=== PATIENT | male | born 1965 | race Caucasian/White ===

== ENCOUNTER → 2020-06-28 09:43 | Outpatient (BNVA) | payer MEDICAID, SELFPAY | PROVIDERS: PCP Internal Medicine; Referring Provider Internal Medicine; Visit Provider Surgery | DX: L02.212 Cutaneous abscess of back [any part, except buttock and flank] (principal) | CPT/HCPCS: 10060; 99213 ==

== ENCOUNTER → 2020-07-04 13:02 | Outpatient (BNVA) | payer MEDICAID, SELFPAY | PROVIDERS: PCP Internal Medicine; Referring Provider Internal Medicine; Visit Provider Surgery | DX: Z48.817 Encounter for surgical aftercare following surgery on the skin and subcutaneous tissue (principal); Z48.01 Encounter for change or removal of surgical wound dressing | CPT/HCPCS: 99212 ==

== ENCOUNTER → 2020-07-11 10:54 | Outpatient (BNVA) | payer MEDICAID, SELFPAY | PROVIDERS: PCP Internal Medicine; Referring Provider Internal Medicine; Visit Provider Internal Medicine Endocrinology, Diabetes & Metabolism | DX: Z13.89 Encounter for screening for other disorder (principal) | CPT/HCPCS: 99214 ==

== ENCOUNTER → 2020-07-12 12:20 | Outpatient (BNVA) | payer MEDICAID, SELFPAY | PROVIDERS: PCP Internal Medicine; Visit Provider Surgery | DX: L72.0 Epidermal cyst (principal); Z98.890 Other specified postprocedural states | CPT/HCPCS: 99213 ==

== ENCOUNTER 2020-07-26 08:34 | Outpatient (REF) | payer MEDICAID, SELFPAY ==
[2020-07-26 09:18] VITALS: BP 134/98; PULSE 105; RESP 16; TEMP 37; O2SAT 98
[2020-07-26 09:19] VITALS: BMI 28.0
[2020-07-26 09:35] VITALS: BP 146/85; PULSE 96; RESP 16; O2SAT 98
--- NOTE | 2020-08-01 17:58 | P.OP_ITS ---
Operative Note Operative Note Narrative: Date of procedure: 07/26/2020 Preoperative diagnosis: Epidermal cyst of back with recurrent infection Postoperative diagnosis: Same Procedure: Excision of epidermal cyst of back Anesthesia: Local 1% lidocaine with epinephrine Specimen: Epidermal cyst of back and surrounding soft tissue Estimated blood loss: 3 cc Immediate complications: none Indications: This is a 54-year-old gentleman who has a prior history of an infected epidermal cyst of the back and has required incision and drainage on multiple occasions. He has continued symptoms of swelling and itching. Excision is planned. He is familiar with the technique and risks of infection, bleeding and scarring. Procedure in detail: With the patient in the prone position, after performing time-out procedure and identifying the site, the area of the cyst and surrounding skin was prepped with Betadine solution and was draped sterilely. Skin and subcutaneous tissues were infiltrated with local anesthetic and an elliptical incision was made surrounding the old scar overlying the cyst. Inc ision was carried into the subcutaneous tissues and the area was widely excised at the level of the deep subcutaneous tissue. There was no significant bleeding from the wound. The wound was closed with interrupted subcutaneous sutures of 4-0 Polysorb and skin was closed with interrupted sutures of 4-0 nylon. A dry sterile dressing was applied. He tolerated the procedure well. He will keep the area dry and covered for 24 hours. He will use acetaminophen as needed for pain and will be seen in the office for wound check and suture removal in about 1 week.
== END 2020-07-26 08:35 | disposition home or self-care (01) ==
LOC: HO.MS 08:34
PROVIDERS: PCP Internal Medicine; Visit Provider Surgery
DX: L72.0 Epidermal cyst (principal); J45.909 Unspecified asthma, uncomplicated; E11.9 Type 2 diabetes mellitus without complications; I10 Essential (primary) hypertension; Z79.4 Long term (current) use of insulin; Z79.899 Other long term (current) drug therapy
CPT/HCPCS: 11403; 12031; 88304

== ENCOUNTER → 2020-08-02 10:01 | Outpatient (BNVA) | payer MEDICAID, SELFPAY | PROVIDERS: PCP Internal Medicine; Referring Provider Internal Medicine; Visit Provider Surgery | DX: Z48.817 Encounter for surgical aftercare following surgery on the skin and subcutaneous tissue (principal) | CPT/HCPCS: 99212 ==

== ENCOUNTER → 2020-08-14 10:39 | Outpatient (BNVA) | payer MEDICAID, SELFPAY | PROVIDERS: PCP Internal Medicine; Visit Provider Surgery | DX: Z09 Encounter for follow-up examination after completed treatment for conditions other than malignant neoplasm (principal); Z87.2 Personal history of diseases of the skin and subcutaneous tissue | CPT/HCPCS: 99212 ==

== ENCOUNTER 2020-08-28 10:33 | Day surgery (SDC) | payer MEDICAID, SELFPAY ==
[2020-08-27 10:55] VITALS: BMI 27.4
[2020-08-28 11:22] VITALS: BP 156/88; PULSE 98; RESP 18; TEMP 36.6; O2SAT 98
--- NOTE | 2020-08-28 11:43 | HO.ANESPROP2 ---
[facility] Past Medical History Medical History (Updated 08/28/20 @ 11:14 by Argenis Portillo RN) Arthritis Asthma Bipolar 1 disorder Diabetes mellitus Diabetes type 2, uncontrolled Diabetic retinopathy associated with type 2 diabetes mellitus GERD (gastroesophageal reflux disease) Hypercholesterolemia 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 Lipoma longterm (current) use of insulin Vitamin D deficiency Family History Family History Father Diabetes mellitus Complete amputation of bilateral legs Mother Diabetes mellitus Surgical History Surgical History (Updated 08/28/20 @ 11:14 by Argenis Portillo RN) Hx of colonoscopy No pertinent past surgical history Social History Social History Smoking Status: Never smoker Second Hand Smoke Exposure: No Use of substances other than those prescribed or required for medical reasons: No Advance Directives: No Advance Directives Information Provided: No Advance Directives on File: No Meds Allergies Allergy/AdvReac Type Severity Reaction Status Date / Time No Known Allergies Allergy Verified 08/28/20 11:15 Home Medications Medication Instructions Recorded Confirmed Type amlodipine 5 mg tablet 5 mg PO DAILY 06/28/20 08/28/20 History aripiprazole 10 mg tablet 10 mg PO DAILY 06/28/20 08/28/20 History aspirin 81 mg tablet,delayed 81 mg PO DAILY 06/28/20 08/28/20 History release atorvastatin 20 mg tablet 20 mg PO DAILY 06/28/20 08/28/20 History bisacodyl 5 mg tablet,delayed 5 mg PO BEDTIME 06/28/20 08/28/20 History release bupropion HCl 300 mg 24 hr tablet, 300 mg PO QAM 06/28/20 08/28/20 History extended release cholecalciferol (vitamin D3) 50 50 mcg PO DAILY 06/28/20 08/28/20 History mcg (2,000 unit) capsule fenofibrate 160 mg tablet 160 mg PO DAILY 06/28/20 08/28/20 History folic acid 1 mg tablet 1 mg PO DAILY 06/28/20 08/28/20 History gabapentin 100 mg capsule 100 mg PO DAILY 06/28/20 08/28/20 History loratadine 10 mg tablet 10 mg PO DAILY 06/28/20 08/28/20 History omega-3 fatty acids 1,000 mg 1,000 mg PO DAILY 06/28/20 08/28/20 History capsule omeprazole 20 mg capsule,delayed 20 mg PO DAILY 06/28/20 08/28/20 History release prazosin 5 mg capsule 5 mg PO BEDTIME 06/28/20 08/28/20 History sertraline 100 mg tablet 100 mg PO DAILY 06/28/20 08/28/20 History Exam Exam Date and Time: August 28, 2020 1143 Height,Weight and Vital Signs: Height 5 ft 6 in Weight 77.111 kg Last Vital Signs Temp 97.8 F 08/28/20 11:22 Pulse 98 08/28/20 11:22 Resp 18 08/28/20 11:22 BP 156/88 H 08/28/20 11:22 Pulse Ox 98 08/28/20 11:22 Airway Mallampati Class: III (POC 170) TM Dist: >3cm Partial: Upper (Partial/ edentulous on bottom) Heart: RRR Lungs: CTA BL Assessment and Plan Assessment Anesthesia Assessment: Anesthesia Plan Discussed and Chart Reviewed Final Anesthetic Review NPO: Yes ASA Class: III Final Preanesthetic Review: Meds/Allgs Chart Reviewed and Consent Obtained/Reviewed Patient Risk: Intermediate Procedure Risk: Intermediate Anesthetic Plan Anesthetic Plan: MAC: Disposition: Standard PACU
[2020-08-28] MEDS: Lactated Ringers 1,000 ML 50 ML IVCONT (11:49)
--- NOTE | 2020-08-28 11:52 | MHC.SHP ---
Pre-Procedural Eval Section B Chief Complaint: SCREENING Details of Present Illness: Colon cancer screening #1 Diabetes, Asthma,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--no new changes. Relevant Family History (Specify if Yes): No Relevant Social History: None Present Medications: see Short Stay Collaborative assessment Medical History: Significant History (see above) History of Previous Operations: No relevant previous surgery Allergies: Allergies Allergy/AdvReac Type Severity Reaction Status Date / Time No Known Allergies Allergy Verified 08/28/20 11:15 Review of Systems Sugical H&P ROS: Negative: Constitution, Hem-Onc and Gastrointestinal and Yes, Specify: Cardiovascular (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), Respiratory (Asthma), Psychiatric (Hx Bipolar) and Endocrine (Diabetes) Exam Surgical H&P Exam: Normal: Heart, Normal: Lungs, Normal: Extremities and Normal: Abdomen and Not Evaluated: HEENT Plan Diagnosis/Plan: Unchanged Patient has been examined and remains a candidate for the planned procedure--YES
[2020-08-28 12:00] LABS: Glucose, Whole Blood 170 mg/dL (60-115)
[2020-08-28 12:30] VITALS: BP 106/65; PULSE 93; RESP 12; TEMP 36.8; O2SAT 97
--- NOTE | 2020-08-28 12:38 | PM.OP ---
Brief Operative Note Date of Service: 08/28/20 Pre-op diagnosis: Colon cancer screening # 1 Post-op diagnosis: other (colon polyps) Procedure: Colonoscopy with excisional polypectomy x2 Implants: N/A Surgeon: Sydney Bonilla MD Anesthesia: MAC (MD Kenn) Estimated blood loss (mL): 5 Pathology: other (Hepatic flexure, fold @ ilececal junction opposing valve.) Condition: stable Disposition: PACU
[2020-08-28 12:39] LABS: Glucose, Whole Blood 194 mg/dL (60-115)
[2020-08-28 12:45] VITALS: BP 138/90; PULSE 90; RESP 16; O2SAT 98
--- NOTE | 2020-08-28 13:13 | HO.POSTANES ---
Post Anesthesia Evaluation Post Anesthesia Evaluation Vital Signs: Vital Signs Temp Pulse Resp BP Pulse Ox 08/28/20 12:45 98.3 F 90 16 138/90 H 98 08/28/20 12:30 98.3 F 93 12 106/65 97 08/28/20 11:22 97.8 F 98 18 156/88 H 98 Anesthesia: Monitored Mental Status: Awake Pain Control: Satisfactory Nausea/Vomiting: None Hydration: Adequate Anesthesia-Related Issues: No Anes. Related Issues
--- NOTE | 2020-08-29 00:51 | OP_ITS ---
SURGEON: Sydney Bonilla MD PREOPERATIVE DIAGNOSIS: The patient is a 54-year-old male, who was referred for colon cancer screening, Dr. Floyd, primary care provider. Note, patient has been diabetic since the year 2000. He has had observed retinopathy under hr representative's care. There was a question on his intake of TBI as far as I could tell reviewing PCI and our [employer] record, he had 2 questionable neuro events, 1 in 2007, the other in 2017. No documented CVA, AVM, or TBI in 2008. EEG was negative. He had been seen by Dr. Bell in 2006. He was seen by Dr. Marmolejo. Most recent CT of the head was in 2019, it was unremarkable. MRI done in 2007 did not show any specific lesion either. (I did not find any documentation of TBI) POSTOPERATIVE DIAGNOSIS: Colonic polyps. PROCEDURE PERFORMED: Colonoscopy with excisional polypectomy x2 (use of cold biopsy forceps) ESTIMATED BLOOD LOSS: For this procedure, less than 5 cc. COMPLICATIONS: No complications. ANESTHESIA: Monitored. ANESTHESIOLOGIST: Dr. Hawk ASSISTANTS: No assistant broker. SPECIMENS: Specimens removed; sessile polyp, hepatic flexure. Second area of polyp, more diminutive between valley of 2 folds and the ileocecal region, removed excisionally. SEED CORE OPERATOR: Dr. Bonilla. CONDITION: Postprocedure, stable. FINDINGS: Digital rectal exam revealed prostate to be unremarkable. Digital rectal exam did reveal slightly decreased sphincter tone. Video colonoscope was introduced without difficulty. It was navigated into mildly prolapsed rectosigmoid area slowly on up through sigmoid, descending, transverse colon to the region of the hepatic flexure where a polyp was visualized. This was removed excisionally with the cold biopsy forceps. Review this area under narrow band imaging did not show any obvious residual tissue. The scope was navigated through the ascending colon into the cecum. Appendiceal orifice was seen. Ileocecal valve was seen. Prep was good. Overall, there was a moderate amount of flushing approximately 400 to 500 mL to facilitate removal of areas of thick retained fluids that were adherent to the mucosa. On withdrawal of the scope, no additional lesions were seen. Anorectal verge was clear. PLAN: Current recommendations for repeat asymptomatic screening in this patient would be 5 years. GRAFT OR IMPLANTS: No grafts or implants. Sydney Bonilla MD MEN/MODL / [id number] TIERRA
== END 2020-08-28 13:20 | disposition home or self-care (01) ==
PROVIDERS: PCP Internal Medicine; Visit Provider Internal Medicine Gastroenterology
PROC: 0DJD8ZZ Inspection of Lower Intestinal Tract, Via Natural or Artificial Opening Endoscopic (ICD-10-PCS; CPT 45378; principal; 2020-08-28 12:30)
DX: Z12.11 Encounter for screening for malignant neoplasm of colon (principal); D12.3 Benign neoplasm of transverse colon; K52.9 Noninfective gastroenteritis and colitis, unspecified; E11.319 Type 2 diabetes mellitus with unspecified diabetic retinopathy without macular edema; Z79.4 Long term (current) use of insulin
CPT/HCPCS: 45380; 82947; 88305

== ENCOUNTER → 2020-09-11 10:22 | Outpatient (BNVA) | payer MEDICAID, SELFPAY | PROVIDERS: PCP Internal Medicine; Visit Provider Physician Assistant | DX: D12.6 Benign neoplasm of colon, unspecified (principal); Z98.890 Other specified postprocedural states | CPT/HCPCS: 99212 ==

== ENCOUNTER → 2020-10-16 10:42 | Outpatient (BNVA) | payer MEDICAID, SELFPAY | PROVIDERS: PCP Internal Medicine; Visit Provider Internal Medicine Endocrinology, Diabetes & Metabolism | DX: E11.65 Type 2 diabetes mellitus with hyperglycemia (principal); E55.9 Vitamin D deficiency, unspecified; Z79.4 Long term (current) use of insulin; E11.3313 Type 2 diabetes mellitus with moderate nonproliferative diabetic retinopathy with macular edema, bilateral; I10 Essential (primary) hypertension; E78.00 Pure hypercholesterolemia, unspecified | CPT/HCPCS: 82947; 99212 ==

== ENCOUNTER 2020-11-05 14:35 | Emergency (ER) | payer MEDICAID, SELFPAY ==
--- NOTE | 2020-11-05 | ECG_ITS ---
Test Reason : CHEST BACK ARM NUMB Blood Pressure : / mmHG Vent. Rate : 099 BPM Atrial Rate : 099 BPM P-R Int : 160 ms QRS Dur : 082 ms QT Int : 348 ms P-R-T Axes : 037 -22 047 degrees QTc Int : 446 ms Normal sinus rhythm Minimal voltage criteria for LVH, may be normal variant Borderline ECG When compared with ECG of 11-NOV-2019 12:42, Criteria for Inferior infarct are no longer Present Referred By: Generic ED Physician Electronically Signed By:Zeyad Garcia
--- NOTE | ~2020-11-05 | XR_ITS ---
EXAMINATION: CHEST 2 VIEWS CLINICAL INFORMATION: CP . COMPARISON: 11/11/2019. TECHNIQUE: PA and lateral views of the chest obtained. FINDINGS: The lungs are well expanded. No focal infiltrate, effusion, edema, or pneumothorax. Cardiac and mediastinal silhouettes are within normal limits for technique. No acute bony abnormality seen XR/XR chest 2V IMPRESSION: No evidence of acute disease
[2020-11-05 16:38] VITALS: BP 174/100; PULSE 103; RESP 18; TEMP 36.7; O2SAT 99; BMI 28.0
[2020-11-05 16:51] LABS: MANUAL DIFF FLAG NO
[2020-11-05 16:53] LABS: Basophils Percent Auto 0.9 % (0-2); Eosinophils Absolute Auto 0.1 X10*3/uL (0.0-0.4); Eosinophils Percent Auto 2.5 % (0-4); Hematocrit 40.5 % (42-52); Hemoglobin 14.1 g/dl (14.0-18.0); Imm Gran Abs Auto 0.01 X10*3/uL (0.00-0.03); Imm Gran Pct Auto 0.3 % (0.0-0.4); Lymphocytes Absolute Auto 1.3 X10*3/uL (1.2-4.9); Lymphocytes Percent Auto 41.9 % (20-40); Mean Corpuscular HGB Conc 34.8 g/dl (31.0-36.0); Mean Corpuscular Hemoglobin 34.3 pg (27.0-33.0); Mean Corpuscular Volume 98.5 fL (80-98); Mean Platelet Volume 9.7 fL (9.4-12.4); Monocytes Absolute Auto 0.5 X10*3/uL (0.1-1.2); Monocytes Percent Auto 15.3 % (2-11); Neutrophils Absolute Auto 1.3 X10*3/uL (2.0-8.3); Neutrophils Percent Auto 39.1 % (45-73); Platelet Count 231 X10*3/uL (160-400); Red Blood Count 4.11 X10*6/uL (4.60-5.80); Red Cell Distribution Width 11.2 % (11.0-16.0); White Blood Count 3.2 X10*3/uL (4.8-10.8)
[2020-11-05 17:15] LABS: Anion Gap 12 (12-20); Blood Urea Nitrogen 10 mg/dL (9-16); Calcium 9.6 mg/dL (8.4-10.2); Carbon Dioxide 27 mmol/L (22-29); Chloride 101 mmol/L (96-108); Creatinine Clr Calc Pharmacy 105.8; Estimated Glomerular Filt Rate > 60; Glucose Random 99 mg/dL (60-115); Potassium 3.9 mmol/L (3.3-5.1); Sodium 136 mmol/L (135-145)
[2020-11-05 17:23] LABS: Troponin-I High Sensitivity 4.5 ng/L (<3.5-35.0)
--- NOTE | 2020-11-05 21:37 | ED.CHESTPAIN ---
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 He states the pain is burning and tingling in character and states he also noticed a rash to part of his shoulder. He denies any fevers or chills but states that he has had headache, dizziness, sweating. He otherwise denies any GI or symptoms. Related Data Home Medications Medication Instructions Recorded Confirmed amlodipine 5 mg tablet 5 mg PO DAILY 06/28/20 10/16/20 aripiprazole 10 mg tablet 10 mg PO DAILY 06/28/20 10/16/20 aspirin 81 mg tablet,delayed 81 mg PO DAILY 06/28/20 10/16/20 release atorvastatin 20 mg tablet 20 mg PO DAILY 06/28/20 10/16/20 bisacodyl 5 mg tablet,delayed 5 mg PO BEDTIME 06/28/20 10/16/20 release bupropion HCl 300 mg 24 hr tablet, 300 mg PO QAM 06/28/20 10/16/20 extended release cholecalciferol (vitamin D3) 50 50 mcg PO DAILY 06/28/20 10/16/20 mcg (2,000 unit) capsule folic acid 1 mg tablet 1 mg PO DAILY 06/28/20 10/16/20 gabapentin 100 mg capsule 100 mg PO DAILY 06/28/20 10/16/20 loratadine 10 mg tablet 10 mg PO DAILY 06/28/20 10/16/20 omega-3 fatty acids 1,000 mg 1,000 mg PO DAILY 06/28/20 10/16/20 capsule omeprazole 20 mg capsule,delayed 20 mg PO DAILY 06/28/20 10/16/20 release prazosin 5 mg capsule 5 mg PO BEDTIME 06/28/20 10/16/20 sertraline 100 mg tablet 100 mg PO DAILY 06/28/20 10/16/20 Previous Rx's Medication Instructions Recorded pen needle, diabetic 32 gauge x #150 ea 06/28/20 dulaglutide 1.5 mg/0.5 mL 1.5 mg SUBCUT QWEEK 30 Days #2.5 ml 07/11/20 subcutaneous pen injector metformin 1,000 mg tablet 1,000 mg PO BID 30 Days #60 tab 07/11/20 lisinopril 20 mg tablet 20 mg PO DAILY 90 Days #90 tab 07/13/20 fenofibrate 160 mg tablet 160 mg PO DAILY 30 Days #30 tab 09/04/20 insulin regular hum U-500 conc 125 unit SUBCUT . Twice a day 30 10/17/20 Days #18 ml valacyclovir 1,000 mg PO Q8H 7 Days #21 tab 11/05/20 Allergies Allergy/AdvReac Type Severity Reaction Status Date / Time No Known Allergies Allergy Verified 08/28/20 11:15 Review of Systems Review of Systems: Pertinent positives and negatives as stated in HPI 10 point review of systems is otherwise negative. 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 Vitamin D deficiency Surgical History Hx of colonoscopy No pertinent past surgical history Family History Family History Father Diabetes mellitus Complete amputation of bilateral legs Mother Diabetes mellitus Social History Social History Household Members: Spouse Smoking Status: Never smoker Second Hand Smoke Exposure: No Advance Directives: No Advance Directives Information Provided: Yes Physical Exam Vital Signs: Vital Signs: Last Vital Signs Temp 98.1 F 11/05/20 16:38 Pulse 101 H 11/05/20 22:06 Resp 16 11/05/20 22:06 BP 151/88 H 11/05/20 22:06 Pulse Ox 97 11/05/20 22:06 Body Mass Index 28.0 VITAL SIGNS: Reviewed. GENERAL: Well developed, well nourished, in no acute distress. HEAD: Normocephalic/atraumatic, EYES: PERRLA, EOMI NOSE: Nares patent bilateral OROPHARYNX: no oral lesions noted, posterior pharynx clear NECK: Supple, no adenopathy LUNGS: Normal breath sounds. SpO2<99> CARDIOVASCULAR: Regular rate and rhythm without noted murmurs, no JVD or lower extremity edema. ABDOMEN: Soft, non-tender, non-distended with bowel sounds. SKIN: Inspection of the skin reveals cluster of vesicular rash to posterior left shoulder which extends along the posterior aspect of the left triceps and noted scabbed over area to anterior aspect of chest. NEUROLOGIC: Alert and oriented x 4. Strength and sensation to light touch were grossly intact x 4. Course Course Course Narrative: This is a 55-year-old male with history and clinical presentation most consistent with herpes zoster, but will rule out cardiopulmonary etiologies. Review of all investigations is negative for any acute findings to suggest cardiopulmonary etiologies for patient's presenting symptoms. Serial high sensitivity troponin is flat at 4.5. All results and findings as well as the plan was discussed with patient at bedside via engineering mathematician. He was discharged to home in stable condition after receiving combination analgesics. MDM - Chest Pain Lab Data Result diagrams: 11/05/20 16:46 11/05/20 16:46 Labs: Lab Results 11/05/20 11/05/20 11/05/20 Range/Units 16:46 16:46 16:46 WBC 3.2 L (4.8-10.8) X10*3/uL RBC 4.11 L (4.60-5.80) X10*6/uL Hgb 14.1 (14.0-18.0) g/dl Hct 40.5 L (42-52) % MCV 98.5 H (80-98) fL MCH 34.3 H (27.0-33.0) pg MCHC 34.8 (31.0-36.0) g/dl RDW 11.2 (11.0-16.0) % Plt Count 231 (160-400) X10*3/uL MPV 9.7 (9.4-12.4) fL Immature Gran % (Auto) 0.3 (0.0-0.4) % Neut % (Auto) 39.1 L (45-73) % Lymph % (Auto) 41.9 H (20-40) % [place] % (Auto) 15.3 H (2-11) % Eos % (Auto) 2.5 (0-4) % Baso % (Auto) 0.9 (0-2) % Lymph # (Auto) 1.3 (1.2-4.9) X10*3/uL [place] # (Auto) 0.5 (0.1-1.2) X10*3/uL Eos # (Auto) 0.1 (0.0-0.4) X10*3/uL Baso # (Auto) 0.0 (0.0-0.2) X10*3/uL Abs Immat Gran (auto) 0.01 (0.00-0.03) X10*3/uL Absolute Neuts (auto) 1.3 L (2.0-8.3) X10*3/uL Absolute Nucleated RBC 0.000 (0.0-0.012) X10*3/uL Nucleated RBC % (auto) 0.0 (0.0-0.2) /100WBC Hold Blue Top SEE NOTE Sodium 136 (135-145) mmol/L Potassium 3.9 (3.3-5.1) mmol/L Chloride 101 (96-108) mmol/L Carbon Dioxide 27 (22-29) mmol/L Anion Gap 12 (12-20) BUN 10 (9-16) mg/dL Creatinine 0.77 (0.5-1.4) mg/dL Estim Creat Clear Calc 105.8 Estimated GFR > 60 Random Glucose 99 (60-115) mg/dL Calcium 9.6 (8.4-10.2) mg/dL Troponin I High Sens (<3.5-35.0) ng/L 11/05/20 11/05/20 Range/Units 16:46 21:31 WBC (4.8-10.8) X10*3/uL RBC (4.60-5.80) X10*6/uL Hgb (14.0-18.0) g/dl Hct (42-52) % MCV (80-98) fL MCH (27.0-33.0) pg MCHC (31.0-36.0) g/dl RDW (11.0-16.0) % Plt Count (160-400) X10*3/uL MPV (9.4-12.4) fL Immature Gran % (Auto) (0.0-0.4) % Neut % (Auto) (45-73) % Lymph % (Auto) (20-40) % [place] % (Auto) (2-11) % Eos % (Auto) (0-4) % Baso % (Auto) (0-2) % Lymph # (Auto) (1.2-4.9) X10*3/uL [place] # (Auto) (0.1-1.2) X10*3/uL Eos # (Auto) (0.0-0.4) X10*3/uL Baso # (Auto) (0.0-0.2) X10*3/uL Abs Immat Gran (auto) (0.00-0.03) X10*3/uL Absolute Neuts (auto) (2.0-8.3) X10*3/uL Absolute Nucleated RBC (0.0-0.012) X10*3/uL Nucleated RBC % (auto) (0.0-0.2) /100WBC Hold Blue Top Sodium (135-145) mmol/L Potassium (3.3-5.1) mmol/L Chloride (96-108) mmol/L Carbon Dioxide (22-29) mmol/L Anion Gap (12-20) BUN (9-16) mg/dL Creatinine (0.5-1.4) mg/dL Estim Creat Clear Calc Estimated GFR Random Glucose (60-115) mg/dL Calcium (8.4-10.2) mg/dL Troponin I High Sens 4.5 4.5 (<3.5-35.0) ng/L ECG Data ECG #1: Attestation: I personally reviewed and interpreted this ECG as follows: Prior ECG tracings: available for review (11/11/2019 no acute changes on comparison.) Interpretation: Normal sinus rhythm, HR-99, no evidence of acute ischemia, [place]/QRS/QTC are within normal limits. Discharge Plan Discharge Clinical Impression: Herpes zoster Qualifiers: Herpes zoster complications: without complications Qualified Code(s): B02.9 - Zoster without complications Patient Disposition: Home, Self-Care Instructions: Shingles (ED) Additional Instructions: 1. Debe continuar tomando vani medicamentos caseros seg?n lo prescrito por vani s?ntomas. 2. Tylenol 1000 mg, por v?a oral, cada 6 horas seg?n sea necesario para controlar el dolor. No exceda los 4000 mg en 24 horas. 3. Ibuprofeno 400 mg, por v?a oral con leche o alimentos, cada 6 horas seg?n sea necesario para un alivio adicional del dolor. Tierra medicamento solo debe usarse si el Tylenol no cubre vani s?ntomas de dolor. 4. Llame a la oficina del [facility] por la ma?hadley para programar latonya tahmina para la reevaluaci?n de esta erupci?n. No dude en volver al servicio de urgencias si desarrolla un empeoramiento megha de vani s?ntomas. Prescriptions: New valacyclovir 1 gram tablet 1,000 mg PO Q8H 7 Days Qty: 21 RF: 0 No Action (DME) pen needle, diabetic [BD Bela 2nd Gen Pen Needle] 32 gauge x 5/32 needle See Rx Instructions .MEDSUPPLY Qty: 150 RF: 4 lisinopril 20 mg tablet 20 mg PO DAILY 90 Days Qty: 90 RF: 1 fenofibrate 160 mg tablet 160 mg PO DAILY 30 Days Qty: 30 RF: 6 Humulin R U-500 (Conc) Kwikpen 500 unit/mL (3 mL) insulin pen 125 unit subcut . Twice a day 30 Days Qty: 18 RF: 6 Trulicity 1.5 mg/0.5 mL pen injector 1.5 mg subcut QWEEK 30 Days Qty: 2.5 RF: 6 metformin 1,000 mg tablet 1,000 mg PO BID 30 Days Qty: 60 RF: 6 omeprazole 20 mg capsule,delayed release(DR/EC) 20 mg PO DAILY RF: 0 aspirin [Adult Low Dose Aspirin] 81 mg tablet,delayed release (DR/EC) 81 mg PO DAILY RF: 0 Hold Instructions: Resume on 09/03/20. no ASA or Nsaids, for a week. cholecalciferol (vitamin D3) 50 mcg (2,000 unit) capsule 50 mcg PO DAILY RF: 0 prazosin 5 mg capsule 5 mg PO BEDTIME RF: 0 omega-3 fatty acids [Fish Oil Concentrate] 1,000 mg capsule 1,000 mg PO DAILY RF: 0 Hold Instructions: Resume on 09/03/20. NO asa, Nsaids or omega 3 supplements for 1 week sertraline 100 mg tablet 100 mg PO DAILY RF: 0 aripiprazole 10 mg tablet 10 mg PO DAILY RF: 0 bupropion HCl [Wellbutrin XL] 300 mg tablet extended release 24 hr 300 mg PO QAM RF: 0 loratadine [Claritin] 10 mg tablet 10 mg PO DAILY RF: 0 amlodipine 5 mg tablet 5 mg PO DAILY RF: 0 gabapentin 100 mg capsule 100 mg PO DAILY RF: 0 atorvastatin [Lipitor] 20 mg tablet 20 mg PO DAILY RF: 0 folic acid 1 mg tablet 1 mg PO DAILY RF: 0 bisacodyl [Dulcolax (bisacodyl)] 5 mg tablet,delayed release (DR/EC) 5 mg PO BEDTIME RF: 0 Referrals: [facility] [Outside] - 2 days (Please re-evaluate this patient who is discharged with treatment for herpes zoster (shingles) and is diabetic and is seen in your clinic.) Print Language: [place]
[2020-11-05 22:04] LABS: Troponin-I High Sensitivity 4.5 ng/L (<3.5-35.0)
[2020-11-05 22:06] VITALS: BP 151/88; PULSE 101; RESP 16; O2SAT 97
[2020-11-05] MEDS: Acetaminophen 325 MG TABLET 975 MG PO (22:28)
[2020-11-05] MEDS: Ketorolac Tromethamine 15 MG/ML VIAL IM (22:28)
== END 2020-11-05 22:38 | disposition home or self-care (01) ==
PROVIDERS: Emergency Provider Student in an Organized Health Care Education/Training Program
DX: B02.9 Zoster without complications (principal); E11.9 Type 2 diabetes mellitus without complications; I10 Essential (primary) hypertension; Z79.4 Long term (current) use of insulin
CPT/HCPCS: 36415; 71046; 80048; 84484; 85025; 93005; 96372; 99284; J1885

== ENCOUNTER → 2021-01-15 10:47 | Outpatient (BNVA) | payer MEDICAID, SELFPAY | PROVIDERS: PCP Internal Medicine; Visit Provider Internal Medicine Endocrinology, Diabetes & Metabolism | DX: E11.65 Type 2 diabetes mellitus with hyperglycemia (principal); E11.3313 Type 2 diabetes mellitus with moderate nonproliferative diabetic retinopathy with macular edema, bilateral; E11.42 Type 2 diabetes mellitus with diabetic polyneuropathy; Z79.4 Long term (current) use of insulin; E55.9 Vitamin D deficiency, unspecified; I10 Essential (primary) hypertension; E78.00 Pure hypercholesterolemia, unspecified | CPT/HCPCS: 82947; 99212 ==

== ENCOUNTER 2021-05-03 17:46 | Emergency (ER) | payer MEDICAID, SELFPAY ==
--- NOTE | ~2021-05-03 | XR_ITS ---
EXAMINATION: XR CHEST CLINICAL INFORMATION: Weakness and fever COMPARISON: None TECHNIQUE: Frontal view of the chest was obtained. FINDINGS: The lungs are well-expanded with patchy linear density in the right middle lobe suspicious for atelectasis/ infiltrate. Rest of lungs are clear. The heart size and pulmonary vascularity is normal. There is moderate dextroscoliosis dorsal spine. No lytic process. XR/XR chest 1V IMPRESSION: Patchy linear density right middle lobe likely atelectasis and/or small infiltrate.
--- NOTE | ~2021-05-03 | CT_ITS ---
EXAMINATION: CT ABDOMEN AND PELVIS WITH CONTRAST CLINICAL INFORMATION: Right lower quadrant pain COMPARISON: CT scan abdomen pelvis November 11, 2019 TECHNIQUE: Multidetector volumetric images were obtained from the superior aspect of the liver through the pubic symphysis following administration 85 mL of Omnipaque 350 intravenous contrast. Sagittal and coronal reformatted images were obtained on the technologist's workstation. Oral contrast: No This CT examination was performed using dose optimization techniques as appropriate, variously including the following: *Automated exposure control *Adjustment of mA and/or kV according to patient size (this includes techniques or standardized protocols for targeted exams where dose is matched to indication/reason for exam; i.e. extremities or head) *Use of iterative reconstruction technique DLP: 620 mGy-cm FINDINGS: LUNG BASES: The visualized lung bases are unremarkable. LIVER, GALLBLADDER, AND BILIARY TREE: Stable low attenuating lesion segment 4 left lobe of liver measuring 1 cm unchanged since CAT scan December 01, 2007. No suspicious liver lesions. No intrahepatic bile duct dilatation. The gallbladder is unremarkable with no evidence of radiopaque gallstones, gallbladder wall thickening, or obvious pericholecystic inflammatory changes. PANCREAS: Unremarkable. SPLEEN: Unremarkable. ADRENAL GLANDS: Unremarkable. KIDNEYS AND URETERS: The kidneys are normal in size, shape, and attenuation. No hydronephrosis, hydroureter, or calculi seen. No perinephric stranding. BLADDER: Unremarkable. GASTROINTESTINAL TRACT: There are scattered diverticula of the colon. There is no diverticulitis. There is no bowel wall thickening /edema. There is no bowel obstruction. There is a moderate volume of stool in the colon. The appendix is normal . The small bowel loops are unremarkable. The stomach is normal. There is no hiatal hernia. ABDOMINAL WALL: Small fat-containing umbilical hernia. LYMPH NODES: Normal. VASCULAR: Unremarkable. PELVIC VISCERA: Unremarkable. OSSEOUS STRUCTURES: Unremarkable. CT/CT abdomen pelvis w con IMPRESSION: No acute abnormality CT scan abdomen pelvis.
[2021-05-03 17:55] VITALS: BP 139/82; PULSE 112; RESP 18; TEMP 37.2; O2SAT 95; BMI 28.4
[2021-05-03 17:59] VITALS: O2SAT 95
--- NOTE | 2021-05-03 18:03 | PC.NURSE ---
PT TO ROOM, C/O SUGAR IN URINE FROM MD'S OFFICE. PT CHG INTO GOWN. PT ARRIVES ALERT, RESPIRATIONS EASY, N/L. SKIN W/D. PT C/O NAUSEA/VOMITING AND BODYACHES AT THIS TIME. PT ON MONITOR WITH HR 112, PA AT BEDSIDE WITH PT.
--- NOTE | 2021-05-03 18:04 | PC.NURSE ---
iv inserted, labs drawn and pt medicated as per emar.
--- NOTE | 2021-05-03 18:04 | ECG_ITS ---
Test Reason : TACHYCARDIA Blood Pressure : / mmHG Vent. Rate : 105 BPM Atrial Rate : 105 BPM P-R Int : 170 ms QRS Dur : 086 ms QT Int : 340 ms P-R-T Axes : 041 -16 041 degrees QTc Int : 449 ms Sinus tachycardia Minimal voltage criteria for LVH, may be normal variant Borderline ECG When compared with ECG of 05-NOV-2020 16:40, No significant change was found Referred By: Krissy Woodall Electronically Signed By:GISELA JOLLEY
--- NOTE | 2021-05-03 18:27 | ED_ITS ---
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 No fevers, urinary symptoms, chest pain or shortness of breath. <Krissy Woodall NP - Last Filed: 05/03/21 21:27> Related Data Home medications: Home Medications Medication Instructions Recorded Confirmed amlodipine 5 mg tablet 5 mg PO DAILY 06/28/20 01/15/21 aripiprazole 10 mg tablet 10 mg PO DAILY 06/28/20 01/15/21 aspirin 81 mg tablet,delayed 81 mg PO DAILY 06/28/20 01/15/21 release (Adult Low Dose Aspirin) bisacodyl 5 mg tablet,delayed 5 mg PO BEDTIME 06/28/20 01/15/21 release (Dulcolax (bisacodyl)) bupropion HCl 300 mg 24 hr tablet, 300 mg PO QAM 06/28/20 01/15/21 extended release (Wellbutrin XL) folic acid 1 mg tablet 1 mg PO DAILY 06/28/20 01/15/21 gabapentin 100 mg capsule 100 mg PO DAILY 06/28/20 01/15/21 loratadine 10 mg tablet (Claritin) 10 mg PO DAILY 06/28/20 01/15/21 omega-3 fatty acids 1,000 mg 1,000 mg PO DAILY 06/28/20 01/15/21 capsule (Fish Oil Concentrate) omeprazole 20 mg capsule,delayed 20 mg PO DAILY 06/28/20 01/15/21 release prazosin 5 mg capsule 5 mg PO BEDTIME 06/28/20 01/15/21 sertraline 100 mg tablet 100 mg PO DAILY 06/28/20 01/15/21 Previous Rx's Medication Instructions Recorded valacyclovir 1 gram tablet 1,000 mg PO Q8H 7 Days #21 tab 11/05/20 lisinopril 20 mg tablet 20 mg PO DAILY 90 Days #90 tab 12/26/20 atorvastatin 20 mg tablet (Lipitor) 20 mg PO DAILY 30 Days #30 tab 01/15/21 cholecalciferol (vitamin D3) 50 50 mcg PO DAILY 30 Days #30 cap 01/15/21 mcg (2,000 unit) capsule dulaglutide 3 mg/0.5 mL 3 mg SUBCUT QWEEK 30 Days #2.5 ml 01/15/21 subcutaneous pen injector (Trulicity) insulin regular hum U-500 conc See Rx Instructions SUBCUT . 01/15/21 (Humulin R U-500 (Conc) Insulin Twice a day 30 Days #18 ml Kwikpen) metformin 1,000 mg tablet 1,000 mg PO BID 30 Days #60 tab 01/15/21 pen needle, diabetic 32 gauge x #100 ea 01/15/21/32 (BD Bela 2nd Gen Pen Needle) fenofibrate 160 mg tablet 160 mg PO DAILY 30 Days #30 tab 03/28/21 azithromycin 250 mg tablet See Rx Instructions .ROUTE 05/03/21 .COMPLEX #6 tab cefpodoxime 200 mg tablet 200 mg PO BID 7 Days #14 tab 05/03/21 <Krissy Woodall NP - Last Filed: 05/03/21 21:27> Allergies/adverse reactions: Allergies Allergy/AdvReac Type Severity Reaction Status Date / Time No Known Allergies Allergy Verified 08/28/20 11:15 <Krissy Woodall NP - Last Filed: 05/03/21 21:27> Review of Systems Review of Systems: Yes all other systems are reviewed and are negative <Krissy Woodall NP - Last Filed: 05/03/21 21:27> Constitutional: Constitutional: Reports no additional constitutional complaints, Reports body ache(s), Reports chills, Denies fever(s), Denies headache(s) and Denies weakness <Krissy Woodall NP - Last Filed: 05/03/21 21:27> Eyes: Eyes: Reports no additional eye complaints and Denies change in vision <Krissy Woodall NP - Last Filed: 05/03/21:27> ENT: Reports system reviewed and no additional complaints, except as documented, Denies dizziness, Denies headache(s), Denies nasal congestion, Denies nasal discharge and Denies neck pain <Krissy Woodall [employer]YEGL[employer] FRAME [employer]UER - Last Filed: 05/03/21 21:27> Cardiovascular: Cardiovascular: Reports no additional cardiovascular complaints, Denies chest pain, Denies leg edema and Denies dyspnea <Krissy Woodall NP - Last Filed: 05/03/21:27> Respiratory: Respiratory: Reports no additional respiratory complaints, Denies cough and Denies dyspnea <Krissy Woodall EYE[employer] FRAME [employer]ER - Last Filed: 05/03/21:27> Gastrointestinal: Gastrointestinal: Reports no additional gastrointestinal complaints, Reports abdominal pain, Denies diarrhea, Reports nausea and Reports vomiting <Krissy Woodall NP - Last Filed: 05/03/21:27> Genitourinary: Genitourinary: Denies urinary incontinence <Krissy Woodall NP - Last Filed: 05/03/21 21:27> Musculoskeletal: Musculoskeletal: Reports no additional musculoskeletal complaints, Denies back pain, Denies arthralgias, Denies joint swelling, Denies neck pain, Denies numbness and Denies tingling <Krissy Woodall NP - Last Filed: 05/03/21:27> Integumentary/Breasts: Skin/Breast: Reports system reviewed and no additional complaints, except as docu and Denies rash <Krissy Woodall EYE[employer] FRAME TRUER - Last Filed: 05/03/21 21:27> Neurologic: Reports system reviewed and no additional complaints, except as documented, Denies Abnormal speech present, Denies dizziness, Denies headache(s), Denies numbness, Denies tingling and Denies weakness <Krissy Woodall NP - Last Filed: 05/03/21 21:27> [facility] Past Medical History Attestation statement: The following information was validated with the patient. <Krissy Woodall NP - Last Filed: 05/03/21 21:27> Source: old records reviewed and nursing notes reviewed <Krissy Woodall NP - Last Filed: 05/03/21 21:27> Medical History: Medical History Arthritis Asthma Bipolar 1 disorder Diabetes mellitus Diabetes type 2, uncontrolled Diabetic polyneuropathy associated with type 2 diabetes mellitus Diabetic retinopathy associated with type 2 diabetes mellitus GERD (gastroesophageal reflux disease) Hypercholesterolemia 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 Lipoma FDC (current) use of insulin Vitamin D deficiency <Krissy Woodall NP - Last Filed: 05/03/21 21:27> Surgical History: Surgical History Hx of colonoscopy No pertinent past surgical history <Krissy Woodall NP - Last Filed: 05/03/21 21:27> Family History Family History: Family History Father Diabetes mellitus Complete amputation of bilateral legs Mother Diabetes mellitus <Krissy Woodall NP - Last Filed: 05/03/21 21:27> Social History Social History: Social History Household Members: Spouse Alcohol intake: never Second Hand Smoke Exposure: No Advance Directives: No Advance Directives Information Provided: Yes <Krissy Woodall NP - Last Filed: 05/03/21 21:27> Physical Exam Vital Signs: Vital Signs: Last Vital Signs Temp 98.9 F 05/03/21 17:55 Pulse 112 H 05/03/21 17:55 Resp 18 05/03/21 17:55 BP 139/82 05/03/21 17:55 Pulse Ox 95 05/03/21 17:55 Body Mass Index 28.4 <Krissy Woodall NP - Last Filed: 05/03/21 21:27> Vital Signs: Last Vital Signs Temp 98.9 F 05/03/21 17:55 Pulse 112 H 05/03/21 17:55 Resp 18 05/03/21 17:55 BP 139/82 05/03/21 17:55 Pulse Ox 95 05/03/21 17:55 Body Mass Index 28.4 <Lala Morgan PA - Last Filed: 05/03/21 23:26> Const: General: cooperative, healthy appearing, comfortable and no acute distress <Krissy Woodall NP - Last Filed: 05/03/21 21:27> Orientation/consciousness: patient oriented x3 <Krissy Woodall NP - Last Filed: 05/03/21 21:27> Limitations: no limitations <Krissy Woodall NP - Last Filed: 05/03/21 21:27> HENMT: Head: Yes normal to inspection <Krissy Woodall NP - Last Filed: 05/03/21 21:27> Ears: hearing grossly normal bilaterally <Krissy Woodall NP - Last Filed: 05/03/21 21:27> General nose exam: Normal external nose present <Krissy Woodall NP - Last Filed: 05/03/21 21:27> Face and sinus: Yes normal facial exam <Krissy Woodall NP - Last Filed: 05/03/21 21:27> Mouth: Normal oral and palatal mucosa present <Krissy Woodall NP - Last Filed: 05/03/21 21:27> Throat: Yes posterior oropharynx normal <Krissy Woodall NP - Last Filed: 05/03/21 21:27> Eyes: General: appearance normal, both eyes and all related structures <Krissy Woodall NP - Last Filed: 05/03/21 21:27> Pupils: Equal, round and reactive pupils present <Krissy Woodall NP - Last Filed: 05/03/21 21:27> Neck: Neck: Yes normal visual inspection <Krissy Woodall NP - Last Filed: 05/03/21 21:27> Chest: Chest palpation & inspection: normal inspection of the chest <AFTAB Smith Last Filed: 05/03/21 21:27> Resp: Effort & Inspection: normal respiratory effort <Krissy Woodall NP - Last Filed: 05/03/21 21:27> Auscultation: clear to auscultation bilaterally <Krissy Woodall NP - Last Filed: 05/03/21 21:27> Cardio: Rate: tachycardic <Krissy Woodall NP - Last Filed: 05/03/21 21:27> Rhythm: regular rhythm <Krissy Woodall NP - Last Filed: 05/03/21 21:27> Peripheral pulses: Peripheral pulses 2+ throughout <AFTAB Joe st Filed: 05/03/21 21:27> GI: Inspection: Yes normal to inspection <AFTAB Joe Last Filed: 05/03/21 21:27> Palpation (GI): Soft to palpation and Tenderness to palpation present (GI) (Right abdomen, no rebound or guarding ) <Krissy Woodall NP - Last Filed: 05/03/21 21:27> Auscultation: normal bowel sounds <Krissy Woodall NP - Last Filed: 05/03/21 21:27> Back/Spine/Pelvis: Thoracic/Lumbar Spine: thoracic and lumbar spine normal to inspection <Krissy Woodall NP - Last Filed: 05/03/21 21:27> Skin: General skin exam: no rashes or lesions noted <Krissy Woodall NP - Last Filed: 05/03/21 21:27> Neuro: General: patient oriented x3, no focal motor deficits and normal se nsation to monofilament <Krissy Woodall NP - Last Filed: 05/03/21 21:27> Cranial nerves: Yes Equal, round and reactive pupils present <Krissy Woodall NP - Last Filed: 05/03/21 21:27> Cognition (Neuro): normal cognition <AFTAB Joe Last Filed: 05/03/21 21:27> Speech: No Abnormal speech present <Krissy Woodall NP - Last Filed: 05/03/21 21:27> Gait exam (Neuro): Normal gait present <Krissy Woodall NP - Last Filed: 05/03/21 21:27> Motor exam (neuro): 5/5 motor strength present throughout <Krissy Woodall NP - Last Filed: 05/03/21 21:27> Extrem: General: Yes normal to inspection, Yes no pedal edema and Yes no calf tenderness <Krissy Woodall NP - Last Filed: 05/03/21 21:27> Course Course Course Narrative: 55-year-old male here with complaints of nausea, vomiting, body aches, chills and right-sided abdominal pain for 2-3 days. Patient was seen at the doctor's office today and was noted to have some glucose in his urine and he was sent in for further evaluation. Per EMS his POC was 256. He tells me he is an insulin-dependent diabetic and has been compliant. On exam he overall is well appearing. He does have some mild tachycardia but is afebrile. He has some tenderness on the right side of the abdomen but no rebound or guarding. Will need labs including acetone in VBG, UA, COVID screen, chest x-ray, EKG and CT. 1837-CXR c/w with PNA. At this time infections is suspected. antibiotics ordered. 2124-Sign out to Lala Freitas pending above. <Krissy Woodall NP - Last Filed: 05/03/21 21:27> Reevaluation(s) Reevaluation #1: CT abdomen pelvis w con IMPRESSION: No acute abnormality CT scan abdomen pelvis.? >> results discussed with patient and family at bedside. Will treat for pneumonia. Worrisome signs and symptoms and strict return precautions discussed <LYN Nobles - Last Filed: 05/03/21 23:26> Time: 23:18 <LYN Nobles - Last Filed: 05/03/21 23:26> Medical Decision Making MDM Narrative Medical decision making narrative: Viral syndrome COVID-19 UTI Appendicitis Gastroenteritis <Krissy Woodall NP - Last Filed: 05/03/21 21:27> Medical Records Medical records reviewed: Yes I reviewed the patient's medical records. <Krissy Woodall NP - Last Filed: 05/03/21 21:27> Lab Data Lab results reviewed: Yes I reviewed the patient's lab results. <Krissy Woodall NP - Last Filed: 05/03/21 21:27> Result diagrams: : 05/03/21 19:03 05/03/21 20:32 <Krissy Woodall NP - Last Filed: 05/03/21 21:27> Labs: Lab Results 05/03/21 05/03/21 05/03/21 Range/Units 18:29 19:02 19:03 WBC 5.8 (4.8-10.8) X10*3/uL RBC 4.33 L (4.60-5.80) X10*6/uL Hgb 13.9 L (14.0-18.0) g/dl Hct 41.5 L (42-52) % MCV 95.8 (80-98) fL MCH 32.1 (27.0-33.0) pg MCHC 33.5 (31.0-36.0) g/dl RDW 12.4 (11.0-16.0) % Plt Count 274 (160-400) X10*3/uL MPV 10.0 (9.4-12.4) fL Immature Gran % (Auto) 0.3 (0.0-0.4) % Neut % (Auto) 41.7 L (45-73) % Lymph % (Auto) 46.7 H (20-40) % [place] % (Auto) 8.6 (2-11) % Eos % (Auto) 2.2 (0-4) % Baso % (Auto) 0.5 (0-2) % Lymph # (Auto) 2.7 (1.2-4.9) X10*3/uL [place] # (Auto) 0.5 (0.1-1.2) X10*3/uL Eos # (Auto) 0.1 (0.0-0.4) X10*3/uL Baso # (Auto) 0.0 (0.0-0.2) X10*3/uL Abs Immat Gran (auto) 0.02 (0.00-0.03) X10*3/uL Absolute Neuts (auto) 2.4 (2.0-8.3) X10*3/uL Absolute Nucleated RBC 0.000 (0.0-0.012) X10*3/uL Nucleated RBC % (auto) 0.0 (0.0-0.2) /100WBC VBG pH (7.32-7.43) VBG pCO2 mmHg VBG pO2 mmHg VBG HCO3 (22-26) mmol/L VBG O2 Saturation % VBG Base Excess mmol/L Sodium (135-145) mmol/L Potassium (3.3-5.1) mmol/L Chloride (96-108) mmol/L Carbon Dioxide (22-29) mmol/L Anion Gap (12-20) BUN (9-16) mg/dL Creatinine (0.5-1.4) mg/dL Estim Creat Clear Calc Estimated GFR Random Glucose (60-115) mg/dL Lactic Acid (0.5-2.0) mmol/L Calcium (8.4-10.2) mg/dL Magnesium (1.6-2.6) mg/dL Total Bilirubin (0.0-1.0) mg/dL Direct Bilirubin (0.0-0.5) mg/dL AST (5-37) U/L ALT (0-40) U/L Alkaline Phosphatase (39-117) U/L Troponin I High Sens (<3.5-35.0) ng/L Total Protein (6.5-8.0) g/dL Albumin (3.5-5.0) g/dL Lipase (8-78) U/L Urine Color Urine Appearance Urine pH (5.0-8.0) Ur Specific [place] (1.005-1.025) Urine Protein (NEG-TRACE) MG/DL Urine Glucose (UA) (NEG) MG/DL Urine Ketones (NEG) MG/DL Urine Blood (NEG) Urine Nitrite (NEG) Ur Leukocyte Esterase (NEG) Urine RBC (0) /HPF Urine WBC (0-4) /HPF Ur Squamous Epith Cells /LPF Amorphous Sediment /LPF Urine Bacteria /LPF Hyaline Casts /LPF Urine Mucus /LPF Acetone, Qual Cancelled COVID-19 (NAEL) Negative (Negative) COVID-19 Clin Com See Note 0805/03/21 05/03/21 Range/Units 19:03 19:04 19:06 WBC (4.8-10.8) X10*3/uL RBC (4.60-5.80) X10*6/uL Hgb (14.0-18.0) g/dl Hct (42-52) % MCV (80-98) fL MCH (27.0-33.0) pg MCHC (31.0-36.0) g/dl RDW (11.0-16.0) % Plt Count (160-400) X10*3/uL MPV (9.4-12.4) fL Immature Gran % (Auto) (0.0-0.4) % Neut % (Auto) (45-73) % Lymph % (Auto) (20-40) % [place] % (Auto) (2-11) % Eos % (Auto) (0-4) % Baso % (Auto) (0-2) % Lymph # (Auto) (1.2-4.9) X10*3/uL [place] # (Auto) (0.1-1.2) X10*3/uL Eos # (Auto) (0.0-0.4) X10*3/uL Baso # (Auto) (0.0-0.2) X10*3/uL Abs Immat Gran (auto) (0.00-0.03) X10*3/uL Absolute Neuts (auto) (2.0-8.3) X10*3/uL Absolute Nucleated RBC (0.0-0.012) X10*3/uL Nucleated RBC % (auto) (0.0-0.2) /100WBC VBG pH 7.44 H (7.32-7.43) VBG pCO2 35 mmHg VBG pO2 96 mmHg VBG HCO3 24 (22-26) mmol/L VBG O2 Saturation 97.0 % VBG Base Excess 1.0 mmol/L Sodium (135-145) mmol/L Potassium (3.3-5.1) mmol/L Chloride (96-108) mmol/L Carbon Dioxide (22-29) mmol/L Anion Gap (12-20) BUN (9-16) mg/dL Creatinine (0.5-1.4) mg/dL Estim Creat Clear Calc Estimated GFR Random Glucose (60-115) mg/dL Lactic Acid 1.1 (0.5-2.0) mmol/L Calcium (8.4-10.2) mg/dL Magnesium (1.6-2.6) mg/dL Total Bilirubin (0.0-1.0) mg/dL Direct Bilirubin (0.0-0.5) mg/dL AST (5-37) U/L ALT (0-40) U/L Alkaline Phosphatase (39-117) U/L Troponin I High Sens < 3.5 (<3.5-35.0) ng/L Total Protein (6.5-8.0) g/dL Albumin (3.5-5.0) g/dL Lipase (8-78) U/L Urine Color Urine Appearance Urine pH (5.0-8.0) Ur Specific [place] (1.005-1.025) Urine Protein (NEG-TRACE) MG/DL Urine Glucose (UA) (NEG) MG/DL Urine Ketones (NEG) MG/DL Urine Blood (NEG) Urine Nitrite (NEG) Ur Leukocyte Esterase (NEG) Urine RBC (0) /HPF Urine WBC (0-4) /HPF Ur Squamous Epith Cells /LPF Amorphous Sediment /LPF Urine Bacteria /LPF Hyaline Casts /LPF Urine Mucus /LPF Acetone, Qual COVID-19 (NAEL) (Negative) COVID-19 Clin Com 05/03/21 05/03/21 Range/Units 20:32 21:25 WBC (4.8-10.8) X10*3/uL RBC (4.60-5.80) X10*6/uL Hgb (14.0-18.0) g/dl Hct (42-52) % MCV (80-98) fL MCH (27.0-33.0) pg MCHC (31.0-36.0) g/dl RDW (11.0-16.0) % Plt Count (160-400) X10*3/uL MPV (9.4-12.4) fL Immature Gran % (Auto) (0.0-0.4) % Neut % (Auto) (45-73) % Lymph % (Auto) (20-40) % [place] % (Auto) (2-11) % Eos % (Auto) (0-4) % Baso % (Auto) (0-2) % Lymph # (Auto) (1.2-4.9) X10*3/uL [place] # (Auto) (0.1-1.2) X10*3/uL Eos # (Auto) (0.0-0.4) X10*3/uL Baso # (Auto) (0.0-0.2) X10*3/uL Abs Immat Gran (auto) (0.00-0.03) X10*3/uL Absolute Neuts (auto) (2.0-8.3) X10*3/uL Absolute Nucleated RBC (0.0-0.012) X10*3/uL Nucleated RBC % (auto) (0.0-0.2) /100WBC VBG pH (7.32-7.43) VBG pCO2 mmHg VBG pO2 mmHg VBG HCO3 (22-26) mmol/L VBG O2 Saturation % VBG Base Excess mmol/L Sodium 137 (135-145) mmol/L Potassium 4.7 D (3.3-5.1) mmol/L Chloride 104 (96-108) mmol/L Carbon Dioxide 23 (22-29) mmol/L Anion Gap 15 (12-20) BUN 20 H D (9-16) mg/dL Creatinine 1.14 (0.5-1.4) mg/dL Estim Creat Clear Calc 71.9 Estimated GFR > 60 Random Glucose 224 H D (60-115) mg/dL Lactic Acid (0.5-2.0) mmol/L Calcium 9.1 (8.4-10.2) mg/dL Magnesium 1.7 (1.6-2.6) mg/dL Total Bilirubin 0.7 (0.0-1.0) mg/dL Direct Bilirubin 0.2 (0.0-0.5) mg/dL AST 23 (5-37) U/L ALT 36 (0-40) U/L Alkaline Phosphatase 68 (39-117) U/L Troponin I High Sens (<3.5-35.0) ng/L Total Protein 6.5 (6.5-8.0) g/dL Albumin 3.9 (3.5-5.0) g/dL Lipase 21 (8-78) U/L Urine Color DARK YELLOW Urine Appearance CLEAR Urine pH 5.5 (5.0-8.0) Ur Specific [place] >= 1.030 H (1.005-1.025) Urine Protein TRACE (NEG-TRACE) MG/DL Urine Glucose (UA) >=1000 H (NEG) MG/DL Urine Ketones 40 (NEG) MG/DL Urine Blood NEG (NEG) Urine Nitrite NEG (NEG) Ur Leukocyte Esterase NEG (NEG) Urine RBC 0-2 (0) /HPF Urine WBC 0-2 (0-4) /HPF Ur Squamous Epith Cells TRACE /LPF Amorphous Sediment TRACE /LPF Urine Bacteria NONE /LPF Hyaline Casts 0-2 /LPF Urine Mucus 2+ /LPF Acetone, Qual Negative COVID-19 (NAEL) (Negative) COVID-19 Clin Com <Krissy Woodall NP - Last Filed: 05/03/21 21:27> Lab Results 05/03/21 05/03/21 05/03/21 Range/Units 18:29 19:02 19:03 WBC 5.8 (4.8-10.8) X10*3/uL RBC 4.33 L (4.60-5.80) X10*6/uL Hgb 13.9 L (14.0-18.0) g/dl Hct 41.5 L (42-52) % MCV 95.8 (80-98) fL MCH 32.1 (27.0-33.0) pg MCHC 33.5 (31.0-36.0) g/dl RDW 12.4 (11.0-16.0) % Plt Count 274 (160-400) X10*3/uL MPV 10.0 (9.4-12.4) fL Immature Gran % (Auto) 0.3 (0.0-0.4) % Neut % (Auto) 41.7 L (45-73) % Lymph % (Auto) 46.7 H (20-40) % [place] % (Auto) 8.6 (2-11) % Eos % (Auto) 2.2 (0-4) % Baso % (Auto) 0.5 (0-2) % Lymph # (Auto) 2.7 (1.2-4.9) X10*3/uL [place] # (Auto) 0.5 (0.1-1.2) X10*3/uL Eos # (Auto) 0.1 (0.0-0.4) X10*3/uL Baso # (Auto) 0.0 (0.0-0.2) X10*3/uL Abs Immat Gran (auto) 0.02 (0.00-0.03) X10*3/uL Absolute Neuts (auto) 2.4 (2.0-8.3) X10*3/uL Absolute Nucleated RBC 0.000 (0.0-0.012) X10*3/uL Nucleated RBC % (auto) 0.0 (0.0-0.2) /100WBC VBG pH (7.32-7.43) VBG pCO2 mmHg VBG pO2 mmHg VBG HCO3 (22-26) mmol/L VBG O2 Saturation % VBG Base Excess mmol/L Sodium (135-145) mmol/L Potassium (3.3-5.1) mmol/L Chloride (96-108) mmol/L Carbon Dioxide (22-29) mmol/L Anion Gap (12-20) BUN (9-16) mg/dL Creatinine (0.5-1.4) mg/dL Estim Creat Clear Calc Estimated GFR Random Glucose (60-115) mg/dL Lactic Acid (0.5-2.0) mmol/L Calcium (8.4-10.2) mg/dL Magnesium (1.6-2.6) mg/dL Total Bilirubin (0.0-1.0) mg/dL Direct Bilirubin (0.0-0.5) mg/dL AST (5-37) U/L ALT (0-40) U/L Alkaline Phosphatase (39-117) U/L Troponin I High Sens (<3.5-35.0) ng/L Total Protein (6.5-8.0) g/dL Albumin (3.5-5.0) g/dL Lipase (8-78) U/L Urine Color Urine Appearance Urine pH (5.0-8.0) Ur Specific [place] (1.005-1.025) Urine Protein (NEG-TRACE) MG/DL Urine Glucose (UA) (NEG) MG/DL Urine Ketones (NEG) MG/DL Urine Blood (NEG) Urine Nitrite (NEG) Ur Leukocyte Esterase (NEG) Urine RBC (0) /HPF Urine WBC (0-4) /HPF Ur Squamous Epith Cells /LPF Amorphous Sediment /LPF Urine Bacteria /LPF Hyaline Casts /LPF Urine Mucus /LPF Acetone, Qual Cancelled COVID-19 (NAEL) Negative (Negative) COVID-19 Clin Com See Note 05/03/21 05/03/21 05/03/21 Range/Units 19:03 19:04 19:06 WBC (4.8-10.8) X10*3/uL RBC (4.60-5.80) X10*6/uL Hgb (14.0-18.0) g/dl Hct (42-52) % MCV (80-98) fL MCH (27.0-33.0) pg MCHC (31.0-36.0) g/dl RDW (11.0-16.0) % Plt Count (160-400) X10*3/uL MPV (9.4-12.4) fL Immature Gran % (Auto) (0.0-0.4) % Neut % (Auto) (45-73) % Lymph % (Auto) (20-40) % [place] % (Auto) (2-11) % Eos % (Auto) (0-4) % Baso % (Auto) (0-2) % Lymph # (Auto) (1.2-4.9) X10*3/uL [place] # (Auto) (0.1-1.2) X10*3/uL Eos # (Auto) (0.0-0.4) X10*3/uL Baso # (Auto) (0.0-0.2) X10*3/uL Abs Immat Gran (auto) (0.00-0.03) X10*3/uL Absolute Neuts (auto) (2.0-8.3) X10*3/uL Absolute Nucleated RBC (0.0-0.012) X10*3/uL Nucleated RBC % (auto) (0.0-0.2) /100WBC VBG pH 7.44 H (7.32-7.43) VBG pCO2 35 mmHg VBG pO2 96 mmHg VBG HCO3 24 (22-26) mmol/L VBG O2 Saturation 97.0 % VBG Base Excess 1.0 mmol/L Sodium (135-145) mmol/L Potassium (3.3-5.1) mmol/L Chloride (96-108) mmol/L Carbon Dioxide (22-29) mmol/L Anion Gap (12-20) BUN (9-16) mg/dL Creatinine (0.5-1.4) mg/dL Estim Creat Clear Calc Estimated GFR Random Glucose (60-115) mg/dL Lactic Acid 1.1 (0.5-2.0) mmol/L Calcium (8.4-10.2) mg/dL Magnesium (1.6-2.6) mg/dL Total Bilirubin (0.0-1.0) mg/dL Direct Bilirubin (0.0-0.5) mg/dL AST (5-37) U/L ALT (0-40) U/L Alkaline Phosphatase (39-117) U/L Troponin I High Sens < 3.5 (<3.5-35.0) ng/L Total Protein (6.5-8.0) g/dL Albumin (3.5-5.0) g/dL Lipase (8-78) U/L Urine Color Urine Appearance Urine pH (5.0-8.0) Ur Specific [place] (1.005-1.025) Urine Protein (NEG-TRACE) MG/DL Urine Glucose (UA) (NEG) MG/DL Urine Ketones (NEG) MG/DL Urine Blood (NEG) Urine Nitrite (NEG) Ur Leukocyte Esterase (NEG) Urine RBC (0) /HPF Urine WBC (0-4) /HPF Ur Squamous Epith Cells /LPF Amorphous Sediment /LPF Urine Bacteria /LPF Hyaline Casts /LPF Urine Mucus /LPF Acetone, Qual COVID-19 (NAEL) (Negative) COVID-19 Clin Com 05/03/21 05/03/21 Range/Units 20:32 21:25 WBC (4.8-10.8) X10*3/uL RBC (4.60-5.80) X10*6/uL Hgb (14.0-18.0) g/dl Hct (42-52) % MCV (80-98) fL MCH (27.0-33.0) pg MCHC (31.0-36.0) g/dl RDW (11.0-16.0) % Plt Count (160-400) X10*3/uL MPV (9.4-12.4) fL Immature Gran % (Auto) (0.0-0.4) % Neut % (Auto) (45-73) % Lymph % (Auto) (20-40) % [place] % (Auto) (2-11) % Eos % (Auto) (0-4) % Baso % (Auto) (0-2) % Lymph # (Auto) (1.2-4.9) X10*3/uL [place] # (Auto) (0.1-1.2) X10*3/uL Eos # (Auto) (0.0-0.4) X10*3/uL Baso # (Auto) (0.0-0.2) X10*3/uL Abs Immat Gran (auto) (0.00-0.03) X10*3/uL Absolute Neuts (auto) (2.0-8.3) X10*3/uL Absolute Nucleated RBC (0.0-0.012) X10*3/uL Nucleated RBC % (auto) (0.0-0.2) /100WBC VBG pH (7.32-7.43) VBG pCO2 mmHg VBG pO2 mmHg VBG HCO3 (22-26) mmol/L VBG O2 Saturation % VBG Base Excess mmol/L Sodium 137 (135-145) mmol/L Potassium 4.7 D (3.3-5.1) mmol/L Chloride 104 (96-108) mmol/L Carbon Dioxide 23 (22-29) mmol/L Anion Gap 15 (12-20) BUN 20 H D (9-16) mg/dL Creatinine 1.14 (0.5-1.4) mg/dL Estim Creat Clear Calc 71.9 Estimated GFR > 60 Random Glucose 224 H D (60-115) mg/dL Lactic Acid (0.5-2.0) mmol/L Calcium 9.1 (8.4-10.2) mg/dL Magnesium 1.7 (1.6-2.6) mg/dL Total Bilirubin 0.7 (0.0-1.0) mg/dL Direct Bilirubin 0.2 (0.0-0.5) mg/dL AST 23 (5-37) U/L ALT 36 (0-40) U/L Alkaline Phosphatase 68 (39-117) U/L Troponin I High Sens (<3.5-35.0) ng/L Total Protein 6.5 (6.5-8.0) g/dL Albumin 3.9 (3.5-5.0) g/dL Lipase 21 (8-78) U/L Urine Color DARK YELLOW Urine Appearance CLEAR Urine pH 5.5 (5.0-8.0) Ur Specific [place] >= 1.030 H (1.005-1.025) Urine Protein TRACE (NEG-TRACE) MG/DL Urine Glucose (UA) >=1000 H (NEG) MG/DL Urine Ketones 40 (NEG) MG/DL Urine Blood NEG (NEG) Urine Nitrite NEG (NEG) Ur Leukocyte Esterase NEG (NEG) Urine RBC 0-2 (0) /HPF Urine WBC 0-2 (0-4) /HPF Ur Squamous Epith Cells TRACE /LPF Amorphous Sediment TRACE /LPF Urine Bacteria NONE /LPF Hyaline Casts 0-2 /LPF Urine Mucus 2+ /LPF Acetone, Qual Negative COVID-19 (NAEL) (Negative) COVID-19 Clin Com <LYN Nobles - Last Filed: 05/03/21 23:26> Imaging Data Chest x-ray: Attestation: I personally reviewed and interpreted this imaging study as follows: <Krissy Woodall NP - Last Filed: 05/03/21 21:27> Radiologist's impression: [place] [id number] XRay Report Signed Patient: Daniel Angulo MR#: [id number] : 1965 Acct:[id number] Age/Sex: 55 / M ADM Date: 05/03/21 Loc: HO.ED Attending Dr: Ordering Physician: Krissy Woodall NP Date of Service: 05/03/21 Procedure(s): XR chest 1V Accession Number(s): [id number] cc: Krissy Woodall NP~ EXAMINATION: XR CHEST CLINICAL INFORMATION: Weakness and fever COMPARISON: None TECHNIQUE: Frontal view of the chest was obtained. FINDINGS: The lungs are well-expanded with patchy linear density in the right middle lobe suspicious for atelectasis/ infiltrate. Rest of lungs are clear. The heart size and pulmonary vascularity is normal. There is moderate dextroscoliosis dorsal spine. No lytic process. XR/XR chest 1V IMPRESSION: Patchy linear density right middle lobe likely atelectasis and/or small infiltrate. <Krissy Woodall NP - Last Filed: 05/03/21 21:27> ECG Data Attestation: I personally reviewed and interpreted this ECG as follows: <Krissy Woodall NP - Last Filed: 05/03/21 21:27> Interpretation: ST with rate 105, normal pr, normal qrs, normal qt <Krissy Woodall NP - Last Filed: 05/03/21 21:27> Discharge Plan Discharge Clinical Impression: Pneumonia <Krissy Woodall NP - Last Filed: 05/03/21 21:27> Patient Disposition: Home, Self-Care <Krissy Woodall NP - Last Filed: 05/03/21 21:27> Instructions: Pneumonia (ED) <Krissy Woodall NP - Last Filed: 05/03/21 21:27> Additional Instructions: You have pneumonia Cefpodoxime and azithromycin for antibiotics, please take as prescribed Please follow-up with her primary care doctor Your other blood work and CT scan were reassuring If her symptoms persist or worsen, your unable to eat or drink, you have fever, chest pain, or shortness of breath please return to the ED Tienes neumon?a Cefpodoxima y azitromicina para antibi?ticos, por favor t?melos seg?n lo prescrito. Oriana un seguimiento con lovell m?dico de atenci?n primaria. Bernie otros an?lisis de lucille y tomograf?a computarizada fueron tranquilizadores Si bernie s?ntomas persisten o empeoran, no puede comer ni beber, tiene fiebre, dolor en el pecho o dificultad para respirar, vuelva al servicio de urgencias. <Krissy Woodall, [employer] - Last Filed: 05/03/21 21:27> Prescriptions: New cefpodoxime 200 mg tablet 200 mg PO BID 7 Days Qty: 14 RF: 0 azithromycin 250 mg tablet See Rx Instructions .ROUTE .COMPLEX Qty: 6 RF: 0 No Action lisinopril 20 mg tablet 20 mg PO DAILY 90 Days Qty: 90 RF: 1 fenofibrate 160 mg tablet 160 mg PO DAILY 30 Days Qty: 30 RF: 6 valacyclovir 1 gram tablet 1,000 mg PO Q8H 7 Days Qty: 21 RF: 0 cholecalciferol (vitamin D3) 50 mcg (2,000 unit) capsule 50 mcg PO DAILY 30 Days Qty: 30 RF: 6 atorvastatin [Lipitor] 20 mg tablet 20 mg PO DAILY 30 Days Qty: 30 RF: 6 Humulin R U-500 (Conc) Kwikpen 500 unit/mL (3 mL) insulin pen See Rx Instructions subcut . Twice a day 30 Days Qty: 18 RF: 6 metformin 1,000 mg tablet 1,000 mg PO BID 30 Days Qty: 60 RF: 6 (DME) pen needle, diabetic [BD Bela 2nd Gen Pen Needle] 32 gauge x 5/32 needle See Rx Instructions .MEDSUPPLY Qty: 100 RF: 4 Trulicity 3 mg/0.5 mL pen injector 3 mg subcut QWEEK 30 Days Qty: 2.5 RF: 6 omeprazole 20 mg capsule,delayed release(DR/EC) 20 mg PO DAILY RF: 0 aspirin [Adult Low Dose Aspirin] 81 mg tablet,delayed release (DR/EC) 81 mg PO DAILY RF: 0 Hold Instructions: Resume on 09/03/20. no ASA or Nsaids, for a week. prazosin 5 mg capsule 5 mg PO BEDTIME RF: 0 omega-3 fatty acids [Fish Oil Concentrate] 1,000 mg capsule 1,000 mg PO DAILY RF: 0 Hold Instructions: Resume on 09/03/20. NO asa, Nsaids or omega 3 supplements for 1 week sertraline 100 mg tablet 100 mg PO DAILY RF: 0 aripiprazole 10 mg tablet 10 mg PO DAILY RF: 0 bupropion HCl [Wellbutrin XL] 300 mg tablet extended release 24 hr 300 mg PO QAM RF: 0 loratadine [Claritin] 10 mg tablet 10 mg PO DAILY RF: 0 amlodipine 5 mg tablet 5 mg PO DAILY RF: 0 gabapentin 100 mg capsule 100 mg PO DAILY RF: 0 folic acid 1 mg tablet 1 mg PO DAILY RF: 0 bisacodyl [Dulcolax (bisacodyl)] 5 mg tablet,delayed release (DR/EC) 5 mg PO BEDTIME RF: 0 <Krissy Woodall NP - Last Filed: 05/03/21 21:27> Referrals: Logan Kelly RN [Emergency Nurse] - 3 days <Krissy Woodall NP - Last Filed: 05/03/21 21:27> Print Language: Uzbek <Krissy Woodall NP - Last Filed: 05/03/21 21:27>
[2021-05-03 18:53] LABS: COVID-19 Test Negative (Negative)
[2021-05-03 19:11] LABS: MANUAL DIFF FLAG NO
[2021-05-03] MEDS: ondansetron HCL 4 MG/2 ML VIAL IVPUSH (19:12)
[2021-05-03] MEDS: Ketorolac Tromethamine 15 MG/ML VIAL 30 MG IVPUSH (19:12)
[2021-05-03] MEDS: 0.9 % Sodium Chloride 1,000 ML 999 ML IV (19:13)
[2021-05-03] MEDS: cefTRIAXone sodium 1 GM in 0.9 % Sodium Chloride 50 ML IV (19:13)
[2021-05-03 19:14] LABS: Venous Blood Gas Refer to POC result
[2021-05-03 19:14] LABS: Basophils Percent Auto 0.5 % (0-2); Eosinophils Absolute Auto 0.1 X10*3/uL (0.0-0.4); Eosinophils Percent Auto 2.2 % (0-4); Hematocrit 41.5 % (42-52); Hemoglobin 13.9 g/dl (14.0-18.0); Imm Gran Abs Auto 0.02 X10*3/uL (0.00-0.03); Imm Gran Pct Auto 0.3 % (0.0-0.4); Lymphocytes Absolute Auto 2.7 X10*3/uL (1.2-4.9); Lymphocytes Percent Auto 46.7 % (20-40); Mean Corpuscular HGB Conc 33.5 g/dl (31.0-36.0); Mean Corpuscular Hemoglobin 32.1 pg (27.0-33.0); Mean Corpuscular Volume 95.8 fL (80-98); Monocytes Absolute Auto 0.5 X10*3/uL (0.1-1.2); Monocytes Percent Auto 8.6 % (2-11); Neutrophils Absolute Auto 2.4 X10*3/uL (2.0-8.3); Neutrophils Percent Auto 41.7 % (45-73); Platelet Count 274 X10*3/uL (160-400); Red Blood Count 4.33 X10*6/uL (4.60-5.80); Red Cell Distribution Width 12.4 % (11.0-16.0); White Blood Count 5.8 X10*3/uL (4.8-10.8)
[2021-05-03 19:15] LABS: VBG HCO3 24 mmol/L (22-26); VBG pCO2 35 mmHg; VBG pH 7.44 (7.32-7.43); VBG pO2 96 mmHg
[2021-05-03 19:32] LABS: Lactic Acid 1.1 mmol/L (0.5-2.0)
[2021-05-03 19:42] LABS: Troponin-I High Sensitivity < 3.5 ng/L (<3.5-35.0)
--- NOTE | 2021-05-03 20:15 | PC.NURSE ---
labs redrawn to lab. in room with pt eating pizza. Pt remains alert, respirations easy, n/l. skin w/d. pt denies any complaints at this time. awaiting for further orders.
[2021-05-03 21:01] LABS: Acetone, serum QL Negative (Negative)
[2021-05-03 21:10] LABS: Alanine Aminotransferase 36 U/L (0-40); Albumin Level 3.9 g/dL (3.5-5.0); Alkaline Phosphatase 68 U/L (39-117); Anion Gap 15 (12-20); Aspartate Amino Transferase 23 U/L (5-37); Bilirubin Direct 0.2 mg/dL (0.0-0.5); Bilirubin Total 0.7 mg/dL (0.0-1.0); Blood Urea Nitrogen 20 mg/dL (9-16); Calcium 9.1 mg/dL (8.4-10.2); Carbon Dioxide 23 mmol/L (22-29); Chloride 104 mmol/L (96-108); Creatinine Clr Calc Pharmacy 71.9; Estimated Glomerular Filt Rate > 60; Glucose Random 224 mg/dL (60-115); Lipase 21 U/L (8-78); Magnesium 1.7 mg/dL (1.6-2.6); Potassium 4.7 mmol/L (3.3-5.1); Sodium 137 mmol/L (135-145); Total Protein 6.5 g/dL (6.5-8.0)
[2021-05-03 21:41] LABS: Glucose Urine UA >=1000 MG/DL (NEG); Leukocyte Esterase Urine NEG (NEG); Nitrite Urine NEG (NEG); PH 5.5 (5.0-8.0); Specific Gravity - Urine >= 1.030 (1.005-1.025); Urine Blood NEG (NEG); Urine Ketones 40 MG/DL (NEG); Urine Protein TRACE MG/DL (NEG-TRACE)
[2021-05-03 21:43] LABS: Appearance Urine CLEAR; Color Urine DARK YELLOW
[2021-05-03 21:53] LABS: Amorphous Sediment Urine TRACE /LPF; Hyaline Casts Urine 0-2 /LPF; Mucus Urine 2+ /LPF; RBC Urine 0-2 /HPF (0); Squamous Epithelial Cell Urine TRACE /LPF; WBC Urine 0-2 /HPF (0-4)
[2021-05-03] MEDS: iohexoL 350 MG/ML 100 ML INFUS..BTL 85 ML IV (22:03)
== END 2021-05-03 23:46 | disposition home or self-care (01) ==
PROVIDERS: Nurse Practitioner Family; Emergency Provider Emergency Medicine
DX: J18.9 Pneumonia, unspecified organism (principal); R30.0 Dysuria; R50.9 Fever, unspecified; M79.10 Myalgia, unspecified site; E11.9 Type 2 diabetes mellitus without complications; Z20.822 Contact with and (suspected) exposure to COVID-19; Z79.4 Long term (current) use of insulin; Z79.899 Other long term (current) drug therapy
CPT/HCPCS: 36415; 71045; 74177; 80048; 80076; 81001; 82009; 82803; 83605; 83690; 83735; 84484; 85025; 87040; 87635; 93005; 96361; 96374; 96375; 99284; J0696; J1885; J2405; Q9967

== ENCOUNTER 2022-10-22 12:18 | Emergency (ER) | payer MEDICAID, SELFPAY ==
--- NOTE | ~2022-10-22 | CT_ITS ---
EXAMINATION: CT HEAD WITHOUT CONTRAST CLINICAL INFORMATION: Blurry vision. COMPARISON: None TECHNIQUE: Contiguous axial imaging was performed from the skull base to vertex without intravenous administration of contrast. This CT examination was performed using dose optimization techniques as appropriate, variously including the following: *Automated exposure control *Adjustment of mA and/or kV according to patient size (this includes techniques or standardized protocols for targeted exams where dose is matched to indication/reason for exam; i.e. extremities or head) *Use of iterative reconstruction technique DLP: 7:15. mGy-cm FINDINGS: There is no acute intra-axial, extra-axial bleed, masses or midline shift. There is no acute infarction evolution. The lateral ventricles are symmetrical in size and configuration without enlargement. Bone windows reveal no calvarial abnormality. No scalp soft tissue abnormality. Minimal mucoperiosteal thickening seen involving bilateral maxillary sinuses. Rest of the paranasal sinuses are clear. CT/CT head/brain wo IV con IMPRESSION: 1. No acute intracranial process seen. .
[2022-10-22 12:28] VITALS: BP 90/68; PULSE 80; O2SAT 98
[2022-10-22 12:39] VITALS: BP 83/62; PULSE 86; RESP 16; TEMP 36.6; O2SAT 98; BMI 27.6
--- NOTE | 2022-10-22 12:53 | PC.NURSE ---
57 y/o M pw hypoglycemia and hypotension from adult day program. pt is aox3 on arrival, POC on arrival 110. VSS at this time, awaiting MD.
[2022-10-22 12:58] LABS: Glucose, Whole Blood 110 mg/dL (60-115)
[2022-10-22 13:23] LABS: Basophils Absolute Auto 0.1 X10*3/uL (0.0-0.2); Basophils Percent Auto 0.8 % (0-2); Eosinophils Absolute Auto 0.1 X10*3/uL (0.0-0.4); Eosinophils Percent Auto 1.6 % (0-4); Hematocrit 38.2 % (42.0-52.0); Hemoglobin 13.1 g/dl (14.0-18.0); Imm Gran Abs Auto 0.02 X10*3/uL (0.00-0.03); Imm Gran Pct Auto 0.3 % (0.0-0.4); Lymphocytes Absolute Auto 1.8 X10*3/uL (1.2-4.9); MANUAL DIFF FLAG SCAN; Mean Corpuscular HGB Conc 34.3 g/dl (31.0-36.0); Mean Corpuscular Hemoglobin 34.7 pg (27.0-33.0); Mean Corpuscular Volume 101.3 fL (80.0-98.0); Monocytes Absolute Auto 0.6 X10*3/uL (0.1-1.2); Monocytes Percent Auto 9.5 % (2-11); Neutrophils Absolute Auto 3.7 x10*3/uL (2.0-8.3); Neutrophils Percent Auto 58.8 % (45-73); PLT CLUMP 1; Red Blood Count 3.77 X10*6/uL (4.60-5.80); Red Cell Distribution Width 11.8 % (11.0-16.0); SCAN SMEAR FLAG 1
[2022-10-22 13:36] VITALS: BP 109/54; PULSE 96; RESP 20; TEMP 36.3; O2SAT 99
[2022-10-22 13:45] LABS: Lactic Acid 6.3 mmol/L (0.5-2.0); Platelet Count 231 X10*3/uL (160-400); White Blood Count 6.3 X10*3/uL (4.8-10.8)
[2022-10-22 13:46] LABS: SLIDE REVIEW VERIFIED
[2022-10-22] MEDS: 0.9 % Sodium Chloride 1,000 ML 999 ML IV ×2 (13:56→14:40)
[2022-10-22 13:59] LABS: Glucose, Whole Blood 121 mg/dL (60-115)
--- NOTE | 2022-10-22 14:18 | ED.GENADULT ---
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 and was evaluated and found to have a blood sugar that was down to 59 with a low blood pressure. Patient himself states that he took his metformin and insulin this morning and that he did eat breakfast. Patient denies any shortness of breath but states he has some chronic chest pain and otherwise denies any nausea, vomiting, abdominal pain, urinary symptoms. Patient with complaint of blurry vision as well. Related Data Home Medications Medication Instructions Recorded Confirmed amlodipine 5 mg tablet 5 mg PO DAILY 06/28/20 01/15/21 aripiprazole 10 mg tablet 10 mg PO DAILY 06/28/20 01/15/21 aspirin 81 mg tablet,delayed 81 mg PO DAILY 06/28/20 01/15/21 release (Adult Low Dose Aspirin) bisacodyl 5 mg tablet,delayed 5 mg PO BEDTIME 06/28/20 01/15/21 release (Dulcolax (bisacodyl)) bupropion HCl 300 mg 24 hr tablet, 300 mg PO QAM 06/28/20 01/15/21 extended release (Wellbutrin XL) folic acid 1 mg tablet 1 mg PO DAILY 06/28/20 01/15/21 gabapentin 100 mg capsule 100 mg PO DAILY 06/28/20 01/15/21 loratadine 10 mg tablet (Claritin) 10 mg PO DAILY 06/28/20 01/15/21 omega-3 fatty acids 1,000 mg 1,000 mg PO DAILY 06/28/20 01/15/21 capsule (Fish Oil Concentrate) omeprazole 20 mg capsule,delayed 20 mg PO DAILY 06/28/20 01/15/21 release prazosin 5 mg capsule 5 mg PO BEDTIME 06/28/20 01/15/21 sertraline 100 mg tablet 100 mg PO DAILY 06/28/20 01/15/21 Previous Rx's Medication Instructions Recorded valacyclovir 1 gram tablet 1,000 mg PO Q8H 7 days #21 tabs 11/05/20 cholecalciferol (vitamin D3) 50 50 mcg PO DAILY 30 days #30 caps 01/15/21 mcg (2,000 unit) capsule dulaglutide 3 mg/0.5 mL 3 mg (0.5 mL) subcut QWEEK 30 days 01/15/21 subcutaneous pen injector #2.5 mL (Trulicity) metformin 1,000 mg tablet 1,000 mg PO BID 30 days #60 tabs 01/15/21 fenofibrate 160 mg tablet 160 mg PO DAILY 30 days #30 tabs 03/28/21 azithromycin 250 mg tablet See Rx Instructions PO .COMPLEX #6 05/03/21 tabs cefpodoxime 200 mg tablet 200 mg PO BID 7 days #14 tabs 05/03/21 atorvastatin 20 mg tablet (Lipitor) 20 mg PO DAILY 30 days #30 tabs 06/17/21 lisinopril 20 mg tablet 20 mg PO DAILY 90 days #90 tabs 06/25/21 pen needle, diabetic 32 gauge x #150 ea 08/29/21 (BD Bela 2nd Gen Pen Needle) insulin regular hum U-500 conc 500 See Rx Instructions subcut . 09/19/21 unit/mL(3 mL) subcut pen (Humulin Twice a day 30 days #18 mL R U-500 (Conc) Insulin Kwikpen) Allergies Allergy/AdvReac Type Severity Reaction Status Date / Time No Known Allergies Allergy Verified 08/28/20 11:15 Review of Systems Review of Systems: Pertinent positives and negatives as stated in HPI [facility] Past Medical History Source: nursing notes reviewed Medical History Arthritis Asthma Bipolar 1 disorder Diabetes mellitus Diabetes type 2, uncontrolled Diabetic polyneuropathy associated with type 2 diabetes mellitus Diabetic retinopathy associated with type 2 diabetes mellitus GERD (gastroesophageal reflux disease) Hypercholesterolemia 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 [employer]oma [employer] (current) use of insulin Vitamin D deficiency Surgical History Hx of colonoscopy No pertinent past surgical history Family History Family History Father Diabetes mellitus Complete amputation of bilateral legs Mother Diabetes mellitus Social History Social History Household Members: Spouse Alcohol intake: never Second Hand Smoke Exposure: No Advance Directives: No Advance Directives Information Provided: Yes Physical Exam ED Vital Signs: Vital Signs - 24 hr 10/22/22 12:39 10/22/22 13:36 10/22/22 15:07 Temperature 97.9 F 97.4 F Pulse Rate 86 96 Respiratory Rate 16 20 Blood Pressure 83/62 L 109/54 L 110/86 Pulse Oximetry 98 99 Oxygen Delivery Method Room Air Room Air BMI result Body Mass Index 27.6 VITAL SIGNS: Reviewed. GENERAL: Well developed, well nourished, in no acute distress. HEAD: Normocephalic/atraumatic EYES: PERRLA, EOMI, there is a pterygium to the medial aspect of left eye EARS: Ext canals without abnormality, TMs non-bulging and non-erythematous NOSE: Nares patent bilateral OROPHARYNX: no oral lesions noted, posterior pharynx clear NECK: Supple, no adenopathy LUNGS: Normal breath sounds. No adventitious sounds or accessory muscle use. SpO2<99> CARDIOVASCULAR: Regular rate and rhythm without noted murmurs, no JVD or lower extremity edema. ABDOMEN: Soft, non-tender, non-distended with bowel sounds. MUSCULOSKELETAL: No tenderness, deformities, or effusions noted on gross inspection. EXTREMITIES: No cyanosis, clubbing or edema. SKIN: Inspection of the skin reveals no rashes NEUROLOGIC: Alert and oriented x 3. Strength and sensation to light touch were grossly intact x 4, there is noted facial asymmetry at the left lid drooping and questionable left corner of the mouth drooping but otherwise no facial asymmetry, no pronator drift, cranial nerves 2-12 are grossly intact. Medications Administered Discontinued Medications Generic Name Dose Route Start Last Admin Trade Name Freq PRN Reason Stop Dose Admin Sodium Chloride 1,000 mls @ 999 mls/hr 10/22/22 14:00 10/22/22 14:50 Ns IV 10/22/22 15:00 Infused .Q1H1M ANTHONY Infusion Sodium Chloride 1,000 mls @ 999 mls/hr 10/22/22 14:45 10/22/22 15:35 Ns IV 10/22/22 15:45 Infused .Q1H1M ANTHONY Infusion Medical Decision Making Medical Decision Making MDM Narrative: 57-year-old male with unclear presentation regarding being altered with hypotension and low glucose. The hypoglycemia may have contributed to patient's initial altered mental status as well as a vasovagal responds contributing to hypotension. Patient did receive IV fluid bolus here in the emergency room. but he also has underlying TBI for which she attends the adult day program for. Between the patient and the family member at bedside is unclear whether not the facial asymmetry is chronic at baseline or was immediately present, however I will pursue CT of the head given risk factors of diabetes and high blood pressure. Patient is otherwise nonfocal. When I review all investigations the lab work appears to be chronically stable, head CT official read is pending as well as urine toxicology. The lab reports a lactic acid of 6.3 which makes no sense as there is no evidence of infection, abdomen is benign, patient does use metformin which is potentially a source of lactic acidosis, but there is no significant metabolic acidosis associated with this finding. 1705: Suspect that patient had of vasovagal response today in conjunction with a hypoglycemic episode but his sugar has remained within normal limits, CT of the head is negative for any acute findings and the lactic acid is trending downward and patient continues to eat and drink without difficulty. Patient states his vision has completely resolved and is easily noted to be using his cellphone without difficulty. Differential Diagnosis Differential Diagnoses: The differential diagnosis associated with the presentation includes Please see the discussion above Lab Data MDM Lab Attestation statement: I reviewed the patient's lab results. Please see the discussion above 10/22/22 13:06 10/22/22 13:06 Labs: Lab Results 10/22/22 10/22/22 10/22/22 Range/Units 12:54 13:06 13:06 WBC 6.3 (4.8-10.8) X10*3/uL RBC 3.77 L (4.60-5.80) X10*6/uL Hgb 13.1 L (14.0-18.0) g/dl Hct 38.2 L (42.0-52.0) % MCV 101.3 H (80.0-98.0) fL MCH 34.7 H (27.0-33.0) pg MCHC 34.3 (31.0-36.0) g/dl RDW 11.8 (11.0-16.0) % Plt Count 231 (160-400) X10*3/uL MPV Not Reportable Immature Gran % (Auto) 0.3 (0.0-0.4) % Neut % (Auto) 58.8 (45-73) % Lymph % (Auto) 29.0 (20-40) % Rusk % (Auto) 9.5 (2-11) % Eos % (Auto) 1.6 (0-4) % Baso % (Auto) 0.8 (0-2) % Lymph # (Auto) 1.8 (1.2-4.9) X10*3/uL Rusk # (Auto) 0.6 (0.1-1.2) X10*3/uL Eos # (Auto) 0.1 (0.0-0.4) X10*3/uL Baso # (Auto) 0.1 (0.0-0.2) X10*3/uL Abs Immat Gran (auto) 0.02 (0.00-0.03) X10*3/uL Absolute Neuts (auto) 3.7 (2.0-8.3) x10*3/uL Absolute Nucleated RBC 0.000 (0.0-0.012) X10*3/uL Nucleated RBC % (auto) 0.0 (0.0-0.2) /100WBC Smear Tech's Comments VERIFIED Sodium (135-145) mmol/L Potassium (3.3-5.1) mmol/L Chloride (96-108) mmol/L Carbon Dioxide (22-29) mmol/L Anion Gap (12-20) BUN (9-16) mg/dL Creatinine (0.5-1.4) mg/dL Estim Creat Clear Calc Estimated GFR POC Glucose 110 (60-115) mg/dL Fasting Glucose (60-99) mg/dL Lactic Acid 6.3 H* (0.5-2.0) mmol/L Lactic Acid F/U @ 2Hr (0.5-2.0) mmol/L Calcium (8.4-10.2) mg/dL Total Bilirubin (0.0-1.0) mg/dL Direct Bilirubin (0.0-0.5) mg/dL AST (5-37) U/L ALT (0-40) U/L Alkaline Phosphatase (39-117) U/L Troponin I High Sens (<3.5-35.0) ng/L Total Protein (6.5-8.0) g/dL Albumin (3.5-5.0) g/dL Urine Opiates Screen (Not Detect) Urine Fentanyl Screen (Not Detect) Ur Barbiturates Screen (Not Detect) Ur Phencyclidine Scrn (Not Detect) Ur Amphetamines Screen (Not Detect) U Benzodiazepines Scrn (Not Detect) Urine Cocaine Screen (Not Detect) U Marijuana (THC) Screen (Not Detect) Ethyl Alcohol mg/dL 10/22/22 10/22/22 10/22/22 Range/Units 13:55 14:03 14:20 WBC (4.8-10.8) X10*3/uL RBC (4.60-5.80) X10*6/uL Hgb (14.0-18.0) g/dl Hct (42.0-52.0) % MCV (80.0-98.0) fL MCH (27.0-33.0) pg MCHC (31.0-36.0) g/dl RDW (11.0-16.0) % Plt Count (160-400) X10*3/uL MPV Immature Gran % (Auto) (0.0-0.4) % Neut % (Auto) (45-73) % Lymph % (Auto) (20-40) % Rusk % (Auto) (2-11) % Eos % (Auto) (0-4) % Baso % (Auto) (0-2) % Lymph # (Auto) (1.2-4.9) X10*3/uL Rusk # (Auto) (0.1-1.2) X10*3/uL Eos # (Auto) (0.0-0.4) X10*3/uL Baso # (Auto) (0.0-0.2) X10*3/uL Abs Immat Gran (auto) (0.00-0.03) X10*3/uL Absolute Neuts (auto) (2.0-8.3) x10*3/uL Absolute Nucleated RBC (0.0-0.012) X10*3/uL Nucleated RBC % (auto) (0.0-0.2) /100WBC Smear Tech's Comments Sodium 138 (135-145) mmol/L Potassium 4.7 (3.3-5.1) mmol/L Chloride 107 (96-108) mmol/L Carbon Dioxide 20 L (22-29) mmol/L Anion Gap 16 (12-20) BUN 14 (9-16) mg/dL Creatinine 1.34 (0.5-1.4) mg/dL Estim Creat Clear Calc 58.9 Estimated GFR 55 POC Glucose 121 H (60-115) mg/dL Fasting Glucose 107 H (60-99) mg/dL Lactic Acid (0.5-2.0) mmol/L Lactic Acid F/U @ 2Hr (0.5-2.0) mmol/L Calcium 9.5 (8.4-10.2) mg/dL Total Bilirubin 0.4 (0.0-1.0) mg/dL Direct Bilirubin < 0.2 (0.0-0.5) mg/dL AST 29 (5-37) U/L ALT 37 (0-40) U/L Alkaline Phosphatase 54 (39-117) U/L Troponin I High Sens (<3.5-35.0) ng/L Total Protein 6.4 L (6.5-8.0) g/dL Albumin 3.9 (3.5-5.0) g/dL Urine Opiates Screen (Not Detect) Urine Fentanyl Screen (Not Detect) Ur Barbiturates Screen (Not Detect) Ur Phencyclidine Scrn (Not Detect) Ur Amphetamines Screen (Not Detect) U Benzodiazepines Scrn (Not Detect) Urine Cocaine Screen (Not Detect) U Marijuana (THC) Screen (Not Detect) Ethyl Alcohol < 10 mg/dL 10/22/22 10/22/22 10/22/22 Range/Units 15:39 15:39 15:39 WBC (4.8-10.8) X10*3/uL RBC (4.60-5.80) X10*6/uL Hgb (14.0-18.0) g/dl Hct (42.0-52.0) % MCV (80.0-98.0) fL MCH (27.0-33.0) pg MCHC (31.0-36.0) g/dl RDW (11.0-16.0) % Plt Count (160-400) X10*3/uL MPV Immature Gran % (Auto) (0.0-0.4) % Neut % (Auto) (45-73) % Lymph % (Auto) (20-40) % Rusk % (Auto) (2-11) % Eos % (Auto) (0-4) % Baso % (Auto) (0-2) % Lymph # (Auto) (1.2-4.9) X10*3/uL Rusk # (Auto) (0.1-1.2) X10*3/uL Eos # (Auto) (0.0-0.4) X10*3/uL Baso # (Auto) (0.0-0.2) X10*3/uL Abs Immat Gran (auto) (0.00-0.03) X10*3/uL Absolute Neuts (auto) (2.0-8.3) x10*3/uL Absolute Nucleated RBC (0.0-0.012) X10*3/uL Nucleated RBC % (auto) (0.0-0.2) /100WBC Smear Tech's Comments Sodium (135-145) mmol/L Potassium (3.3-5.1) mmol/L Chloride (96-108) mmol/L Carbon Dioxide (22-29) mmol/L Anion Gap (12-20) BUN (9-16) mg/dL Creatinine (0.5-1.4) mg/dL Estim Creat Clear Calc Estimated GFR POC Glucose (60-115) mg/dL Fasting Glucose (60-99) mg/dL Lactic Acid (0.5-2.0) mmol/L Lactic Acid F/U @ 2Hr 2.1 H* (0.5-2.0) mmol/L Calcium (8.4-10.2) mg/dL Total Bilirubin (0.0-1.0) mg/dL Direct Bilirubin (0.0-0.5) mg/dL AST (5-37) U/L ALT (0-40) U/L Alkaline Phosphatase (39-117) U/L Troponin I High Sens < 3.5 (<3.5-35.0) ng/L Total Protein (6.5-8.0) g/dL Albumin (3.5-5.0) g/dL Urine Opiates Screen Not Detected (Not Detect) Urine Fentanyl Screen Not Detected (Not Detect) Ur Barbiturates Screen Not Detected (Not Detect) Ur Phencyclidine Scrn Not Detected (Not Detect) Ur Amphetamines Screen Not Detected (Not Detect) U Benzodiazepines Scrn Not Detected (Not Detect) Urine Cocaine Screen Not Detected (Not Detect) U Marijuana (THC) Screen Not Detected (Not Detect) Ethyl Alcohol mg/dL Independent Interpretation I performed an independent interpretation of an: EKG Interpretation: Normal sinus rhythm, HR-88, no STEMI, PA/QRS/QTC are within normal limits. Chronic Conditions Patient?s care impacted by: Diabetes, 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 and Other TBI Critical Care Time Critical Care Time Critical Care Time: Yes Total Critical Care Time: 45 Attestation: I personally attest to this time spent taking care of the patient. Discharge Plan Discharge Clinical Impression: Hypoglycemia, Vasovagal episode Patient Disposition: Home, Self-Care Additional Instructions: 1. Reanudar todos los medicamentos caseros seg?n lo prescrito. 2. Debe continuar bebiendo fabián agua y hacer un seguimiento con lovell proveedor de atenci?n primaria en los pr?ximos 1 o 2 d?as. Regrese a la thompson de emergencias si los s?ntomas empeoran. 1. Resume all home medications as prescribed. 2. You need to continue to drink plenty of water and follow-up with your primary care provider in the next 1-2 days. Return to the ER for any worsening symptoms. Prescriptions: No Action fenofibrate 160 mg tablet 160 mg PO DAILY 30 Days Qty: 30 6RF atorvastatin [Lipitor] 20 mg tablet 20 mg PO DAILY 30 Days Qty: 30 6RF lisinopril 20 mg tablet 20 mg PO DAILY 90 Days Qty: 90 1RF (DME) pen needle, diabetic [BD Bela 2nd Gen Pen Needle] 32 gauge x 5/32 needle See Rx Instructions .MEDSUPPLY Qty: 150 0RF Rx Instructions: 5 times daily NO FURTHER REFILLS WITHOUT APPOINTMENT! Humulin R U-500 (Conc) Kwikpen 500 unit/mL (3 mL) insulin pen See Rx Instructions subcut . Twice a day 30 Days Qty: 18 0RF Rx Instructions: 80 units before breakfast and 85 units before dinner subcut . Twice a day; NO MORE REFILLS UNTIL APPOINTMENT IS SCHEDULED. valacyclovir 1 gram tablet 1,000 mg PO Q8H 7 Days Qty: 21 0RF cefpodoxime 200 mg tablet 200 mg PO BID 7 Days Qty: 14 0RF Rx Instructions: must administer with a meal/food azithromycin 250 mg tablet See Rx Instructions .ROUTE .COMPLEX Qty: 6 0RF Rx Instructions: take 500 mg today (day 1), then 250 mg for 4 days (days 2-5) cholecalciferol (vitamin D3) 50 mcg (2,000 unit) capsule 50 mcg PO DAILY 30 Days Qty: 30 6RF metformin 1,000 mg tablet 1,000 mg PO BID 30 Days Qty: 60 6RF Trulicity 3 mg/0.5 mL pen injector 3 mg subcut QWEEK 30 Days Qty: 2.5 6RF omeprazole 20 mg capsule,delayed release(DR/EC) 20 mg PO DAILY aspirin [Adult Low Dose Aspirin] 81 mg tablet,delayed release (DR/EC) 81 mg PO DAILY Hold Instructions: Resume on 09/03/20. no ASA or Nsaids, for a week. prazosin 5 mg capsule 5 mg PO BEDTIME omega-3 fatty acids [Fish Oil Concentrate] 1,000 mg capsule 1,000 mg PO DAILY Hold Instructions: Resume on 09/03/20. NO asa, Nsaids or omega 3 supplements for 1 week sertraline 100 mg tablet 100 mg PO DAILY aripiprazole 10 mg tablet 10 mg PO DAILY bupropion HCl [Wellbutrin XL] 300 mg tablet extended release 24 hr 300 mg PO QAM loratadine [Claritin] 10 mg tablet 10 mg PO DAILY amlodipine 5 mg tablet 5 mg PO DAILY gabapentin 100 mg capsule 100 mg PO DAILY folic acid 1 mg tablet 1 mg PO DAILY bisacodyl [Dulcolax (bisacodyl)] 5 mg tablet,delayed release (DR/EC) 5 mg PO BEDTIME Referrals: [facility] [Primary Care Provider] - Print Language: Guatemalan
--- NOTE | 2022-10-22 14:22 | ECG_ITS ---
Test Reason : CHEST PAIN Blood Pressure : / mmHG Vent. Rate : 088 BPM Atrial Rate : 088 BPM P-R Int : 164 ms QRS Dur : 084 ms QT Int : 358 ms P-R-T Axes : 054 -05 046 degrees QTc Int : 433 ms Normal sinus rhythm Normal ECG When compared with ECG of 03-MAY-2021 18:20, No significant change was found Referred By: Whit Casper Electronically Signed By:Zeyad Garcia
[2022-10-22 14:28] LABS: Alanine Aminotransferase 37 U/L (0-40); Albumin Level 3.9 g/dL (3.5-5.0); Alkaline Phosphatase 54 U/L (39-117); Anion Gap 16 (12-20); Aspartate Amino Transferase 29 U/L (5-37); Bilirubin Direct < 0.2 mg/dL (0.0-0.5); Bilirubin Total 0.4 mg/dL (0.0-1.0); Blood Urea Nitrogen 14 mg/dL (9-16); Calcium 9.5 mg/dL (8.4-10.2); Carbon Dioxide 20 mmol/L (22-29); Chloride 107 mmol/L (96-108); Creatinine Clr Calc Pharmacy 58.9; Estimated Glomerular Filt Rate 55; Glucose Fasting 107 mg/dL (60-99); Potassium 4.7 mmol/L (3.3-5.1); Sodium 138 mmol/L (135-145); Total Protein 6.4 g/dL (6.5-8.0)
[2022-10-22 14:47] LABS: Ethanol < 10 mg/dL
[2022-10-22 15:07] VITALS: BP 110/86
[2022-10-22 15:17] LABS: Reflex Lactate? Lactic Acid Added
[2022-10-22 16:22] LABS: Troponin-I High Sensitivity < 3.5 ng/L (<3.5-35.0)
[2022-10-22 16:35] LABS: ~Lactic Acid-LAB USE ONLY 2.1 mmol/L (0.5-2.0)
[2022-10-22 16:49] LABS: Amphetamine Screen Urine Not Detected (Not Detect); Barbiturates, Urine Not Detected (Not Detect); Benzodiazepines Screen Urine Not Detected (Not Detect); Cannabinoid Screen Urine Not Detected (Not Detect); Cocaine Screen Urine Not Detected (Not Detect); Fentanyl, urine Not Detected (Not Detect); Opiate Screen Urine Not Detected (Not Detect); Phencyclidine Screen Urine Not Detected (Not Detect)
[2022-10-22 17:47] LABS: Reflex Lactate? 2 Y
== END 2022-10-22 17:21 | disposition home or self-care (01) ==
PROVIDERS: Emergency Provider Student in an Organized Health Care Education/Training Program
DX: R55 Syncope and collapse (principal); R07.89 Other chest pain; Z20.828 Contact with and (suspected) exposure to other viral communicable diseases; Z20.822 Contact with and (suspected) exposure to COVID-19; Z79.82 Long term (current) use of aspirin; Z79.899 Other long term (current) drug therapy; Z79.4 Long term (current) use of insulin
CPT/HCPCS: 36415; 70450; 80053; 80076; 80307; 82077; 82248; 82947; 83605; 84484; 85025; 87040; 93005; 96360; 96361; 99284

== ENCOUNTER 2022-11-05 12:33 | Observation (INO) | payer MEDICAID, SELFPAY ==
--- NOTE | ~2022-11-05 | XR_ITS ---
EXAMINATION: XR CHEST CLINICAL INFORMATION: Stroke with neck pain, headache and left-sided weakness COMPARISON: 05/03/2021 TECHNIQUE: Frontal view of the chest was obtained. FINDINGS: No significant abnormality is noted involving the heart, lungs, mediastinum, bony thorax or soft tissues. XR/XR chest 1V IMPRESSION: Unremarkable examination.
--- NOTE | ~2022-11-05 | CT_ITS ---
CT ANGIOGRAM NECK WITH CONTRAST CT ANGIOGRAM BRAIN WITH CONTRAST CLINICAL INFORMATION: Neck pain and left-sided weakness. COMPARISON: Head CT performed earlier the same day. TECHNIQUE: Test bolus sequences followed by intravenous administration 70 mL of Omnipaque 350. Helical imaging was performed in the axial plane from the thoracic inlet to the skull vertex. Delayed postcontrast imaging of the head was also performed. The data was processed at the radiologic technologist mammogram workstation for generation of MIP sequences. Angled MIPs and volume rendered reformatted images were also generated at an offline 3D workstation under concurrent supervision. Stenoses are assessed in accordance with NASCET criteria unless otherwise indicated. This CT examination was performed using dose optimization techniques as appropriate, variously including the following: *Automated exposure control *Adjustment of mA and/or kV according to patient size (this includes techniques or standardized protocols for targeted exams where dose is matched to indication/reason for exam; i.e. extremities or head) *Use of iterative reconstruction technique FINDINGS: BRAIN: [There is no intracranial hemorrhage, hydrocephalus, extra-axial surface collection, midline shift, or other herniation pattern. Bailey to white matter differentiation is diffusely maintained without evidence of an evolved acute territorial infarct. The basilar cisterns are preserved. No significant soft tissue abnormality. No acute osseous abnormality. The paranasal sinuses and the mastoid air cells are well aerated.] CERVICAL SOFT TISSUES AND LUNG APICES: Multilevel cervical spondylosis. No significant soft tissue findings within the neck. The imaged upper lungs are clear. NECK CTA: Proximal cervical arterial vasculature is not diagnostically assessed due to significant motion artifact. The vertebral arteries are codominant. Vertebral artery origins are obscured by artifact. Both vertebral arteries are otherwise widely patent throughout their extracranial cervical course. The imaged common and internal carotid arteries are normal in course and caliber.] BRAIN CTA: [There is normal opacification of major intracranial arteries. No focal flow-limiting stenosis nor discrete proximal large artery occlusion. No aneurysm. Timing of the contrast bolus allows assessment of the major dural venous sinuses, which all opacify normally] CT/CT angio head neck stroke IMPRESSION: - No acute intracranial findings. - No significant arterial stenoses and no acute arterial occlusions within the head or neck. Proximal cervical arterial vasculature is not diagnostically assessed due to significant motion artifact. - Multilevel cervical spondylosis. Covering provider paged with these findings at 1:45 PM on 11/05/2022.
--- NOTE | ~2022-11-05 | MR_ITS ---
EXAMINATION: MR BRAIN WITHOUT CONTRAST CLINICAL INFORMATION: Transient ischemic attack. COMPARISON: CT angiogram of the head and neck 11/05/2022. TECHNIQUE: Multiplanar MR imaging of the brain was performed without contrast. FINDINGS: There are a few scattered nonspecific foci of T2 FLAIR signal hyperintensity within the periventricular white matter. No acute territorial infarct. No pathological magnetic susceptibility artifact. Intracranial vascular flow voids are grossly maintained. There is no intracranial mass effect or midline shift. No abnormal extra-axial collection. Lateral and third ventricles are normal. No hydrocephalus. Midline structures including the cervicomedullary junction are normal. No acute bone marrow some changes. There is no mastoid middle ear effusion. Mild paranasal sinus disease primarily affecting the ethmoid air cells and maxillary sinuses. Globes and orbits are symmetric. MR/MR head/brain wo con IMPRESSION: Unremarkable examination. No evidence of acute territorial infarct or hemorrhage.
--- NOTE | ~2022-11-05 | CT_ITS ---
EXAMINATION: CT HEAD WITHOUT CONTRAST (STROKE PROTOCOL) CLINICAL INFORMATION: Stroke protocol. Headache and neck pain. Left-sided weakness. COMPARISON: Previous head CT scans most recent 10/22/2022 TECHNIQUE: Contiguous axial imaging was performed from the skull base to vertex without intravenous administration of contrast. This CT examination was performed using dose optimization techniques as appropriate, variously including the following: *Automated exposure control *Adjustment of mA and/or kV according to patient size (this includes techniques or standardized protocols for targeted exams where dose is matched to indication/reason for exam; i.e. extremities or head) *Use of iterative reconstruction technique DLP: 801 mGy-cm FINDINGS: There is no evidence of an extra-axial collection. There is no evidence of intra-axial or extra-axial hemorrhage. The ventricles and extra-axial CSF spaces are prominent suggestive of mild generalized atrophy. There is nonspecific periventricular white matter disease. No mass, mass effect or infarct is seen. Review of bone windows is normal. No skull fracture. Visualized paranasal sinuses, mastoid air cells and middle ears are clear. CT/CT head for stroke IMPRESSION: No acute intracranial pathology. This critical result was discussed with Dr. Fuentes at 1300 hours on 11/05/2022. It was ascertained that the content and urgency of the report was understood at the time of direct communication.
[2022-11-05 12:37] VITALS: BP 112/48; BP 90/60; PULSE 80; PULSE 83; RESP 18; TEMP 37.2; O2SAT 97; BMI 23.6
--- NOTE | 2022-11-05 12:37 | ECG_ITS ---
Test Reason : ?STROKE Blood Pressure : / mmHG Vent. Rate : 087 BPM Atrial Rate : 087 BPM P-R Int : 168 ms QRS Dur : 084 ms QT Int : 368 ms P-R-T Axes : 048 -16 027 degrees QTc Int : 442 ms Normal sinus rhythm Minimal voltage criteria for LVH, may be normal variant ( R in aVL ) Borderline ECG When compared with ECG of 22-OCT-2022 14:28, No significant change was found Referred By: Darin Fuentes Electronically Signed By:Zeyad Garcia
[2022-11-05 12:42] LABS: Glucose, Whole Blood 98 mg/dL (60-115)
[2022-11-05 12:44] LABS: Prothrombin Time Whole Bld POC 11.1 sec (11.1-13.5); ~PT, ~INR - Anti Coag Clinic 0.9 (0.9-1.1)
--- NOTE | 2022-11-05 13:02 | ED_ITS ---
HPI - Neuro Symptoms/Deficit General Chief Complaint: Altered Mental Status Stated Complaint: STROKE ALERT,LKWT 20MIN,L DROOP/WEAK,TUTTLE,THINN UNK Time Seen by Provider: 11/05/22 12:37 Source: patient and EMS Mode of arrival: EMS Limitations: no limitations History of Present Illness HPI Narrative: 49-year-old male with history of diabetes and dementia bipolar disorder at adult daycare presents emergency room after complaining of sudden onset neck pain mild headache as well as left-sided weakness. The weakness was described as an opening his left eye pre EMS he was initially weak on the left side patient denies any falls or injuries he denies any history of strokes denies any history of migraines patient states the symptoms are improving patient has both eyes open at this time neuro exam on arrival is normal. Onset (ago): minute(s) Related Data Home Medications Medication Instructions Recorded Confirmed amlodipine 5 mg tablet 5 mg PO DAILY 06/28/20 01/15/21 aripiprazole 10 mg tablet 10 mg PO DAILY 06/28/20 01/15/21 aspirin 81 mg tablet,delayed 81 mg PO DAILY 06/28/20 01/15/21 release (Adult Low Dose Aspirin) bisacodyl 5 mg tablet,delayed 5 mg PO BEDTIME 06/28/20 01/15/21 release (Dulcolax (bisacodyl)) bupropion HCl 300 mg 24 hr tablet, 300 mg PO QAM 06/28/20 01/15/21 extended release (Wellbutrin XL) folic acid 1 mg tablet 1 mg PO DAILY 06/28/20 01/15/21 gabapentin 100 mg capsule 100 mg PO DAILY 06/28/20 01/15/21 loratadine 10 mg tablet (Claritin) 10 mg PO DAILY 06/28/20 01/15/21 omega-3 fatty acids 1,000 mg 1,000 mg PO DAILY 06/28/20 01/15/21 capsule (Fish Oil Concentrate) omeprazole 20 mg capsule,delayed 20 mg PO DAILY 06/28/20 01/15/21 release prazosin 5 mg capsule 5 mg PO BEDTIME 06/28/20 01/15/21 sertraline 100 mg tablet 100 mg PO DAILY 06/28/20 01/15/21 Previous Rx's Medication Instructions Recorded valacyclovir 1 gram tablet 1,000 mg PO Q8H 7 days #21 tabs 11/05/20 cholecalciferol (vitamin D3) 50 50 mcg PO DAILY 30 days #30 caps 01/15/21 mcg (2,000 unit) capsule dulaglutide 3 mg/0.5 mL 3 mg (0.5 mL) subcut QWEEK 30 days 01/15/21 subcutaneous pen injector #2.5 mL (Trulicity) metformin 1,000 mg tablet 1,000 mg PO BID 30 days #60 tabs 01/15/21 fenofibrate 160 mg tablet 160 mg PO DAILY 30 days #30 tabs 03/28/21 azithromycin 250 mg tablet See Rx Instructions PO .COMPLEX #6 05/03/21 tabs cefpodoxime 200 mg tablet 200 mg PO BID 7 days #14 tabs 05/03/21 atorvastatin 20 mg tablet (Lipitor) 20 mg PO DAILY 30 days #30 tabs 06/17/21 lisinopril 20 mg tablet 20 mg PO DAILY 90 days #90 tabs 06/25/21 pen needle, diabetic 32 gauge x #150 ea 08/29/21 (BD Bela 2nd Gen Pen Needle) insulin regular hum U-500 conc 500 See Rx Instructions subcut . 09/19/21 unit/mL(3 mL) subcut pen (Humulin Twice a day 30 days #18 mL R U-500 (Conc) Insulin Kwikpen) Allergies Allergy/AdvReac Type Severity Reaction Status Date / Time No Known Allergies Allergy Verified 08/28/20 11:15 Review of Systems Review of Systems: Review of systems: General: Left sided weakness Patient denies any fever chills recent illness or falls Musculoskeletal: Denies back pain or body aches or other injuries HEENT: headache , runny nose, ear pain Respiratory: denies shortness of breath, cough Cardiovascular: no chest pain or palpitations : denies dysuria, frequency Abdomen: no nausea vomiting denies abdominal pain Extremities: no swelling, no pain Skin: no diaphoresis Yes all other systems are reviewed and are negative [facility] Past Medical History Medical History Arthritis Asthma Bipolar 1 disorder Diabetes mellitus Diabetes type 2, uncontrolled Diabetic polyneuropathy associated with type 2 diabetes mellitus Diabetic retinopathy associated with type 2 diabetes mellitus GERD (gastroesophageal reflux disease) Hypercholesterolemia 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 [place]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 Vitamin D deficiency Surgical History Hx of colonoscopy No pertinent past surgical history Family History Family History Father Diabetes mellitus Complete amputation of bilateral legs Mother Diabetes mellitus Social History Social History Household Members: Spouse Alcohol intake: never Second Hand Smoke Exposure: No Advance Directives: No Advance Directives Information Provided: No Physical Exam Vital Signs: Vital Signs: Last Vital Signs Temp 98.9 F 11/05/22 12:37 Pulse 83 11/05/22 12:37 Resp 18 11/05/22 12:37 BP 112/48 L 11/05/22 12:37 Pulse Ox 97 11/05/22 12:37 O2 Del Method 11/05/22 12:37 BMI result Body Mass Index 23.6 Neurological exam: CN II- XII tested. Patient is alert and oriented to person place and time. Patient has no dysphagia or dysarthia, denies good vision in all four vision [place] no nystagmus on exam, good strength to upper and lower extremities with normal reflexes to brachioradialis, wrist, patella and achilles. Negative romberg, good finger to nose and heel to cotter. General: Well-appearing well-nourished in no signs of distress HEENT: Normocephalic atraumatic Neck: No signs of JVD, no masses no tenderness or lymphadenopathy Cardiovascular: Regular rate and rhythm Respiratory: Clear to auscultation bilaterally Abdomen: Soft nontender no masses Extremities: Normal pedal pulses no signs of edema Skin: Dry warm no rashes Back: No tenderness full ROM Medications Administered Discontinued Medications Generic Name Dose Route Start Last Admin Trade Name Freq PRN Reason Stop Dose Admin Acetaminophen 650 mg 11/05/22 13:55 11/05/22 14:03 Acetaminophen 325 Mg Tablet PO 11/05/22 13:56 650 mg ONCE ONE Administration Aspirin 324 mg 11/05/22 14:01 11/05/22 14:06 Aspirin 81 Mg Tab.Chew PO 11/05/22 14:02 324 mg ONCE ONE Administration Cyclobenzaprine HCl 10 mg 11/05/22 13:55 11/05/22 14:03 Cyclobenzaprine Hcl 10 Mg Tablet PO 11/05/22 13:56 10 mg ONCE ONE Administration Diphenhydramine HCl 25 mg 11/05/22 12:46 11/05/22 13:44 Diphenhydramine Hcl 50 Mg/Ml Vial IVPUSH 11/05/22 12:47 25 mg ONCE ONE Administration Sodium Chloride 1,000 mls @ 999 mls/hr 11/05/22 12:45 11/05/22 13:45 Ns IV 11/05/22 13:45 999 mls/hr .Q1H1M ANTHONY Administration Iohexol 100 ml 11/05/22 13:17 11/05/22 13:18 Iohexol 350 Mg/Ml 100 Ml Infus..Btl IV 11/05/22 13:18 70 ml ONCE ONE Administration Ketorolac Tromethamine 15 mg 11/05/22 12:46 11/05/22 13:44 Ketorolac Tromethamine 15 Mg/Ml Vial IVPUSH 11/05/22 12:47 15 mg ONCE ONE Administration Metoclopramide HCl 10 mg 11/05/22 12:46 11/05/22 13:44 Metoclopramide Hcl 10 Mg/2 Ml Vial IVPUSH 11/05/22 12:47 10 mg ONCE ONE Administration Medical Decision Making Medical Decision Making MDM Narrative: Concern for headache syndrome versus stroke patient is mainly complaining of neck pain at this time CT was negative labs are unremarkable I did speak with Neurology as well as hospitalist about admission. I also spoke with Radiology for known colon as well as the CT of the head both were negative. Differential Diagnosis Differential Diagnoses: The differential diagnosis associated with the presentation includes Stroke versus TIA headache versus meningitis or infection. 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 Bell from Neurology who agreed with no TPA and admission Lab Data MDM Lab Attestation statement: I reviewed the patient's lab results. 11/05/22 13:40 11/05/22 13:40 Labs: Lab Results 11/05/22 11/05/22 11/05/22 Range/Units 12:37 12:38 13:40 WBC 5.3 (4.8-10.8) X10*3/uL RBC 3.77 L (4.60-5.80) X10*6/uL Hgb 12.8 L (14.0-18.0) g/dl Hct 37.1 L (42.0-52.0) % MCV 98.4 H (80.0-98.0) fL MCH 34.0 H (27.0-33.0) pg MCHC 34.5 (31.0-36.0) g/dl RDW 11.9 (11.0-16.0) % Plt Count 260 (160-400) X10*3/uL MPV 9.9 (9.4-12.4) fL Immature Gran % (Auto) 0.2 (0.0-0.4) % Neut % (Auto) 51.6 (45-73) % Lymph % (Auto) 36.4 (20-40) % [place] % (Auto) 9.0 (2-11) % Eos % (Auto) 1.9 (0-4) % Baso % (Auto) 0.9 (0-2) % Lymph # (Auto) 1.9 (1.2-4.9) X10*3/uL [place] # (Auto) 0.5 (0.1-1.2) X10*3/uL Eos # (Auto) 0.1 (0.0-0.4) X10*3/uL Baso # (Auto) 0.1 (0.0-0.2) X10*3/uL Abs Immat Gran (auto) 0.01 (0.00-0.03) X10*3/uL Absolute Neuts (auto) 2.8 (2.0-8.3) x10*3/uL Absolute Nucleated RBC 0.000 (0.0-0.012) X10*3/uL Nucleated RBC % (auto) 0.0 (0.0-0.2) /100WBC PT (10.0-13.1) SEC Whole Blood PT 11.1 (11.1-13.5) sec INR (0.9-1.1) Whole Blood INR 0.9 (0.9-1.1) APTT (26.0-36.4) SEC Sodium (135-145) mmol/L Potassium (3.3-5.1) mmol/L Chloride (96-108) mmol/L Carbon Dioxide (22-29) mmol/L Anion Gap (12-20) BUN (9-16) mg/dL Creatinine (0.5-1.4) mg/dL Estim Creat Clear Calc Estimated GFR POC Glucose 98 (60-115) mg/dL Random Glucose (60-115) mg/dL Calcium (8.4-10.2) mg/dL Total Creatine Kinase (38-174) U/L Troponin I High Sens (<3.5-35.0) ng/L 11/05/22 11/05/22 11/05/22 Range/Units 13:40 13:40 13:40 WBC (4.8-10.8) X10*3/uL RBC (4.60-5.80) X10*6/uL Hgb (14.0-18.0) g/dl Hct (42.0-52.0) % MCV (80.0-98.0) fL MCH (27.0-33.0) pg MCHC (31.0-36.0) g/dl RDW (11.0-16.0) % Plt Count (160-400) X10*3/uL MPV (9.4-12.4) fL Immature Gran % (Auto) (0.0-0.4) % Neut % (Auto) (45-73) % Lymph % (Auto) (20-40) % [place] % (Auto) (2-11) % Eos % (Auto) (0-4) % Baso % (Auto) (0-2) % Lymph # (Auto) (1.2-4.9) X10*3/uL [place] # (Auto) (0.1-1.2) X10*3/uL Eos # (Auto) (0.0-0.4) X10*3/uL Baso # (Auto) (0.0-0.2) X10*3/uL Abs Immat Gran (auto) (0.00-0.03) X10*3/uL Absolute Neuts (auto) (2.0-8.3) x10*3/uL Absolute Nucleated RBC (0.0-0.012) X10*3/uL Nucleated RBC % (auto) (0.0-0.2) /100WBC PT 10.4 (10.0-13.1) SEC Whole Blood PT (11.1-13.5) sec INR 0.9 (0.9-1.1) Whole Blood INR (0.9-1.1) APTT 26.0 (26.0-36.4) SEC Sodium 142 (135-145) mmol/L Potassium 3.8 (3.3-5.1) mmol/L Chloride 108 (96-108) mmol/L Carbon Dioxide 25 (22-29) mmol/L Anion Gap 13 (12-20) BUN 11 (9-16) mg/dL Creatinine 1.20 (0.5-1.4) mg/dL Estim Creat Clear Calc 67.0 Estimated GFR > 60 POC Glucose (60-115) mg/dL Random Glucose 62 (60-115) mg/dL Calcium 9.3 (8.4-10.2) mg/dL Total Creatine Kinase 199 H (38-174) U/L Troponin I High Sens 4.3 (<3.5-35.0) ng/L Independent Interpretation I performed an independent interpretation of an: EKG, Plain X-Ray and CT Scan Radiology Impression Discussion of test interpretation with radiology: I have reviewed the radiologist's reading. NIH Stroke Scale Internal: Initial- Upon Arrival Level of Consciousness: Alert Level of Consciousness Questions: Answers both questions correctly Level of Consciousness Commands: Performs both tasks correctly Best Gaze: Normal Visual: No visual loss Facial Palsy: Normal Motor Arm (Right): No drift Motor Arm (Left): No drift Motor Leg (Right): No drift Motor Leg (Left): No drift Limb Ataxia: Absent Sensory: Normal Best Language: No aphasia Dysarthia: Normal Extinction and Inattention: No abnormality Score: 0 Critical Care Time Critical Care Time Critical Care Time: Yes Total Critical Care Time: 35 Attestation: Acute stroke workup patient appeared to have resolved symptoms on arrival to I did speak Neurology Radiology and the hospitalist for admission. Discharge Plan Discharge Clinical Impression: Brain TIA, Acute left-sided muscle weakness Patient Disposition: Admitted As Inpatient Prescriptions: No Action fenofibrate 160 mg tablet 160 mg PO DAILY 30 Days Qty: 30 6RF atorvastatin [Lipitor] 20 mg tablet 20 mg PO DAILY 30 Days Qty: 30 6RF lisinopril 20 mg tablet 20 mg PO DAILY 90 Days Qty: 90 1RF (DME) pen needle, diabetic [BD Bela 2nd Gen Pen Needle] 32 gauge x 5/32 needle See Rx Instructions .MEDSUPPLY Qty: 150 0RF Rx Instructions: 5 times daily NO FURTHER REFILLS WITHOUT APPOINTMENT! Humulin R U-500 (Conc) Kwikpen 500 unit/mL (3 mL) insulin pen See Rx Instructions subcut . Twice a day 30 Days Qty: 18 0RF Rx Instructions: 80 units before breakfast and 85 units before dinner subcut . Twice a day; NO MORE REFILLS UNTIL APPOINTMENT IS SCHEDULED. valacyclovir 1 gram tablet 1,000 mg PO Q8H 7 Days Qty: 21 0RF cefpodoxime 200 mg tablet 200 mg PO BID 7 Days Qty: 14 0RF Rx Instructions: must administer with a meal/food azithromycin 250 mg tablet See Rx Instructions .ROUTE .COMPLEX Qty: 6 0RF Rx Instructions: take 500 mg today (day 1), then 250 mg for 4 days (days 2-5) cholecalciferol (vitamin D3) 50 mcg (2,000 unit) capsule 50 mcg PO DAILY 30 Days Qty: 30 6RF metformin 1,000 mg tablet 1,000 mg PO BID 30 Days Qty: 60 6RF Trulicity 3 mg/0.5 mL pen injector 3 mg subcut QWEEK 30 Days Qty: 2.5 6RF omeprazole 20 mg capsule,delayed release(DR/EC) 20 mg PO DAILY aspirin [Adult Low Dose Aspirin] 81 mg tablet,delayed release (DR/EC) 81 mg PO DAILY Hold Instructions: Resume on 09/03/20. no ASA or Nsaids, for a week. prazosin 5 mg capsule 5 mg PO BEDTIME omega-3 fatty acids [Fish Oil Concentrate] 1,000 mg capsule 1,000 mg PO DAILY Hold Instructions: Resume on 09/03/20. NO asa, Nsaids or omega 3 supplements for 1 week sertraline 100 mg tablet 100 mg PO DAILY aripiprazole 10 mg tablet 10 mg PO DAILY bupropion HCl [Wellbutrin XL] 300 mg tablet extended release 24 hr 300 mg PO QAM loratadine [Claritin] 10 mg tablet 10 mg PO DAILY amlodipine 5 mg tablet 5 mg PO DAILY gabapentin 100 mg capsule 100 mg PO DAILY folic acid 1 mg tablet 1 mg PO DAILY bisacodyl [Dulcolax (bisacodyl)] 5 mg tablet,delayed release (DR/EC) 5 mg PO BEDTIME
[2022-11-05] MEDS: iohexoL 350 MG/ML 100 ML INFUS..BTL IV (13:18)
[2022-11-05 13:43] LABS: MANUAL DIFF FLAG NO
[2022-11-05] MEDS: Ketorolac Tromethamine 15 MG/ML VIAL IVPUSH (13:44)
[2022-11-05] MEDS: Metoclopramide HCl 10 MG/2 ML VIAL IVPUSH (13:44)
[2022-11-05] MEDS: diphenhydrAMINE HCL 50 MG/ML VIAL 25 MG IVPUSH (13:44)
[2022-11-05] MEDS: 0.9 % Sodium Chloride 1,000 ML 999 ML IV (13:45)
[2022-11-05 13:46] LABS: Basophils Absolute Auto 0.1 X10*3/uL (0.0-0.2); Basophils Percent Auto 0.9 % (0-2); Eosinophils Absolute Auto 0.1 X10*3/uL (0.0-0.4); Eosinophils Percent Auto 1.9 % (0-4); Hematocrit 37.1 % (42.0-52.0); Hemoglobin 12.8 g/dl (14.0-18.0); Imm Gran Abs Auto 0.01 X10*3/uL (0.00-0.03); Imm Gran Pct Auto 0.2 % (0.0-0.4); Lymphocytes Absolute Auto 1.9 X10*3/uL (1.2-4.9); Lymphocytes Percent Auto 36.4 % (20-40); Mean Corpuscular HGB Conc 34.5 g/dl (31.0-36.0); Mean Corpuscular Volume 98.4 fL (80.0-98.0); Mean Platelet Volume 9.9 fL (9.4-12.4); Monocytes Absolute Auto 0.5 X10*3/uL (0.1-1.2); Neutrophils Absolute Auto 2.8 x10*3/uL (2.0-8.3); Neutrophils Percent Auto 51.6 % (45-73); Platelet Count 260 X10*3/uL (160-400); Red Blood Count 3.77 X10*6/uL (4.60-5.80); Red Cell Distribution Width 11.9 % (11.0-16.0); White Blood Count 5.3 X10*3/uL (4.8-10.8)
[2022-11-05 13:50] LABS: INTERNATIONAL NORM RATIO 0.9 (0.9-1.1); Prothrombin Time 10.4 SEC (10.0-13.1)
[2022-11-05 13:54] LABS: Stroke Lab Use COMPLETE
[2022-11-05 13:59] LABS: Anion Gap 13 (12-20); Blood Urea Nitrogen 11 mg/dL (9-16); Calcium 9.3 mg/dL (8.4-10.2); Carbon Dioxide 25 mmol/L (22-29); Chloride 108 mmol/L (96-108); Estimated Glomerular Filt Rate > 60; Glucose Random 62 mg/dL (60-115); Potassium 3.8 mmol/L (3.3-5.1); Sodium 142 mmol/L (135-145)
[2022-11-05] MEDS: Acetaminophen 325 MG TABLET 650 MG PO (14:03)
[2022-11-05] MEDS: Cyclobenzaprine HCl 10 MG TABLET PO (14:03)
[2022-11-05] MEDS: Aspirin 81 MG TAB.CHEW 324 MG PO (14:06)
[2022-11-05 14:07] LABS: Troponin-I High Sensitivity 4.3 ng/L (<3.5-35.0)
[2022-11-05 14:55] VITALS: BP 102/55; PULSE 83; RESP 16; TEMP 36.6; O2SAT 97
--- NOTE | 2022-11-05 15:03 | PM.IMHP ---
History of Present Illness Date of Service: 11/05/22 Attending physician on admission: Lj Velasquez Chief Complaint: left sided weakness, neck pain, lightheadedness 57 year old male with history of uncontrolled tryp2 diabetes with hyperglycemia, htn, hld, diabetic retinopathy, diabetic polyneuropathy, bipolar 1 disorder, history alcohol abuse on naltrexone presented to the ED via EMS from his day program for evaluation of sudden onset neck pain, lightheadedness, and EMS reported left-sided weakenss. The patient reports a general weakness in the ble worse on right side. Pt called in as stroke alert and pt noted to have weakness closing left eye. Also states he has blurred vision. Glucose on arrival 68. Does have history poor compliance with diabetes medications. VSS. Macrocytic anemia with h/h 12.8/37.1%, MCV 98.4%. Renal function and electrolytes normal. Trop negative. UA and utox pending. CXR negative for any acute abnormality. Head CT negative for any acute intracranial pathology. Head/neck CTA showing multilevel cervical spondylosis but no significant arterial stenosis or acute arterial occlusions but without visualization of proximal cervical arterial vasculature due to motion artifact. Case discussed by ED with neuro. Given 324 mg aspirin in the ED. Pt to be observed for possible TIA. Review of Systems Review of Systems: General: No fevers, malaise, unintentional weight loss HEENT: +blurred vision Cardiovascular: No chest pain, palpitations, or leg edema Respiratory: No shortness of breath, wheezing, cough GI: No abdominal pain, nausea, vomiting, diarrhea, constipation, melena, hematochezia : No dysuria, hematuria, increased urinary frequency, decreased urinary output MSK: No myalgia, back pain Neuro: No headaches, paresthesias, weakness BLE Skin: No rashes or lesions [facility] Medical History Arthritis Asthma Bipolar 1 disorder Diabetes mellitus Diabetes type 2, uncontrolled Diabetic polyneuropathy associated with type 2 diabetes mellitus Diabetic retinopathy associated with type 2 diabetes mellitus GERD (gastroesophageal reflux disease) Hypercholesterolemia 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 Vitamin D deficiency Family History Father Diabetes mellitus Complete amputation of bilateral legs Mother Diabetes mellitus Surgical History Hx of colonoscopy No pertinent past surgical history Social History (Updated 11/05/22 @ 15:18 by LYN Beckett) Household Members: Spouse Alcohol intake: former Second Hand Smoke Exposure: No Use of substances other than those prescribed or required for medical reasons: No Advance Directives: No Advance Directives Information Provided: No Meds Allergies Allergy/AdvReac Type Severity Reaction Status Date / Time No Known Allergies Allergy Verified 08/28/20 11:15 Active Medications: Current Medications Acetaminophen (Acetaminophen 325 Mg Tablet) 650 mg PO Q6H PRN PRN Reason: Pain, Mild (Pain Scale 1-3) Docusate Sodium (Docusate Sodium 100 Mg Capsule) 100 mg PO DAILY PRN PRN Reason: Constipation Enoxaparin Sodium (Enoxaparin Sodium 40 Mg/0.4 Ml Syringe) 40 mg SUBCUT Q24H ANTHONY Ondansetron HCl (Ondansetron Hcl 4 Mg/2 Ml Vial) 4 mg IVPUSH Q8H PRN PRN Reason: Nausea and Vomiting Pharmacy Consult (Consult Rx Perform Med Rec) 1 each MISCELLANE ONCE PRN PRN Reason: Consult order Sodium Chloride (0.9 % Sodium Chloride Flush 3 Ml Syringe) 3 ml IVFLUSH QSHIFT [facility] Home Medications Medication Instructions Recorded Confirmed Last Taken Type aspirin 81 mg tablet,delayed 81 mg PO DAILY 06/28/20 01/15/21 Unknown History release (Adult Low Dose Aspirin) folic acid 1 mg tablet 1 mg PO DAILY 06/28/20 01/15/21 Unknown History gabapentin 100 mg capsule 100 mg PO DAILY 06/28/20 01/15/21 Unknown History omeprazole 20 mg capsule,delayed 20 mg PO DAILY@0630 06/28/20 01/15/21 Unknown History release amlodipine 10 mg tablet 10 mg PO DAILY@1800 11/05/22 11/05/22 Unknown History atorvastatin 80 mg tablet 80 mg PO BEDTIME 11/05/22 Unknown History dulaglutide 1.5 mg/0.5 mL 1.5 mg subcut QWEEK 11/05/22 Unknown History [facility] fenofibrate 160 mg tablet 160 mg PO BEDTIME 11/05/22 Unknown History hydralazine 50 mg tablet 50 mg PO BID 11/05/22 Unknown History icosapent ethyl 1 gram capsule 2 g PO BID 11/05/22 Unknown History (Vascepa) lisinopril 30 mg tablet 30 mg PO DAILY 11/05/22 Unknown History metformin 1,000 mg tablet 1,000 mg PO BIDWM 11/05/22 11/05/22 Unknown History metoprolol tartrate 100 mg tablet 100 mg PO BID 11/05/22 Unknown History multivitamin-ferrous 1 tab PO DAILY 11/05/22 Unknown History fumarate-folic acid 18 mg-400 mcg tablet (Certavite-Antioxidant) naltrexone 50 mg tablet 50 mg PO DAILY 11/05/22 Unknown History prazosin 1 mg capsule 1 mg PO DAILY PRN ADMINISTRATIVE MANAGER 11/05/22 11/05/22 Unknown History AWAKENINGS prazosin 1 mg capsule 3 mg PO BEDTIME 11/05/22 Unknown History sertraline 50 mg tablet 50 mg PO DAILY 11/05/22 Unknown History thiamine HCl (vitamin B1) 100 mg 100 mg PO DAILY 11/05/22 Unknown History tablet Physical Exam Vital Signs and Narrative: Vital Signs: Last Vital Signs Temp 98.9 F 11/05/22 12:37 Pulse 83 11/05/22 12:37 Resp 18 11/05/22 12:37 BP 112/48 L 11/05/22 12:37 Pulse Ox 97 11/05/22 12:37 O2 Del Method 11/05/22 12:37 BMI result Body Mass Index 23.6 Constitutional - Awake and Alert, No apparent distress Eyes - PERRLA, EOMI Cardiovascular - S1S2, RRR, No edema Respiratory - Normal lung expansion, Normal respiratory effort, No respiratory distress, CTA bilaterally Gastrointestinal - NT / ND; +BS; No rebound or guarding Extremities - no calf tenderness bilaterally, no swelling Skin - Warm/Dry Neurological - Alert & oriented x3, CN II-XII in tact, 5/5 strength BUE and BLE Psychological - Appropriate affect Results Labs 11/05/22 13:40 11/05/22 13:40 Labs: Laboratory Results - last 24 hr 11/05/22 11/05/22 11/05/22 12:37 12:38 13:40 MCV 98.4 H MCH 34.0 H MCHC 34.5 RDW 11.9 Plt Count 260 MPV 9.9 Immature Gran % (Auto) 0.2 Neut % (Auto) 51.6 Lymph % (Auto) 36.4 [place] % (Auto) 9.0 Eos % (Auto) 1.9 Baso % (Auto) 0.9 Lymph # (Auto) 1.9 [place] # (Auto) 0.5 Eos # (Auto) 0.1 Baso # (Auto) 0.1 Abs Immat Gran (auto) 0.01 Absolute Neuts (auto) 2.8 Absolute Nucleated RBC 0.000 Nucleated RBC % (auto) 0.0 PT Whole Blood PT 11.1 INR Whole Blood INR 0.9 APTT Anion Gap Estim Creat Clear Calc Estimated GFR POC Glucose 98 Random Glucose Calcium Total Creatine Kinase Troponin I High Sens 11/05/22 11/05/22 11/05/22 13:40 13:40 13:40 MCV MCH MCHC RDW Plt Count MPV Immature Gran % (Auto) Neut % (Auto) Lymph % (Auto) [place] % (Auto) Eos % (Auto) Baso % (Auto) Lymph # (Auto) [place] # (Auto) Eos # (Auto) Baso # (Auto) Abs Immat Gran (auto) Absolute Neuts (auto) Absolute Nucleated RBC Nucleated RBC % (auto) PT 10.4 Whole Blood PT INR 0.9 Whole Blood INR APTT 26.0 Anion Gap 13 Estim Creat Clear Calc 67.0 Estimated GFR > 60 POC Glucose Random Glucose 62 Calcium 9.3 Total Creatine Kinase 199 H Troponin I High Sens 4.3 Imaging Radiologist's Impressions: Impressions Head CT 11/05/22 12:53 IMPRESSION: No acute intracranial pathology. This critical result was discussed with Dr. Fuentes at 1300 hours on 11/05/2022. It was ascertained that the content and urgency of the report was understood at the time of direct communication. Head/Neck CTA 11/05/22 13:11 IMPRESSION: - No acute intracranial findings. - No significant arterial stenoses and no acute arterial occlusions within the head or neck. Proximal cervical arterial vasculature is not diagnostically assessed due to significant motion artifact. - Multilevel cervical spondylosis. Covering provider paged with these findings at 1:45 PM on 11/05/2022. Chest X-Ray 11/05/22 13:15 IMPRESSION: Unremarkable examination. Assessment and Plan (1) Brain TIA: Status: Acute Plan 57 year old male with history of uncontrolled tryp2 diabetes with hyperglycemia, htn, hld, diabetic retinopathy, diabetic polyneuropathy, bipolar 1 disorder, history alcohol abuse on naltrexone to be observed for possible TIA #Possible TIA -Patient with nonspecifical deficits, low suspcision for TIA, but does have risk factors including uncontrolled type 2 diabetes -Observe on telemetry -MR brain ordered -Echo ordered -Continue statin, baby asa daily -Lipid panel pending -Nursing bedside swallow eval -Appreciate neuro input #Uncontrolled insulin dependent type 2 diabetes with hyperglycemia and hypoglycemia due to noncompliance with insulin regimen -POC glucose -diabetic diet once swallow eval passed -Humalog on sliding scale -Hold po antihyperglycemics -dextrose prn hypoglycemia #HTN- bp soft -Hold bp meds for now #HLD/hypertriglyceridemia -continue statin, fenofibrate, vascepa #history etoh abuse -continue naltrexone, folic acid, thiamine #Chronic normocytic anemia -h/h baseline, above transfusion threshold DVt prophylaxis- lovenox full code Time Spent With Patient Time: Total time managing care of this patient today ____ minutes. Quality Stroke Does the patient have a stroke diagnosis?: No VTE Prior VTE?: No VTE Risk Level:: Medical - moderate - high VTE Device Contraindication: Treatment Not Indicated VTE Drug Contraindication: N/A - Med Ordered
[2022-11-05 15:25] LABS: COVID-19 Test Negative (Negative); IDNOW Serial# 55D5AD1C
[2022-11-05 15:28] LABS: Cholesterol 159 mg/dL; HDL Cholesterol 48 mg/dL; LDL Cholesterol Calculated 69 mg/dl; Triglycerides 211 mg/dL
[2022-11-05] MEDS: Enoxaparin Sodium 40 MG/0.4 ML SYRINGE SUBCUT (15:49)
[2022-11-05] MEDS: 0.9 % Sodium Chloride Flush 3 ML SYRINGE IVFLUSH ×2 (15:50→23:40)
[2022-11-05 17:07] LABS: Glucose, Whole Blood 38 mg/dL (60-115)
[2022-11-05 17:08] LABS: Glucose, Whole Blood 58 mg/dL (60-115)
--- NOTE | 2022-11-05 17:23 | PC.NURSE ---
POC 57 inpatient provider made aware. Patient asymptomatic eating dinner. Alert and oriented x3, speech clear. Re-check POC 105.
[2022-11-05 17:25] LABS: Glucose, Whole Blood 105 mg/dL (60-115)
[2022-11-05 19:17] VITALS: BP 179/68; PULSE 84; RESP 18; O2SAT 97
[2022-11-05 21:09] LABS: Glucose, Whole Blood 119 mg/dL (60-115)
[2022-11-05] MEDS: Gabapentin 100 MG CAPSULE PO (21:28)
[2022-11-05] MEDS: Atorvastatin Calcium 80 MG TABLET PO (21:28)
[2022-11-05] MEDS: Prazosin HCL 1 MG CAPSULE 3 MG PO (21:28)
[2022-11-05] MEDS: Fenofibrate 160 MG TABLET PO (21:30)
--- NOTE | 2022-11-05 22:58 | PC.NURSE ---
Patient is alert and orientedx3. VSS. Patient denies any pain. Patient is able to take medications with water, no trouble swallowing noted. Patient urinated in urinal with assistance of RN. Patient medicated per NOV. Call rao within patient's jayda.
[2022-11-05 23:37] VITALS: BP 143/83; PULSE 80; RESP 14; O2SAT 96
[2022-11-06 03:28] VITALS: BP 125/79; PULSE 79; RESP 15; O2SAT 97
[2022-11-06 06:10] VITALS: BP 140/76; PULSE 80; RESP 18; O2SAT 97
[2022-11-06 06:16] LABS: Glucose, Whole Blood 175 mg/dL (60-115)
[2022-11-06] MEDS: Omeprazole 20 MG CAPSULE.DR PO (06:23)
--- NOTE | 2022-11-06 06:35 | ECG_ITS ---
Test Reason : chest pain Blood Pressure : / mmHG Vent. Rate : 087 BPM Atrial Rate : 087 BPM P-R Int : 158 ms QRS Dur : 082 ms QT Int : 362 ms P-R-T Axes : 053 -19 032 degrees QTc Int : 435 ms Normal sinus rhythm Normal ECG When compared with ECG of 05-NOV-2022 13:27, No significant change was found Referred By: Jet Londono Electronically Signed By:Zeyad Garcia
--- NOTE | 2022-11-06 06:36 | PC.NURSE ---
Patient complains of left sided pressure like chest pain, no dyspnea, no nausea noted/reported by pt. VSS. Dr. Londono notified, EKG obtained, normal EKG, NSR. Image of EKG sent to Dr. Londono via [employer] message.
[2022-11-06 06:54] VITALS: BP 162/94; PULSE 87; RESP 15; O2SAT 98
--- NOTE | 2022-11-06 07:00 | CA_ITS ---
Transthoracic Echocardiogram w bubble Patient (Last, First, Middle): Daniel Angulo, Gender: Male Date of : 1965 Age: 57 Procedure Date: 11/06/2022 Procedure Type: Transthoracic Echocardiogram w bubble Location: ER Height: 175.26 cm Weight: 72.58 kg BSA: 1.88 m2 Heart Rate: 93 bpm BP: 162 / 94 mmHg Squaring Shear Operator: SB Referring MD: Hannah NICHOLSON Symptoms: tia Study Quality: Adequate w contrast ECG Rhythm: Sinus Conclusions: - Normal left ventricular size and systolic function. The visually estimated ejection fraction is between 55-60%. - Elevated filling pressures. - Normal right ventricular cavity size and systolic function. Findings Procedure Information Contrast agent, definity, is being given per protocol without apparent complications. Left Ventricle Normal left ventricular size and systolic function. The visually estimated ejection fraction is between 55-60%. There is no evidence of regional wall motion abnormalities. Abnormal diastolic function is noted. Spectral Doppler is indicative of an impaired relaxation filling pattern. Elevated filling pressures. There is mild septal asymmetric hypertrophy. Right Ventricle Normal right ventricular cavity size and systolic function. Atria The left atrium is normal in size. There is no evidence of interatrial shunt by agitated saline. The right atrium is normal in size. Aortic Valve There is a normal trileaflet aortic valve. There is mild calcification of the aortic valve. There is no aortic valve stenosis. There is no aortic valve regurgitation. Mitral Valve Normal mitral valve structure and function. There is trace mitral valve regurgitation. There is no mitral valve stenosis. Pulmonic Valve Normal pulmonic valve structure and function. There is trace pulmonic valve regurgitation. Tricuspid Valve Normal tricuspid valve structure. There is trace tricuspid valve regurgitation. Normal right atrial pressure. There is no evidence of pulmonary hypertension. Great Vessels All visible segments of the aorta are normal in size. The visualized portions of the pulmonary artery and branches are normal. Venous The inferior vena cava is normal in size and collapses greater than 50% with inspiration. Pericardium/Pleural There is no evidence of pericardial effusion. Measurements 2D Linear Measurements IVSd: 1.23 0.6-0.9/0.6-1.0 cm LVIDd: 4.41 3.9-5.3/4.2-5.9 cm LVIDd Index: 2.35 2.4-3.2/2.2-3.1 cm/m2 LVIDs: 3.31 2.0-3.6 cm LVPWd: 0.81 0.7-1.1 cm LA Diam: 3.90 2.7-3.8/3.0-4.0 cm LAIDs Index: 2.07 1.5-2.3 cm/m2 LV Mass: 190.13 67-162/88-224 g LV Mass Index: 101.13 43-95/49-115 g/m2 LVOT Diam: 2.00 3.0+(-)1.3 cm 2D Systolic Function EF 4C: 48.60 >55% EF 2C: 53.60 >55% EF BiP: 51.20 >55% Mitral Valve MV Pk E: 0.98 MV PK A: 1.05 MV Decel Time: 209.00 E/A: 0.90 E'Lateral: 7.72 E'Medial: 5.98 E/E' Med: 16.40 E/E' Lat: 12.70 PHT: 61.00 MVA PHT: 3.61 Decel Desha: 4.70 Aortic Valve AoV Pk Irineo: 1.47 AoV Pk Grad: 9.00 DESI: 2.06 LVOT LVOT Pk Irineo: 0.94 LVOT Mn Irineo: 0.68 LVOT VTI: 0.18 LVOT Pk Grad: 4.00 LVOT Mn Grad: 2.00 LVOT Diam: 2.00 LVOT Area: 3.14 Diastolic Function MV Pk E: 0.98 MV Pk A: 1.05 E/A: 0.90 E'Medial: 5.98 E/E' Med: 16.40 E' Laterial: 7.72 E/E' Lat: 12.70 Right Ventricle TAPSE (mm): 19.30 TVS' Irineo: 14.30 Tricuspid Valve TR Pk Irineo: 2.58 TR Pk Grad: 27.00 RA Press: 3.00 RVSP: 30.00 Great Vessels Aorta Sinus of Valsalva: 2.80 2.0-3.5 cm Ao Asc: 3.10 2.1-3.4 cm Pulmonary Veins Pulm Vein S/D 1.50 Pulmonary Valve PV Pk Irineo: 0.84 Peak PV Grad: 3.00 Updated in Other Vendor System with Status of Final Zeyad Garcia MD electronically signed on 11/06/2022 3:21:04 PM with status of Final
--- NOTE | 2022-11-06 07:37 | PM.DS ---
DS: Providers Provider Date of Service: 11/06/22 Date of admission: 11/05/22 14:55 Primary care physician: [facility] Consults: 11/05/22 14:58 Consult to Neurology Routine Consulting Provider: [facility] Reason for consultation: tia DS: Diagnosis Discharge Diagnosis (1) Brain TIA: Status: Acute DS: Summary Hospital Course Hospital Course: Chief Complaint: left sided weakness, neck pain, lightheadedness 57 year old male with history of uncontrolled tryp2 diabetes with hyperglycemia, htn, hld, diabetic retinopathy, diabetic polyneuropathy, bipolar 1 disorder, history alcohol abuse on naltrexone presented to the ED via EMS from his day program for evaluation of sudden onset neck pain, lightheadedness, and EMS reported left-sided weakenss. The patient reports a general weakness in the ble worse on right side. Pt called in as stroke alert and pt noted to have weakness closing left eye. Also states he has blurred vision. Glucose on arrival 68. Does have history poor compliance with diabetes medications. VSS. Macrocytic anemia with h/h 12.8/37.1%, MCV 98.4%. Renal function and electrolytes normal. Trop negative. UA and utox pending.? CXR negative for any acute abnormality.? Head CT negative for any acute intracranial pathology.? Head/neck CTA showing multilevel cervical spondylosis but no significant arterial stenosis or acute arterial occlusions but without visualization of proximal cervical arterial vasculature due to motion artifact. Case discussed by ED with neuro.? Given 324 mg aspirin in the ED. Pt to be observed for possible TIA. Hospital course: He presented with non specific symptoms of left sided weakness, neck pain, lightheadness that have all resolved. Stroke work up is negative including CT head, CT of head and neck and MRI of brain. Advise to continue stroke riks reduction with blood pressure diabetes and Lipid control and compliance with meds; continue baby aspirin Time Spent with Patient Time attestation: Total time managing care of this patient today ____ minutes. Discharge coordination time: Greater than 30 minutes Quality: Safe Use of Opioids Does Pt have an Active Cancer Diagnosis on the Problem List?: No Quality: Stroke Does the patient have a stroke diagnosis?: No Physical Exam Vital Signs: Vital Signs: Last Vital Signs Temp 97.8 F 11/05/22 14:55 Pulse 87 11/06/22 06:54 Resp 15 11/06/22 06:54 BP 162/94 H 11/06/22 06:54 Pulse Ox 98 11/06/22 06:54 O2 Del Method 11/06/22 06:54 BMI result Body Mass Index 23.6 DS: Data Data Completed and Pending Labs on day of discharge: Laboratory Results - last 24 hr 11/05/22 11/05/22 11/05/22 12:37 12:38 13:40 WBC 5.3 RBC 3.77 L Hgb 12.8 L Hct 37.1 L MCV 98.4 H MCH 34.0 H MCHC 34.5 RDW 11.9 Plt Count 260 MPV 9.9 Immature Gran % (Auto) 0.2 Neut % (Auto) 51.6 Lymph % (Auto) 36.4 [place] % (Auto) 9.0 Eos % (Auto) 1.9 Baso % (Auto) 0.9 Lymph # (Auto) 1.9 [place] # (Auto) 0.5 Eos # (Auto) 0.1 Baso # (Auto) 0.1 Abs Immat Gran (auto) 0.01 Absolute Neuts (auto) 2.8 Absolute Nucleated RBC 0.000 Nucleated RBC % (auto) 0.0 PT Whole Blood PT 11.1 INR Whole Blood INR 0.9 APTT Sodium Potassium Chloride Carbon Dioxide Anion Gap BUN Creatinine Estim Creat Clear Calc Estimated GFR POC Glucose 98 Random Glucose Calcium Total Creatine Kinase Troponin I High Sens Triglycerides Cholesterol LDL Cholesterol, Calc HDL Cholesterol COVID-19 (NAEL) COVID-19 Clin Com 11/05/22 11/05/22 11/05/22 13:40 13:40 13:40 WBC RBC Hgb Hct MCV MCH MCHC RDW Plt Count MPV Immature Gran % (Auto) Neut % (Auto) Lymph % (Auto) [place] % (Auto) Eos % (Auto) Baso % (Auto) Lymph # (Auto) [place] # (Auto) Eos # (Auto) Baso # (Auto) Abs Immat Gran (auto) Absolute Neuts (auto) Absolute Nucleated RBC Nucleated RBC % (auto) PT 10.4 Whole Blood PT INR 0.9 Whole Blood INR APTT 26.0 Sodium 142 Potassium 3.8 Chloride 108 Carbon Dioxide 25 Anion Gap 13 BUN 11 Creatinine 1.20 Estim Creat Clear Calc 67.0 Estimated GFR > 60 POC Glucose Random Glucose 62 Calcium 9.3 Total Creatine Kinase 199 H Troponin I High Sens 4.3 Triglycerides 211 Cholesterol 159 LDL Cholesterol, Calc 69 HDL Cholesterol 48 COVID-19 (NAEL) COVID-19 [employer] 11/05/22 11/05/22 11/05/22 14:37 16:55 17:04 WBC RBC Hgb Hct MCV MCH MCHC RDW Plt Count MPV Immature Gran % (Auto) Neut % (Auto) Lymph % (Auto) [place] % (Auto) Eos % (Auto) Baso % (Auto) Lymph # (Auto) [place] # (Auto) Eos # (Auto) Baso # (Auto) Abs Immat Gran (auto) Absolute Neuts (auto) Absolute Nucleated RBC Nucleated RBC % (auto) PT Whole Blood PT INR Whole Blood INR APTT Sodium Potassium Chloride Carbon Dioxide Anion Gap BUN Creatinine Estim Creat Clear Calc Estimated GFR POC Glucose 38 L* 58 L* Random Glucose Calcium Total Creatine Kinase Troponin I High Sens Triglycerides Cholesterol LDL Cholesterol, Calc HDL Cholesterol COVID-19 (NAEL) Negative COVID-19 [employer] See Note 11/05/22 11/05/22 11/06/22 17:20 21:05 06:12 WBC RBC Hgb Hct MCV MCH MCHC RDW Plt Count MPV Immature Gran % (Auto) Neut % (Auto) Lymph % (Auto) [place] % (Auto) Eos % (Auto) Baso % (Auto) Lymph # (Auto) [place] # (Auto) Eos # (Auto) Baso # (Auto) Abs Immat Gran (auto) Absolute Neuts (auto) Absolute Nucleated RBC Nucleated RBC % (auto) PT Whole Blood PT INR Whole Blood INR APTT Sodium Potassium Chloride Carbon Dioxide Anion Gap BUN Creatinine Estim Creat Clear Calc Estimated GFR POC Glucose 105 119 H 175 H Random Glucose Calcium Total Creatine Kinase Troponin I High Sens Triglycerides Cholesterol LDL Cholesterol, Calc HDL Cholesterol COVID-19 (NAEL) COVID-19 [employer] Discharge Plan Discharge Anticipated Discharge Date/Time: 11/06/22 10:13 Patient Disposition: Home, Self-Care Referrals: [facility] [Primary Care Provider] - 1 Week Discharge Medications: Continued (DME) pen needle, diabetic [BD Bela 2nd Gen Pen Needle] 32 gauge x 5/32 needle See Rx Instructions .MEDSUPPLY Qty: 150 0RF Rx Instructions: 5 times daily NO FURTHER REFILLS WITHOUT APPOINTMENT! prazosin 1 mg capsule 3 mg PO BEDTIME sertraline 50 mg tablet 50 mg PO DAILY atorvastatin 80 mg tablet 80 mg PO BEDTIME metoprolol tartrate 100 mg tablet 100 mg PO BID fenofibrate 160 mg tablet 160 mg PO BEDTIME naltrexone 50 mg tablet 50 mg PO DAILY lisinopril 30 mg tablet 30 mg PO DAILY thiamine HCl (vitamin B1) 100 mg tablet 100 mg PO DAILY hydralazine 50 mg tablet 50 mg PO BID Certavite-Antioxidant 18-400 mg-mcg tablet 1 tab PO DAILY icosapent ethyl [Vascepa] 1 gram capsule 2 g PO BID Trulicity 1.5 mg/0.5 mL pen injector 1.5 mg SUBCUT WE prazosin 1 mg capsule 1 mg PO DAILY PRN (Reason: BARREL RIFLER BUTTON AWAKENINGS) amlodipine 10 mg tablet 10 mg PO DAILY@1800 metformin 1,000 mg tablet 1,000 mg PO BIDWM cholecalciferol (vitamin D3) 50 mcg (2,000 unit) capsule 50 mcg PO DAILY 30 Days Qty: 30 6RF omeprazole 20 mg capsule,delayed release(DR/EC) 20 mg PO DAILY@0630 aspirin [Adult Low Dose Aspirin] 81 mg tablet,delayed release (DR/EC) 81 mg PO DAILY Hold Instructions: Resume on 09/03/20. no ASA or Nsaids, for a week. gabapentin 100 mg capsule 100 mg PO BEDTIME folic acid 1 mg tablet 1 mg PO DAILY Diet: Advance to usual diet Activity on Discharge: As tolerated Stand Alone Forms: Patient Portal Discharge page Care Plan Goals: stroke prevention Health Concerns: concern of TIA HTN Plan of Treatment: continue taking your medication as before and follow up with your Doctor in a week Assessment: as above
[2022-11-06 07:41] LABS: MANUAL DIFF FLAG NO
[2022-11-06 07:44] LABS: Glucose, Whole Blood 196 mg/dL (60-115)
[2022-11-06 07:44] LABS: Basophils Percent Auto 0.9 % (0-2); Eosinophils Absolute Auto 0.1 X10*3/uL (0.0-0.4); Eosinophils Percent Auto 3.4 % (0-4); Hematocrit 37.9 % (42.0-52.0); Imm Gran Abs Auto 0.01 X10*3/uL (0.00-0.03); Imm Gran Pct Auto 0.3 % (0.0-0.4); Lymphocytes Absolute Auto 1.5 X10*3/uL (1.2-4.9); Lymphocytes Percent Auto 46.6 % (20-40); Mean Corpuscular HGB Conc 34.3 g/dl (31.0-36.0); Mean Corpuscular Hemoglobin 34.3 pg (27.0-33.0); Mean Platelet Volume 10.2 fL (9.4-12.4); Monocytes Absolute Auto 0.3 X10*3/uL (0.1-1.2); Monocytes Percent Auto 8.4 % (2-11); Neutrophils Absolute Auto 1.3 x10*3/uL (2.0-8.3); Neutrophils Percent Auto 40.4 % (45-73); Platelet Count 246 X10*3/uL (160-400); Red Blood Count 3.79 X10*6/uL (4.60-5.80); Red Cell Distribution Width 11.9 % (11.0-16.0); White Blood Count 3.2 X10*3/uL (4.8-10.8)
[2022-11-06] MEDS: 0.9 % Sodium Chloride Flush 3 ML SYRINGE IVFLUSH (07:45)
[2022-11-06] MEDS: Insulin Lispro 100 UNIT/ML 3 ML VIAL SUBCUT ×2 (07:45→12:20)
[2022-11-06 07:57] LABS: Anion Gap 13 (12-20); Blood Urea Nitrogen 11 mg/dL (9-16); Calcium 8.9 mg/dL (8.4-10.2); Carbon Dioxide 23 mmol/L (22-29); Chloride 110 mmol/L (96-108); Creatinine Clr Calc Pharmacy 99.4; Estimated Glomerular Filt Rate > 60; Glucose Random 189 mg/dL (60-115); Potassium 4.4 mmol/L (3.3-5.1); Sodium 142 mmol/L (135-145)
[2022-11-06 08:04] LABS: Troponin-I High Sensitivity < 3.5 ng/L (<3.5-35.0)
--- NOTE | 2022-11-06 08:25 | PC.NURSE ---
Multiple calls and tiger connect to inpatient RN over the last 90 minutes. Report not given. Patient transported to Echo, will be transported to inpatient room after procedure.
--- NOTE | 2022-11-06 09:07 | MHC.CM.PN ---
Patient is unavailable in room 470; CM spoke with Girlfriend/Idania @ [phone] and addressed DUVALL with her (Original DUVALL in [place] Islander left at bedside in room 470 for Patient and in [place] for Idania who intends to visit soon, and a copy has been placed on the chart). Patient lives alone in an apartment but Idania often stays with him. 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 Patient has received covid vax x5 and his PCP is from [facility].
[2022-11-06 09:15] VITALS: PULSE 118; O2SAT 98
[2022-11-06 09:42] VITALS: BP 165/75; PULSE 88; RESP 20; TEMP 36.5; O2SAT 97
[2022-11-06] MEDS: Naltrexone HCl 50 MG TABLET PO (09:57)
[2022-11-06] MEDS: Thiamine HCL 100 MG TABLET PO (09:57)
[2022-11-06] MEDS: Cholecalciferol (Vitamin D3) 25 MCG TABLET 50 MCG PO (09:57)
[2022-11-06] MEDS: Multivitamin TABLET 1 TAB PO (09:57)
[2022-11-06] MEDS: Folic Acid 1 MG TABLET PO (09:57)
[2022-11-06] MEDS: Aspirin Enteric Coated 81 MG TABLET.DR PO (09:57)
[2022-11-06] MEDS: Sertraline HCL 50 MG TABLET PO (09:57)
[2022-11-06 11:06] LABS: Glucose, Whole Blood 231 mg/dL (60-115)
[2022-11-06 11:24] VITALS: BP 136/94; PULSE 91; RESP 20; TEMP 36.4; O2SAT 97
--- NOTE | 2022-11-06 11:25 | P.CNNE_ITS ---
History of Present Illness Data of Consult Service Date: 11/06/22 Primary Care Provider: [facility] Reason for consult: Brain TIA 57 years old man with underlying history of alcohol abuse and uncontrolled diabetes who came to hospital with complain of neck pain and was noted to have some left-sided facial weakness and stroke alert was triggered and multiple investigations were done. Now he was admitted with no sign of distress or no obvious new symptom. There was no dizziness or chest pain or palpitation. Review of Systems Review of Systems: No recent cold or flu-like illness PMFSH Past Medical History Medical History Arthritis Asthma Bipolar 1 disorder Diabetes mellitus Diabetes type 2, uncontrolled Diabetic polyneuropathy associated with type 2 diabetes mellitus Diabetic retinopathy associated with type 2 diabetes mellitus GERD (gastroesophageal reflux disease) Hypercholesterolemia 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 Lipoma intermediate (current) use of insulin Vitamin D deficiency Family History Family History Father Diabetes mellitus Complete amputation of bilateral legs Mother Diabetes mellitus Surgical History Surgical History Hx of colonoscopy No pertinent past surgical history Social History Social History (Updated 11/05/22 @ 15:18 by LYN Beckett) Household Members: None Housing: Apartment Alcohol intake: former Patient Tobacco Use Status: Tobacco use Unknown Smoked in Last 30 Days: No e-Cigarette/Vaping Use: Never Used Patient Interested in Nicotine Replacement: No Patient Given Instructions on How to Stop Smoking: No Second Hand Smoke Exposure: No Use of substances other than those prescribed or required for medical reasons: No Currently Displaying Signs/Symptoms of Drug Intoxication Withdrawal: No Any prior treatment program specific to substance use: No Have you been hit, kicked, punched, or otherwise hurt by someone within the past year? If so, by whom?: No Do you feel safe in your current relationship?: Yes Is there a partner from a previous relationship who is making you feel unsafe now?: No Are you made to feel afraid or neglected: No [facility] Practices: [facility] Advance Directives: No Advance Directives Information Provided: No Do you have thoughts of harming others: None Do you have a plan to hurt others: No Plan Recently lost weight without trying: Yes How much weight loss: Unsure Eating poorly because of decreased appetite: No Nutrition screen score: 4 Nutrition Risks: No Nutritional Risk Poor oral hygiene: No service: No Current occupational status: disabled Meds Allergies Allergy/AdvReac Type Severity Reaction Status Date / Time No Known Allergies Allergy Verified 08/28/20 11:15 Active Medications: Current Medications Acetaminophen (Acetaminophen 325 Mg Tablet) 650 mg PO Q6H PRN PRN Reason: Pain, Mild (Pain Scale 1-3) Aspirin (Aspirin Enteric Coated 81 Mg Tablet.Dr) 81 mg PO DAILY [facility] Last Admin: 11/06/22 09:57 Dose: 81 mg Atorvastatin Calcium (Atorvastatin Calcium 80 Mg Tablet) 80 mg PO BEDTIME [facility] Last Admin: 11/05/22 21:28 Dose: 80 mg Dextrose (Dextrose 50 % 25 Gm/50 Ml Syringe) 25 gm IVPUSH Q15M PRN; Protocol PRN Reason: per Hypoglycemia Standing Ord. Docusate Sodium (Docusate Sodium 100 Mg Capsule) 100 mg PO DAILY PRN PRN Reason: Constipation Enoxaparin Sodium (Enoxaparin Sodium 40 Mg/0.4 Ml Syringe) 40 mg SUBCUT Q24H [facility] Last Admin: 11/05/22 15:49 Dose: 40 mg Fenofibrate (Fenofibrate 160 Mg Tablet) 160 mg PO BEDTIME [facility] Last Admin: 11/05/22 21:30 Dose: 160 mg Folic Acid (Folic Acid 1 Mg Tablet) 1 mg PO DAILY [facility] Last Admin: 11/06/22 09:57 Dose: 1 mg Gabapentin (Gabapentin 100 Mg Capsule) 100 mg PO BEDTIME [facility] Last Admin: 11/05/22 21:28 Dose: 100 mg Glucose (Glucose Gel 15 Gm Gel..Gram.) 15 gm PO Q15M PRN; Protocol PRN Reason: per Hypoglycemia Standing Ord. Insulin Human Lispro (Insulin Lispro 100 Unit/Ml 3 Ml Vial) 0 unit SUBCUT QIDACHS [facility]; Protocol Last Admin: 11/06/22 07:45 Dose: 2 unit Multivitamins/Vitamin C (Multivitamin Tablet) 1 tab PO DAILY [facility] Last Admin: 11/06/22 09:57 Dose: 1 tab Naltrexone HCl (Naltrexone Hcl 50 Mg Tablet) 50 mg PO DAILY [facility] Last Admin: 11/06/22 09:57 Dose: 50 mg Non-Formulary Medication (Icosapent Ethyl [Vascepa]) 2 gm PO BID [facility] Omeprazole (Omeprazole 20 Mg Capsule.) 20 mg PO DAILY@0630 [facility] Last Admin: 11/06/22 06:23 Dose: 20 mg Ondansetron HCl (Ondansetron Hcl 4 Mg/2 Ml Vial) 4 mg IVPUSH Q8H PRN PRN Reason: Nausea and Vomiting Pharmacy Consult (Consult Rx Perform Med Rec) 1 each MISCELLANE ONCE PRN PRN Reason: Consult order Prazosin HCl (Prazosin Hcl 1 Mg Capsule) 1 mg PO DAILY PRN; Protocol PRN Reason: BIOLOGICAL AIDE AWAKENINGS Prazosin HCl (Prazosin Hcl 1 Mg Capsule) 3 mg PO BEDTIME [facility]; Protocol Last Admin: 11/05/22 21:28 Dose: 3 mg Sertraline HCl (Sertraline Hcl 50 Mg Tablet) 50 mg PO DAILY [facility] Last Admin: 11/06/22 09:57 Dose: 50 mg Sodium Chloride (0.9 % Sodium Chloride Flush 3 Ml Syringe) 3 ml IVFLUSH QSHIFT [facility] Last Admin: 11/06/22 07:45 Dose: 3 ml Thiamine HCl (Thiamine Hcl 100 Mg Tablet) 100 mg PO DAILY [facility] Last Admin: 11/06/22 09:57 Dose: 100 mg Vitamin D (Cholecalciferol (Vitamin D3) 25 Mcg Tablet) 50 mcg PO DAILY [facility] Last Admin: 11/06/22 09:57 Dose: 50 mcg Home Medications Medication Instructions Recorded Confirmed Last Taken Type aspirin 81 mg tablet,delayed 81 mg PO DAILY 06/28/20 11/05/22 Unknown History release (Adult Low Dose Aspirin) folic acid 1 mg tablet 1 mg PO DAILY 06/28/20 11/05/22 Unknown History gabapentin 100 mg capsule 100 mg PO BEDTIME 06/28/20 11/05/22 Unknown History omeprazole 20 mg capsule,delayed 20 mg PO DAILY@0630 06/28/20 11/05/22 Unknown History release amlodipine 10 mg tablet 10 mg PO DAILY@1800 11/05/22 11/05/22 Unknown History atorvastatin 80 mg tablet 80 mg PO BEDTIME 11/05/22 11/05/22 Unknown History dulaglutide 1.5 mg/0.5 mL 1.5 mg subcut WE 11/05/22 11/05/22 Unknown History subcutaneous pen injector (Trulicity) fenofibrate 160 mg tablet 160 mg PO BEDTIME 11/05/22 11/05/22 Unknown History hydralazine 50 mg tablet 50 mg PO BID 11/05/22 11/05/22 Unknown History icosapent ethyl 1 gram capsule 2 g PO BID 11/05/22 11/05/22 Unknown History (Vascepa) lisinopril 30 mg tablet 30 mg PO DAILY 11/05/22 11/05/22 Unknown History metformin 1,000 mg tablet 1,000 mg PO BIDWM 11/05/22 11/05/22 Unknown History metoprolol tartrate 100 mg tablet 100 mg PO BID 11/05/22 11/05/22 Unknown History multivitamin-ferrous 1 tab PO DAILY 11/05/22 11/05/22 Unknown History fumarate-folic acid 18 mg-400 mcg tablet (Certavite-Antioxidant) naltrexone 50 mg tablet 50 mg PO DAILY 11/05/22 11/05/22 Unknown History prazosin 1 mg capsule 1 mg PO DAILY PRN BIOLOGICAL AIDE 11/05/22 11/05/22 Unknown History AWAKENINGS prazosin 1 mg capsule 3 mg PO BEDTIME 11/05/22 11/05/22 Unknown History sertraline 50 mg tablet 50 mg PO DAILY 11/05/22 11/05/22 Unknown History thiamine HCl (vitamin B1) 100 mg 100 mg PO DAILY 11/05/22 11/05/22 Unknown History tablet Physical Exam Vital Signs: Vital Signs: Last Vital Signs Temp 97.7 F 11/06/22 09:42 Pulse 88 11/06/22 09:42 Resp 20 11/06/22 09:42 BP 165/75 H 11/06/22 09:42 Pulse Ox 97 11/06/22 09:42 O2 Del Method 11/06/22 09:42 BMI result Body Mass Index 23.6 Neuro: Other: Alert and awake with normal spontaneity of speech fluency comprehension and somewhat flat affect. Pupils are round reactive to light. There is mild right- sided facial flatness. Tongue is midline. There is no pronator drift. Deep tendon reflexes are absent with flexor plantars. Speech is normal. Results Labs 11/06/22 07:25 11/06/22 07:25 Labs: Short CBC 11/05/22 11/06/22 Range/Units 13:40 07:25 WBC 5.3 3.2 L (4.8-10.8) X10*3/uL Hgb 12.8 L 13.0 L (14.0-18.0) g/dl Hct 37.1 L 37.9 L (42.0-52.0) % Plt Count 260 246 (160-400) X10*3/uL BMP 11/05/22 11/06/22 13:40 07:25 Sodium 142 142 Potassium 3.8 4.4 Chloride 108 110 H Carbon Dioxide 25 23 BUN 11 11 Creatinine 1.20 0.81 Calcium 9.3 8.9 Cardiac Enzymes 11/05/22 Range/Units 13:40 Total Creatine Kinase 199 H (38-174) U/L CT of brain CTA of brain and neck and MRI of brain were reviewed. Minimal chronic microvascular ischemic changes were noted but otherwise no significant abnormality was noted. Assessment and Plan (1) Brain TIA: Status: Acute 57 years old man with underlying psychiatric disorder uncontrolled diabetes, hypertension and alcohol abuse came to hospital with neck pain and left-sided facial weakness was noted. At this time his examination did not reveal any significant finding. Imaging did not reveal any acute lesion. Chronic mild mi crovascular ischemic changes were noted. Mainstay of management is baby aspirin daily sugar and blood pressure control and statins. He might have microvascular transient ischemic attack. Time Spent With Patient Time: Total time managing care of this patient today ____ minutes. Procedures Date of Service Date of Service: 11/06/22
--- NOTE | 2022-11-06 12:28 | MHC.CM.PN ---
Patient has been medically cleared for dc to home today, self care.
== END 2022-11-06 13:54 | disposition home or self-care (01) ==
LOC: HO.ED 14:10 → HO.EDOVER 15:13 → HO.IMC 11-06 06:44
PROVIDERS: Student in an Organized Health Care Education/Training Program; Admitting Provider Physician Assistant; Emergency Provider Student in an Organized Health Care Education/Training Program; Visit Provider Internal Medicine
DX: G45.9 Transient cerebral ischemic attack, unspecified (principal); R41.82 Altered mental status, unspecified; R53.1 Weakness; E11.65 Type 2 diabetes mellitus with hyperglycemia; E11.319 Type 2 diabetes mellitus with unspecified diabetic retinopathy without macular edema; E11.42 Type 2 diabetes mellitus with diabetic polyneuropathy; F31.9 Bipolar disorder, unspecified; M54.2 Cervicalgia; R42 Dizziness and giddiness; Z91.14 Patient's other noncompliance with medication regimen; Z79.4 Long term (current) use of insulin
CPT/HCPCS: 36415; 70450; 70496; 70498; 70551; 71045; 80048; 80061; 82550; 82947; 84484; 85025; 85610; 85730; 87635; 93005; 93306; 96361; 96372; 96374; 96375; 97162; 97166; 99222; 99285; J1200; J1650; J1885; J2765; Q9957; Q9967

== ENCOUNTER 2022-11-24 11:12 | Inpatient (IN) | payer MEDICAID, SELFPAY ==
[2022-11-24] VITALS (9 sets, daily range): BP systolic 66–136; BP diastolic 36–81; PULSE 80–94; RESP 16–20; TEMP 36.4–36.9; O2SAT 94–100; BMI 26.9
--- NOTE | 2022-11-24 | ECG_ITS ---
Test Reason : cp Blood Pressure : / mmHG Vent. Rate : 082 BPM Atrial Rate : 082 BPM P-R Int : 166 ms QRS Dur : 088 ms QT Int : 374 ms P-R-T Axes : 054 -21 011 degrees QTc Int : 436 ms Sinus rhythm with occasional Premature ventricular complexes Minimal voltage criteria for LVH, may be normal variant ( R in aVL ) Borderline ECG When compared with ECG of 24-NOV-2022 12:32, Premature ventricular complexes are now Present Referred By: Jerad Moreno Electronically Signed By:GISELA JOLLEY
--- NOTE | ~2022-11-24 | XR_ITS ---
EXAMINATION: XR CHEST CLINICAL INFORMATION: Epigastric pain COMPARISON: 11/05/2022. TECHNIQUE: AP upright portable view of the chest was obtained. 4:09 PM FINDINGS: No significant abnormality is noted involving the heart, lungs, mediastinum, bony thorax or soft tissues. Multilevel thoracic spondylitic changes noted. XR/XR chest 1V IMPRESSION: No evidence for acute process.
--- NOTE | ~2022-11-24 | CT_ITS ---
EXAMINATION: CT HEAD WITHOUT CONTRAST CLINICAL INFORMATION: Dizziness. COMPARISON: 11/05/2022 head CTA. TECHNIQUE: Contiguous axial imaging was performed from the skull base to vertex without intravenous administration of contrast. Coronal and sagittal reformatted images were obtained. This CT examination was performed using dose optimization techniques as appropriate, variously including the following: *Automated exposure control *Adjustment of mA and/or kV according to patient size (this includes techniques or standardized protocols for targeted exams where dose is matched to indication/reason for exam; i.e. extremities or head) *Use of iterative reconstruction technique DLP: 728 mGy-cm FINDINGS: The cortical sulci are normal. The lateral ventricles are symmetrical. The third and fourth ventricles are in their normal midline position. The basilar and prepontine cisterns are unremarkable. There is no acute intra or extracerebral abnormality. There is no mass effect or midline shift. Sections through the bony calvarium are unremarkable. The paranasal sinuses are clear. Bilateral maxillary sinus antrostomies are patent. The bony orbits and orbital contents are unremarkable. Mild mid nasal septal deviation, apex of the right. Small left leonel bullosa. The visualized mastoid air cells are clear. CT/CT head/brain wo IV con IMPRESSION: No acute intracranial pathology.
--- NOTE | 2022-11-24 11:46 | PC.NURSE ---
pt alert and oriented, skin appropriate for ethnicity but slightly pale, sclera also appears slightly light pale, pt keeps sating that he feels very dizzy, and having abd pain/burning in his esophagus area , vomiting and having diarrhea, pt reports drinking daily about 10nips of fireball, reports last drink was on thursday, ns on the monitor
[2022-11-24 11:53] LABS: MANUAL DIFF FLAG NO
--- NOTE | 2022-11-24 11:54 | ECG_ITS ---
Test Reason : DIZZINESS Blood Pressure : / mmHG Vent. Rate : 082 BPM Atrial Rate : 082 BPM P-R Int : 160 ms QRS Dur : 082 ms QT Int : 386 ms P-R-T Axes : 044 -16 006 degrees QTc Int : 450 ms Normal sinus rhythm Minimal voltage criteria for LVH, may be normal variant ( R in aVL ) Nonspecific T wave abnormality Abnormal ECG When compared with ECG of 06-NOV-2022 06:43, No significant change was found Referred By: Generic ED Physician Electronically Signed By:GISELA JOLLEY
[2022-11-24 12:13] LABS: Basophils Percent Auto 0.4 % (0-2); Eosinophils Percent Auto 0.6 % (0-4); Hematocrit 33.9 % (42.0-52.0); Imm Gran Abs Auto 0.01 X10*3/uL (0.00-0.03); Imm Gran Pct Auto 0.2 % (0.0-0.4); Lymphocytes Absolute Auto 1.5 X10*3/uL (1.2-4.9); Lymphocytes Percent Auto 31.4 % (20-40); Mean Corpuscular HGB Conc 35.4 g/dl (31.0-36.0); Mean Corpuscular Hemoglobin 33.9 pg (27.0-33.0); Mean Corpuscular Volume 95.8 fL (80.0-98.0); Mean Platelet Volume 10.1 fL (9.4-12.4); Monocytes Absolute Auto 0.3 X10*3/uL (0.1-1.2); Monocytes Percent Auto 6.1 % (2-11); Neutrophils Absolute Auto 2.9 x10*3/uL (2.0-8.3); Neutrophils Percent Auto 61.3 % (45-73); Platelet Count 238 X10*3/uL (160-400); Red Blood Count 3.54 X10*6/uL (4.60-5.80); Red Cell Distribution Width 11.8 % (11.0-16.0); White Blood Count 4.8 X10*3/uL (4.8-10.8)
--- NOTE | 2022-11-24 12:30 | ED_ITS ---
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 Patient brought in from home, drinks alcohol on a daily basis, been having upper epigastric abdominal pain and multiple vomiting with brown stool diarrhea, patient found to be hypotensive and the lightheadedness. No CP, no headache, no blurry vision. Related Data Home Medications Medication Instructions Recorded Confirmed aspirin 81 mg tablet,delayed 81 mg PO DAILY 06/28/20 11/05/22 release (Adult Low Dose Aspirin) folic acid 1 mg tablet 1 mg PO DAILY 06/28/20 11/05/22 gabapentin 100 mg capsule 100 mg PO BEDTIME 06/28/20 11/05/22 omeprazole 20 mg capsule,delayed 20 mg PO DAILY@0630 06/28/20 11/05/22 release amlodipine 10 mg tablet 10 mg PO DAILY@1800 11/05/22 11/05/22 atorvastatin 80 mg tablet 80 mg PO BEDTIME 11/05/22 11/05/22 dulaglutide 1.5 mg/0.5 mL 1.5 mg subcut WE 11/05/22 11/05/22 subcutaneous pen injector (Trulicity) fenofibrate 160 mg tablet 160 mg PO BEDTIME 11/05/22 11/05/22 hydralazine 50 mg tablet 50 mg PO BID 11/05/22 11/05/22 icosapent ethyl 1 gram capsule 2 g PO BID 11/05/22 11/05/22 (Vascepa) lisinopril 30 mg tablet 30 mg PO DAILY 11/05/22 11/05/22 metformin 1,000 mg tablet 1,000 mg PO BIDWM 11/05/22 11/05/22 metoprolol tartrate 100 mg tablet 100 mg PO BID 11/05/22 11/05/22 multivitamin-ferrous 1 tab PO DAILY 11/05/22 11/05/22 fumarate-folic acid 18 mg-400 mcg tablet (Certavite-Antioxidant) naltrexone 50 mg tablet 50 mg PO DAILY 11/05/22 11/05/22 prazosin 1 mg capsule 1 mg PO DAILY PRN 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 11/05/22 11/05/22 AWAKENINGS prazosin 1 mg capsule 3 mg PO BEDTIME 11/05/22 11/05/22 sertraline 50 mg tablet 50 mg PO DAILY 11/05/22 11/05/22 thiamine HCl (vitamin B1) 100 mg 100 mg PO DAILY 11/05/22 11/05/22 tablet Previous Rx's Medication Instructions Recorded cholecalciferol (vitamin D3) 50 50 mcg PO DAILY 30 days #30 caps 01/15/21 mcg (2,000 unit) capsule pen needle, diabetic 32 gauge x #150 ea 08/29/21 (BD Bela 2nd Gen Pen Needle) Allergies Allergy/AdvReac Type Severity Reaction Status Date / Time No Known Allergies Allergy Verified 08/28/20 11:15 Review of Systems Review of Systems: All other systems are reviewed and are negative Constitutional: Reports as per HPI and Reports no additional constitutional co mplaints Eyes: Reports as per HPI and Reports no additional eye complaints Reports system reviewed and no additional complaints, except as documented Cardiovascular: Reports as per HPI and Reports no additional cardiovascular complaints Respiratory: Reports as per HPI and Reports no additional respiratory complaints Gastrointestinal: Reports as per HPI and Reports no additional gastrointestinal complaints Genitourinary: Reports no additional female genitourinary complaints Musculoskeletal: Reports no additional musculoskeletal complaints Skin/Breast: Reports system reviewed and no additional complaints, except as docu Psychiatric: Reports no additional psychiatric complaints Endocrine: Reports no additional endocrine complaints Hematologic/Lymphatic: Reports no additional hematologic/lymphatic complaints Allergic/Immunologic: Reports no additional allergic/immunologic complaints Reports system reviewed and no additional complaints, except as documented and Reports Abnormal speech present [facility] Past Medical History Medical History Arthritis Asthma Bipolar 1 disorder Diabetes mellitus Diabetes type 2, uncontrolled Diabetic polyneuropathy associated with type 2 diabetes mellitus Diabetic retinopathy associated with type 2 diabetes mellitus GERD (gastroesophageal reflux disease) Hypercholesterolemia 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 Vitamin D deficiency Surgical History Hx of colonoscopy No pertinent past surgical history Family History Family History Father Diabetes mellitus Complete amputation of bilateral legs Mother Diabetes mellitus Social History Social History Household Members: None Housing: Apartment Alcohol intake: current Alcohol intake frequency: 3 or more drinks per day Alcohol type: hard liquor Patient Tobacco Use Status: Tobacco use Unknown Smoked in Last 30 Days: No e-Cigarette/Vaping Use: Never Used Second Hand Smoke Exposure: No Use of substances other than those prescribed or required for medical reasons: No Advance Directives: No Advance Directives Information Provided: Yes service: No Current occupational status: disabled Physical Exam Vital Signs: Vital Signs: Last Vital Signs Temp 98.4 F 11/24/22 14:59 Pulse 81 11/24/22 14:59 Resp 16 11/24/22 14:59 BP 99/60 11/24/22 14:59 Pulse Ox 96 11/24/22 14:59 O2 Del Method 11/24/22 14:59 BMI result Body Mass Index 26.9 Vital signs have been reviewed as appeared to be correct. Blood pressure low. Heart rate normal. Respiration rate normal. Temperature normal. Oxygen saturation normal. Appearance: Alert. Oriented X3. No acute distress. Head: Normal external exam. Normocephalic. Atraumatic. No Poon signs noted. No raccoon eyes noted Eyes: PERRLA. EOMI. Conjunctiva and sclera normal. Eyelids normal. ENT: TM's Normal. Pharynx normal. Uvula midline. Moist mucous membranes. No trismus noted. No drooling noted. No muffled voice noted. Neck: Normal inspection. Neck supple. FROM. No adenopathy. Thyroid Normal. No meningeal signs. No neck mass noted. CVS: Normal heart rate and rhythm. Heart sound normal. No murmurs noted. Pulses normal throughout. Respiratory: No respiratory distress. Painless inspiration. Breath sounds normal. No wheezes/rales/rhonchi noted. Chest nontender. No accessory muscle usage noted or decreased air movement noted. Abdomen: Soft, epigastric tenderness, no guarding, no rebound tenderness, Bowel sounds normal in all 4 quadrants. No distention noted. No organomegaly noted. No visible injury noted. Rectal exam: No external or internal hemorrhoid, a brown stool in the vault. Back: No CVA tenderness. Full range of motion noted. Skin: Skin warm and dry. Normal skin color. Normal skin turgor. No rashes/lesions/lacerations noted. Extremities: No lower extremity edema. Extremities exhibit normal range of motion. Extremities nontender. Neuro: Oriented X 3. Cranial nerve exam: II-XII are grossly intact No motor deficit. No sensory deficit. Reflexes normal. Course Course Course Narrative: 57-year-old male with alcohol dependence has not been drinking for the past 4 days due to nausea and vomiting with diarrhea, patient was initially dehydrated and hypotensive that was corrected by a L of normal saline patient now is normotensive able to tolerate p.o. intake, unremarkable labs, no active GI bleeding at the moment. Will start the patient on phenobarb for and admit for further BP monitoring. Medications Administered Discontinued Medications Generic Name Dose Route Start Last Admin Trade Name Freq PRN Reason Stop Dose Admin Al Hydroxide/Mg Hydroxide 30 ml 11/24/22 12:36 11/24/22 13:06 Magnesium Hydrox/Alum Hydrox 30 Ml Oral.Susp PO 11/24/22 12:37 30 ml ONCE ONE Administration Sodium Chloride 1,000 mls @ 999 mls/hr 11/24/22 12:28 11/24/22 14:24 Ns IV 11/24/22 13:28 Infused .Q1H1M ONE Infusion Sodium Chloride 1,000 mls @ 999 mls/hr 11/24/22 12:36 11/24/22 14:23 Ns IV 11/24/22 13:36 999 mls/hr .Q1H1M ONE Administration Pantoprazole Sodium 40 mg 11/24/22 12:36 11/24/22 13:06 Pantoprazole Sodium 40 Mg/10 Ml Vial IVPUSH 11/24/22 12:37 40 mg ONCE ONE Administration Medical Decision Making Differential Diagnosis Differential Diagnoses: The differential diagnosis associated with the presentation includes (Dehydration, acute renal failure, electrolyte disturbance, severe anemia, GI bleeding, alcohol withdrawal) Admission/Observation Consideration of admission/observation: Escalation of care including admission/observation considered Consult Healthcare Provider Management of the patient was discussed with: Hospitalist Lab Data MDM Lab Attestation statement: I reviewed the patient's lab results. 11/24/22 11:49 11/24/22 11:49 Labs: Lab Results 11/24/22 11/24/22 11/24/22 Range/Units 11:49 13:16 13:16 WBC 4.8 (4.8-10.8) X10*3/uL RBC 3.54 L (4.60-5.80) X10*6/uL Hgb 12.0 L (14.0-18.0) g/dl Hct 33.9 L (42.0-52.0) % MCV 95.8 (80.0-98.0) fL MCH 33.9 H (27.0-33.0) pg MCHC 35.4 (31.0-36.0) g/dl RDW 11.8 (11.0-16.0) % Plt Count 238 (160-400) X10*3/uL MPV 10.1 (9.4-12.4) fL Immature Gran % (Auto) 0.2 (0.0-0.4) % Neut % (Auto) 61.3 (45-73) % Lymph % (Auto) 31.4 (20-40) % [place] % (Auto) 6.1 (2-11) % Eos % (Auto) 0.6 (0-4) % Baso % (Auto) 0.4 (0-2) % Lymph # (Auto) 1.5 (1.2-4.9) X10*3/uL [place] # (Auto) 0.3 (0.1-1.2) X10*3/uL Eos # (Auto) 0.0 (0.0-0.4) X10*3/uL Baso # (Auto) 0.0 (0.0-0.2) X10*3/uL Abs Immat Gran (auto) 0.01 (0.00-0.03) X10*3/uL Absolute Neuts (auto) 2.9 (2.0-8.3) x10*3/uL Absolute Nucleated RBC 0.000 (0.0-0.012) X10*3/uL Nucleated RBC % (auto) 0.0 (0.0-0.2) /100WBC Sodium 138 (135-145) mmol/L Potassium 3.3 D (3.3-5.1) mmol/L Chloride 104 (96-108) mmol/L Carbon Dioxide 25 (22-29) mmol/L Anion Gap 12 (12-20) BUN 11 (9-16) mg/dL Creatinine 0.89 (0.5-1.4) mg/dL Estim Creat Clear Calc 81.6 Estimated GFR > 60 Random Glucose 140 H (60-115) mg/dL Calcium 8.2 L D (8.4-10.2) mg/dL Total Bilirubin 0.5 (0.0-1.0) mg/dL Direct Bilirubin 0.2 (0.0-0.5) mg/dL AST 20 (5-37) U/L ALT 21 (0-40) U/L Alkaline Phosphatase 69 (39-117) U/L Troponin I High Sens 4.3 (<3.5-35.0) ng/L Total Protein 5.4 L (6.5-8.0) g/dL Albumin 3.2 L (3.5-5.0) g/dL Lipase 39 (8-78) U/L Stool Occult Blood (NEGATIVE) Ethyl Alcohol < 10 mg/dL 11/24/22 Range/Units 13:16 WBC (4.8-10.8) X10*3/uL RBC (4.60-5.80) X10*6/uL Hgb (14.0-18.0) g/dl Hct (42.0-52.0) % MCV (80.0-98.0) fL MCH (27.0-33.0) pg MCHC (31.0-36.0) g/dl RDW (11.0-16.0) % Plt Count (160-400) X10*3/uL MPV (9.4-12.4) fL Immature Gran % (Auto) (0.0-0.4) % Neut % (Auto) (45-73) % Lymph % (Auto) (20-40) % [place] % (Auto) (2-11) % Eos % (Auto) (0-4) % Baso % (Auto) (0-2) % Lymph # (Auto) (1.2-4.9) X10*3/uL [place] # (Auto) (0.1-1.2) X10*3/uL Eos # (Auto) (0.0-0.4) X10*3/uL Baso # (Auto) (0.0-0.2) X10*3/uL Abs Immat Gran (auto) (0.00-0.03) X10*3/uL Absolute Neuts (auto) (2.0-8.3) x10*3/uL Absolute Nucleated RBC (0.0-0.012) X10*3/uL Nucleated RBC % (auto) (0.0-0.2) /100WBC Sodium (135-145) mmol/L Potassium (3.3-5.1) mmol/L Chloride (96-108) mmol/L Carbon Dioxide (22-29) mmol/L Anion Gap (12-20) BUN (9-16) mg/dL Creatinine (0.5-1.4) mg/dL Estim Creat Clear Calc Estimated GFR Random Glucose (60-115) mg/dL Calcium (8.4-10.2) mg/dL Total Bilirubin (0.0-1.0) mg/dL Direct Bilirubin (0.0-0.5) mg/dL AST (5-37) U/L ALT (0-40) U/L Alkaline Phosphatase (39-117) U/L Troponin I High Sens (<3.5-35.0) ng/L Total Protein (6.5-8.0) g/dL Albumin (3.5-5.0) g/dL Lipase (8-78) U/L Stool Occult Blood NEGATIVE (NEGATIVE) Ethyl Alcohol mg/dL Independent Interpretation I performed an independent interpretation of an: EKG (Normal sinus rhythm at 82 beats per minutes, LVH, left axis deviation, unremarkable intervals, no change from previous EKG.) and Plain X-Ray (Chest no acute pathology.) Radiology Impression Discussion of test interpretation with radiology: I have reviewed the radiologist's reading. Critical Care Time Critical Care Time Critical Care Time: Yes Total Critical Care Time: 60 Attestation: I spent 60 minutes providing critical care service to the patient, this including time spent at the bedside to evaluate the patient, reassess the patient, monitoring vital signs, review labs, and radiographic studies, counseling the patient/family, discussing the case with consultants, disposition the patient. Discharge Plan Discharge Clinical Impression: Acute dehydration, Acute hypotension, Alcohol withdrawal, Alcoholic gastritis, Vomiting Patient Disposition: Admitted As Inpatient Prescriptions: No Action (DME) pen needle, diabetic [BD Bela 2nd Gen Pen Needle] 32 gauge x 5/32 needle See Rx Instructions .[email or web address] Qty: 150 0RF Rx Instructions: 5 times daily NO FURTHER REFILLS WITHOUT APPOINTMENT! prazosin 1 mg capsule 3 mg PO BEDTIME sertraline 50 mg tablet 50 mg PO DAILY atorvastatin 80 mg tablet 80 mg PO BEDTIME metoprolol tartrate 100 mg tablet 100 mg PO BID fenofibrate 160 mg tablet 160 mg PO BEDTIME naltrexone 50 mg tablet 50 mg PO DAILY lisinopril 30 mg tablet 30 mg PO DAILY thiamine HCl (vitamin B1) 100 mg tablet 100 mg PO DAILY hydralazine 50 mg tablet 50 mg PO BID Certavite-Antioxidant 18-400 mg-mcg tablet 1 tab PO DAILY icosapent ethyl [Vascepa] 1 gram capsule 2 g PO BID Trulicity 1.5 mg/0.5 mL pen injector 1.5 mg SUBCUT WE prazosin 1 mg capsule 1 mg PO DAILY PRN (Reason: HAZARDOUS MATERIALS DRIVER AWAKENINGS) amlodipine 10 mg tablet 10 mg PO DAILY@1800 metformin 1,000 mg tablet 1,000 mg PO BIDWM cholecalciferol (vitamin D3) 50 mcg (2,000 unit) capsule 50 mcg PO DAILY 30 Days Qty: 30 6RF omeprazole 20 mg capsule,delayed release(DR/EC) 20 mg PO DAILY@0630 aspirin [Adult Low Dose Aspirin] 81 mg tablet,delayed release (DR/EC) 81 mg PO DAILY Hold Instructions: Resume on 09/03/20. no ASA or Nsaids, for a week. gabapentin 100 mg capsule 100 mg PO BEDTIME folic acid 1 mg tablet 1 mg PO DAILY
[2022-11-24] MEDS: Magnesium Hydrox/Alum Hydrox 30 ML ORAL.SUSP PO (13:06)
[2022-11-24] MEDS: Pantoprazole Sodium 40 MG/10 ML VIAL IVPUSH (13:06)
[2022-11-24] MEDS: 0.9 % Sodium Chloride 1,000 ML 999 ML IV ×3 (13:10→15:51)
[2022-11-24 13:24] LABS: OBS Int Ctl Valid YES; OBS1 NEGATIVE (NEGATIVE)
[2022-11-24 13:44] LABS: Alanine Aminotransferase 21 U/L (0-40); Albumin Level 3.2 g/dL (3.5-5.0); Alkaline Phosphatase 69 U/L (39-117); Anion Gap 12 (12-20); Aspartate Amino Transferase 20 U/L (5-37); Bilirubin Direct 0.2 mg/dL (0.0-0.5); Bilirubin Total 0.5 mg/dL (0.0-1.0); Blood Urea Nitrogen 11 mg/dL (9-16); Calcium 8.2 mg/dL (8.4-10.2); Carbon Dioxide 25 mmol/L (22-29); Chloride 104 mmol/L (96-108); Creatinine Clr Calc Pharmacy 81.6; Estimated Glomerular Filt Rate > 60; Ethanol < 10 mg/dL; Glucose Random 140 mg/dL (60-115); Lipase 39 U/L (8-78); Potassium 3.3 mmol/L (3.3-5.1); Sodium 138 mmol/L (135-145); Total Protein 5.4 g/dL (6.5-8.0)
[2022-11-24 13:46] LABS: Troponin-I High Sensitivity 4.3 ng/L (<3.5-35.0)
--- NOTE | 2022-11-24 15:56 | PM.IMHP ---
History of Present Illness Date of Service: 11/24/22 Chief Complaint: dizzy, diarrhea 57M PMH DM, htn, hld, diabetic retinopathy, diabetic polyneuropathy, bipolar 1 disorder, alcohol dependence (10 nips/day), presented with dizziness. Patient states that he has had about 3 days of watery diarrhea, reports going small amounts every 30 minutes. Also with nausea vomiting of white fluid multiple times per day. Inability to tolerate p.o.. Has not had alcohol for 4 days. Started to feel shaky and withdrawal. At day program started to feel very dizzy so he is brought to the ED. in ED found to be severely orthostatic with systolic blood pressure in the 60s on standing. 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 Vitamin D deficiency Family History Father Diabetes mellitus Complete amputation of bilateral legs Mother Diabetes mellitus Surgical History Hx of colonoscopy No pertinent past surgical history Social History Household Members: None Housing: Apartment Alcohol intake: current Alcohol intake frequency: 3 or more drinks per day Alcohol type: hard liquor Patient Tobacco Use Status: Tobacco use Unknown Smoked in Last 30 Days: No e-Cigarette/Vaping Use: Never Used Second Hand Smoke Exposure: No Use of substances other than those prescribed or required for medical reasons: No Advance Directives: No Advance Directives Information Provided: Yes service: No Current occupational status: disabled Meds Allergies Allergy/AdvReac Type Severity Reaction Status Date / Time No Known Allergies Allergy Verified 08/28/20 11:15 Active Medications: Current Medications Enoxaparin Sodium (Enoxaparin Sodium 40 Mg/0.4 Ml Syringe) 40 mg SUBCUT Q24H ANTHONY Glucose (Glucose Gel 15 Gm Gel..Gram.) 15 gm PO Q15M PRN; Protocol PRN Reason: per Hypoglycemia Standing Ord. Dextrose (D10) 250 mls @ 750 mls/hr IV Q15M PRN; Protocol PRN Reason: per Hypoglycemia Standing Ord. Lactated Ringer's (Lr) 1,000 mls @ 100 mls/hr IVCONT .Q10H [facility] Insulin Human Lispro (Insulin Lispro 100 Unit/Ml 3 Ml Vial) 0 unit SUBCUT QIDACHS ANTHONY; Protocol Pharmacy Consult (Consult Rx Perform Med Rec) 1 each MISCELLANE ONCE PRN PRN Reason: Consult order Pharmacy Consult (Consult Rx Etoh Phenob Im/Po) 1 each MISCELLANE ONCE PRN; Protocol PRN Reason: Consult order Phenobarbital (Phenobarbital 15 Mg Tablet) 45 mg PO BID [facility]; Protocol Stop: 11/26/22 21:01 Phenobarbital (Phenobarbital 15 Mg Tablet) 15 mg PO BID [facility]; Protocol Stop: 11/28/22 21:01 Phenobarbital (Phenobarbital 15 Mg Tablet) 15 mg PO DAILY [facility]; Protocol Stop: 11/30/22 09:01 Phenobarbital Sodium (Phenobarbital Sodium 130 Mg/Ml Im Once) 256.1 mg IM ONCE ONE Stop: 11/24/22 16:01 Phenobarbital Sodium (Phenobarbital Sodium 130 Mg/Ml Vial Im Q3hx2) 191.1 mg IM Q3H ANTHONY; Protocol Stop: 11/24/22 22:01 Sodium Chloride (0.9 % Sodium Chloride Flush 3 Ml Syringe) 3 ml IVFLUSH QSHIFT [facility] Home Medications Medication Instructions Recorded Confirmed Last Taken Type aspirin 81 mg tablet,delayed 81 mg PO DAILY 06/28/20 11/05/22 Unknown History release (Adult Low Dose Aspirin) folic acid 1 mg tablet 1 mg PO DAILY 06/28/20 11/05/22 Unknown History gabapentin 100 mg capsule 100 mg PO BEDTIME 06/28/20 11/05/22 Unknown History omeprazole 20 mg capsule,delayed 20 mg PO DAILY@0630 06/28/20 11/05/22 Unknown History release amlodipine 10 mg tablet 10 mg PO DAILY@1800 11/05/22 11/05/22 Unknown History atorvastatin 80 mg tablet 80 mg PO BEDTIME 11/05/22 11/05/22 Unknown History dulaglutide 1.5 mg/0.5 mL 1.5 mg subcut WE 11/05/22 11/05/22 Unknown History subcutaneous pen injector (Trulicity) fenofibrate 160 mg tablet 160 mg PO BEDTIME 11/05/22 11/05/22 Unknown History hydralazine 50 mg tablet 50 mg PO BID 11/05/22 11/05/22 Unknown History icosapent ethyl 1 gram capsule 2 g PO BID 11/05/22 11/05/22 Unknown History (Vascepa) lisinopril 30 mg tablet 30 mg PO DAILY 11/05/22 11/05/22 Unknown History metformin 1,000 mg tablet 1,000 mg PO BIDWM 11/05/22 11/05/22 Unknown History metoprolol tartrate 100 mg tablet 100 mg PO BID 11/05/22 11/05/22 Unknown History multivitamin-ferrous 1 tab PO DAILY 11/05/22 11/05/22 Unknown History fumarate-folic acid 18 mg-400 mcg tablet (Certavite-Antioxidant) naltrexone 50 mg tablet 50 mg PO DAILY 11/05/22 11/05/22 Unknown History prazosin 1 mg capsule 1 mg PO DAILY PRN M48/M60 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 11/05/22 11/05/22 Unknown History AWAKENINGS prazosin 1 mg capsule 3 mg PO BEDTIME 11/05/22 11/05/22 Unknown History sertraline 50 mg tablet 50 mg PO DAILY 11/05/22 11/05/22 Unknown History thiamine HCl (vitamin B1) 100 mg 100 mg PO DAILY 11/05/22 11/05/22 Unknown History tablet Physical Exam Vital Signs and Narrative: Vital Signs: Last Vital Signs Temp 98.4 F 11/24/22 14:59 Pulse 81 11/24/22 14:59 Resp 16 11/24/22 14:59 BP 99/60 11/24/22 14:59 Pulse Ox 96 11/24/22 14:59 O2 Del Method 11/24/22 14:59 BMI result Body Mass Index 26.9 General: AO X 3, no acute distress Resp: CTA bilateral, no accessory muscles used CVS: S1,S2,RRR GI: soft, non tender, non distended Neuro: motor grossly intact, alert Psych: appropriate affect, appropriate insight Results Labs 11/24/22 11:49 11/24/22 13:16 Labs: Laboratory Results - last 24 hr 11/24/22 11/24/22 11/24/22 11:49 13:16 13:16 MCV 95.8 MCH 33.9 H MCHC 35.4 RDW 11.8 Plt Count 238 MPV 10.1 Immature Gran % (Auto) 0.2 Neut % (Auto) 61.3 Lymph % (Auto) 31.4 [place] % (Auto) 6.1 Eos % (Auto) 0.6 Baso % (Auto) 0.4 Lymph # (Auto) 1.5 [place] # (Auto) 0.3 Eos # (Auto) 0.0 Baso # (Auto) 0.0 Abs Immat Gran (auto) 0.01 Absolute Neuts (auto) 2.9 Absolute Nucleated RBC 0.000 Nucleated RBC % (auto) 0.0 Anion Gap 12 Estim Creat Clear Calc 81.6 Estimated GFR > 60 Random Glucose 140 H Calcium 8.2 L D Total Bilirubin 0.5 Direct Bilirubin 0.2 AST 20 ALT 21 Alkaline Phosphatase 69 Troponin I High Sens 4.3 Total Protein 5.4 L Albumin 3.2 L Lipase 39 Stool Occult Blood Ethyl Alcohol < 10 11/24/22 13:16 MCV MCH MCHC RDW Plt Count MPV Immature Gran % (Auto) Neut % (Auto) Lymph % (Auto) [place] % (Auto) Eos % (Auto) Baso % (Auto) Lymph # (Auto) [place] # (Auto) Eos # (Auto) Baso # (Auto) Abs Immat Gran (auto) Absolute Neuts (auto) Absolute Nucleated RBC Nucleated RBC % (auto) Anion Gap Estim Creat Clear Calc Estimated GFR Random Glucose Calcium Total Bilirubin Direct Bilirubin AST ALT Alkaline Phosphatase Troponin I High Sens Total Protein Albumin Lipase Stool Occult Blood NEGATIVE Ethyl Alcohol Assessment and Plan (1) Acute dehydration: Status: Acute Plan 57 year old male with history of uncontrolled tryp2 diabetes with hyperglycemia, htn, hld, diabetic retinopathy, diabetic polyneuropathy, bipolar 1 disorder, history alcohol abuse Orthostatic hypotension Due to dehydration from vomiting and diarrhea IV fluids, monitor orthostatics, hold antihypertensives Check stool C diff and stool PCR Alcohol dependence with withdrawal Phenobarbital and CIWA Diabetes Hold orals Cover with insulin sliding scale Hyperlipidemia Continue statin Bipolar disorder Stable DVT prophylaxis with Lovenox Full code Patient with severe orthostatic hypotension with systolic blood pressures in the 60s significant fluid deficit ongoing due to ongoing diarrhea and inability to tolerate oral intake, also concern for alcohol dependence with withdrawal, therefore, expected to require at least 2 midnights inpatient Time Spent With Patient Time: Total time managing care of this patient today ____ minutes. Quality Stroke Does the patient have a stroke diagnosis?: No VTE Prior VTE?: No VTE Risk Level:: Medical - moderate - high VTE Device Contraindication: Treatment Not Indicated VTE Drug Contraindication: N/A - Med Ordered
[2022-11-24] MEDS: PHENobarbitaL sodium 130 MG/ML IM ONCE 256.1 MG IM (16:23)
[2022-11-24] MEDS: Lactated Ringers 1,000 ML 100 ML IVCONT ×2 (17:13→23:52)
[2022-11-24 17:38] LABS: COVID-19 Test Negative (Negative); IDNOW Serial# 16C4AD1C
[2022-11-24 18:28] LABS: Glucose, Whole Blood 131 mg/dL (60-115)
[2022-11-24] MEDS: Gabapentin 100 MG CAPSULE PO (19:48)
[2022-11-24] MEDS: 0.9 % Sodium Chloride Flush 3 ML SYRINGE IVFLUSH (19:48)
[2022-11-24 19:50] LABS: Glucose, Whole Blood 105 mg/dL (60-115)
[2022-11-25] VITALS (10 sets, daily range): BP systolic 128–168; BP diastolic 62–87; PULSE 64–107; RESP 16–18; TEMP 36.8–37.4; O2SAT 94–99
[2022-11-25] MEDS: PHENobarbitaL sodium 130 MG/ML VIAL IM Q3Hx2 191.1 MG IM
[2022-11-25] MEDS: Famotidine/PF 20 MG/2 ML VIAL IVPUSH (00:01)
[2022-11-25 00:22] LABS: Troponin-I High Sensitivity 4.6 ng/L (<3.5-35.0)
[2022-11-25] MEDS: Omeprazole 20 MG CAPSULE.DR PO (05:53)
--- NOTE | 2022-11-25 05:55 | PC.NURSE ---
CARE ASSUMED 23:15..AWAKE..ALERT..ORIENTED X3...VSS...LR 100 CC/HR...2ND DOSE IM PHENOBARBITOL GIVEN AT HS..REFUSED 3RD IM DOSE..CALM/COOPERATIVE..NO TREMORS.....RESTFUL OVERNIGHT
[2022-11-25 07:27] LABS: Anion Gap 11 (12-20); Blood Urea Nitrogen 7 mg/dL (9-16); Calcium 7.8 mg/dL (8.4-10.2); Carbon Dioxide 24 mmol/L (22-29); Chloride 105 mmol/L (96-108); Creatinine Clr Calc Pharmacy 111.7; Estimated Glomerular Filt Rate > 60; Glucose Fasting 113 mg/dL (60-99); Magnesium 1.5 mg/dL (1.6-2.6); Potassium 3.3 mmol/L (3.3-5.1); Sodium 137 mmol/L (135-145)
[2022-11-25 07:27] LABS: Glucose, Whole Blood 127 mg/dL (60-115)
[2022-11-25 07:38] LABS: Hemoglobin 11.3 g/dl (14.0-18.0); Mean Corpuscular HGB Conc 35.3 g/dl (31.0-36.0); Mean Corpuscular Hemoglobin 33.9 pg (27.0-33.0); Mean Corpuscular Volume 96.1 fL (80.0-98.0); Mean Platelet Volume 9.5 fL (9.4-12.4); Platelet Count 218 X10*3/uL (160-400); Red Blood Count 3.33 X10*6/uL (4.60-5.80); White Blood Count 4.8 X10*3/uL (4.8-10.8)
[2022-11-25] MEDS: Lactated Ringers 1,000 ML 100 ML IVCONT ×2 (08:40→17:53)
[2022-11-25] MEDS: Aspirin Enteric Coated 81 MG TABLET.DR PO (08:43)
[2022-11-25] MEDS: Sertraline HCL 50 MG TABLET PO (08:43)
[2022-11-25] MEDS: Enoxaparin Sodium 40 MG/0.4 ML SYRINGE SUBCUT (08:43)
[2022-11-25] MEDS: PHENobarbitaL 15 MG TABLET 45 MG PO ×2 (08:43→20:57)
[2022-11-25] MEDS: Folic Acid 1 MG TABLET PO (08:43)
--- NOTE | 2022-11-25 10:26 | MHC.CM.PN ---
Patient lives alone in an apartment and required no DME HEEL SHAVER. At time of dc, Patient will dc to his 's apartment at [address] [place] [address] in [place]. 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 Home/resume said services is the goal and CM has initiated and will follow for dc planning. Patient's PCP is from [facility] and he has received Moderna/Covid vax x5. Patient may benefit from a Recovery Team Consult r/t ETOH.
--- NOTE | 2022-11-25 10:32 | MHC.CM.PN ---
ADDENDUM: Patient's Sister/Dimple @ [phone] will provide transportation to home at time of dc.
[2022-11-25] MEDS: Magnesium Oxide 400 MG TABLET 800 MG PO (10:38)
[2022-11-25] MEDS: Potassium Chloride Packet 20 MEQ PACKET PO (10:38)
[2022-11-25 11:42] LABS: Glucose, Whole Blood 158 mg/dL (60-115)
[2022-11-25] MEDS: Insulin Lispro 100 UNIT/ML 3 ML VIAL SUBCUT ×2 (12:01→17:53)
--- NOTE | 2022-11-25 16:20 | P.PNIM_ITS ---
Subjective Subjective Date of Service: 11/25/22 Interval History: Orthostatic hypotension Review of Systems still orthostatic and has tremers Physical Exam Vital Signs: Vital Signs: Last Vital Signs Temp 99.2 F 11/25/22 15:18 Pulse 64 11/25/22 15:18 Resp 17 11/25/22 15:18 BP 147/70 H 11/25/22 15:18 Pulse Ox 97 11/25/22 15:18 O2 Del Method 11/25/22 15:18 BMI result Body Mass Index 26.9 ?General: AO X 3, no acute distress Resp:? CTA bilateral, no accessory muscles used CVS: S1,S2,RRR GI: soft, non tender, non distended Neuro:? motor grossly intact, alert Psych: appropriate affect, appropriate insight? Objective Data Active Medications Aspirin (Aspirin Enteric Coated 81 Mg Tablet.) 81 mg PO DAILY [facility] Last Admin: 11/25/22 08:43 Dose: 81 mg Documented By: ELICEO Enoxaparin Sodium (Enoxaparin Sodium 40 Mg/0.4 Ml Syringe) 40 mg SUBCUT Q24H [facility] Last Admin: 11/25/22 08:43 Dose: 40 mg Documented By: ELICEO Folic Acid (Folic Acid 1 Mg Tablet) 1 mg PO DAILY [facility] Last Admin: 11/25/22 08:43 Dose: 1 mg Documented By: ELICEO Gabapentin (Gabapentin 100 Mg Capsule) 100 mg PO BEDTIME [facility] Last Admin: 11/24/22 19:48 Dose: 100 mg Documented By: JIMMY Glucose (Glucose Gel 15 Gm Gel..Gram.) 15 gm PO Q15M PRN; Protocol PRN Reason: per Hypoglycemia Standing Ord. Dextrose (D10) 250 mls @ 750 mls/hr IV Q15M PRN; Protocol PRN Reason: per Hypoglycemia Standing Ord. Lactated Ringer's (Lr) 1,000 mls @ 100 mls/hr IVCONT .Q10H [facility] Last Admin: 11/25/22 08:40 Dose: 100 mls/hr Documented By: ELICEO Insulin Human Lispro (Insulin Lispro 100 Unit/Ml 3 Ml Vial) 0 unit SUBCUT QIDACHS [facility]; Protocol Last Admin: 11/25/22 12:01 Dose: 2 unit Documented By: ERIS Magnesium Oxide (Magnesium Oxide 400 Mg Tablet) 800 mg PO DAILY [facility] Last Admin: 11/25/22 10:38 Dose: 800 mg Documented By: ERIS Omeprazole (Omeprazole 20 Mg Capsule.) 20 mg PO DAILY@0630 [facility] Last Admin: 11/25/22 05:53 Dose: 20 mg Documented By: MARILIN Pharmacy Consult (Consult Rx Perform Med Rec) 1 each MISCELLANE ONCE PRN PRN Reason: Consult order Pharmacy Consult (Consult Rx Etoh Phenob Im/Po) 1 each MISCELLANE ONCE PRN; Protocol PRN Reason: Consult order Phenobarbital (Phenobarbital 15 Mg Tablet) 45 mg PO BID [facility]; Protocol Stop: 11/26/22 21:01 Last Admin: 11/25/22 08:43 Dose: 45 mg Documented By: ELICEO Phenobarbital (Phenobarbital 15 Mg Tablet) 15 mg PO BID [facility]; Protocol Stop: 11/28/22 21:01 Phenobarbital (Phenobarbital 15 Mg Tablet) 15 mg PO DAILY [facility]; Protocol Stop: 11/30/22 09:01 Sertraline HCl (Sertraline Hcl 50 Mg Tablet) 50 mg PO DAILY [facility] Last Admin: 11/25/22 08:43 Dose: 50 mg Documented By: ELICEO Sodium Chloride (0.9 % Sodium Chloride Flush 3 Ml Syringe) 3 ml IVFLUSH QSHIFT [facility] Last Admin: 11/25/22 08:44 Dose: Not Given Documented By: ELICEO Non-Admin Reason: IV Running Thiamine HCl (Thiamine Hcl 100 Mg Tablet) 100 mg PO DAILY [facility] Labs 11/25/22 07:30 11/25/22 06:20 Labs: Laboratory Results - last 24 hr 11/24/22 11/24/22 11/24/22 17:11 18:21 19:44 MCV MCH MCHC RDW Plt Count MPV Absolute Nucleated RBC Nucleated RBC % (auto) Anion Gap Estim Creat Clear Calc Estimated GFR POC Glucose 131 H 105 Fasting Glucose Calcium Magnesium Troponin I High Sens COVID-19 (NAEL) Negative COVID-19 Clin Com See Note 11/24/22 11/24/22 11/25/22 21:04 23:42 06:20 MCV MCH MCHC RDW Plt Count MPV Absolute Nucleated RBC Nucleated RBC % (auto) Anion Gap 11 L Estim Creat Clear Calc 111.7 Estimated GFR > 60 POC Glucose Fasting Glucose 113 H Calcium 7.8 L Magnesium 1.5 L Troponin I High Sens 4.0 4.6 COVID-19 (NAEL) COVID-19 Clin Com 11/25/22 11/25/22 11/25/22 07:11 07:30 11:34 MCV 96.1 MCH 33.9 H MCHC 35.3 RDW 12.0 Plt Count 218 MPV 9.5 Absolute Nucleated RBC 0.000 Nucleated RBC % (auto) 0.0 Anion Gap Estim Creat Clear Calc Estimated GFR POC Glucose 127 H 158 H Fasting Glucose Calcium Magnesium Troponin I High Sens COVID-19 (NAEL) COVID-19 Clin Com Assessment and Plan (1) Acute hypotension: Status: Acute (2) Acute dehydration: Status: Acute (3) Alcohol withdrawal: Status: Acute Plan 57 year old male with history of uncontrolled tryp2 diabetes with hyperglycemia, htn, hld, diabetic retinopathy, diabetic polyneuropathy, bipolar 1 disorder, history alcohol abuse Orthostatic hypotension Due to dehydration from vomiting and diarrhea IV fluids, monitor orthostatics, hold antihypertensives Check stool C diff and stool PCR Alcohol dependence with withdrawal Phenobarbital and CIWA Diabetes Hold orals Cover with insulin sliding scale Hyperlipidemia Continue statin Bipolar disorder Stable DVT prophylaxis with Lovenox Full code impatient need: severe orthostatic hypotension?need iv hydration and monitereing , also need phenobarbital and CIWA monitoring for alcohol withdrawal. Time Spent With Patient Time: Total time managing care of this patient today ____ minutes. Quality Stroke Does the patient have a stroke diagnosis?: No VTE Prior VTE?: No VTE Risk Level:: Medical - moderate - high VTE Device Contraindication: Treatment Not Indicated VTE Drug Contraindication: N/A - Med Ordered
[2022-11-25 16:39] LABS: Glucose, Whole Blood 279 mg/dL (60-115)
[2022-11-25 20:23] LABS: Glucose, Whole Blood 148 mg/dL (60-115)
[2022-11-25] MEDS: 0.9 % Sodium Chloride Flush 3 ML SYRINGE IVFLUSH (20:57)
[2022-11-25] MEDS: Gabapentin 100 MG CAPSULE PO (20:57)
[2022-11-26] VITALS (10 sets, daily range): BP systolic 116–183; BP diastolic 59–88; PULSE 73–89; RESP 17–18; TEMP 36.6–37.1; O2SAT 94–97
[2022-11-26] MEDS: Omeprazole 20 MG CAPSULE.DR PO (04:55)
[2022-11-26 07:46] LABS: Glucose, Whole Blood 301 mg/dL (60-115)
[2022-11-26] MEDS: PHENobarbitaL 15 MG TABLET 45 MG PO ×2 (08:19→21:37)
[2022-11-26] MEDS: Magnesium Oxide 400 MG TABLET 800 MG PO (08:19)
[2022-11-26] MEDS: Sertraline HCL 50 MG TABLET PO (08:19)
[2022-11-26] MEDS: Enoxaparin Sodium 40 MG/0.4 ML SYRINGE SUBCUT (08:20)
[2022-11-26] MEDS: Thiamine HCL 100 MG TABLET PO (08:20)
[2022-11-26] MEDS: Insulin Lispro 100 UNIT/ML 3 ML VIAL SUBCUT ×3 (08:20→21:38)
[2022-11-26] MEDS: Folic Acid 1 MG TABLET PO (08:20)
[2022-11-26] MEDS: Aspirin Enteric Coated 81 MG TABLET.DR PO (08:20)
[2022-11-26] MEDS: 0.9 % Sodium Chloride Flush 3 ML SYRINGE IVFLUSH ×3 (08:21→21:42)
[2022-11-26 11:44] LABS: Glucose, Whole Blood 194 mg/dL (60-115)
[2022-11-26] MEDS: amLODIPine Besylate 2.5 MG TABLET PO (12:17)
[2022-11-26] MEDS: ondansetron HCL 4 MG/2 ML VIAL IVPUSH (12:18)
[2022-11-26] MEDS: Lactated Ringers 1,000 ML 100 ML IVCONT (12:21)
--- NOTE | 2022-11-26 15:54 | P.PNIM_ITS ---
Subjective Subjective Date of Service: 11/26/22 Interval History: Dyspepsia also question of apin with swallowing Review of Systems Denies any fever or chills or cough or phlegm Denies any chest pain or sob. Physical Exam Vital Signs: Vital Signs: Last Vital Signs Temp 97.8 F 11/26/22 15:11 Pulse 76 11/26/22 15:11 Resp 18 11/26/22 15:11 BP 175/81 H 11/26/22 15:45 Pulse Ox 97 11/26/22 15:11 O2 Del Method 11/26/22 15:11 BMI result Body Mass Index 26.9 General: AO X 3, no acute distress Resp:? CTA bilateral, no accessory muscles used CVS: S1,S2,RRR GI: soft, non tender, non distended Neuro:? motor grossly intact, alert Psych: appropriate affect, appropriate insight? Objective Data Active Medications Aspirin (Aspirin Enteric Coated 81 Mg Tablet.) 81 mg PO DAILY [facility] Last Admin: 11/26/22 08:20 Dose: 81 mg Documented By: ERIS Enoxaparin Sodium (Enoxaparin Sodium 40 Mg/0.4 Ml Syringe) 40 mg SUBCUT Q24H [facility] Last Admin: 11/26/22 08:20 Dose: 40 mg Documented By: ERIS Folic Acid (Folic Acid 1 Mg Tablet) 1 mg PO DAILY [facility] Last Admin: 11/26/22 08:20 Dose: 1 mg Documented By: ERIS Gabapentin (Gabapentin 100 Mg Capsule) 100 mg PO BEDTIME [facility] Last Admin: 11/25/22 20:57 Dose: 100 mg Documented By: MAGALYS Glucose (Glucose Gel 15 Gm Gel..Gram.) 15 gm PO Q15M PRN; Protocol PRN Reason: per Hypoglycemia Standing Ord. Dextrose (D10) 250 mls @ 750 mls/hr IV Q15M PRN; Protocol PRN Reason: per Hypoglycemia Standing Ord. Lactated Ringer's (Lr) 1,000 mls @ 100 mls/hr IVCONT .Q10H [facility] Last Admin: 11/26/22 12:21 Dose: 100 mls/hr Documented By: ERIS Insulin Human Lispro (Insulin Lispro 100 Unit/Ml 3 Ml Vial) 0 unit SUBCUT QIDACHS [facility]; Protocol Last Admin: 11/26/22 12:20 Dose: 2 unit Documented By: ERIS Magnesium Oxide (Magnesium Oxide 400 Mg Tablet) 800 mg PO DAILY [facility] Last Admin: 11/26/22 08:19 Dose: 800 mg Documented By: ERIS Ondansetron HCl (Ondansetron Hcl 4 Mg/2 Ml Vial) 4 mg IVPUSH Q4H PRN PRN Reason: nausea Last Admin: 11/26/22 12:18 Dose: 4 mg Documented By: ERIS Pantoprazole Sodium (Pantoprazole Sodium 40 Mg/10 Ml Vial) 40 mg IVPUSH BI D@[id number],1188 [facility] Pharmacy Consult (Consult Rx Perform Med Rec) 1 each MISCELLANE ONCE PRN PRN Reason: Consult order Pharmacy Consult (Consult Rx Etoh Phenob Im/Po) 1 each MISCELLANE ONCE PRN; Protocol PRN Reason: Consult order Phenobarbital (Phenobarbital 15 Mg Tablet) 45 mg PO BID [facility]; Protocol Stop: 11/26/22 21:01 Last Admin: 11/26/22 08:19 Dose: 45 mg Documented By: ERIS Phenobarbital (Phenobarbital 15 Mg Tablet) 15 mg PO BID [facility]; Protocol Stop: 11/28/22 21:01 Phenobarbital (Phenobarbital 15 Mg Tablet) 15 mg PO DAILY [facility]; Protocol Stop: 11/30/22 09:01 Sertraline HCl (Sertraline Hcl 50 Mg Tablet) 50 mg PO DAILY [facility] Last Admin: 11/26/22 08:19 Dose: 50 mg Documented By: ERIS Sodium Chloride (0.9 % Sodium Chloride Flush 3 Ml Syringe) [facility] Last Admin: 11/26/22 08:21 Dose: 3 ml Documented By: ERIS Thiamine HCl (Thiamine Hcl 100 Mg Tablet) 100 mg PO DAILY [facility] Last Admin: 11/26/22 08:20 Dose: 100 mg Documented By: ERIS Labs 11/25/22 07:30 11/25/22 06:20 Labs: Laboratory Results - last 24 hr 11/25/22 11/25/22 11/26/22 16:28 20:16 07:17 POC Glucose 279 H 148 H 301 H 11/26/22 11:33 POC Glucose 194 H Assessment and Plan (1) Acute hypotension: Status: Acute (2) Acute dehydration: Status: Acute (3) Alcohol withdrawal: Status: Acute Plan 57 year old male with history of uncontrolled tryp2 diabetes with hyperglycemia, htn, hld, diabetic retinopathy, diabetic polyneuropathy, bipolar 1 disorder, history alcohol abuse Orthostatic hypotension seems to be imrpoved with hydration and claire stocking Due to dehydration from vomiting and diarrhea hold antihypertensives. Alcohol dependence with withdrawal Phenobarbital and CIWA Diabetes Hold orals Cover with insulin sliding scale Hyperlipidemia Continue statin Bipolar disorder Stable htn: bp uncontrolled added home lisinopril and hydralazine, in addition adjusted amlodipine since adding home medications. Odynophagia?/epigastric disconfort ( alcoholic gastritis): npo iv zofran and ppi GI eval DVT prophylaxis with Lovenox Full code impatient need: severe orthostatic hypotension?need iv hydration and monitereing , also need phenobarbital and CIWA monitoring for alcohol withdrawal. Time Spent With Patient Time: Total time managing care of this patient today ____ minutes. Quality Stroke Does the patient have a stroke diagnosis?: No VTE Prior VTE?: No VTE Risk Level:: Medical - moderate - high VTE Device Contraindication: Treatment Not Indicated VTE Drug Contraindication: N/A - Med Ordered
[2022-11-26 15:58] LABS: Glucose, Whole Blood 143 mg/dL (60-115)
[2022-11-26] MEDS: Pantoprazole Sodium 40 MG/10 ML VIAL IVPUSH (17:16)
--- NOTE | 2022-11-26 17:17 | MHC.SHP ---
Pre-Procedural Eval Section A Date of Service: 11/26/22 The patient is an INPATIENT: Yes Changes since office visit: No Cold of Flu in the past 2 weeks, No New Medical Problems, No Changes in Medication and No Patient answered all questions The History & Physical has been completed within 30 days and I have reviewed it.: Yes Section B Chief Complaint: Hypotension, ETOH Allergies: Allergies Allergy/AdvReac Type Severity Reaction Status Date / Time No Known Allergies Allergy Verified 08/28/20 11:15 Plan I have reviewed the history and physical and performed a pertinent physical examination on my patient. No changes have occurred unless specified. Time Spent With Patient Time: Total time managing care of this patient today ____ minutes.
--- NOTE | 2022-11-26 17:18 | PM.EVENT ---
Event Note Date of Service: 11/26/22 Event Note: GI consult dictated EGD planned for tomorrow for further evaluation of upper gi symptoms. Pr aware of risks and benefits and agrees to proceed. Continue ppi Time Spent With Patient Time: Total time managing care of this patient today ____ minutes.
[2022-11-26 19:13] LABS: Glucose, Whole Blood 314 mg/dL (60-115)
[2022-11-26 21:35] LABS: Glucose, Whole Blood 259 mg/dL (60-115)
[2022-11-26] MEDS: Gabapentin 100 MG CAPSULE PO (21:38)
[2022-11-26] MEDS: hydrALAZINE HCl 50 MG TABLET PO (21:38)
[2022-11-27] VITALS (14 sets, daily range): BP systolic 76–152; BP diastolic 32–83; PULSE 65–93; RESP 16–18; TEMP 36.3–37.2; O2SAT 94–99
--- NOTE | 2022-11-27 03:15 | CONS_ITS ---
DATE OF SERVICE: 11/26/2022 REFERRING PHYSICIAN: Sarah Noriega MD REASON FOR CONSULTATION: Nausea, vomiting, and epigastric pain. HISTORY OF PRESENT ILLNESS: The patient is a pleasant 57-year-old man who was admitted to the hospital on November 24 after presenting to the emergency room with complaints of dizziness. He was found to be orthostatic and admitted to the hospital. Consultation is requested because the patient has been complaining of nausea, vomiting, dysphagia, and epigastric pain since admission. He reports that he drinks approximately 10 alcoholic drinks per day until stopping about a week ago. He had been treated for withdrawal since admission. He has had nausea and nonbloody emesis most recently earlier today. He reports pain with swallowing and epigastric pain after eating. He denies any prior history of ulcer disease. He has been started on pantoprazole and lab work obtained on admission showed no evidence of GI bleeding. Hematocrit was 33.9 and yesterday morning was 32.0. There has been no reported hematemesis, melena, or hematochezia. The patient denies any prior history of ulcer disease. He does drink alcohol as above. He does not smoke and denies other drug use. Previous evaluation has included colonoscopy in August 2020, which was remarkable for a tubular adenoma and some nonspecific focal active colitis. PAST MEDICAL HISTORY: 1. High blood pressure. 2. Diabetes. 3. Bipolar disorder. 4. Elevated cholesterol. 5. Hyperlipidemia. 6. Diabetic retinopathy. 7. Alcohol abuse. 8. Gastroesophageal reflux disease. 9. Vitamin D deficiency. CURRENT MEDICATIONS: Current medication list is reviewed in the chart. ALLERGIES: THERE ARE NONE REPORTED. FAMILY HISTORY: This is reviewed with the patient and is negative for GI malignancy. SOCIAL HISTORY: Alcohol use as above. REVIEW OF SYSTEMS: SKIN: No pruritus. HEENT: Negative. CARDIOPULMONARY: No shortness of breath or chest pain. GASTROINTESTINAL: As above. GENITOURINARY: Negative. NEUROPSYCHIATRIC: Negative. PHYSICAL EXAMINATION: GENERAL: Shows a pleasant male lying in bed. VITAL SIGNS: Reviewed in the electronic medical record. These are stable. SKIN: Anicteric. HEENT: Shows no scleral icterus. NECK: Without lymphadenopathy or thyromegaly. LUNGS: Clear. HEART: Shows a regular rate and rhythm. S1, S2. No murmur. ABDOMEN: Soft without focal masses or tenderness. Bowel sounds are present. No organomegaly is noted. EXTREMITIES: Without edema. LABORATORY DATA: Reviewed. IMPRESSION: Epigastric pain with dysphagia, nausea, and vomiting. I discussed the differential diagnosis for his symptoms including alcoholic gastritis, erosive esophagitis, and peptic ulcer disease. I agree with treating him with a proton pump inhibitor as you are doing. I would recommend further evaluation of his symptoms with upper endoscopy. This will be arranged for tomorrow. I have discussed risks and benefits of the procedure. He understands and agrees to proceed. Thanks for asking me to see him. I will follow him in the hospital with you. MD EWA Blanco/JAYCE / [id number]
[2022-11-27] MEDS: Pantoprazole Sodium 40 MG/10 ML VIAL IVPUSH (06:18)
[2022-11-27 07:23] LABS: Glucose, Whole Blood 200 mg/dL (60-115)
[2022-11-27] MEDS: hydrALAZINE HCl 50 MG TABLET PO ×2 (08:03→20:57)
[2022-11-27] MEDS: Magnesium Oxide 400 MG TABLET 800 MG PO (08:03)
[2022-11-27] MEDS: Sertraline HCL 50 MG TABLET PO (08:03)
[2022-11-27] MEDS: Aspirin Enteric Coated 81 MG TABLET.DR PO (08:04)
[2022-11-27] MEDS: PHENobarbitaL 15 MG TABLET PO ×2 (08:04→20:57)
[2022-11-27] MEDS: Insulin Lispro 100 UNIT/ML 3 ML VIAL SUBCUT ×3 (08:04→20:58)
[2022-11-27] MEDS: lisinopriL 10 MG TABLET 30 MG PO (08:04)
[2022-11-27] MEDS: Enoxaparin Sodium 40 MG/0.4 ML SYRINGE SUBCUT (08:04)
[2022-11-27] MEDS: Thiamine HCL 100 MG TABLET PO (08:04)
[2022-11-27] MEDS: Folic Acid 1 MG TABLET PO (08:04)
--- NOTE | 2022-11-27 11:15 | PM.OP ---
Brief Operative Note Date of Service: 11/27/22 Pre-op diagnosis: epigastric pain dysphagia Post-op diagnosis: same Procedure: egd Surgeon: Arsenio García Anesthesia: MAC Was an Manufacture Specialist used for this Procedure?: No Estimated blood loss (mL): 2 Pathology: other Condition: stable Disposition: PACU
--- NOTE | 2022-11-27 11:16 | PM.EVENT ---
Event Note Date of Service: 11/27/22 Event Note: EGD note dictated endoscopy shows erosive esophagitis no active bleeding antral biopsies obtained rec advance diet oral ppi avoid alcohol f/u bx results Time Spent With Patient Time: Total time managing care of this patient today ____ minutes.
[2022-11-27 12:04] LABS: Glucose, Whole Blood 127 mg/dL (60-115)
--- NOTE | 2022-11-27 14:03 | PC.NURSE ---
per Md - no longer a need for [facility]
[2022-11-27 15:38] LABS: Glucose, Whole Blood 237 mg/dL (60-115)
--- NOTE | 2022-11-27 16:04 | P.PNIM_ITS ---
Subjective Subjective Date of Service: 11/27/22 Interval History: Dyspepsia also question of pain with? swallowing Review of Systems Denies any chest pain shortness of breath or or cough or phlegm or fever. Still has pain with swallowing Physical Exam Vital Signs: Vital Signs: Last Vital Signs Temp 98.1 F 11/27/22 15:03 Pulse 79 11/27/22 15:03 Resp 17 11/27/22 15:03 BP 152/76 H 11/27/22 15:03 Pulse Ox 94 11/27/22 15:03 O2 Del Method 11/27/22 15:03 BMI result Body Mass Index 26.9 General: AO X 3, no acute distress Resp:? CTA bilateral, no accessory muscles used CVS: S1,S2,RRR GI: soft, non tender, non distended Neuro:? motor grossly intact, alert Psych: appropriate affect, appropriate insight? Objective Data Active Medications Acetaminophen (Acetaminophen 325 Mg Tablet) 650 mg PO Q6H PRN PRN Reason: Headache Aspirin (Aspirin Enteric Coated 81 Mg Tablet.) 81 mg PO DAILY [facility] Last Admin: 11/27/22 08:04 Dose: 81 mg Documented By: JOCELYNN-KO Enoxaparin Sodium (Enoxaparin Sodium 40 Mg/0.4 Ml Syringe) 40 mg SUBCUT Q24H [facility] Last Admin: 11/27/22 08:04 Dose: 40 mg Documented By: JOCELYNN-KO Folic Acid (Folic Acid 1 Mg Tablet) 1 mg PO DAILY [facility] Last Admin: 11/27/22 08:04 Dose: 1 mg Documented By: JOCELYNN-KO Gabapentin (Gabapentin 100 Mg Capsule) 100 mg PO BEDTIME [facility] Last Admin: 11/26/22 21:38 Dose: 100 mg Documented By: DESROA Glucose (Glucose Gel 15 Gm Gel..Gram.) 15 gm PO Q15M PRN; Protocol PRN Reason: per Hypoglycemia Standing Ord. Hydralazine HCl (Hydralazine Hcl 50 Mg Tablet) 50 mg PO BID [facility]; Protocol Last Admin: 11/27/22 08:03 Dose: 50 mg Documented By: JOCELYNN-KO Dextrose (D10) 250 mls @ 750 mls/hr IV Q15M PRN; Protocol PRN Reason: per Hypoglycemia Standing Ord. Insulin Human Lispro (Insulin Lispro 100 Unit/Ml 3 Ml Vial) 0 unit SUBCUT QIDACHS [facility]; Protocol Last Admin: 11/27/22 12:06 Dose: Not Given Documented By: AVINASH Non-Admin Reason: poc oor Lisinopril (Lisinopril 10 Mg Tablet) 30 mg PO DAILY [facility]; Protocol Last Admin: 11/27/22 08:04 Dose: 30 mg Documented By: AVINASH Magnesium Oxide (Magnesium Oxide 400 Mg Tablet) 800 mg PO DAILY [facility] Last Admin: 11/27/22 08:03 Dose: 800 mg Documented By: AVINASH Omeprazole (Omeprazole 40 Mg Capsule.Dr) 40 mg PO DAILY@0630 [facility] Ondansetron HCl (Ondansetron Hcl 4 Mg/2 Ml Vial) 4 mg IVPUSH Q4H PRN PRN Reason: nausea Last Admin: 11/26/22 12:18 Dose: 4 mg Documented By: ERIS Pharmacy Consult (Consult Rx Perform Med Rec) 1 each MISCELLANE ONCE PRN PRN Reason: Consult order Pharmacy Consult (Consult Rx Etoh Phenob Im/Po) 1 each MISCELLANE ONCE PRN; Pr otocol PRN Reason: Consult order Phenobarbital (Phenobarbital 15 Mg Tablet) 15 mg PO BID [facility]; Protocol Stop: 11/28/22 21:01 Last Admin: 11/27/22 08:04 Dose: 15 mg Documented By: AVINASH Phenobarbital (Phenobarbital 15 Mg Tablet) 15 mg PO DAILY [facility]; Protocol Stop: 11/30/22 09:01 Sertraline HCl (Sertraline Hcl 50 Mg Tablet) 50 mg PO DAILY [facility] Last Admin: 11/27/22 08:03 Dose: 50 mg Documented By: AVINASH Sodium Chloride (0.9 % Sodium Chloride Flush 3 Ml Syringe) 3 ml IVFLUSH QSHIFT [facility] Last Admin: 11/27/22 14:21 Dose: Not Given Documented By: AVINASH Non-Admin Reason: See Note Thiamine HCl (Thiamine Hcl 100 Mg Tablet) 100 mg PO DAILY [facility] Last Admin: 11/27/22 08:04 Dose: 100 mg Documented By: AVINASH Labs 11/25/22 07:30 11/25/22 06:20 Labs: Laboratory Results - last 24 hr 11/26/22 11/26/22 11/27/22 18:57 21:31 07:11 POC Glucose 314 H 259 H 200 H 11/27/22 11/27/22 11:57 15:04 POC Glucose 127 H 237 H Assessment and Plan (1) Acute hypotension: Status: Acute (2) Acute dehydration: Status: Acute (3) Alcohol withdrawal: Status: Acute Plan 57 year old male with history of uncontrolled tryp2 diabetes with hyperglycemia, htn, hld, diabetic retinopathy, diabetic polyneuropathy, bipolar 1 disorder, history alcohol abuse Orthostatic hypotension seems to be imrpoved with hydration and claire stocking Due to dehydration from vomiting and diarrhea Alcohol dependence with withdrawal imrpoving Phenobarbital and CIWA Diabetes Hold orals Cover with insulin sliding scale Hyperlipidemia Continue statin Bipolar disorder Stable htn: bp uncontrolled: lisinopril and hydralazine, in addition adjusted amlodipine since adding home medications. Odynophagia?/epigastric disconfort ( alcoholic gastritis): s/p egd-has urology gastritis iv zofran and switched to p.o. ppi Will try clear liquid diet GI eval DVT prophylaxis with Lovenox Full code impatient need: severe orthostatic hypotension?need iv hydration and monitereing , also need phenobarbital and CIWA monitoring for alcohol withdrawal. Time Spent With Patient Time: Total time managing care of this patient today ____ minutes. Quality Stroke Does the patient have a stroke diagnosis?: No VTE Prior VTE?: No VTE Risk Level:: Medical - moderate - high VTE Device Contraindication: Treatment Not Indicated VTE Drug Contraindication: N/A - Med Ordered
[2022-11-27 19:50] LABS: Glucose, Whole Blood 276 mg/dL (60-115)
[2022-11-27] MEDS: Gabapentin 100 MG CAPSULE PO (20:57)
[2022-11-27] MEDS: 0.9 % Sodium Chloride Flush 3 ML SYRINGE IVFLUSH (20:58)
--- NOTE | 2022-11-27 22:36 | OP_ITS ---
SURGEON: Arsenio García MD INDICATIONS: Dysphagia and epigastric pain. PREOPERATIVE DIAGNOSIS: POSTOPERATIVE DIAGNOSIS: PROCEDURE PERFORMED: Upper endoscopy with biopsy. ESTIMATED BLOOD LOSS: COMPLICATIONS: ANESTHESIA: Medications, monitored anesthesia care. ASSISTANTS: SPECIMENS: PROCEDURE DESCRIPTION: The procedure was performed on 11/27/2022. A history and physical were performed. The risks and benefits of the procedure were explained to the patient. Informed consent was obtained. The patient was placed in a left lateral decubitus position. An Olympus video gastroscope was introduced into the esophagus, stomach, and duodenum. Examination was performed. The scope was removed. He tolerated the procedure well and was taken to recovery unit in stable condition. FINDINGS: Esophagus: There was erosive esophagitis with no active bleeding involving the distal 4 cm of the esophagus. Ulceration was present. No definite Damon esophagus was identified. Stomach: Stomach showed no evidence of masses, ulcers, or polyps. Antral biopsies were obtained. Duodenum: The bulb and second portion were normal. IMPRESSION: Erosive esophagitis. RECOMMENDATION: 1. Follow up the biopsy results. 2. Repeat upper endoscopy after healing in 8 to 12 weeks to assess for evidence of underlying Damon esophagus. MD EWA Blanco/JAYCE / [id number]
--- NOTE | 2022-11-28 | ECG_ITS ---
Test Reason : cp Blood Pressure : / mmHG Vent. Rate : 081 BPM Atrial Rate : 081 BPM P-R Int : 154 ms QRS Dur : 086 ms QT Int : 368 ms P-R-T Axes : 053 -18 022 degrees QTc Int : 427 ms Normal sinus rhythm Minimal voltage criteria for LVH, may be normal variant ( R in aVL ) Nonspecific T wave abnormality Abnormal ECG When compared with ECG of 24-NOV-2022 21:12, Premature ventricular complexes are no longer Present Referred By: Zander Abebe Electronically Signed By:Zeyad Garcia
[2022-11-28 04:00] VITALS: BP 134/58; PULSE 91; RESP 18; TEMP 36.8; O2SAT 91
[2022-11-28] MEDS: Omeprazole 40 MG CAPSULE.DR PO (05:29)
[2022-11-28 07:30] VITALS: BP 137/74; PULSE 72; RESP 18; TEMP 36.9; O2SAT 95
[2022-11-28 07:50] LABS: Glucose, Whole Blood 288 mg/dL (60-115)
[2022-11-28] MEDS: lisinopriL 10 MG TABLET 30 MG PO (08:51)
[2022-11-28] MEDS: Magnesium Oxide 400 MG TABLET 800 MG PO (08:52)
[2022-11-28] MEDS: Thiamine HCL 100 MG TABLET PO (08:52)
[2022-11-28] MEDS: Folic Acid 1 MG TABLET PO (08:53)
[2022-11-28] MEDS: Aspirin Enteric Coated 81 MG TABLET.DR PO (08:53)
[2022-11-28] MEDS: Sertraline HCL 50 MG TABLET PO (08:53)
[2022-11-28] MEDS: hydrALAZINE HCl 50 MG TABLET PO ×2 (08:53→20:47)
[2022-11-28] MEDS: PHENobarbitaL 15 MG TABLET PO ×2 (08:53→20:47)
[2022-11-28] MEDS: amLODIPine Besylate 2.5 MG TABLET PO (08:53)
[2022-11-28] MEDS: Enoxaparin Sodium 40 MG/0.4 ML SYRINGE SUBCUT (08:54)
[2022-11-28] MEDS: 0.9 % Sodium Chloride Flush 3 ML SYRINGE IVFLUSH ×3 (08:54→20:48)
[2022-11-28] MEDS: Insulin Lispro 100 UNIT/ML 3 ML VIAL SUBCUT ×4 (08:54→20:47)
--- NOTE | 2022-11-28 09:53 | HO.POSTANES ---
Post Anesthesia Evaluation Post Anesthesia Evaluation Vital Signs: Vital Signs Temp Pulse Resp BP Pulse Ox O2 Del Method 11/28/22 07:30 98.5 F 72 18 137/74 95 Room Air 11/28/22 04:00 98.2 F 91 18 134/58 L 91 L Room Air 11/27/22 23:30 98.1 F 65 18 127/65 95 Room Air Anesthesia: Monitored Mental Status: Awake Pain Control: Satisfactory Nausea/Vomiting: None Hydration: Adequate Anesthesia-Related Issues: No Anes. Related Issues
--- NOTE | 2022-11-28 10:13 | MHC.CM.PN ---
Per ROUNDS discussion, Patient is not yet medically cleared for dc (pain with swallowing, CIWA R/T ETOH Withdrawal); home is the goal and CM will continue to follow.
[2022-11-28] MEDS: Lidocaine 4 % Patch ADH..PATCH 1 PATCH TRANSDERMA (11:08)
[2022-11-28 11:09] VITALS: BP 125/64; PULSE 82; RESP 18; TEMP 36.7; O2SAT 97
[2022-11-28 11:17] LABS: Anion Gap 14 (12-20); Blood Urea Nitrogen 9 mg/dL (9-16); Calcium 9.1 mg/dL (8.4-10.2); Carbon Dioxide 26 mmol/L (22-29); Chloride 101 mmol/L (96-108); Creatinine Clr Calc Pharmacy 87.5; Estimated Glomerular Filt Rate > 60; Glucose Random 271 mg/dL (60-115); Potassium 4.2 mmol/L (3.3-5.1); Sodium 137 mmol/L (135-145)
[2022-11-28 11:27] LABS: Glucose, Whole Blood 227 mg/dL (60-115)
[2022-11-28 11:46] LABS: Folate 16.5 ng/mL (> or = 4.0); Thyroid Stimulating Hormone 2.54 uIU/mL (0.32-4.0); Vitamin B12 581 pg/mL (200-900)
--- NOTE | 2022-11-28 14:37 | P.PNIM_ITS ---
Subjective Subjective Date of Service: 11/28/22 Interval History: Dyspepsia also question of pain with? swallowing Review of Systems Had 1 episode of vomiting this morning, still has pain when swallowing, Denies any chest pain shortness of breath or fever chills Physical Exam Vital Signs: Vital Signs: Last Vital Signs Temp 98.1 F 11/28/22 11:09 Pulse 82 11/28/22 11:09 Resp 18 11/28/22 11:09 BP 125/64 11/28/22 11:09 Pulse Ox 97 11/28/22 11:09 O2 Del Method 11/28/22 11:09 BMI result Body Mass Index 26.9 General: AO X 3, no acute distress Resp:? CTA bilateral, no accessory muscles used CVS: S1,S2,RRR GI: soft, non tender, non distended Neuro:? motor grossly intact, alert Psych: appropriate affect, appropriate insight Objective Data Active Medications Acetaminophen (Acetaminophen 325 Mg Tablet) 650 mg PO Q6H PRN PRN Reason: Headache Amlodipine Besylate (Amlodipine Besylate 2.5 Mg Tablet) 2.5 mg PO DAILY [facility]; Protocol Last Admin: 11/28/22 08:53 Dose: 2.5 mg Documented By: TREVON Aspirin (Aspirin Enteric Coated 81 Mg Tablet.Dr) 81 mg PO DAILY [facility] Last Admin: 11/28/22 08:53 Dose: 81 mg Documented By: TREVON Capsaicin (Capsaicin 0.025% Cream 60 Gm Tube) 1 appl TOPICAL TID [facility]; Protocol Enoxaparin Sodium (Enoxaparin Sodium 40 Mg/0.4 Ml Syringe) 40 mg SUBCUT Q24H [facility] Last Admin: 11/28/22 08:54 Dose: 40 mg Documented By: TREVON Folic Acid (Folic Acid 1 Mg Tablet) 1 mg PO DAILY [facility] Last Admin: 11/28/22 08:53 Dose: 1 mg Documented By: TREVON Gabapentin (Gabapentin 100 Mg Capsule) 100 mg PO BEDTIME [facility] Last Admin: 11/27/22 20:57 Dose: 100 mg Documented By: BJ Glucose (Glucose Gel 15 Gm Gel..Gram.) 15 gm PO Q15M PRN; Protocol PRN Reason: per Hypoglycemia Standing Ord. Hydralazine HCl (Hydralazine Hcl 50 Mg Tablet) 50 mg PO BID [facility]; Protocol Last Admin: 11/28/22 08:53 Dose: 50 mg Documented By: TREVON Dextrose (D10) 250 mls @ 750 mls/hr IV Q15M PRN; Protocol PRN Reason: per Hypoglycemia Standing Ord. Insulin Human Lispro (Insulin Lispro 100 Unit/Ml 3 Ml Vial) 0 unit SUBCUT QIDACHS [facility]; Protocol Last Admin: 11/28/22 13:32 Dose: 4 unit Documented By: TREVON Lidocaine (Lidocaine 4 % Patch Adh..Patch) 1 patch TRANSDERMA DAILY [facility]; Prot ocol Last Admin: 11/28/22 11:08 Dose: 1 patch Documented By: TREVON Lisinopril (Lisinopril 10 Mg Tablet) 30 mg PO DAILY [facility]; Protocol Last Admin: 11/28/22 08:51 Dose: 30 mg Documented By: TREVON Magnesium Oxide (Magnesium Oxide 400 Mg Tablet) 800 mg PO DAILY [facility] Last Admin: 11/28/22 08:52 Dose: 800 mg Documented By: TREVON Omeprazole (Omeprazole 40 Mg Capsule.Dr) 40 mg PO DAILY@0630 [facility] Last Admin: 11/28/22 05:29 Dose: 40 mg Documented By: BJ Ondansetron HCl (Ondansetron Hcl 4 Mg/2 Ml Vial) 4 mg IVPUSH Q4H PRN PRN Reason: nausea Last Admin: 11/26/22 12:18 Dose: 4 mg Documented By: ERIS Pharmacy Consult (Consult Rx Perform Med Rec) 1 each MISCELLANE ONCE PRN PRN Reason: Consult order Pharmacy Consult (Consult Rx Etoh Phenob Im/Po) 1 each MISCELLANE ONCE PRN; Protocol PRN Reason: Consult order Phenobarbital (Phenobarbital 15 Mg Tablet) 15 mg PO BID [facility]; Protocol Stop: 11/28/22 21:01 Last Admin: 11/28/22 08:53 Dose: 15 mg Documented By: TREVON Phenobarbital (Phenobarbital 15 Mg Tablet) 15 mg PO DAILY [facility]; Protocol Stop: 11/30/22 09:01 Sertraline HCl (Sertraline Hcl 50 Mg Tablet) 50 mg PO DAILY [facility] Last Admin: 11/28/22 08:53 Dose: 50 mg Documented By: TREVON Sodium Chloride (0.9 % Sodium Chloride Flush 3 Ml Syringe) 3 ml IVFLUSH QSHIFT [facility] Last Admin: 11/28/22 08:54 Dose: 3 ml Documented By: TREVON Thiamine HCl (Thiamine Hcl 100 Mg Tablet) 100 mg PO DAILY [facility] Last Admin: 11/28/22 08:52 Dose: 100 mg Documented By: TREVON Labs 11/25/22 07:30 11/28/22 10:13 Labs: Laboratory Results - last 24 hr 11/27/22 11/27/22 11/28/22 15:04 19:29 07:32 Anion Gap Estim Creat Clear Calc Estimated GFR POC Glucose 237 H 276 H 288 H Random Glucose Calcium Vitamin B12 Folate TSH 11/28/22 11/28/22 10:13 11:07 Anion Gap 14 Estim Creat Clear Calc 87.5 Estimated GFR > 60 POC Glucose 227 H Random Glucose 271 H Calcium 9.1 D Vitamin B12 581 Folate 16.5 TSH 2.54 Assessment and Plan (1) Acute hypotension: Status: Acute (2) Acute dehydration: Status: Acute (3) Alcohol withdrawal: Status: Acute Plan 57 year old male with history of uncontrolled tryp2 diabetes with hyperglycemia, htn, hld, diabetic retinopathy, diabetic polyneuropathy, bipolar 1 disorder, history alcohol abuse 1.Orthostatic hypotension seems to be imrpoved with hydration and claire stocking Due to dehydration from vomiting and diarrhea 2.Alcohol dependence with withdrawal imrpoving Phenobarbital and CIWA 3.Diabetes: fs 120-200 Hold orals Cover with insulin sliding scale 4.Hyperlipidemia Continue statin 5.Bipolar disorder Stable 6.htn: bp uncontrolled: lisinopril and hydralazine, in addition adjusted amlodipine since adding home medications. 7.Odynophagia?/epigastric disconfort ( alcoholic gastritis): s/p egd-has erosive esophagitis still has nausea vomitin iv zofran and switched to p.o. ppi,switch to fullliquid. DVT prophylaxis with Lovenox Full code impatient need: severe orthostatic hypotension?need iv hydration and monitereing , also need phenobarbital and CIWA monitoring for alcohol withdrawal, unable to talerate solid diet -has no nausea or vomiting secondary to erosive esophagitis- need iv antiemetics and ppi ice. Time Spent With Patient Time: Total time managing care of this patient today ____ minutes. Quality Stroke Does the patient have a stroke diagnosis?: No VTE Prior VTE?: No VTE Risk Level:: Medical - moderate - high VTE Device Contraindication: Treatment Not Indicated VTE Drug Contraindication: N/A - Med Ordered
[2022-11-28 15:38] VITALS: BP 123/80; PULSE 86; RESP 14; TEMP 36.9; O2SAT 94
[2022-11-28 16:12] LABS: Glucose, Whole Blood 221 mg/dL (60-115)
--- NOTE | 2022-11-28 16:21 | MHC.RECOVRN ---
Met with pt in [address], along with spanish medical interpreter, to discuss alcohol use. Pt reports drinking approx 10 nips daily for years. Pt has never received tx for AUD. Pt reports family and friends are concerned with his alcohol use. Pt is interested in abstinence. Pt has attempted to abstain in the past, up to a week, but returns to drinking due to withdrawal symptoms. Lives in his own apartment and attends a day program during the week where there are activities like pool. Pt reports beginning alcohol use when he wakes up and drinking throughout the day, including at the day program. Discussed recovery resources and supports with pt, including [facility]. Pt is interested in meeting with a nutritional health coach while inpatient and initiating naltrexone. Plan to have success coach meet with pt this evening. Discussed with Marley Sena APRN. Plan to initiate naltrexone. Pt needs CCC appt prior to dc.
[2022-11-28] MEDS: Mag&Al/Sim/Diphenhyd/Lidocaine 10 ML ORAL.SUSP PO (17:45)
[2022-11-28] MEDS: Magnesium Hydrox/Alum Hydrox 30 ML ORAL.SUSP PO (18:16)
[2022-11-28] MEDS: Lidocaine HCl Viscous 2 % 15 ML SOLUTION MUCOUS MEM (18:17)
[2022-11-28] MEDS: Acetaminophen 325 MG TABLET 650 MG PO (18:18)
--- NOTE | 2022-11-28 18:56 | P.EN_ITS ---
Event Note Date of Service: 11/28/22 Event Note: Addiction consult placed Please see it infrastructure architect note dated 11/28/2022 naltrexone ordered to start 3/11 in AM Time Spent With Patient Time: Total time managing care of this patient today ____ minutes.
[2022-11-28 19:07] VITALS: BP 133/75; PULSE 87; RESP 14; TEMP 36.8; O2SAT 95
[2022-11-28 19:23] LABS: Glucose, Whole Blood 217 mg/dL (60-115)
--- NOTE | 2022-11-28 20:40 | PC.NURSE ---
Assumed care at 16:00, Patient alert and oriented x4, Samoan speaking only, Patient responds appropriately. Reports constant chest pain bilateral anterior chest, unchanged with inspiration, worse with palpation, 5/10 on the right, 4/10 on the left, nonradiating. EKG per MD and reviewed by MD. Given tylenol and magic mouthwash. New order for viscous lidocaine administered with good effect.. breathing easy on room air. feels dizziness with standing, ambulated to BR with 1 assist. Loose stools x1.
[2022-11-28] MEDS: Gabapentin 100 MG CAPSULE PO (20:47)
--- NOTE | 2022-11-28 20:58 | MHC.RECOVSUP ---
? Reason for consult:ETOH o? Current location:[id number] o? Identified substance use concern:? -? Support ? Intervention: o? Community resources provided o? Harm reduction discussion ? Plan: o? Follow up tomorrow? ? Additional information:RC met with pt and discussed [facility] services, pt was provided with recovery services.
[2022-11-28 23:38] VITALS: BP 112/74; PULSE 78; RESP 20; TEMP 36.6; O2SAT 96
[2022-11-29] VITALS (7 sets, daily range): BP systolic 124–160; BP diastolic 69–97; PULSE 78–98; RESP 16–20; TEMP 36.3–37.1; O2SAT 93–97
[2022-11-29] MEDS: Acetaminophen 325 MG TABLET 650 MG PO (02:21)
[2022-11-29] MEDS: Omeprazole 40 MG CAPSULE.DR PO (05:33)
[2022-11-29 07:30] LABS: Glucose, Whole Blood 182 mg/dL (60-115)
[2022-11-29] MEDS: Insulin Lispro 100 UNIT/ML 3 ML VIAL SUBCUT ×4 (07:52→21:04)
[2022-11-29] MEDS: Enoxaparin Sodium 40 MG/0.4 ML SYRINGE SUBCUT (07:53)
[2022-11-29] MEDS: lisinopriL 10 MG TABLET 30 MG PO (07:54)
[2022-11-29] MEDS: PHENobarbitaL 15 MG TABLET PO (07:54)
[2022-11-29] MEDS: Lidocaine 4 % Patch ADH..PATCH 1 PATCH TRANSDERMA (07:54)
[2022-11-29] MEDS: Folic Acid 1 MG TABLET PO (07:55)
[2022-11-29] MEDS: hydrALAZINE HCl 50 MG TABLET PO ×2 (07:55→21:16)
[2022-11-29] MEDS: Aspirin Enteric Coated 81 MG TABLET.DR PO (07:55)
[2022-11-29] MEDS: amLODIPine Besylate 2.5 MG TABLET PO (07:55)
[2022-11-29] MEDS: Sertraline HCL 50 MG TABLET PO (07:55)
[2022-11-29] MEDS: Magnesium Oxide 400 MG TABLET 800 MG PO (07:55)
[2022-11-29] MEDS: Naltrexone HCl 50 MG TABLET 25 MG PO (07:56)
[2022-11-29] MEDS: 0.9 % Sodium Chloride Flush 3 ML SYRINGE IVFLUSH ×2 (08:05→14:22)
[2022-11-29] MEDS: Thiamine HCL 100 MG TABLET PO (09:19)
[2022-11-29 11:19] LABS: Glucose, Whole Blood 195 mg/dL (60-115)
--- NOTE | 2022-11-29 12:23 | P.PNIM_ITS ---
Subjective Subjective Date of Service: 11/30/22 Interval History: Dyspepsia also question of pain with? swallowing Review of Systems feels generalised weak,lightheaded which is improivng inafternoon time denies any chest pain or sob Physical Exam Vital Signs: Vital Signs: Last Vital Signs Temp 98.0 F 11/29/22 11:44 Pulse 82 11/29/22 11:44 Resp 16 11/29/22 11:44 BP 129/76 11/29/22 11:44 Pulse Ox 93 11/29/22 11:44 O2 Del Method 11/29/22 11:44 BMI result Body Mass Index 26.9 General: AO X 3, no acute distress Resp:? CTA bilateral, no accessory muscles used CVS: S1,S2,RRR GI: soft, non tender, non distended Neuro:? motor grossly intact, alert Psych: appropriate affect, appropriate insight Objective Data Active Medications Acetaminophen (Acetaminophen 325 Mg Tablet) 650 mg PO Q6H PRN PRN Reason: Headache Last Admin: 11/29/22 02:21 Dose: 650 mg Documented By: MARCELO Amlodipine Besylate (Amlodipine Besylate 2.5 Mg Tablet) 2.5 mg PO DAILY [facility]; Protocol Last Admin: 11/29/22 07:55 Dose: 2.5 mg Documented By: JANICE Aspirin (Aspirin Enteric Coated 81 Mg Tablet.) 81 mg PO DAILY [facility] Last Admin: 11/29/22 07:55 Dose: 81 mg Documented By: JANICE Capsaicin (Capsaicin 0.025% Cream 60 Gm Tube) 1 appl TOPICAL TID [facility]; Protocol Last Admin: 11/29/22 08:06 Dose: Not Given Documented By: JANICE Non-Admin Reason: Patient Refused Enoxaparin Sodium (Enoxaparin Sodium 40 Mg/0.4 Ml Syringe) 40 mg SUBCUT Q24H [facility] Last Admin: 11/29/22 07:53 Dose: 40 mg Documented By: JANICE Folic Acid (Folic Acid 1 Mg Tablet) 1 mg PO DAILY [facility] Last Admin: 11/29/22 07:55 Dose: 1 mg Documented By: JANICE Gabapentin (Gabapentin 100 Mg Capsule) 100 mg PO BEDTIME [facility] Last Admin: 11/28/22 20:47 Dose: 100 mg Documented By: MARCELO Glucose (Glucose Gel 15 Gm Gel..Gram.) 15 gm PO Q15M PRN; Protocol PRN Reason: per Hypoglycemia Standing Ord. Hydralazine HCl (Hydralazine Hcl 50 Mg Tablet) 50 mg PO BID [facility]; Protocol Last Admin: 11/29/22 07:55 Dose: 50 mg Documented By: JANICE Dextrose (D10) 250 mls @ 750 mls/hr IV Q15M PRN; Protocol PRN Reason: per Hypoglycemia Standing Ord. Insulin Human Lispro (Insulin Lispro 100 Unit/Ml 3 Ml Vial) 0 unit SUBCUT QIDACHS [facility]; Protocol Last Admin: 11/29/22 12:09 Dose: 2 unit Documented By: JANICE Lidocaine (Lidocaine 4 % Patch Adh..Patch) 1 patch TRANSDERMA DAILY [facility]; Protocol Last Admin: 11/29/22 07:54 Dose: 1 patch Documented By: JANICE Lidocaine/Diphenhydr/Alum/Mg/Simeth (Mag&Al/Sim/Diphenhyd/Lidocaine 10 Ml Oral.Susp) 10 ml PO Q4H PRN; Protocol PRN Reason: Pain, Mild (Pain Scale 1-3) Last Admin: 11/28/22 17:45 Dose: 10 ml Documented By: KAYDEN Lisinopril (Lisinopril 10 Mg Tablet) 30 mg PO DAILY [facility]; Protocol Last Admin: 11/29/22 07:54 Dose: 30 mg Documented By: JANICE Magnesium Oxide (Magnesium Oxide 400 Mg Tablet) 800 mg PO DAILY [facility] Last Admin: 11/29/22 07:55 Dose: 800 mg Documented By: JANICE Multivitamins/Vitamin C (Multivitamin Tablet) 1 tab PO BEDTIME [facility] Naltrexone HCl (Naltrexone Hcl 50 Mg Tablet) 25 mg PO DAILY [facility] Last Admin: 11/29/22 07:56 Dose: 25 mg Documented By: JANICE Omeprazole (Omeprazole 40 Mg Capsule.Dr) 40 mg PO DAILY@0630 [facility] Last Admin: 11/29/22 05:33 Dose: 40 mg Documented By: MARCELO Ondansetron HCl (Ondansetron Hcl 4 Mg/2 Ml Vial) 4 mg IVPUSH Q4H PRN PRN Reason: nausea Last Admin: 11/26/22 12:18 Dose: 4 mg Documented By: ERIS Pharmacy Consult (Consult Rx Perform Med Rec) 1 each MISCELLANE ONCE PRN PRN Reason: Consult order Pharmacy Consult (Consult Rx Etoh Phenob Im/Po) 1 each MISCELLANE ONCE PRN; Protocol PRN Reason: Consult order Phenobarbital (Phenobarbital 15 Mg Tablet) 15 mg PO DAILY [facility]; Protocol Stop: 11/30/22 09:01 Last Admin: 11/29/22 07:54 Dose: 15 mg Documented By: JANICE Sertraline HCl (Sertraline Hcl 50 Mg Tablet) 50 mg PO DAILY [facility] Last Admin: 11/29/22 07:55 Dose: 50 mg Documented By: JANICE Sodium Chloride (0.9 % Sodium Chloride Flush 3 Ml Syringe) 3 ml IVFLUSH QSHIFT [facility] Last Admin: 11/29/22 08:05 Dose: 3 ml Documented By: JANICE Thiamine HCl (Thiamine Hcl 100 Mg Tablet) 100 mg PO DAILY [facility] Last Admin: 11/29/22 09:19 Dose: 100 mg Documented By: JANICE Labs 11/25/22 07:30 11/28/22 10:13 Labs: Laboratory Results - last 24 hr 11/28/22 11/28/22 11/29/22 16:03 19:18 07:20 POC Glucose 221 H 217 H 182 H 11/29/22 11:09 POC Glucose 195 H Assessment and Plan (1) Acute hypotension: Status: Acute (2) Acute dehydration: Status: Acute (3) Alcohol withdrawal: Status: Acute Plan 57 year old male with history of uncontrolled tryp2 diabetes with hyperglycemia, htn, hld, diabetic retinopathy, diabetic polyneuropathy, bipolar 1 disorder, his tory alcohol abuse 1.Orthostatic hypotension seems to be imrpoved with hydration and claire stocking Due to dehydration from vomiting and diarrhea 2.Alcohol dependence with withdrawal imrpoving Phenobarbital and CIWA 3.Diabetes: fs 120-200 Hold orals Cover with insulin sliding scale 4.Hyperlipidemia Continue statin 5.Bipolar disorder Stable 6.htn: bp uncontrolled: lisinopril and hydralazine, in addition adjusted amlodipine since adding home medications. 7.Odynophagia?/epigastric disconfort ( alcoholic gastritis): s/p egd-has erosive esophagitis still has nausea vomitin iv zofran and switched to p.o. ppi,switch to fullliquid. DVT prophylaxis with Lovenox Full code impatient need: severe orthostatic hypotension?need iv hydration and monitereing , also need phenobarbital and CIWA monitoring for alcohol withdrawal, unable to talerate solid diet -has no nausea or vomiting secondary to erosive esophagitis- need iv antiemetics and ppi ice. Time Spent With Patient Time: Total time managing care of this patient today ____ minutes. Quality Stroke Does the patient have a stroke diagnosis?: No VTE Prior VTE?: No VTE Risk Level:: Medical - moderate - high VTE Device Contraindication: Treatment Not Indicated VTE Drug Contraindication: N/A - Med Ordered
[2022-11-29] MEDS: Thiamine HCL 200 MG in 0.9 % Sodium Chloride 100 ML 204 MG IV ×2 (14:21→21:14)
[2022-11-29 16:18] LABS: Glucose, Whole Blood 162 mg/dL (60-115)
[2022-11-29] MEDS: Gabapentin 100 MG CAPSULE PO (21:16)
[2022-11-29] MEDS: Multivitamin TABLET 1 TAB PO (21:17)
[2022-11-29 21:54] LABS: Glucose, Whole Blood 190 mg/dL (60-115)
[2022-11-30] VITALS (12 sets, daily range): BP systolic 108–157; BP diastolic 58–87; PULSE 67–93; RESP 18–20; TEMP 36.1–37.1; O2SAT 95–98
[2022-11-30] MEDS: Omeprazole 40 MG CAPSULE.DR PO (06:02)
[2022-11-30] MEDS: Acetaminophen 325 MG TABLET 650 MG PO (06:02)
[2022-11-30] MEDS: Thiamine HCL 200 MG in 0.9 % Sodium Chloride 100 ML 204 MG IV ×3 (06:02→20:46)
[2022-11-30] MEDS: 0.9 % Sodium Chloride Flush 3 ML SYRINGE IVFLUSH ×2 (06:05→07:35)
[2022-11-30 07:16] LABS: Glucose, Whole Blood 140 mg/dL (60-115)
[2022-11-30] MEDS: lisinopriL 10 MG TABLET 30 MG PO (07:29)
[2022-11-30] MEDS: Lidocaine 4 % Patch ADH..PATCH 1 PATCH TRANSDERMA (07:29)
[2022-11-30] MEDS: Enoxaparin Sodium 40 MG/0.4 ML SYRINGE SUBCUT (07:30)
[2022-11-30] MEDS: Magnesium Oxide 400 MG TABLET 800 MG PO (07:30)
[2022-11-30] MEDS: Naltrexone HCl 50 MG TABLET 25 MG PO (07:30)
[2022-11-30] MEDS: amLODIPine Besylate 2.5 MG TABLET PO (07:31)
[2022-11-30] MEDS: Aspirin Enteric Coated 81 MG TABLET.DR PO (07:31)
[2022-11-30] MEDS: Sertraline HCL 50 MG TABLET PO (07:31)
[2022-11-30] MEDS: Folic Acid 1 MG TABLET PO (07:51)
[2022-11-30] MEDS: hydrALAZINE HCl 50 MG TABLET PO ×2 (07:51→20:47)
[2022-11-30] MEDS: Metoprolol Tartrate 25 MG TABLET PO ×2 (07:51→20:47)
[2022-11-30] MEDS: PHENobarbitaL 15 MG TABLET PO (07:51)
[2022-11-30 10:51] LABS: Glucose, Whole Blood 248 mg/dL (60-115)
[2022-11-30] MEDS: Meclizine HCl 12.5 MG TABLET PO (12:12)
[2022-11-30] MEDS: Insulin Lispro 100 UNIT/ML 3 ML VIAL SUBCUT ×3 (12:12→20:47)
--- NOTE | 2022-11-30 12:58 | PC.NURSE ---
Pt alert and oriented x3-4 but can be confused and foegtful at times. Pt ambulated from his room to the vators and back. He did get tired and C/O of dizziness as well his legs hurting from Neuropathy. Orthos obtained but not sure if he is positive or not
--- NOTE | 2022-11-30 13:34 | HO.PM.IMPN ---
Subjective Subjective Date of Service: 11/30/22 Interval History: Borderline orthostatic, lightheaded Review of Systems Denies any chest pain shortness of breath or fever or chills or cough or phlegm. Soreness with swallowing seems to be improving, eating better. Physical Exam Vital Signs: Vital Signs: Last Vital Signs Temp 97.2 F 11/30/22 11:34 Pulse 82 11/30/22 12:43 Resp 20 11/30/22 11:34 BP 119/67 11/30/22 12:43 Pulse Ox 97 11/30/22 11:34 O2 Del Method 11/30/22 11:34 BMI result Body Mass Index 26.9 General: AO X 3, no acute distress Resp:? CTA bilateral, no accessory muscles used CVS: S1,S2,RRR GI: soft, non tender, non distended Neuro:? motor grossly intact, alert Psych: appropriate affect, appropriate insight Objective Data Active Medications Acetaminophen (Acetaminophen 325 Mg Tablet) 650 mg PO Q6H PRN PRN Reason: Headache Last Admin: 11/30/22 06:02 Dose: 650 mg Documented By: FLORA Aspirin (Aspirin Enteric Coated 81 Mg Tablet.) 81 mg PO DAILY [facility] Last Admin: 11/30/22 07:31 Dose: 81 mg Documented By: JANICE Capsaicin (Capsaicin 0.025% Cream 60 Gm Tube) 1 appl TOPICAL TID [facility]; Protocol Last Admin: 11/30/22 07:43 Dose: Not Given Documented By: JANICE Non-Admin Reason: Patient Refused Enoxaparin Sodium (Enoxaparin Sodium 40 Mg/0.4 Ml Syringe) 40 mg SUBCUT Q24H [facility] Last Admin: 11/30/22 07:30 Dose: 40 mg Documented By: JANICE Folic Acid (Folic Acid 1 Mg Tablet) 1 mg PO DAILY [facility] Last Admin: 11/30/22 07:51 Dose: 1 mg Documented By: JANICE Gabapentin (Gabapentin 100 Mg Capsule) 100 mg PO BEDTIME [facility] Last Admin: 11/29/22 21:16 Dose: 100 mg Documented By: FLORA Glucose (Glucose Gel 15 Gm Gel..Gram.) 15 gm PO Q15M PRN; Protocol PRN Reason: per Hypoglycemia Standing Ord. Hydralazine HCl (Hydralazine Hcl 50 Mg Tablet) 50 mg PO BID [facility]; Protocol Last Admin: 11/30/22 07:51 Dose: 50 mg Documented By: JANICE Dextrose (D10) 250 mls @ 750 mls/hr IV Q15M PRN; Protocol PRN Reason: per Hypoglycemia Standing Ord. Thiamine HCl 200 mg/ Sodium (Chloride) 102 mls @ 204 mls/hr IV Q8H [facility] Last Infusion: 11/30/22 13:01 Dose: 0 mls/hr Documented By: SHERRY Insulin Human Lispro (Insulin Lispro 100 Unit/Ml 3 Ml Vial) 0 unit SUBCUT QIDACHS [facility]; Protocol Last Admin: 11/30/22 12:12 Dose: 4 unit Documented By: JANICE Lidocaine (Lidocaine 4 % Patch Adh..Patch) 1 patch TRANSDERMA DAILY [facility]; Protocol Last Admin: 11/30/22 07:29 Dose: 1 patch Documented By: JANICE Lidocaine/Diphenhydr/Alum/Mg/Simeth (Mag&Al/Sim/Diphenhyd/Lidocaine 10 Ml Oral.Susp) 10 ml PO Q4H PRN; Protocol PRN Reason: Pain, Mild (Pain Scale 1-3) Last Admin: 11/28/22 17:45 Dose: 10 ml Documented By: KAYDEN Lisinopril (Lisinopril 10 Mg Tablet) 30 mg PO DAILY [facility]; Protocol Last Admin: 11/30/22 07:29 Dose: 30 mg Documented By: JANICE Magnesium Oxide (Magnesium Oxide 400 Mg Tablet) 800 mg PO DAILY [facility] Last Admin: 11/30/22 07:30 Dose: 800 mg Documented By: JANICE Metoprolol Tartrate (Metoprolol Tartrate 25 Mg Tablet) 25 mg PO BID [facility]; Protocol Last Admin: 11/30/22 07:51 Dose: 25 mg Documented By: JANICE Multivitamins/Vitamin C (Multivitamin Tablet) 1 tab PO BEDTIME [facility] Last Admin: 11/29/22 21:17 Dose: 1 tab Documented By: FLORA Naltrexone HCl (Naltrexone Hcl 50 Mg Tablet) 25 mg PO DAILY [facility] Last Admin: 11/30/22 07:30 Dose: 25 mg Documented By: JANICE Omeprazole (Omeprazole 40 Mg Capsule.Dr) 40 mg PO DAILY@0630 [facility] Last Admin: 11/30/22 06:02 Dose: 40 mg Documented By: FLORA Ondansetron HCl (Ondansetron Hcl 4 Mg/2 Ml Vial) 4 mg IVPUSH Q4H PRN PRN Reason: nausea Last Admin: 11/26/22 12:18 Dose: 4 mg Documented By: ERIS Pharmacy Consult (Consult Rx Perform Med Rec) 1 each MISCELLANE ONCE PRN PRN Reason: Consult order Pharmacy Consult (Consult Rx Etoh Phenob Im/Po) 1 each MISCELLANE ONCE PRN; Protocol PRN Reason: Consult order Sertraline HCl (Sertraline Hcl 50 Mg Tablet) 50 mg PO DAILY [facility] Last Admin: 11/30/22 07:31 Dose: 50 mg Documented By: JANICE Sodium Chloride (0.9 % Sodium Chloride Flush 3 Ml Syringe) 3 ml IVFLUSH QSHIFT [facility] Last Admin: 11/30/22 07:35 Dose: 3 ml Documented By: JANICE Labs 11/25/22 07:30 11/28/22 10:13 Labs: Laboratory Results - last 24 hr 11/29/22 11/29/22 11/30/22 16:14 20:29 07:13 POC Glucose 162 H 190 H 140 H 11/30/22 10:42 POC Glucose 248 H Assessment and Plan (1) Acute hypotension: Status: Acute (2) Acute dehydration: Status: Acute (3) Alcohol withdrawal: Status: Acute (4) Alcoholic gastritis: Status: Acute Plan 57 year old male with history of uncontrolled tryp2 diabetes with hyperglycemia, htn, hld, diabetic retinopathy, diabetic polyneuropathy, bipolar 1 disorder, history alcohol abuse 1.Orthostatic hypotension still boderline orthostatis/symptomatic added ivf hydration,inaddition claire stocking, encouraged for p.o. intake and hydration also. Due to dehydration from vomiting and diarrhea 2.Alcohol dependence with withdrawal imrpoved. Phenobarbital and CIWA 3.Diabetes: fs 120-200 Hold orals Cover with insulin sliding scale 4.Hyperlipidemia Continue statin 5.Bipolar disorder Stable 6.htn: bp uncontrolled: lisinopril and hydralazine, in addition adjusted amlodipine since adding home medications. 7.Odynophagia?/epigastric disconfort ( alcoholic gastritis): s/p egd-has erosive esophagitis still has nausea vomitin iv zofran and switched to p.o. ppi,advanced diet. DVT prophylaxis with Lovenox Full code impatient need: severe orthostatic hypotension?need iv hydration and monitereing . Time Spent With Patient Time: Total time managing care of this patient today ____ minutes. Quality Stroke Does the patient have a stroke diagnosis?: No VTE Prior VTE?: No VTE Risk Level:: Medical - moderate - high VTE Device Contraindication: Treatment Not Indicated VTE Drug Contraindication: N/A - Med Ordered
[2022-11-30] MEDS: Lactated Ringers 1,000 ML 80 ML IVCONT (13:55)
[2022-11-30 16:04] LABS: Glucose, Whole Blood 202 mg/dL (60-115)
[2022-11-30 20:09] LABS: Glucose, Whole Blood 235 mg/dL (60-115)
[2022-11-30] MEDS: Multivitamin TABLET 1 TAB PO (20:46)
[2022-11-30] MEDS: Gabapentin 100 MG CAPSULE PO (20:47)
[2022-12-01] MEDS: Acetaminophen 325 MG TABLET 650 MG PO (00:54)
[2022-12-01] MEDS: Lactated Ringers 1,000 ML 80 ML IVCONT ×2 (00:57→13:37)
[2022-12-01 03:12] VITALS: BP 127/75; PULSE 79; RESP 20; TEMP 36.8; O2SAT 97
[2022-12-01] MEDS: Thiamine HCL 200 MG in 0.9 % Sodium Chloride 100 ML 204 MG IV ×2 (05:58→12:24)
[2022-12-01] MEDS: Omeprazole 40 MG CAPSULE.DR PO (05:59)
[2022-12-01] MEDS: diphenhydrAMINE HCL 25 MG CAPSULE PO (06:08)
[2022-12-01 07:18] LABS: Glucose, Whole Blood 160 mg/dL (60-115)
[2022-12-01 07:34] VITALS: BP 129/70; PULSE 76
[2022-12-01] MEDS: Insulin Lispro 100 UNIT/ML 3 ML VIAL SUBCUT ×2 (10:29→12:21)
[2022-12-01] MEDS: Enoxaparin Sodium 40 MG/0.4 ML SYRINGE SUBCUT (10:29)
[2022-12-01] MEDS: Naltrexone HCl 50 MG TABLET 25 MG PO (10:30)
[2022-12-01] MEDS: lisinopriL 10 MG TABLET 30 MG PO (10:30)
[2022-12-01] MEDS: Aspirin Enteric Coated 81 MG TABLET.DR PO (10:30)
[2022-12-01] MEDS: Magnesium Oxide 400 MG TABLET 800 MG PO (10:30)
[2022-12-01] MEDS: Folic Acid 1 MG TABLET PO (10:31)
[2022-12-01] MEDS: Metoprolol Tartrate 25 MG TABLET PO (10:31)
[2022-12-01] MEDS: hydrALAZINE HCl 50 MG TABLET PO (10:31)
[2022-12-01] MEDS: Sertraline HCL 50 MG TABLET PO (10:31)
[2022-12-01] MEDS: 0.9 % Sodium Chloride Flush 3 ML SYRINGE IVFLUSH (10:32)
[2022-12-01] MEDS: Lidocaine 4 % Patch ADH..PATCH 1 PATCH TRANSDERMA (10:32)
[2022-12-01 11:10] LABS: Glucose, Whole Blood 165 mg/dL (60-115)
[2022-12-01 11:32] VITALS: BP 118/65; PULSE 79; RESP 18; TEMP 36.8; O2SAT 96
--- NOTE | 2022-12-01 11:46 | MHC.CM.PN ---
Per ROUNDS discussion, Patient is not yet medically cleared fore dc (Orthostatic and symptomatic); Home with services is the goal and CM will continue to follow.
--- NOTE | 2022-12-01 12:59 | MHC.CM.PN ---
PCP is Dr. Carlene Lucas at [facility].
--- NOTE | 2022-12-01 14:25 | MHC.CM.PN ---
Per RN, MD will be dc Patient home today. PT is recommending home with services and [facility] accepted Patient and is aware of today's dc.
[2022-12-01 15:05] VITALS: BP 126/68; PULSE 78; RESP 18; TEMP 36.8; O2SAT 96
--- NOTE | 2022-12-01 15:07 | PM.DS ---
DS: Providers Provider Date of Service: 12/01/22 Date of admission: 11/24/22 15:54 Date of discharge: 12/01/22 Primary care physician: [facility] Consults: 11/26/22 10:43 Consult to Gastroenterology Routine Consulting Provider: [facility] – [place] Gastroenterology Services Reason for consultation: odynophagia/nausea/epigastric pain Has provider been notified: No 11/27/22 16:07 Addiction Medicine Routine Consulting Provider: Addiction Covering Reason for consultation: alcohol abuse Has provider been notified: No Attending physician on discharge: Sarah Noriega DS: Diagnosis Discharge Diagnosis (1) Acute hypotension: Status: Acute (2) Acute dehydration: Status: Acute (3) Alcohol withdrawal: Status: Acute (4) Alcoholic gastritis: Status: Acute (5) Erosive esophagitis: Status: Acute DS: Summary Hospital Course Hospital Course: 57M PMH DM, htn, hld, diabetic retinopathy, diabetic polyneuropathy, bipolar 1 disorder, alcohol dependence (10 nips/day), presented with dizziness.? Patient states that he has had about 3 days of watery diarrhea, reports going small amounts every 30 minutes.? Also with nausea vomiting of white fluid multiple times per day.? Inability to tolerate p.o..? Has not had alcohol for 4 days.? Started to feel shaky and withdrawal.? At day program started to feel very dizzy so he is brought to the ED. in ED found to be severely orthostatic with systolic blood pressure in the 60s on standing. hospital course : Patient was admitted for possible orthostatic hypotension in the setting of dehydration: Patient was hydrated and started on Henrik stocking as well as patient blood pressure medications were adjusted-patient seems to be significantly improved symptom eid currently walking without any symptoms. In addition Henrik stocking added. Patient was strongly advised to use orthostatic precautions like taking things slowly. Alcohol withdrawal: Seems to be improved with phenobarb protocol. Continue thiamine and folic acid. Patient was seen by recovery team and information given for outpatient referral. Erosive esophagitis: Seems to be multifactorial, alcohol use also contributing, patient was strongly advised to stop alcohol use. Also PPI adjusted to b.i.d. biopsy results needs to be followed up outpatient with GI. plan: Monitor blood pressure at home, we have stopped amlodipine as well as metoprolol adjusted and continue hydralazine and lisinopril for now. Use as talking also. If continue to have dizziness-may need further blood pressure medication adjustment in addition to above. Esophagitis: Continue omeprazole. Follow biopsy results with GI outpatient. Above management discussed the patient detail length he understand and in agreement with the plan in addition he discussed with his also. Time spent 50 minute. Time Spent with Patient Time attestation: Total time managing care of this patient today ____ minutes. Discharge coordination time: Greater than 30 minutes Quality: Safe Use of Opioids Does Pt have an Active Cancer Diagnosis on the Problem List?: No Quality: Stroke Does the patient have a stroke diagnosis?: No Physical Exam Vital Signs: Vital Signs: Last Vital Signs Temp 98.3 F 12/01/22 15:05 Pulse 78 12/01/22 15:05 Resp 18 12/01/22 15:05 BP 126/68 12/01/22 15:05 Pulse Ox 96 12/01/22 15:05 O2 Del Method 12/01/22 15:05 BMI result Body Mass Index 26.9 General: AO X 3, no acute distress Resp:? CTA bilateral, no accessory muscles used CVS: S1,S2,RRR GI: soft, non tender, non distended Neuro:? motor grossly intact, alert Psych: appropriate affect, appropriate insight? DS: Data Data Completed and Pending Completed studies during hospitalization [Text1]: Pending at discharge 11/27/22 11:02 Surgical [PTH] Routine Labs on day of discharge: Laboratory Results - last 24 hr 11/30/22 11/30/22 12/01/22 16:00 20:05 07:08 POC Glucose 202 H 235 H 160 H 12/01/22 11:04 POC Glucose 165 H Imaging Chest x-ray: Radiologist's impression: ITS Impressions Chest X-Ray 11/24/22 16:13 IMPRESSION: No evidence for acute process. Head CT 11/28/22 11:58 IMPRESSION: No acute intracranial pathology. Discharge Plan Discharge Anticipated Discharge Date/Time: 12/01/22 14:53 Patient Disposition: Home Health Service Discharge Diagnosis: Erosive esophagitis. Referrals: Terry Rivero [Outside] - 1 Week Center,[facility] [Primary Care Provider] - 1 Week Discharge Medications: New metoprolol tartrate 25 mg Tablet 25 mg PO BID Qty: 60 0RF Protocol: Hold for SBP/HR < HOLD for SBP < : 90 HOLD for HR < : 60 naltrexone 50 mg tablet 50 mg PO DAILY Qty: 30 1RF (DME) T[facility]D. [facility] See Rx Instructions .ROUTE .MEDSUPPLY Qty: 12 0RF Rx Instructions: As directed Continued (DME) pen needle, diabetic [BD Bela 2nd Gen Pen Needle] 32 gauge x 5/32 needle See Rx Instructions .MEDSUPPLY Qty: 150 0RF Rx Instructions: 5 times daily NO FURTHER REFILLS WITHOUT APPOINTMENT! prazosin 1 mg capsule 3 mg PO BEDTIME sertraline 50 mg tablet 50 mg PO DAILY atorvastatin 80 mg tablet 80 mg PO BEDTIME fenofibrate 160 mg tablet 160 mg PO BEDTIME naltrexone 50 mg tablet 50 mg PO DAILY lisinopril 30 mg tablet 30 mg PO DAILY thiamine HCl (vitamin B1) 100 mg tablet 100 mg PO DAILY hydralazine 50 mg tablet 50 mg PO BID Certavite-Antioxidant 18-400 mg-mcg tablet 1 tab PO DAILY icosapent ethyl [Vascepa] 1 gram capsule 2 g PO BIDWMEAL Trulicity 1.5 mg/0.5 mL pen injector 1.5 mg SUBCUT WE prazosin 1 mg capsule 1 mg PO DAILY PRN (Reason: CONSULTING DATABASE ADMINISTRATOR AWAKENINGS) metformin 1,000 mg tablet 1,000 mg PO BIDWM cholecalciferol (vitamin D3) 50 mcg (2,000 unit) capsule 50 mcg PO DAILY 30 Days Qty: 30 6RF aspirin [Adult Low Dose Aspirin] 81 mg tablet,delayed release (DR/EC) 81 mg PO DAILY Hold Instructions: Resume on 09/03/20. no ASA or Nsaids, for a week. gabapentin 100 mg capsule 100 mg PO BEDTIME folic acid 1 mg tablet 1 mg PO DAILY Changed omeprazole 20 mg capsule,delayed release(DR/EC) 20 mg PO BID Qty: 60 0RF Discontinued metoprolol tartrate 100 mg tablet 100 mg PO BID amlodipine 10 mg tablet 10 mg PO DAILY@1800 Discharge Orders: Discharge Order (Routine); Ordered 12/01/22 Ordered By: Sarah Noriega Diet: Advance to usual diet Activity on Discharge: As tolerated Stand Alone Forms: Patient Portal Discharge page Care Plan Goals: Patient was admitted for possible orthostatic hypotension in the setting of dehydration: Patient was hydrated and started on Henrik stocking as well as patient blood pressure medications were adjusted-patient seems to be significantly improved symptom eid currently walking without any symptoms. In addition Henrik stocking added. Patient was strongly advised to use orthostatic precautions like taking things slowly. Alcohol withdrawal: Seems to be improved with phenobarb protocol. Continue thiamine and folic acid. Patient was seen by recovery team and information given for outpatient referral. Erosive esophagitis: Seems to be multifactorial, alcohol use also contributing, patient was strongly advised to stop alcohol use. Also PPI adjusted to b.i.d. biopsy results needs to be followed up outpatient with GI. Health Concerns: As above. Plan of Treatment: As above. Assessment: As above. Patient Instructions: Hypotension (DC), Alcohol Withdrawal (DC), Esophagitis (DC)
--- NOTE | 2022-12-01 15:12 | P.PNADD_ITS ---
Subjective Subjective Date of Service: 12/01/22 Reason For Visit: Hypotension, ETOH Interim History: Patient seen in follow up. Sitting up in recliner, eating snacks, pleasant and engaged in interview. Was started on Naltrexone at the end of last week for AUD. Has been tolerating 25mg QD. Patient excited about starting this medication and would like to continue it upon discharge. Would like to continue treatment for AUD at [facility] as this is where he has primary care and it is closer to his home. Review of Systems Constitutional: Reports as per HPI and Reports no additional constitutional complaints Mental Status Exam Mental Status Exam Patient Appearance: Appropriate Level of Consciousness: Awake, Appropriate and Alert Patient Behavior: Appropriate and Cooperative Diagnostics Vital Signs (24Hr): Vital Signs - 24 hr 11/30/22 15:58 11/30/22 19:24 11/30/22 23:34 Temperature 98.7 F 98.1 F 96.9 F Pulse Rate 77 76 67 Respiratory Rate 18 18 20 Blood Pressure 157/87 H 119/58 L 108/59 L Pulse Oximetry 98 98 96 Oxygen Delivery Method Room Air Room Air Room Air 12/01/22 03:12 12/01/22 07:34 12/01/22 11:32 Temperature 98.3 F 98.2 F Pulse Rate 79 76 79 Respiratory Rate 20 18 Blood Pressure 127/75 129/70 118/65 Pulse Oximetry 97 96 Oxygen Delivery Method Room Air Room Air 12/01/22 15:05 Temperature 98.3 F Pulse Rate 78 Respiratory Rate 18 Blood Pressure 126/68 Pulse Oximetry 96 Oxygen Delivery Method Room Air BMI result Body Mass Index 26.9 Labs 11/25/22 07:30 11/28/22 10:13 Labs: Laboratory Results - last 48 hr 11/29/22 11/29/22 11/30/22 16:14 20:29 07:13 POC Glucose 162 H 190 H 140 H 11/30/22 11/30/22 11/30/22 10:42 16:00 20:05 POC Glucose 248 H 202 H 235 H 12/01/22 12/01/22 07:08 11:04 POC Glucose 160 H 165 H Imaging Radiology Impressions: ITS Impressions Chest X-Ray 11/24/22 16:13 IMPRESSION: No evidence for acute process. Head CT 11/28/22 11:58 IMPRESSION: No acute intracranial pathology. Medications Medications Current Medications Acetaminophen (Acetaminophen 325 Mg Tablet) 650 mg PO Q6H PRN PRN Reason: Headache Last Admin: 12/01/22 00:54 Dose: 650 mg Aspirin (Aspirin Enteric Coated 81 Mg Tablet.Dr) 81 mg PO DAILY [facility] Last Admin: 12/01/22 10:30 Dose: 81 mg Capsaicin (Capsaicin 0.025% Cream 60 Gm Tube) 1 appl TOPICAL TID [facility]; Protocol Last Admin: 12/01/22 10:26 Dose: Not Given Diphenhydramine HCl (Diphenhydramine Hcl 25 Mg Capsule) 25 mg PO Q6H PRN PRN Reason: Itching Last Admin: 12/01/22 06:08 Dose: 25 mg Enoxaparin Sodium (Enoxaparin Sodium 40 Mg/0.4 Ml Syringe) 40 mg SUBCUT Q24H [facility] Last Admin: 12/01/22 10:29 Dose: 40 mg Folic Acid (Folic Acid 1 Mg Tablet) 1 mg PO DAILY [facility] Last Admin: 12/01/22 10:31 Dose: 1 mg Gabapentin (Gabapentin 100 Mg Capsule) 100 mg PO BEDTIME [facility] Last Admin: 11/30/22 20:47 Dose: 100 mg Glucose (Glucose Gel 15 Gm Gel..Gram.) 15 gm PO Q15M PRN; Protocol PRN Reason: per Hypoglycemia Standing Ord. Hydralazine HCl (Hydralazine Hcl 50 Mg Tablet) 50 mg PO BID [facility]; Protocol Last Admin: 12/01/22 10:31 Dose: 50 mg Dextrose (D10) 250 mls @ 750 mls/hr IV Q15M PRN; Protocol PRN Reason: per Hypoglycemia Standing Ord. Thiamine HCl 200 mg/ Sodium (Chloride) 102 mls @ 204 mls/hr IV Q8H [facility] Last Infusion: 12/01/22 13:34 Dose: Infused Lactated Ringer's (Lr) 1,000 mls @ 80 mls/hr IVCONT .[id number] [facility] Last Admin: 12/01/22 13:37 Dose: 80 mls/hr Insulin Human Lispro (Insulin Lispro 100 Unit/Ml 3 Ml Vial) 0 unit SUBCUT QIDAC HS [facility]; Protocol Last Admin: 12/01/22 12:21 Dose: 2 unit Lidocaine (Lidocaine 4 % Patch Adh..Patch) 1 patch TRANSDERMA DAILY [facility]; Protocol Last Admin: 12/01/22 10:32 Dose: 1 patch Lidocaine/Diphenhydr/Alum/Mg/Simeth (Mag&Al/Sim/Diphenhyd/Lidocaine 10 Ml Oral.Susp) 10 ml PO Q4H PRN; Protocol PRN Reason: Pain, Mild (Pain Scale 1-3) Last Admin: 11/28/22 17:45 Dose: 10 ml Lisinopril (Lisinopril 10 Mg Tablet) 30 mg PO DAILY [facility]; Protocol Last Admin: 12/01/22 10:30 Dose: 30 mg Magnesium Oxide (Magnesium Oxide 400 Mg Tablet) 800 mg PO DAILY [facility] Last Admin: 12/01/22 10:30 Dose: 800 mg Metoprolol Tartrate (Metoprolol Tartrate 25 Mg Tablet) 25 mg PO BID [facility]; Protocol Last Admin: 12/01/22 10:31 Dose: 25 mg Multivitamins/Vitamin C (Multivitamin Tablet) 1 tab PO BEDTIME [facility] Last Admin: 11/30/22 20:46 Dose: 1 tab Naltrexone HCl (Naltrexone Hcl 50 Mg Tablet) 50 mg PO DAILY [facility] Omeprazole (Omeprazole 40 Mg Capsule.Dr) 40 mg PO DAILY@0630 [facility] Last Admin: 12/01/22 05:59 Dose: 40 mg Ondansetron HCl (Ondansetron Hcl 4 Mg/2 Ml Vial) 4 mg IVPUSH Q4H PRN PRN Reason: nausea Last Admin: 11/26/22 12:18 Dose: 4 mg Pharmacy Consult (Consult Rx Perform Med Rec) 1 each MISCELLANE ONCE PRN PRN Reason: Consult order Pharmacy Consult (Consult Rx Etoh Phenob Im/Po) 1 each MISCELLANE ONCE PRN; Protocol PRN Reason: Consult order Sertraline HCl (Sertraline Hcl 50 Mg Tablet) 50 mg PO DAILY [facility] Last Admin: 12/01/22 10:31 Dose: 50 mg Sodium Chloride (0.9 % Sodium Chloride Flush 3 Ml Syringe) 3 ml IVFLUSH QSHIFT [facility] Last Admin: 12/01/22 10:32 Dose: 3 ml Allergies Allergies Allergy/AdvReac Type Severity Reaction Status Date / Time No Known Allergies Allergy Verified 08/28/20 11:15 Assessment & Plan Assessment & Plan (1) Alcohol use disorder: Status: Acute Code(s): F10.90 - Alcohol use, unspecified, uncomplicated Assessment and Plan: * continue Naltrexone --increase to 50mg tomorrow morning * prescription sent to patients pharmacy * email sent to [facility] to coordinate intake appt with patient Total time managing care of this patient today _20___ minutes.
--- NOTE | 2022-12-01 15:27 | W.MHC.F2F ---
Service Date Service Date: 12/01/22 Encounter Date of encounter: 12/01/22 Encounter: Orthostatic hypotension, erosive esophagitis. Reasons for Services Signs and symptoms assessed: Monitor for any nausea vomiting abdominal pain or dizziness. Reason for nursing home: medication management, medication treatment and teach disease management Reason for physical therapy: home safety and mobility, therapeutic exercises, restore joint function, gait/transfer training, assess need for DME, ADL training, energy conservation and other MD Overseeing Care: Carlene Lucas Homebound: Leaving the home is medically contraindicated at this time without the asist of a device and/or another person due th the listed conditions above and below. Reason homebound: weakness related to hospital stay Homebound supporting statement: Patient is generalized weak has multiple comorbidities including diabetes, orthostatic hypertension, erosive esophagitis need help to go to appointments as well as home PT and blood dwaws. Certification: Based on the above findings, I certify that this patient is confined to the home and needs intermittent nursing home care, physical therapy and/or speech therapy, or continues to need occupational therapy. The patient is under my care, and I have initiated the establishment of the plan of care. The patient will be followed by a physician who will periodically review the plan of care. Time Spent With Patient Time: Total time managing care of this patient today ____ minutes.
== END 2022-12-01 15:51 | disposition home health service (06) | DRG 241 ==
LOC: HO.ED 15:33 → HO.EDOVER 16:01 → HO.IMC 16:16
PROVIDERS: Hospitalist; Internal Medicine Gastroenterology; Admitting Provider Internal Medicine; Emergency Provider Emergency Medicine; PCP General Practice; Visit Provider Internal Medicine
PROC: 0DJ08ZZ Inspection of Upper Intestinal Tract, Via Natural or Artificial Opening Endoscopic (ICD-10-PCS; CPT 43235; principal; 2022-11-27 10:40)
DX: K29.20 Alcoholic gastritis without bleeding (principal); E11.42 Type 2 diabetes mellitus with diabetic polyneuropathy; K22.10 Ulcer of esophagus without bleeding; E86.0 Dehydration; F31.9 Bipolar disorder, unspecified; I95.1 Orthostatic hypotension; I10 Essential (primary) hypertension; E78.5 Hyperlipidemia, unspecified; F10.239 Alcohol dependence with withdrawal, unspecified; E78.00 Pure hypercholesterolemia, unspecified; Z20.822 Contact with and (suspected) exposure to COVID-19; Z79.82 Long term (current) use of aspirin; Z79.84 Long term (current) use of oral hypoglycemic drugs; Z79.899 Other long term (current) drug therapy
CPT/HCPCS: 36415; 70450; 71045; 80048; 80076; 82077; 82272; 82607; 82746; 82947; 83690; 83735; 84443; 84484; 85025; 85027; 87635; 88305; 88342; 93005; 97161; 97530; 99285; J1650; J2405; J2560; J3411

== ENCOUNTER 2022-12-04 12:12 | Emergency (ER) | payer MEDICAID, SELFPAY ==
--- NOTE | ~2022-12-04 | XR_ITS ---
EXAMINATION: XR CHEST CLINICAL INFORMATION: Dizziness COMPARISON: Examination of 10 days previous. TECHNIQUE: 2 views of the chest were obtained. FINDINGS: Examination is at low lung volumes. There is mild compression of parenchymal markings. No dominant consolidations are seen. There is minimal linear atelectatic change at the right base. Pulmonary vascularity appears to be stable. No distinct pleural effusions. Thoracic small spondylitic changes are seen. XR/XR chest 2V IMPRESSION: Evaluation at low lung volumes. Minimal linear atelectasis right base. No dominant consolidations or effusions.
[2022-12-04 12:20] VITALS: BP 102/66; BP 103/56; PULSE 70; PULSE 78; RESP 16; TEMP 36.8; O2SAT 97; O2SAT 98; BMI 28.1
--- NOTE | 2022-12-04 12:43 | ECG_ITS ---
Test Reason : DIZZINESS Blood Pressure : / mmHG Vent. Rate : 075 BPM Atrial Rate : 075 BPM P-R Int : 168 ms QRS Dur : 082 ms QT Int : 388 ms P-R-T Axes : 057 -09 027 degrees QTc Int : 433 ms Normal sinus rhythm Normal ECG When compared with ECG of 28-NOV-2022 18:20, No significant change was found Referred By: Naomy Caldwell Electronically Signed By:Zeyad Garcia
--- NOTE | 2022-12-04 13:03 | PC.NURSE ---
PT FROM DAY [facility], C/O TUTTLE/DIZZINESS STARTED THIS MORNING WHILE AT DAY [facility]GRAM. PT HAS HX OF SAME.
[2022-12-04 13:12] LABS: MANUAL DIFF FLAG NO
[2022-12-04 13:14] LABS: Basophils Percent Auto 0.6 % (0-2); Eosinophils Absolute Auto 0.1 X10*3/uL (0.0-0.4); Hematocrit 35.2 % (42.0-52.0); Hemoglobin 12.2 g/dl (14.0-18.0); Imm Gran Abs Auto 0.02 X10*3/uL (0.00-0.03); Imm Gran Pct Auto 0.3 % (0.0-0.4); Lymphocytes Absolute Auto 1.9 X10*3/uL (1.2-4.9); Lymphocytes Percent Auto 26.7 % (20-40); Mean Corpuscular HGB Conc 34.7 g/dl (31.0-36.0); Mean Corpuscular Hemoglobin 34.5 pg (27.0-33.0); Mean Corpuscular Volume 99.4 fL (80.0-98.0); Mean Platelet Volume 9.3 fL (9.4-12.4); Monocytes Absolute Auto 0.5 X10*3/uL (0.1-1.2); Monocytes Percent Auto 7.2 % (2-11); Neutrophils Absolute Auto 4.5 x10*3/uL (2.0-8.3); Neutrophils Percent Auto 64.2 % (45-73); Platelet Count 344 X10*3/uL (160-400); Red Blood Count 3.54 X10*6/uL (4.60-5.80); Red Cell Distribution Width 12.2 % (11.0-16.0)
[2022-12-04 13:36] LABS: COVID-19 Test Negative (Negative); IDNOW Serial# 9DB6401D
[2022-12-04 13:40] LABS: Alanine Aminotransferase 33 U/L (0-40); Alkaline Phosphatase 68 U/L (39-117); Anion Gap 13 (12-20); Aspartate Amino Transferase 20 U/L (5-37); Bilirubin Total 0.3 mg/dL (0.0-1.0); Blood Urea Nitrogen 14 mg/dL (9-16); Calcium 9.3 mg/dL (8.4-10.2); Carbon Dioxide 25 mmol/L (22-29); Chloride 99 mmol/L (96-108); Creatinine Clr Calc Pharmacy 88.4; Estimated Glomerular Filt Rate > 60; Glucose Random 161 mg/dL (60-115); Magnesium 1.6 mg/dL (1.6-2.6); Sodium 132 mmol/L (135-145); Total Protein 6.6 g/dL (6.5-8.0)
[2022-12-04 13:52] LABS: Troponin-I High Sensitivity < 3.5 ng/L (<3.5-35.0)
[2022-12-04 14:00] VITALS: BP 108/66; PULSE 76; RESP 16; O2SAT 97
--- NOTE | 2022-12-04 14:33 | ED.GENADULT ---
HPI - General Adult General Chief complaint: Headache Stated complaint: DIZZY,LOW BP PER EMS Time Seen by Provider: 12/04/22 12:50 Source: patient Mode of arrival: ambulatory Limitations: no limitations History of Present Illness HPI narrative: An 57-year-old presents with lightheadedness and near-syncope. This min an ongoing issue for at least a week most recently. Patient reports having been hospitalized for approximately 5 days for the similar symptoms. Patient is also complaining of right-sided chest pain and neck pain. The pain is not worse with exertion. Denies any orthopnea, PND or shortness of breath. Denies any dyspnea on exertion. Symptoms appear to be worse with palpation and movement. There has been no prior treatment. Patient describes the pain as severe and intermittent in nature. Patient's lightheadedness and gums appear to be random and intermittent as well. He reports low blood pressure readings. He denies any bloody stools or melanotic stools. He has had no fevers or chills. Does report a decreased appetite. He has had no fevers or chills. Denies any nausea, vomiting, diarrhea. Denies any urinary symptoms such as frequency, urgency or dysuria. Related Data Home Medications Medication Instructions Recorded Confirmed aspirin 81 mg tablet,delayed 81 mg PO DAILY 06/28/20 11/24/22 release (Adult Low Dose Aspirin) folic acid 1 mg tablet 1 mg PO DAILY 06/28/20 11/24/22 gabapentin 100 mg capsule 100 mg PO BEDTIME 06/28/20 11/24/22 atorvastatin 80 mg tablet 80 mg PO BEDTIME 11/05/22 11/24/22 dulaglutide 1.5 mg/0.5 mL 1.5 mg subcut WE 11/05/22 11/24/22 subcutaneous pen injector (Trulicity) fenofibrate 160 mg tablet 160 mg PO BEDTIME 11/05/22 11/24/22 hydralazine 50 mg tablet 50 mg PO BID 11/05/22 11/24/22 icosapent ethyl 1 gram capsule 2 g PO BIDWMEAL 11/05/22 11/24/22 (Vascepa) lisinopril 30 mg tablet 30 mg PO DAILY 11/05/22 11/24/22 metformin 1,000 mg tablet 1,000 mg PO BIDWM 11/05/22 11/24/22 multivitamin-ferrous 1 tab PO DAILY 11/05/22 11/24/22 fumarate-folic acid 18 mg-400 mcg tablet (Certavite-Antioxidant) naltrexone 50 mg tablet 50 mg PO DAILY 11/05/22 11/24/22 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 Knee [facility] [place] metoprolol tartrate 25 mg tablet 25 mg PO BID #60 tabs 12/01/22 naltrexone 50 mg tablet 50 mg PO DAILY #30 tabs 12/01/22 omeprazole 20 mg capsule,delayed 20 mg PO BID #60 caps 12/01/22 release Allergies Allergy/AdvReac Type Severity Reaction Status Date / Time No Known Allergies Allergy Verified 12/04/22 12:31 [facility] Past Medical History Medical History Arthritis Asthma Bipolar 1 disorder Diabetes mellitus Diabetes type 2, uncontrolled Diabetic polyneuropathy associated with type 2 diabetes mellitus Diabetic retinopathy associated with type 2 diabetes mellitus GERD (gastroesophageal reflux disease) Hypercholesterolemia 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 Lip[facility] (current) use of insulin Vitamin D deficiency Surgical History Hx of colonoscopy No pertinent past surgical history Family History Family History Father Diabetes mellitus Complete amputation of bilateral legs Mother Diabetes mellitus Social History Social History Household Members: None Housing: Apartment Alcohol intake: current Alcohol intake frequency: former alcohol drinker Alcohol type: hard liquor Patient Tobacco Use Status: Never used Tobacco e-Cigarette/Vaping Use: Never Used Second Hand Smoke Exposure: No Advance Directives: No Advance Directives Information Provided: Yes service: No Current occupational status: disabled Physical Exam ED Vital Signs: Vital Signs - 24 hr 12/04/22 12:20 Temperature 98.2 F Pulse Rate 78 Respiratory Rate 16 Blood Pressure 103/56 L Pulse Oximetry 98 Oxygen Delivery Method Room Air BMI result Body Mass Index 28.1 GEN: Well developed, no acute distress, alert, oriented HEENT: Normocephalic, atraumatic, normal external ears, nose appears normal, no oropharyngeal edema or exudates Eyes: Normal to appearance Neck: Supple, no lymphadenopathy Respiratory: Talks in complete sentences, no respiratory distress, clear to auscultation bilaterally Cardiovascular: Regular rate and rhythm, no murmurs rubs or gallops Abdomen: Soft, nontender, nondistended, no guarding, no rebound Back: No CVA tenderness Extremities: No clubbing cyanosis or edema Neurologic: No focal neurologic deficits, cranial nerves 2-12 intact, strength is 5/5 bilaterally, gait normal Skin: No rash Chest: Patient has reproducible tenderness to the right side of his chest as well as sternocleidomastoid and trapezius muscles Course Course Course Narrative: Date year old male presents with chest pain, lightheadedness. The symptoms have been intermittent an ongoing issue. Symptoms are much somewhat atypical in that they are not associated with exertion. Patient was discharged from the hospital on December 01. He has a history of diabetes retinopathy, polyneuropathy persistent dizziness. Patient previously reported watery diarrhea nausea but for currently denies these symptoms. He also reports poor p.o. intake currently and did so previously. While in the hospital he was noted to be dehydrated with possible orthostatic hypotension. Was started on Henrik stockings and his blood pressure medications were adjusted. Patient was also noted to have some alcohol withdrawal symptoms. Time, I will check orthostatic vital signs, will give patient IV fluids and reassessed. Patient may require further medication adjustment. Reevaluation(s) Reevaluation #1: Discuss results with the patient and his . I am recommending reducing his lisinopril from 30 mg daily to 15 mg daily. Had rather on slightly high than low at this point given his symptoms. I will also provide patient with referrals for specialty care as well as alcohol related services. Patient will receive IV fluids and be discharged. Time: 16:07 Medical Decision Making Medical Decision Making [facility] Narrative: Date year old male presents with chest pain, lightheadedness. The symptoms have been intermittent an ongoing issue. Symptoms are much somewhat atypical in that they are not associated with exertion. Patient was discharged from the hospital on December 01. He has a history of diabetes retinopathy, polyneuropathy persistent dizziness. Patient previously reported watery diarrhea nausea but for currently denies these symptoms. He also reports poor p.o. intake currently and did so previously. While in the hospital he was noted to be dehydrated with possible orthostatic hypotension. Was started on Henrik stockings and his blood pressure medications were adjusted. Patient was also noted to have some alcohol withdrawal symptoms. Time, I will check orthostatic vital signs, will give patient IV fluids and reassessed. Patient may require further medication adjustment. Differential Diagnosis Differential Diagnoses: The differential diagnosis associated with the presentation includes (Orthostatic hypotension, anemia, electrolyte abnormality, renal dysfunction, alcohol abuse, adverse reaction to medications) Admission/Observation Consideration of admission/observation: Escalation of care including admission/observation considered Lab Data [facility] Lab Attestation statement: I reviewed the patient's lab results. 12/04/22 13:06 12/04/22 13:07 Labs: Lab Results 12/04/22 12/04/22 12/04/22 Range/Units 13:06 13:06 13:06 WBC 7.0 (4.8-10.8) X10*3/uL RBC 3.54 L (4.60-5.80) X10*6/uL Hgb 12.2 L (14.0-18.0) g/dl Hct 35.2 L (42.0-52.0) % MCV 99.4 H (80.0-98.0) fL MCH 34.5 H (27.0-33.0) pg MCHC 34.7 (31.0-36.0) g/dl RDW 12.2 (11.0-16.0) % Plt Count 344 D (160-400) X10*3/uL MPV 9.3 L (9.4-12.4) fL Immature Gran % (Auto) 0.3 (0.0-0.4) % Neut % (Auto) 64.2 (45-73) % Lymph % (Auto) 26.7 (20-40) % Becker % (Auto) 7.2 (2-11) % Eos % (Auto) 1.0 (0-4) % Baso % (Auto) 0.6 (0-2) % Lymph # (Auto) 1.9 (1.2-4.9) X10*3/uL Becker # (Auto) 0.5 (0.1-1.2) X10*3/uL Eos # (Auto) 0.1 (0.0-0.4) X10*3/uL Baso # (Auto) 0.0 (0.0-0.2) X10*3/uL Abs Immat Gran (auto) 0.02 (0.00-0.03) X10*3/uL Absolute Neuts (auto) 4.5 (2.0-8.3) x10*3/uL Absolute Nucleated RBC 0.000 (0.0-0.012) X10*3/uL Nucleated RBC % (auto) 0.0 (0.0-0.2) /100WBC Sodium (135-145) mmol/L Potassium (3.3-5.1) mmol/L Chloride (96-108) mmol/L Carbon Dioxide (22-29) mmol/L Anion Gap (12-20) BUN (9-16) mg/dL Creatinine (0.5-1.4) mg/dL Estim Creat Clear Calc Estimated GFR Random Glucose (60-115) mg/dL Calcium (8.4-10.2) mg/dL Magnesium (1.6-2.6) mg/dL Total Bilirubin (0.0-1.0) mg/dL AST (5-37) U/L ALT (0-40) U/L Alkaline Phosphatase (39-117) U/L Troponin I High Sens < 3.5 (<3.5-35.0) ng/L Total Protein (6.5-8.0) g/dL Albumin (3.5-5.0) g/dL COVID-19 (NAEL) Negative (Negative) COVID-19 Clin Com See Note 12/04/22 Range/Units 13:07 WBC (4.8-10.8) X10*3/uL RBC (4.60-5.80) X10*6/uL Hgb (14.0-18.0) g/dl Hct (42.0-52.0) % MCV (80.0-98.0) fL MCH (27.0-33.0) pg MCHC (31.0-36.0) g/dl RDW (11.0-16.0) % Plt Count (160-400) X10*3/uL MPV (9.4-12.4) fL Immature Gran % (Auto) (0.0-0.4) % Neut % (Auto) (45-73) % Lymph % (Auto) (20-40) % Becker % (Auto) (2-11) % Eos % (Auto) (0-4) % Baso % (Auto) (0-2) % Lymph # (Auto) (1.2-4.9) X10*3/uL Becker # (Auto) (0.1-1.2) X10*3/uL Eos # (Auto) (0.0-0.4) X10*3/uL Baso # (Auto) (0.0-0.2) X10*3/uL Abs Immat Gran (auto) (0.00-0.03) X10*3/uL Absolute Neuts (auto) (2.0-8.3) x10*3/uL Absolute Nucleated RBC (0.0-0.012) X10*3/uL Nucleated RBC % (auto) (0.0-0.2) /100WBC Sodium 132 L (135-145) mmol/L Potassium 5.0 (3.3-5.1) mmol/L Chloride 99 (96-108) mmol/L Carbon Dioxide 25 (22-29) mmol/L Anion Gap 13 (12-20) BUN 14 (9-16) mg/dL Creatinine 0.90 (0.5-1.4) mg/dL Estim Creat Clear Calc 88.4 Estimated GFR > 60 Random Glucose 161 H (60-115) mg/dL Calcium 9.3 (8.4-10.2) mg/dL Magnesium 1.6 (1.6-2.6) mg/dL Total Bilirubin 0.3 (0.0-1.0) mg/dL AST 20 (5-37) U/L ALT 33 (0-40) U/L Alkaline Phosphatase 68 (39-117) U/L Troponin I High Sens (<3.5-35.0) ng/L Total Protein 6.6 (6.5-8.0) g/dL Albumin 4.0 (3.5-5.0) g/dL COVID-19 (NAEL) (Negative) COVID-19 Clin Com Independent Interpretation I performed an independent interpretation of an: EKG (Normal sinus rhythm heart rate 75, nonspecific T-wave changes noted lead 3, AVF, no acute some, normal intervals) and Plain X-Ray (No acute cardiopulmonary disease) Radiology Impression Discussion of test interpretation with radiology: I have reviewed the radiologist's reading. (IMPRESSION: Evaluation at low lung volumes. Minimal linear atelectasis right base. No dominant consolidations or effusions. Dictated By:Fermin CuevasSigned By:<Electronically signed by Fermin Cuevas in OV>12/04/22 [id number]) Independent Historian Clinical information obtained from an independent historian. History obtained from or confirmed by: Spouse (Spouse reports alcohol abuse.) External Record Review External record reviewed: Inpatient record Tests considered The following testing was considered but not selected: CT scan head chest abdomen Prescription Management I considered prescription management with: Other (IV fluid) Chronic Conditions Patient?s care impacted by: Diabetes Discharge Plan Discharge Clinical Impression: Light-headedness, Acute chest wall pain Patient Disposition: Home, Self-Care Instructions: Lightheadedness (ED), Chest Wall Pain (ED) Additional Instructions: Reduce your lisinopril dose from 30 mg daily to 15 mg daily. Prescriptions: No Action (DME) pen needle, diabetic [BD Bela 2nd Gen Pen Needle] 32 gauge x 5/32 needle See Rx Instructions .MEDSUPPLY Qty: 150 0RF Rx Instructions: 5 times daily NO FURTHER REFILLS WITHOUT APPOINTMENT! 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 Knee Umxdqn-D-Fyux Misc See Rx Instructions .ROUTE .MEDSUPPLY Qty: 12 0RF Rx Instructions: As directed cholecalciferol (vitamin D3) 50 mcg (2,000 unit) capsule 50 mcg PO DAILY 30 Days Qty: 30 6RF aspirin [Adult Low Dose Aspirin] 81 mg tablet,delayed release (DR/EC) 81 mg PO DAILY Hold Instructions: Resume on 09/03/20. no ASA or Nsaids, for a week. gabapentin 100 mg capsule 100 mg PO BEDTIME folic acid 1 mg tablet 1 mg PO DAILY Print Language: Vietnamese
[2022-12-04 16:00] VITALS: BP 96/56; PULSE 78; RESP 16; O2SAT 97
[2022-12-04] MEDS: 0.9 % Sodium Chloride 1,000 ML 999 ML IV (16:23)
== END 2022-12-04 17:58 | disposition home or self-care (01) ==
PROVIDERS: Physician Assistant Medical; Emergency Provider Emergency Medicine
DX: R07.89 Other chest pain (principal); R42 Dizziness and giddiness; Z20.822 Contact with and (suspected) exposure to COVID-19; E11.9 Type 2 diabetes mellitus without complications; I10 Essential (primary) hypertension; E78.00 Pure hypercholesterolemia, unspecified; Z79.85 Long-term (current) use of injectable non-insulin antidiabetic drugs; Z79.82 Long term (current) use of aspirin; Z79.02 Long term (current) use of antithrombotics/antiplatelets; Z79.899 Other long term (current) drug therapy; Z79.84 Long term (current) use of oral hypoglycemic drugs
CPT/HCPCS: 71046; 80053; 83735; 84484; 85025; 87635; 93005; 96360; 99284

== ENCOUNTER 2025-01-04 10:32 | Outpatient (REF) | payer MEDICAID, SELFPAY ==
--- OUTSIDE RECORDS SUMMARY | 2025-01-04 12:25 | XMS_ITS | Encounter Summary ---
Author Organization [employer] [facility] Address [address] [facility] [address] [place] [address] Care Team Providers Care Shim Plug Cutter Name Role Phone Carlene Lucas MD Primary Care Provider [phone] Encounter Details Date Type Department Care Team (Late st Contact Info) Description 05/26/2023 Abstract [facility] MEDICINE [address] [place], [place] [phone] Carlene Lucas MD [address] [place], [place] [phone] Social History Tobacco Use Types Packs/Day Years Used Date Smoking Tobacco: Never Passive Smoke Exposure: Never Smokeless Tobacco: Never Alcohol Use Standard Drinks/Week Comments Yes 0 (1 standard drink = 0.6 oz pur e alcohol) sometimes Depression Answer Date Recorded Patient Health Questionnaire-9 Score 4 01/12/2023 Depression Answer Date Recorded Patient Health Questionnaire-2 Score 2 04/10/2023 Sex and Gender Information Value Date Recorded Sex Assigned at Male 07/21/2022 10:14 AM EDT Legal Sex Male 10:14 AM EDT Gender Identity Male 07/21/2022 10:14 AM EDT Sexual Orientation Straight 12/15/2024 11 :22 AM EDT documented as of this encounter Plan of Treatment Not on file documented as of this encounter Visit Diagnoses Not on filedocumented in this encounter Additional Health Concerns Assessment Noted Time PHQ-9 Depression Total Score: 4 01/13/20 23 1:46 PM EDT documented as of this encounter Care Teams Shim Plug Cutter Relationship Specialty Start Date End Date Carlene Lucas MD [address] [place] [address] PCP - General Family Medicine 10/14/22 Gee Gallardo Human Factors ScientistCentral Office Repairer 02/24/24 Gee Gallardo Medical Program SpecialistCentral Office Repairer 10/06/24 documented as of this encounter
--- OUTSIDE RECORDS SUMMARY | 2025-01-04 12:25 | XMS_ITS | Encounter Summary ---
Author Organization [employer] Address [address] [facility] 7t [place] [address] Care Team Providers Care Pattern Storage Clerk Name Role Phone Carlene Lucas MD Primary Care Provider [phone] Reason for Visit * Reason Onset Date Comments ER Follow-up 11/11/2022 Encounter Details Date Type Department Care Team ([facility] st Contact Info) Description 11/11/2022 Telephone [facility] MEDICINE [address] [place], [place] [phone] Carlene Lucas MD [address] [place], [place] [phone] ER Follow-up Social History Tobacco Use Types Packs/Day Years Used Date Smoking Tobacco: Never Assessed Sex and Gender Information Value Date Recorded Sex Assigned at Male 07/21/2022 10:14 AM EDT Legal Sex Male 10:14 AM EDT Gender Identity Male 07/21/2022 10:14 AM EDT Sexual Orientation Straight 12/15/2024 11 :22 AM EDT COVID-19 Exposure Response Date Recorded In the last 10 days, have yo u been in contact with someone who was confirmed or suspected to have Coronavirus/COVID-19? No / Unsure 10/16/2022 12:40 PM EST documented as of this encounter Miscellaneous Notes * Telephone Encounter - Wes Anderson - 11/11/2022 9:33 AM EST Patient calling to [place] [facility] [place] Diagnosed with minor stroke. Patient advisedwill forward to team nurse for follow up. documented in this encounter Plan of Treatment Not on file documented as of this encounter Visit Diagnoses Not on filedocumented in this encounter Care Teams Pattern Storage Clerk Relationship Specialty Start Date End Date Carlene Lucas MD [address] [place] [address] PCP - General Family Medicine 10/14/22 Gee Gallardo Golf CoachFlower Grower 02/24/24 Gee Gallardo Railroad Car PainterFlower Grower 10/06/24 documented as of this encounter
--- OUTSIDE RECORDS SUMMARY | 2025-01-04 12:25 | XMS_ITS | Encounter Summary ---
Author Organization [employer] Address [address] [facility] [address] [place] [address] Care Team Providers Care International Organizer Name Role Phone Carlene Lucas MD Primary Care Provider [phone] Encounter Details Date Type Department Care Team (Late st Contact Info) Description 02/01/2024 Orders Only [facility] MEDICINE [address] [place] [address] Provider, MD Akanksha Social History Tobacco Use Types Packs/Day Years Used Date Smoking Tobacco: Never Passive Smoke Exposure: Never Smokeless Tobacco: Never Alcohol Use Standard Drinks/Week Comments Yes 0 (1 standard drink = 0.6 oz pur e alcohol) sometimes Depression Answer Date Recorded Patient Health Questionnaire-9 Score 8 08/31/2023 Patient Health Questionnaire-9 Score 8 08/31/2023 Last PHQ-9: Questionnaire Data Not on file 1 11/01/2022 Housing Stability Answer Date Recorded What is your housing situation today? I have wendy marinelli 07/08/[address] you li ve. Do you have problems with any of the following? None of the above 07/08/2023 Food Insecurity Answer Date Recorded Within the past 12 months, y ou worried that your food would run out before you got money to buy more: Never True 07/08/2023 Within the past 12 months,th e food you bought just didn't last and you didn't have enough money to get more: Never True Transportation Answer Date Recorded In the past 12 months, has l ack of transportation kept you from medical appts, meetings, work or from getting things needed for daily living? Yes, it has kept me from medical appointments or getting medications. 06/29/2023 Utilities Answer Date Recorded In the past 12 months, has t he electric, gas, oil or water company threatened to shut off services in your home? No 07/08/2023 Depression Answer Date Recorded Patient Health Questionnaire-2 Score 2 08/31/2023 Sex and Gender Information Value Date Recorded Sex Assigned at Male 07/21/2022 10:14 AM EDT Legal Sex Male 10:14 AM EDT Gender Identity Male 07/21/2022 10:14 AM EDT Sexual Orientation Straight 12/15/2024 11 :22 AM EDT documented as of this encounter Plan of Treatment Not on file documented as of this encounter Procedures Procedure Name Priority Date/Time Associated Diagnosis Comments HM COLONOSCOPY Routine 09/11/2020 9:39 AM EST documented in this encounter Results * Hm Colonoscopy (09/11/2020 9:39 AM EST) Historical Provider HEALTH MAINTENANCE Final Result documented in this encounter Visit Diagnoses Not on filedocumented in this encounter Additional Health Concerns Assessment Noted Time PHQ-9 Depression Total Score: 8 08/31/20 23 1:46 PM EST documented as of this encounter Care Teams International Organizer Relationship Specialty Start Date End Date Carlene Lucas MD [address] [place] [id number] PCP - General Family Medicine 10/14/22 Gee Gallardo Range EcologistTextile Colorist Formulator 02/24/24 Gee Gallardo Baseball Inspector And RepairerTextile Colorist Formulator 10/06/24 documented as of this encounter
--- OUTSIDE RECORDS SUMMARY | 2025-01-04 12:25 | XMS_ITS | Encounter Summary ---
Author Organization [employer] Address [address] [facility] 7t [place] [address] Care Team Providers Care Rate Clerk Passenger Name Role Phone Carlene Lucas MD Primary Care Provider [phone] Encounter Details Date Type Department Care Team (Late st Contact Info) Description 06/22/2024 Orders Only [facility] MEDICINE [address] [place], [place] [phone] Carlene Lucas MD [address] [place], [place] [phone] Encounter for HIV pre-exposure prophylaxis (Primary Dx) Social History Tobacco Use Types Packs/Day Years [...] documented as of this encounter Visit Diagnoses Diagnosis Encounter for HIV pre-exposure prophylaxis- Primary documented in this encounter Additional Health Concerns Assessment Noted Time PHQ-9 Depression Total Score: 8 08/31/20 23 1:46 PM EST documented as of this encounter Care Teams Rate Clerk Passenger Relationship Specialty Start Date End Date Carlene Lucas MD [address] [place] [id number] PCP - General Family Medicine 10/14/22 Gee Gallardo Animal GeneticistPier Hand Helper 02/24/24 Gee Gallardo Supervisor Painting DepartmentPier Hand Helper 10/06/24 documented as of this encounter
--- OUTSIDE RECORDS SUMMARY | 2025-01-04 12:25 | XMS_ITS | Encounter Summary ---
Author Organization [employer] Address [address] [facility] [address] [place] [address] Care Team Providers Care Alarm Installer Name Role Phone Carlene Lucas MD Primary Care Provider [phone] Reason for Visit * Reason Comments Med Refill Encounter Details Date Type Department Care Team ([facility] st Contact Info) Description 04/18/2024 Refill [facility] MEDICINE [address] [place], [place] [phone] Carlene Lucas MD [address] [place], [place] [phone] Vitamin D deficiency Social History Tobacco Use Types Packs/Day Years [...] as of this encounter Visit Diagnoses Diagnosis Vitamin D deficiency documented in this encounter Additional Health Concerns Assessment Noted Time PHQ-9 Depression Total Score: 8 08/31/20 23 1:46 PM EST documented as of this encounter Care Teams Alarm Installer Relationship Specialty Start Date End Date Carlene Lucas MD [address] [place] [address] PCP - General Family Medicine 10/14/22 Gee Gallardo Fiscal Services DirectorCreative Services Writer 02/24/24 Gee Gallardo Political WorkerCreative Services Writer 10/06/24 documented as of this encounter
--- OUTSIDE RECORDS SUMMARY | 2025-01-04 12:25 | XMS_ITS | Encounter Summary ---
Author Organization [facility] Address [address] [place] [address] Care Team Providers Care Production Operations Manager Name Role Phone Carlene Lucas MD Primary Care Provider Reason for Visit * Reason Onset Date Comments Lab Orders 01/03/2025 Encounter Details Date Type Department Care Team ([facility] st Contact Info) Description 01/03/2025 Telephone [facility] MEDICINE [address] [place], [place] [phone] Carlene Lucas MD [address] [place], [place] [phone] Lab Orders Social History Tobacco Use Types Packs/Day Years [...] AM EDT documented as of this encounter Miscellaneous Notes * Telephone Encounter - Carline Hahn RN - 01/03/2025 11:05 AM EDT TC returned to [phone] per message below, no answer, let VM requesting call back to Red Team RN upon receipt of message. Pt. To f/up prn * Telephone Encounter - Sukhi Gallardo - 01/03/2025 10:56 AM EDT Tc from [facility] Requesting Lab order to get TB test done for a Program. Contact pt at [phone] documented in this encounter Plan of Treatment Not on file documented as of this encounter Visit Diagnoses Not on filedocumented in this encounter Additional Health Concerns Assessment Noted Time PHQ-9 Depression Total Score: 8 08/31/20 23 1:46 PM EST documented as of this encounter Care Teams Production Operations Manager Relationship Specialty Start Date End Date Carlene Lucas MD [address] [place] [phone] PCP - General Family Medicine 10/14/22 Gee Gallardo Compensation CoordinatorTour Coordinator 02/24/24 Gee Gallardo Kindergarten AideTour Coordinator 10/06/24 documented as of this encounter
--- OUTSIDE RECORDS SUMMARY | 2025-01-04 12:25 | XMS_ITS | Clinical Summary ---
Author Organization [facility] Address [address] [facility] [address] [place] [address] Care Team Providers Care Foreign Service Teacher Name Role Phone Carlene Lucas MD Primary Care Provider [phone] Allergies Active Allergy Reactions Criticality Noted Date Comments Statins 05/22/2010 Other reaction(s): ELEVATED CPK Medications prazosin (Minipress) 1 MG capsule TAKE 3 CAPSULES BY MOUTH AT BEDTIME Y MARIO 1 CAPSULA CADA MANANA CUANDO SEA NECESARIO 022 Active sertraline (Zoloft) 50 MG tablet Take 50 mg by mouth in the morning. 023 Active Alcohol Swabs (SM Alcohol Prep) 70 % pads USE FOUR TIMES DAILY DIRECTED 100 each 11 023 Active Multiple Vitamins-Spinning And Winding Supervisor als (CertaVite/Ant ioxidants) tablet TAKE 1 TABLET BY MOUTH EVERY MORNING 90 tablet 3 023 Active hydrocortisone 2.5 % cream Apply topically 2 times daily. 30 g 1 024 Active FREESTYLE LITE test strip TEST BLOOD SUGAR 2-3 TIMES PER DAY 100 each 11 024 Active dulaglutide (Trulicity) 4.5 MG/0.5ML solution pen-injector Inject 4.5 mg under the skin 1 (one) time per week. 4 each 024 Active thiamine (Vitamin B-1) 100 MG tabletIndicati ons:Alcohol abuse TAKE 1 TABLET BY MOUTH EVERY MORNING 90 tablet 3 024 Active folic acid (Folvite) 1 MG tabletIndicati ons:Alcohol abuse TAKE 1 TABLET BY MOUTH EVERY MORNING 90 tablet 3 024 Active metFORMIN (Glucophage) 1000 MG tabletIndicati ons:Type 2 diabetes mellitus with other specified complication, unspecified whether long term care administrator insulin use (CMS/HCC) TAKE 1 TABLET BY MOUTH TWICE DAILY IN THE MORNING AND IN THE EVENING WITH MEALS 180 tablet 3 024 Active Lancets (Unilet Micro-Thin 33G) misc TEST BLOOD SUGAR 4-6 TIMES PER DAY 100 each 11 024 Active gabapentin (Neurontin) 100 MG capsule TAKE 1 CAPSULE BY MOUTH AT BEDTIME 90 capsule 3 024 Active Blood Glucose Monitoring Suppl (FreeStyle Rumsey Lite) w/Device kitIndications :Type 2 diabetes mellitus with other specified complication, with long-term current use of insulin (CMS/HCC) USE DIRECTED 1 kit 024 Active fenofibrate (Triglide) 160 MG tabletIndicati ons:Hypertrigl yceridemia TAKE 1 TABLET BY MOUTH EVERY EVENING 90 tablet 3 024 Active UltiGuard SafePack Pen Needle 32G X 4 MM misc USE EVERY DAY WITH INSULIN 100 each 024 Active insulin glargine (Lantus SoloStar) 100 UNIT/ML pen INJECT 6 UNITS SUBCUTANEOUSLY EVERY EVENING (FOR DIABETES) 15 mL 1 024 Active Aspirin Low Dose 81 MG EC tablet Take 1 tablet (81 mg) by mouth at bedtime. 90 tablet 3 024 Active atorvastatin (Lipitor) 80 MG tablet TAKE 1 TABLET BY MOUTH AT BEDTIME (for cholesterol) 90 tablet 3 024 Active omeprazole (PriLOSEC) [address] capsuleIndicat ions:Gastroeso phageal reflux disease without esophagitis TAKE 1 CAPSULE BY MOUTH TWICE DAILY IN THE MORNING AND IN THE EVENING (for stomach acid) 180 capsule 3 024 Active sertraline (Zoloft) 100 MG tablet Take 100 mg by mouth in the morning. 024 Active omega-3 acid ethyl esters (Lovaza) 1 g capsule TAKE 2 CAPSULES BY MOUTH TWICE DAILY IN THE MORNING AND EVENING 360 capsule 3 024 Active Multiple Vitamins-Iron (Tab-A-Butch/Ir on/Beta Carotene) tablet TAKE 1 TABLET BY MOUTH EVERY MORNING ( VITAMIN) 90 tablet 3 024 Active hydrALAZINE (Apresoline) 50 MG tablet TAKE 1 TABLET BY MOUTH TWICE DAILY IN THE MORNING AND IN THE EVENING (HIGH BLOOD PRESSURE) 180 tablet 3 024 Active Trulicity 1.5 MG/0.5ML solution auto-injectorI ndications:Typ e 2 diabetes mellitus with other specified complication, with long-term current use of insulin ([facility]) INJECT ONE PEN (=1.5MG) SUBCUTANEOUSLY ONCE A WEEK DIRECTED 2 mL 3 024 Active naltrexone (Depade) 50 MG tablet TAKE 1 TABLET BY MOUTH EVERY MORNING WITH FOOD 30 tablet 5 024 Active risperiDONE (RisperDAL) 0.5 MG tablet TAKE 1 TABLET BY MOUTH TWICE DAILY IN THE MORNING AND IN THE EVENING Active Descovy 200-25 MG tabletIndicati ons:Encounter for HIV pre-exposure prophylaxis TAKE 1 TABLET DAILY 30 tablet 2 025 Active lisinopril 30 MG tablet TAKE 1 TABLET BY MOUTH EVERY MORNING 90 tablet 3 025 Active D3 Super Strength 50 MCG (1999 UT) capsuleIndicat ions:Vitamin D deficiency TAKE 1 CAPSULE BY MOUTH EVERY MORNING 90 capsule 025 Active metoprolol tartrate (Lopressor) 25 MG tablet TAKE 1 TABLET BY MOUTH TWICE DAILY IN THE MORNING AND IN THE EVENING (for high blood pressure) 180 tablet 3 025 Active metoprolol tartrate (Lopressor) 25 MG tablet Take 1 tablet (25 mg) by mouth 2 times daily. 180 tablet 3 024 2024 Discontinued Active Problems Problem Noted Date Diagnosed Date Precordial pain 09/01/2023 Assessment & Plan (12/20/2023 7:33 PM EDT): Pt has multiple risk factors for MS, EKG without ST-T segment changes and NSR 08/2023 Will check echo for structural abnormalities Assessment & Plan (09/01/2023 10:37 AM EST): Pt has multiple risk factors for MS, EKG without ST-T segment changes, however if pain persists, recommend he go to ER No radiation to back, has history of ulcer, could have gastritis/bleeding ulcer Otherwise BP improved after rest in office, recommend taking his BP meds as soon as he can Encounter for routine adult physical exam with abnormal findings 09/01/2023 Erosive esophagitis 07/10/2023 07/10/2023 Alcohol use disorder 04/10/2023 Assessment & Plan (09/01/2023 10:35 AM EST): Restart Naltrexone 50mg daily Recommend AUD services at [facility] Assessment & Plan (04/10/2023 9:36 AM EDT): Hospitalized with withdrawal in 12/2022 Has been on Naltrexone intermittently for AUD Would like ongoing support as he tried to cut back Referral to AUD, DR Huffman made Ulcer of esophagus 02/04/2023 Erosive gastritis 02/04/2023 Dysphagia 02/04/2023 Esophagitis 01/12/2023 Assessment & Plan (01/12/2023 9:44 PM EDT): Patient with history of erosive esophagitis. S/P EGD seen by GI in the hospital, patient with ongoing alcohol use - Continue PPI BID - I called the pharmacy and confirmed medications were given to patient - Refer back to GI today - Will need to discuss at next visit about alcohol abuse problem and currently taking Naltrexone Leg pain, left 08/24/2018 Onychomycosis 03/01/2018 Asthma 02/20/2012 Depressive disorder 02/20/2012 Essential hypertension 02/20/2012 Assessment & Plan (06/13/2024 12:19 PM EDT): Continue to monitor at home BP is low here, he has his Bps checked at [facility], to please notify us of lows there Maintenance: as in note BMP: Lab Results Component Value Date CREATININE 0.80 01/12/2023 Lipid Panel: ASCVD Risk: Calculate pending updated labs EKG: Obtain baseline at f/u - Aerobic exercise to reduce BP. Initial goal of 30 min walk 3-5x/week. Increase as tolerated. - low-sodium diet (goal: <2g/day) and heart healthy diet such as DASH to reduce BP and prevent ASCVD. - Home BP monitoring 1-2 x day with goal of <140/90. - Seek immediate medical attention for chest pain, palpitations, SOB, syncope, or sudden changes in mental status. - Do not change or discontinue current prescriptions without first consulting health care provider Assessment & Plan (12/20/2023 7:31 PM EDT): Continue to monitor at home BP at goal here Maintenance: as in note BMP: Lab Results Component Value Date CREATININE 0.80 01/12/2023 Lipid Panel: ASCVD Risk: Calculate pending updated labs EKG: Obtain baseline at f/u - Aerobic exercise to reduce BP. Initial goal of 30 min walk 3-5x/week. Increase as tolerated. - low-sodium diet (goal: <2g/day) and heart healthy diet such as DASH to reduce BP and prevent ASCVD. - Home BP monitoring 1-2 x day with goal of <140/90. - Seek immediate medical attention for chest pain, palpitations, SOB, syncope, or sudden changes in mental status. - Do not change or discontinue current prescriptions without first consulting health care provider Assessment & Plan (04/10/2023 9:41 AM EDT): Continue to monitor at home Low BP may be causing dizziness, he may need adjustment to BP meds Assessment & Plan (01/12/2023 9:38 PM EDT): Patient with uncontrolled HTN - Advised again in length to take all his medications including beta blockers which were recently decreased at the hospital. - Advised patient to bring at his next visit all his medications. - Patient at [facility]. Pure hypercholesterolemia 02/20/2012 Assessment & Plan (04/10/2023 9:43 AM EDT): On max dose statin (Atorvastatin 80mg nightly), fenofibrate 160mg, [place] 3 1gm BID Consider adding ezetimibe if next cholesterol panel still shows TG >200 Type 2 diabetes mellitus 02/20/2012 Assessment & Plan (06/13/2024 12:19 PM EDT): Current A1c: 9.1 BMP: labs today Microalbumin: Lab Results Component Value Date MICROALBUR 0.7 02/03/2022 Foot Exam: Complete at follow up Eye Exam: Discuss at follow up Lipid panel: 12/2022 ASCVD: > 10% Statin: Yes ASA: Yes JEFFREY/ARB: Yes Encouraged regular aerobic exercise for improved glycemic control Encouraged daily foot checks Encouraged lean protein snacks and to avoid foods high in sugar and simple carbohydrates Treatment Goals: A1c goal: <7% FBG goal: <130 2 hour post prandial goal: <180 Assessment & Plan (12/20/2023 7:32 PM EDT): Current A1c: 9.1, increase Trulicity to 4.5mg BMP: 12/2022 Cr 0.8/eGFR 103 Microalbumin: Lab Results Component Value Date MICROALBUR 0.7 02/03/2022 Foot Exam: Complete at follow up Eye Exam: Discuss at follow up Lipid panel: 12/2022 ASCVD: > 10% Statin: Yes ASA: Yes JEFFREY/ARB: Yes Encouraged regular aerobic exercise for improved glycemic control Encouraged daily foot checks Encouraged lean protein snacks and to avoid foods high in sugar and simple carbohydrates Treatment Goals: A1c goal: <7% FBG goal: <130 2 hour post prandial goal: <180 Assessment & Plan (04/10/2023 9:42 AM EDT): Current A1c: 8.5 BMP: 12/2022 Cr 0.8/eGFR 103 Microalbumin: Foot Exam: Complete at follow up Eye Exam: Discuss at follow up Lipid panel: 12/2022 ASCVD: > 10% Statin: Yes ASA: Yes JEFFREY/ARB: No Encouraged regular aerobic exercise for improved glycemic control Encouraged daily foot checks Encouraged lean protein snacks and to avoid foods high in sugar and simple carbohydrates Treatment Goals: A1c goal: <7% FBG goal: <130 2 hour post prandial goal: <180 Assessment & Plan (01/12/2023 9:36 PM EDT): Pt w uncontrolled DM -here hb1AC 9 and CBG 409 Pt is unsure which meds is taking and thinks had insulin in the past but no record that it was prescribed here in the pharmacy. - Today gave Lispro 10 U in office - Start Lantus 6 U HS (will start low dose given risk of hypoglycemia due to alcohol abuse) - Continue for now the rest of medications including Trulicity and Metformin - Labs today and follow-up with PCP to review results - To bring at next visit fasting and after biggest meal CBGs to adjust insulin I called the patient's - Shayla - with the patient's permission and advised her to make sure the patient is taking the medication appropriately. She will help with the insulin injection at night. Encounters Date Type Department Care Team Description 01/03/2025 Telephone [facility] [address] [place] [phone] Carlene Lucas MD Lab Orders 12/25/2024 Refill [facility] [address] [place] [address] Carlene Lucas MD 12/21/2024 Patient Outreach [facility] [address] [place] [address] Carlene Lucas MD Pre-visit Planning ((Unable to reach for PVP screening, LVM)) 12/09/2024 Telephone [facility] [address] [place] [address] [phone] Carlene Lucas MD PT-1 12/02/2024 Population Health Risk Score [facility] ([facility]) Department [address] [place] [address] [phone] Provider, Population Health Generic 11/29/2024 Telephone [facility] [address] [place] [address] [phone] Carlene Lucas MD FYI 10/30/2024 Refill [facility] [address] [place] [address] [phone] Carlene Lucas MD Vitamin D deficiency 10/27/2024 Refill [facility] [address] [place] [address] [phone] Carlene Lucas MD 10/25/2024 Telephone [facility] [address] [place] [address] [phone] Herlinda Angulo MA recall 10/24/2024 Telephone [facility] [address] [place] [phone] Carlene Lucas MD No Show 10/07/2024 Telephone [facility] [address] [place] [address] [phone] Rosita Fatima, RN Care Coordination 10/06/2024 Telephone [facility] [address] [place] [phone] Carlene Lucas MD Care Coordination (ICP care plan) from Last 3 Months Immunizations Name Administration Dates Next Due Hep A, Adult 01/23/2021 Hep B, adult 05/30/2011 Influenza High-dose Quadriva lent Preservative Free 07/02/2022 Influenza Injectable Quadriv alant Preservative Free IIV4 MDCK 07/09/2020 Influenza injectable quadriv alent IIV4 with preservative 07/07/2019,07/14/2018,07/03/2017 Influenza injectable quadriv alent preservative free 07/04/2015 Influenza, IIV3, injectable 07/19/2014, 1 Influenza, Split (incl. javier fied surface antigen) 07/13/2012 Moderna Covid-19 Vaccine 12+ 01/29/2022,12/28/19 21,11/23/2020 Moderna Covid-19 Vaccine 6+ Bivalent 10/16/2022 Pneumococcal Conjugate PCV 20 01/12/2023 Pneumococcal Polysaccharide PPSV23 05/01/2003, TD (adult), 2 Lf tetanus tox oid, preservative free, adsorbed 12/29/2005,09/07/1995 Tdap 03/25/2016 Zoster, Recombinant 05/16/2021,02/04/2021 Social History Tobacco Use Types Packs/Day Years Used Date Smoking Tobacco: Never Passive Smoke Exposure: Never Smokeless Tobacco: Never Tobacco Cessation:Counseling Given: Not Answered Alcohol Use Standard Drinks/Week Comments Yes 0 [...] Orientation Straight 12/15/2024 11 :22 AM EDT Last Filed Vital Signs Vital Sign Reading Time Taken Comments Blood Pressure 99/64 06/13/2024 11:36 AM EDT Pulse 90 06/13/2024 11:36 AM EDT Temperature 36.5 ??C (97.7 ??F) 06/13/2024 11:36 AM E DT Respiratory Rate 16 06/13/2024 11:36 AM EDT Oxygen Saturation 100% 06/13/2024 11:36 AM EDT Inhaled Oxygen Concentration - - Weight 68.5 kg (151 lb) 06/13/2024 11:36 AM EDT Height 165.1 cm (5' 5 ) 06/13/2024 11:36 AM EDT Body Mass Index 25.13 06/13/2024 11:36 AM EDT Plan of Treatment Health Maintenance Due Date Last Done Comments CT Colonography 1964 FIT DNA/Cologuard 1964 FIT 1964 FOBT 1964 Sigmoidoscopy 1964 Diabetes: Foot Exam 1974 Alcohol/Substance Use Screening 1976 Hepatitis B Vaccines (2 of 3 - 19+ 3-dose series) 06/27/2011 05/30/2011 Dental Prophylaxis 10/11/2011 04/09/2011 Dental X-Ray: Bitewings 07/04/2015 07/03/2014, 07/03 Dental Oral Exam 03/29/2018 09/28/2017, , 07/03/2014, Additional history exists Dental X-Ray: Full Mouth 09/29/2020 018, 03/08/2015, 07/03/2014, Additional history exists Diabetes: Urine Protein Screening 01/13/2024 01/12/2023, 02/03/2022, 03/07/2020 Lipid Panel 01/13/2024 01/12/2023, 02/03/2022 Diabetes: Hemoglobin A1C 03/19/2024 024, 08/31/2023, 04/10/2023, Additional history exists COVID-19 Vaccine ( season) 2024 10/16/2022, 01/29/2022, 12/27/2020, Additional history exists Influenza Vaccine (#1) 2024 , 07/09/2020, 07/07/2019, Additional history exists Depression Screening 08/31/2024 08/31/2023, 08/31/20 23 SDOH Screening 08/31/2024 08/31/2023 RSV Patients and Patients Aged 60 years or older (1 - Risk 60-74 years 1-dose series) 2024 Eye Exam 05/30/2025 05/30/2024, 05/2024, 05/30/2024, Additional history exists Tobacco Screening 06/13/2025 06/13/2024 Colonoscopy 09/09/2025 09/11/2020 Colorectal Cancer Screening 09/09/2025 DTaP/Tdap/Td Vaccines (2 - Td or Tdap) 03/25/2026 03/25/2016, 12/29/2005, 09/07/1995 Hepatitis A Vaccines Aged Out 01/23/2021 No long er eligible based on patient's age to complete this topic Zoster Vaccines Completed 05/16/2021, 02/04/2021 HIV Screening Completed 01/12/2023, 01/23/2021 Hepatitis C Screening Completed 01/12/2023, 021 Pneumococcal Vaccine: 50+ Years Completed 01/12/2023, 05/01/2003, 07/13/1997 HIB Vaccines Aged Out No longer eligi ble based on patient's age to complete this topic HPV Vaccines Aged Out No longer eligi ble based on patient's age to complete this topic IPV Vaccines Aged Out No longer eligi ble based on patient's age to complete this topic Meningococcal Vaccine Aged Out No blaze jim eligible based on patient's age to complete this topic RSV under 20 months Aged Out No longe r eligible based on patient's age to complete this topic Rotavirus Vaccines Aged Out No longer eligible based on patient's age to complete this topic Procedures Procedure Name Priority Date/Time Associated Diagnosis Comments POCT GLYCOSYLATED HEMOGLOBIN (HGB A1C) Routine 12/18/2023 9:48 AM EDT Type 2 diabetes mellitus with other specified complication, with long-term current use of insulin (CMS/HCC) HEPATITIS C AB W/REFL TO HCV RNA, QN, PCR Routine 01/12/2023 2:39 PM EDT Routine screening for STI (sexually transmitted infection) HIV 1/2 ANTIGEN/ANTIBODY, FOURTH GENERATION W/RFL Routine 01/12/2023 2:39 PM EDT Routine screening for STI (sexually transmitted infection) ALBUMIN, RANDOM URINE W/O CREATININE Routine 01/12/2023 2:39 PM EDT Type 2 diabetes mellitus with other specified complication, with long-term current use of insulin (CMS/HCC) LIPID PANEL, STANDARD Routine 01/12/2023 2:39 PM EDT Type 2 diabetes mellitus with other specified complication, with long-term current use of insulin (CMS/HCC) HM COLONOSCOPY Routine 09/11/2020 9:39 AM EST PANORAMIC RADIOGRAPHIC IMAGE Routine 09/28/2017 12:00 AM EST PERIODIC ORAL EVALUATION - ESTABLISHED PATIENT Routine 09/28/2017 12:00 AM EST INTRAORAL - COMPLETE SERIES OF RADIOGRAPHIC IMAGES Routine 07/03/2014 12:00 AM EDT PROPHYLAXIS - ADULT Routine 04/09/2011 1 2:00 AM EDT from Last 3 Months or Most Recently Relevant to Health Maintenance Results * (ABNORMAL) POCT glycosylated hemoglobin (Hgb A1c) (12/18/2023 9:48 AM EDT) Hemoglobin A1C 9.1(A) 4.0 - 6.0 % QC Media Lot # [id number] Lot# Expiration Date [id number] Blood Capillary blood specimen / Unknown 12/18/2023 9:48 AM EDT Result [facility] Carlene Lucas MD POINT OF CARE TEST ENTER/EDIT ORDERABLES Final Result * Hepatitis C Antibody with Reflex to HCV, RNA, Quantitative, Real-Time PCR (01/12/2023 2:39 PM EDT) Pathologist [facility] Hepatitis C Antibody NON-REACT GERMÁN NON-REACT GERMÁN [facility] Index 0.10 <1.00 [facility] Comment: HCV antibody was non-reactive. There is no laboratory evidence of HCV infection. In most cases, no further action is required. However, if recent HCV exposure is suspected, a test for HCV RNA (test code 94341) is suggested. For additional information please refer to http://education.[employer]/faq/OJD84a9 (This link is being provided for informational/ educational purposes only.) Blood Venous blood specimen / Unknown 01/12/2023 2:39 PM EDT 01/12/2023 2:41 PM EDT Narrative [facility] - 01/14/2023 5:09 PM EDT FASTING:NO COLLECTION KIT GIVEN TO PATIENT. PATIENT ADVISED TO RETURN. FASTING: NO Result [facility] Marley Malik MD LAB BLOOD ORDERAB LES Final Result [facility] [address], [place] [address] [facility] [address] [place] [address] * Albumin, Random Urine W/O Creatinine (01/12/2023 2:39 PM EDT) [facility] Albumin, Urine 0.5 See Note: mg/dL [facility] Comment: Reference Range: Reference Range Not established [facility] Comment: The ADA defines abnormalities in albumin excretion as follows: Albuminuria Category ? Result (mcg/mg creatinine) Normal to Mildly increased ?<30 Moderately increased ?30-299 Severely increased ?> OR = 300 The ADA recommends that at least two of three specimens collected within a 3-6 month period be abnormal before considering a patient to be within a diagnostic category. Urine Urine specimen obtained by clean catch procedure / Unknown 01/12/2023 2:39 PM EDT 01/12/2023 2:41 PM EDT [facility] - 01/14/2023 5:09 PM EDT FASTING:NO COLLECTION KIT GIVEN TO PATIENT. PATIENT ADVISED TO RETURN. FASTING: NO Marley Malik MD LAB URINE ORDERAB LES Final Result [facility] [address], [place] [address] [facility] [address] [place] [address] * HIV-1/2 Antigen and Antibodies, Fourth Generation, with Reflexes (01/12/2023 2:39 PM EDT) HIV Antigen/Antibody, 4th Generation NON-REAC TIVE NON-REAC TIVE [facility] Comment: HIV-1 antigen and HIV-1/HIV-2 antibodies were not detected. There is no laboratory evidence of HIV infection. PLEASE NOTE: This information has been disclosed to you from records whose confidentiality may be protected by state law. ??If your state requires such protection, then the state law prohibits you from making any further disclosure of the information without the specific written consent of the person to whom it pertains, or as otherwise permitted by law. A general authorization for the release of medical or other information is NOT sufficient for this purpose. ?? For additional information please refer to http://education.[employer]/faq/OVQ675 (This link is being provided for informational/ educational purposes only.) The performance of this assay has not been clinically validated in patients less than 2 years old. Blood Venous blood specimen / Unknown 01/12/2023 2:39 PM EDT 01/12/2023 2:41 PM EDT Narrative [facility] - 01/14/2023 5:09 PM EDT FASTING:NO COLLECTION KIT GIVEN TO PATIENT. PATIENT ADVISED TO RETURN. FASTING: NO Marley Malik MD LAB BLOOD ORDERAB LES Final Result [facility] [address], [place] [address] [facility] [address] [place] [address] * (ABNORMAL) Lipid Panel, Standard (01/12/2023 2:39 PM EDT) Pathologist [facility] Cholesterol, Total 211(H) <200 mg/dL [facility] HDL Cholesterol 53 > OR = 40 mg/dL [facility] Triglycerides 375(H) <150 mg/dL [facility] Comment: If a non-fasting specimen was collected, consider repeat triglyceride testing on a fasting specimen if clinically indicated. Che et al. J. of Clin. Lipidol. 2015;9:129-169. LDL Cholesterol 108(H) mg/dL (calc) [facility] Comment: Reference range: <100 Desirable range <100 mg/dL for primary prevention; ?? <70 mg/dL for patients with CHD or diabetic patients with > or = 2 CHD risk factors. LDL-C is now calculated using the Daniel-Velia calculation, which is a validated novel method providing better accuracy than the Friedewald equation in the estimation of LDL-C. Daniel ASHTON et al. JO ANN. 2013;310(19): 8242-0174 (http://education.[employer]/faq/AIO172) Chol/HDLC Ratio 4.0 <5.0 (calc) [facility] Non-HDL Cholesterol 158(H) <130 mg/dL (calc) [facility] Comment: For patients with diabetes plus 1 major ASCVD risk factor, treating to a non-HDL-C goal of <100 mg/dL (LDL-C of <70 mg/dL) is considered a therapeutic option. Blood Venous blood specimen / Unknown 01/12/2023 2:39 PM EDT 01/12/2023 2:41 PM EDT Narrative [facility] - 01/14/2023 5:09 PM EDT FASTING:NO COLLECTION KIT GIVEN TO PATIENT. PATIENT ADVISED TO RETURN. FASTING: NO us Marley Malik MD LAB BLOOD ORDERAB LES Final Result [facility] [address], [place] [address] [facility] [address] [place] [address] * Hm Colonoscopy (09/11/2020 9:39 AM EST) us Historical Provider HEALTH MAINTENANCE Final Result from Last 3 Months or Most Recently Relevant to Health Maintenance Insurance [facility] C3 [facility] MEDICAID STAND ADULT Care Teams Foreign Service Teacher Relationship Specialty Start Date End Date Carlene Lucas MD [address] [place] [phone] PCP - General Family Medicine 10/14/22 Gee Gallardo Raiser HelperBoat Detailer 02/24/24 Gee Gallardo Manager Employee RelationsBoat Detailer 10/06/24
--- OUTSIDE RECORDS SUMMARY | 2025-01-04 12:25 | XMS_ITS | Encounter Summary ---
Author Organization [employer] Address [address] [facility] 7t [place] [address] Care Team Providers Care Ssis Architect Name Role Phone Carlene Lucas MD Primary Care Provider [phone] Reason for Visit * Reason Comments Med Refill Encounter Details Date Type Department Care Team ([facility] st Contact Info) Description 10/21/2023 Refill [facility] MEDICINE [address] [place], [place] [phone] Marley Obregon MD [address] [place], [place] [phone] Social History Tobacco Use Types Packs/Day Years [...] documented as of this encounter Care Teams Ssis Architect Relationship Specialty Start Date End Date Carlene Lucas MD [address] [place] [address] PCP - General Family Medicine 10/14/22 Gee Gallardo Entry Level Financial AnalystPlunger Machine Operator 02/24/24 Gee Gallardo Commercial Real Estate ParalegalPlunger Machine Operator 10/06/24 documented as of this encounter
--- OUTSIDE RECORDS SUMMARY | 2025-01-04 12:25 | XMS_ITS | Encounter Summary ---
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 I informed him the the forms nurse called [facility], and was told that the most hours that they offer are 7 hours a week. I asked if he would like to be referred to a different agency, such as [facility] or [facility], but he stated that he would call back tomorrow and disconnected the call. 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 I informed him the the forms nurse called [facility], and was told that the most hours that they offer are 7 hours a week. I asked if he would like to be referred to a different agency,such as [facility] or [facility], but he stated that he would call back tomorrow and disconnected the call. documented in this encounter Plan of Treatment Not on file documented as of this encounter Visit Diagnoses Not on filedocumented in this encounter Additional Health Concerns Assessment Noted Time PHQ-9 Depression Total Score: 8 08/31/20 23 1:46 PM EST documented as of this encounter Care Teams Starbucks Clerk Relationship Specialty Start Date End Date Carlene Lucas MD [address] [place] [id number] PCP - General Family Medicine 10/14/22 Gee Gallardo Conductor And EngineerWhipper 02/24/24 Gee Gallardo Ticket ManagerWhipper 10/06/24 documented as of this encounter
--- OUTSIDE RECORDS SUMMARY | 2025-01-04 12:25 | XMS_ITS | Encounter Summary ---
Author Organization [employer] Address [address] [facility] 7t [place] [address] Care Team Providers Care Pastry Cook Helper Name Role Phone Carlene Lucas MD Primary Care Provider [phone] Reason for Visit * Reason Onset Date Comments Nurse Triage 05/21/2023 Encounter Details Date Type Department Care Team (Late st Contact Info) Description 05/21/2023 Telephone [facility] MEDICINE [address] [place] [address] Carlene Lucas MD 230 [place] [address] Nurse Triage Social History Tobacco Use Types Packs/Day Years [...] encounter Miscellaneous Notes * Telephone Encounter - Sun Beckford RN - 05/21/2023 2:46 PM EDT Triage call with [place] Histotechnologist [place] [id number] Pt reports upper abdominal pain, above umbilicus, which is hard to describe . Pt reports heart burn, sour taste in mouth and some times feels like chest pain. Pt denies dizziness, light headedness, difficulty breathing. Pt is advised to come to [facility] to be seen by provider and Pt agrees. Hours till 400pm today and opens 830am - 400pm tomorrow. Pt agrees with disposition. Protocol Used: Abdominal Pain - Upper (Adult) Protocol-Based Disposition: See in Office or Video Visit Today or Tomorrow Video visit not offered Positive Triage Questions: * Mild to Moderate pain that comes and goes (cramps) lasts > 24 hours * Unhealthy alcohol use, known or suspected * All higher-acuity triage questions were negative Care Advice Discussed: * Reassurance and Education - Stomach Pain * Drink Clear Fluids * Diet * Antacid Medicine * Reasons To Call Back - Abdomen pain is constant and present for more than 2 hours. - You become worse * Telephone Encounter - Ritika Sotelo - 05/21/2023 1:39 PM EDT Symptom: Chest Pain - Adult Outcome: Talk to a nurse or provider within 15 minutes Reason: Getting worse The caller accepted this outcome Please contact pt at [phone] documented in this encounter Plan of Treatment Not on file documented as of this encounter Visit Diagnoses Not on filedocumented in this encounter Additional Health Concerns Assessment Noted Time PHQ-9 Depression Total Score: 4 01/13/20 23 1:46 PM EDT documented as of this encounter Care Teams Pastry Cook Helper Relationship Specialty Start Date End Date Carlene Lucas MD [address] [place] [id number] PCP - General Family Medicine 10/14/22 Gee Gallardo Memorial DesignerManager Financial Planning 02/24/24 Gee Gallardo Technical Instructor Course DeveloperManager Financial Planning 10/06/24 documented as of this encounter
--- OUTSIDE RECORDS SUMMARY | 2025-01-04 12:25 | XMS_ITS | Encounter Summary ---
Author Organization [employer] Address [address] [facility] 7t [place] [address] Care Team Providers Care Mail Carrier Name Role Phone Carlene Lucas MD Primary Care Provider [phone] Reason for Visit * Reason Onset Date Comments Nurse Triage 06/03/2023 Encounter Details Date Type Department Care Team (Late st Contact Info) Description 06/03/2023 Telephone [facility] MEDICINE 230 [place] [address] Carlene Lucas MD [address] [place] [address] Nurse Triage Social History Tobacco Use Types [...] encounter Miscellaneous Notes * Telephone Encounter - Anastasia Lassiter - 06/03/2023 9:36 AM EDT Symptom: Weight Loss Outcome: Schedule an appointment to be seen within 24 hours Reason: Caller denied all higher acuity questions The caller accepted this outcome documented in this encounter Plan of Treatment Not on file documented as of this encounter Visit Diagnoses Not on filedocumented in this encounter Additional Health Concerns Assessment Noted Time PHQ-9 Depression Total Score: 4 01/13/20 23 1:46 PM EDT documented as of this encounter Care Teams Mail Carrier Relationship Specialty Start Date End Date Carlene Lucas MD [address] [place] [address] PCP - General Family Medicine 10/14/22 Gee Gallardo Education CoordinatorField Services Director 02/24/24 Gee Gallardo Castings TrimmerField Services Director 10/06/24 documented as of this encounter
--- OUTSIDE RECORDS SUMMARY | 2025-01-04 12:25 | XMS_ITS | Encounter Summary ---
Author Organization [employer] Address [address] [facility] 7t [place] [address] Care Team Providers Care Cdl Program Coordinator Name Role Phone Carlene Lucas MD Primary Care Provider [phone] Encounter Details Date Type Department Care Team (Late st Contact Info) Description 03/03/2024 Orders Only [facility] MED[facility]INE [address] [place] [address] Merle Sotelo LPN Social History Tobacco Use Types Packs/Day Years [...] documented as of this encounter Care Teams Cdl Program Coordinator Relationship Specialty Start Date End Date Carlene Lucas MD [address] [place] [address] PCP - General Family Medicine 10/14/22 Gee Gallardo Antenna EngineerIlluminating Engineer 02/24/24 Gee Gallardo Change Control ManagerIlluminating Engineer 10/06/24 documented as of this encounter
--- OUTSIDE RECORDS SUMMARY | 2025-01-04 12:25 | XMS_ITS | Patient Health Record ---
Author Organization [facility] Address [address] [place] [address] Care Team Providers Care Home Specialist Name Role Phone EverettJihan Primary Care Provider Arsenio Clinton Jr Unavailable Reason For Referral No Information Problems Problem Type SNOMED Code ICD Code Onset Dates Problem Status W/U Status Risk Notes Problem Dysphagia (11543810) Dysphagia (R13.10) Active confirmed Problem 91459157 Erosive esophagitis (K22.10) Active confirmed Problem Ulcer of esophagus (68934570) Esophagitis, erosive (K22.10) Active confirmed Problem Erosive gastritis (9346229062122 100) Erosive gastritis (K29.60) Active confirmed Plan Of Treatment Future Test Test Name Order Date UPPER GI ENDOSCOPY 12/03/2022 Insurance Providers Payer Name Payer Address Payer Phone Subscriber Number Group Number Insured Name Patient Relationship to Insured Coverage Start Date Coverage End Date [place] [facility] [address] [place] [phone] [id number] YARELY MAC Self - patient is the insured
[2025-01-04 12:38] LABS: HBc Num1 4.49 S/CO (0.00-0.79); HBsAGNum1 0.29 S/CO (0.00-0.99); HIV AB/AG Nonreactive (Nonreactive); HIV Num 1 0.07 S/CO (0.00-0.99); Hepatitis B Surface Antigen Negative (Negative); ~HepC Num1 0.31 S/CO (0.00-0.79); ~Hepatitis B Surface Antibody NONREACTIVE (Nonreactive); ~Hepatitis C Antibody Nonreactive (Nonreactive)
[2025-01-04 12:56] LABS: Alanine Aminotransferase 36 U/L (0-40); Albumin Level 4.3 g/dL (3.5-5.0); Alkaline Phosphatase 81 U/L (39-117); Anion Gap 14 (12-20); Aspartate Amino Transferase 28 U/L (5-37); Bilirubin Total 0.4 mg/dL (0.0-1.0); Blood Urea Nitrogen 11 mg/dL (9-16); Calcium 9.8 mg/dL (8.4-10.2); Carbon Dioxide 24 mmol/L (22-29); Chloride 99 mmol/L (96-108); Cholesterol 167 mg/dL (<200); Creatinine Urine 19.84 mg/dL; Estimated Glomerular Filt Rate > 60; Glucose Random 563 mg/dL (60-115); HDL Cholesterol 34 mg/dL (>40); LDL Cholesterol Calculated 68 mg/dL (<100); Microalbumin Urine < 5.0 mg/L; Potassium 4.3 mmol/L (3.3-5.1); Sodium 133 mmol/L (135-145); Total Protein 7.3 g/dL (6.5-8.0); Triglycerides 326 mg/dL (<150)
[2025-01-04 13:30] LABS: HBc Num2 4.72 S/CO; HBc Num3 4.64 S/CO; Hepatitis B Core Antibody Reactive (Nonreactive)
[2025-01-05 09:05] LABS: Hepatitis A Antibody IgG Nonreactive (Nonreactive); ~Hepatitis A Antibody IgG 0.34 S/CO (0.00-0.99)
[2025-01-06 08:35] LABS: Hepatitis B Core Antibody IgM NON-REACTIVE (NON-REACTIVE)
[2025-01-08 19:44] LABS: CK-BB None Detected (None Detected); CK-MB 0 % (<5); CK-MM 94 % (95-100); Creatine Kinase Isoenzyme Itrp MACRO CK TYPE 1; Creatine Kinase,Total,Serum 287 U/L (22-308)
== END 2025-01-04 10:33 | disposition home or self-care (01) ==
LOC: HO.HHCL 10:32
PROVIDERS: Visit Provider General Practice
DX: E11.65 Type 2 diabetes mellitus with hyperglycemia (principal); Z79.4 Long term (current) use of insulin; Z11.3 Encounter for screening for infections with a predominantly sexual mode of transmission; T88.7XXA Unspecified adverse effect of drug or medicament, initial encounter
CPT/HCPCS: 36415; 80053; 80061; 82043; 82552; 82570; 86704; 86705; 86706; 86708; 86803; 87340; 87389

== ENCOUNTER 2025-01-13 15:12 | Outpatient (REF) | payer MEDICAID, SELFPAY ==
--- OUTSIDE RECORDS SUMMARY | 2025-01-13 15:48 | XMS_ITS | Encounter Summary ---
Author Organization [employer] Address [address] [facility] 7t [place] [address] Care Team Providers Care Shank Burnisher Name Role Phone Carlene Lucas MD Primary Care Provider [phone] Encounter Details Date Type Department Care Team (Latest Contact Info) Description 01/13/2025 Travel Social History Tobacco Use Types Packs/Day Years Used Date Smoking Tobacco: Never Passive Smoke Exposure: Never Smokeless Tobacco: Never Alcohol Use Standard Drinks/Week Comments Not Currently 0 (1 standard drink = 0.6 oz pur e alcohol) sometimes Depression Answer Date Recorded Patient Health Questionnaire-9 Score 4 01/13/2025 Patient Health Questionnaire-9 Score 4 01/13/2025 Last PHQ-9: Questionnaire Data Not on file 0 01/13/2025 Housing Stability Answer Date Recorded What is your housing situation today? I have wendy marinelli 01/13/[address] you li ve. Do you have problems with any of the following? None of the above 01/13/2025 Food Insecurity Answer Date Recorded Within the past 12 months, y ou worried that your food would run out before you got money to buy more: Never True 01/13/2025 Within the past 12 months,th e food you bought just didn't last and you didn't have enough money to get more: Never True Transportation Answer Date Recorded In the past 12 months, has l ack of transportation kept you from medical appts, meetings, work or from getting things needed for daily living? No 01/13/2025 Utilities Answer Date Recorded In the past 12 months, has t he electric, gas, oil or water company threatened to shut off services in your home? No 01/13/2025 Depression Answer Date Recorded Patient Health Questionnaire-2 Score 1 01/13/2025 Internet Access Answer Date Recorded Internet Access Q1 Yes 01/13/2025 Internet Access Q2 Not on file 01/13/2025 Sex and Gender Information Value Date Recorded Sex Assigned at Male 07/21/2022 10:14 AM EDT Legal Sex Male 10:14 AM EDT Gender Identity Male 07/21/2022 10:14 AM EDT Sexual Orientation Straight 12/15/2024 11 :22 AM EDT documented as of this encounter Plan of Treatment Upcoming Encounters Date Type Department Care Team (Late st Contact Info) Description 01/25/2025 3:30 PM EDT Office Visit [facility] [address] [place] [address] Hamilton-Correa, Lissette, DDS [address] [place] [address] 04/12/2025 3:00 PM EDT Office Visit [facility] [address] [place] [address] Carlene Lucas MD [address] [place] [address] documented as of this encounter Visit Diagnoses Not on filedocumented in this encounter Additional Health Concerns Assessment Noted Time PHQ-9 Depression Total Score: 4 01/14/20 25 3:38 PM EDT documented as of this encounter Care Teams Shank Burnisher Relationship Specialty Start Date End Date Carlene Lucas MD [address] [place] [address] PCP - General Family Medicine 10/14/22 Gee Gallardo Pumping Plant OperatorHaul Driver 02/24/24 Gee Gallardo Briquette MolderHaul Driver 10/06/24 documented as of this encounter
--- OUTSIDE RECORDS SUMMARY | 2025-01-13 15:48 | XMS_ITS | Clinical Summary ---
Author Organization [facility] Address [address] [facility] [address] [place] [address] Care Team Providers Care Legal Transcriber Name Role Phone Carlene Luacs MD Primary Care Provider [phone] Allergies Active Allergy Reactions Criticality Noted Date [...] DIRECTED 100 each 11 023 Active Multiple Vitamins-Greeting Card Maker als (CertaVite/Ant ioxidants) tablet TAKE 1 TABLET BY MOUTH EVERY MORNING 90 tablet 3 023 Active hydrocortisone 2.5 % cream Apply topically 2 times daily. 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 (CMS/HCC) TAKE 1 TABLET BY MOUTH TWICE DAILY IN THE MORNING AND IN THE EVENING WITH MEALS 180 tablet 3 024 Active Lancets (Unilet Micro-Thin 33G) misc TEST BLOOD SUGAR 4-6 TIMES PER DAY 100 each 11 024 Active gabapentin (Neurontin) 100 MG capsule TAKE 1 CAPSULE BY MOUTH AT BEDTIME 90 capsule 3 024 Active fenofibrate (Triglide) 160 MG tabletIndicati ons:Hypertrigl yceridemia TAKE 1 TABLET BY MOUTH EVERY EVENING 90 tablet 3 024 Active Aspirin Low Dose 81 MG [...] AND EVENING 360 capsule 3 024 Active hydrALAZINE (Apresoline) 50 MG tablet TAKE 1 TABLET BY MOUTH TWICE DAILY IN THE MORNING AND IN THE EVENING (HIGH BLOOD PRESSURE) 180 tablet 3 024 Active Trulicity 1.5 MG/0.5ML solution auto-injectorI ndications:Typ e 2 diabetes mellitus with other specified complication, with long-term current use of insulin ([facility]) INJECT ONE PEN (=1.5MG) SUBCUTANEOUSLY ONCE [...] TAKE 1 TABLET DAILY 30 tablet 2 Active lisinopril 30 MG tablet TAKE 1 TABLET BY MOUTH EVERY MORNING 90 tablet 3 025 Active D3 Super Strength 50 MCG (2000 UT) capsuleIndicat ions:Vitamin D deficiency TAKE 1 CAPSULE BY MOUTH EVERY MORNING 90 capsule Active metoprolol tartrate (Lopressor) 25 MG tablet TAKE 1 TABLET BY MOUTH TWICE DAILY IN THE MORNING AND IN THE EVENING (for high blood pressure) 180 tablet 3 Active insulin pen needle (Pentips Generic Pen [place]) 32G x 4 mm [facility] USE DIRECTED WITH INSULIN 100 each 3 Active ARIPiprazole (Abilify) 20 MG tablet Take 20 mg by mouth at bedtime. Active clonazePAM (KlonoPIN) 0.5 MG tablet TAKE 1 TABLET BY MOUTH EVERY DAY NEEDED FOR SEVERE ANXIETY Active risperiDONE (RisperDAL) 1 MG tablet TAKE 1 TABLET BY MOUTH TWICE DAILY FOR ANXIETY AND VOICES Active Blood Glucose Monitoring Suppl (FreeStyle [place] Lite) w/Device kitIndications :Type 2 diabetes mellitus with other specified complication, with long-term current use of insulin ([facility]) Apply 1 each topically Once per day. 1 kit Active insulin glargine (Lantus SoloStar) 100 UNIT/ML pen Inject 20 Units under the skin at bedtime. 15 mL 3 Active loratadine (Claritin) 10 MG tablet Take 1 tablet (10 mg) by mouth Once per day. 90 tablet 3 2025 Active dulaglutide (Trulicity) 4.5 MG/0.5ML solution pen-injector Inject 4.5 mg under the skin 1 (one) time per week. 4 each 024 2024 Discontinued(T herapy completed) metoprolol tartrate (Lopressor) 25 MG tablet Take 1 tablet (25 mg) by mouth 2 times daily. 180 tablet 024 2024 Discontinued Blood Glucose Monitoring Suppl (FreeStyle [place] Lite) w/Device kitIndications :Type 2 diabetes mellitus with other specified complication, with long-term current use of insulin (CMS/[facility]) USE DIRECTED 1 kit 2024 Discontinued(R eorder (will not trigger notification to Pharmacy)) UltiGuard SafePack Pen Needle 32G X 4 MM misc USE EVERY DAY WITH INSULIN 100 each 024 2024 Discontinued insulin glargine (Lantus SoloStar) 100 UNIT/ML pen INJECT 6 UNITS SUBCUTANEOUSLY EVERY EVENING (FOR DIABETES) 15 mL 1 024 2024 Discontinued(R eorder (will not trigger notification to Pharmacy)) Multiple Vitamins-Iron (Tab-A-Butch/Ir on/Beta Carotene) tablet TAKE 1 TABLET BY MOUTH EVERY MORNING ( VITAMIN) 90 tablet 3 024 2024 Discontinued(T herapy completed) Hospital, Clinic, or Other Facility Administered Medication Ordered Dose Route Frequency Start Date End Date Status Insulin Lispro solution 14 UnitsIndications:Type 2 diabetes mellitus with hyperglycemia, with long-term current use of insulin ([facility]) 14 Units IJ Once 01/13/2025 01/13/2025 Ended Active Problems Problem Noted Date Diagnosed Date Mild nonproliferative diabet ic retinopathy of both eyes without macular edema associated with type 2 diabetes mellitus 01/13/2025 Precordial pain 09/01/2023 Assessment & Plan (12/20/2023 7:33 PM EDT): Pt has multiple risk factors for CA, EKG without ST-T segment changes and NSR 08/2023 Will check echo for structural abnormalities Assessment & Plan (09/01/2023 10:37 AM EST): Pt has multiple risk factors for CA, EKG without ST-T segment changes, however if [...] Naltrexone 50mg daily Recommend AUD services at [facility] Assessment & Plan (04/10/2023 9:36 AM EDT): [...] here, he has his Bps checked at [facility], to please notify us of lows there [...] dose statin (Atorvastatin 80mg nightly), fenofibrate 160mg, Lilly 3 1gm BID Consider adding ezetimibe if [...] Encounters Date Type Department Care Team Description 01/13/2025 2:30 PM EDT Office Visit [address] [address] Carlene Lucas MD Mild nonproliferative diabetic retinopathy of both eyes without macular edema associated with type 2 diabetes mellitus ([facility]) (Primary Dx); Type 2 diabetes mellitus with hyperglycemia, with long-term current use of insulin ([facility]); Dietary counseling; Exercise counseling; Mild intermittent asthma, unspecified whether complicated; Type 2 diabetes mellitus with other specified complication, with long-term current use of insulin ([facility]) 01/13/2025 Travel 01/12/2025 Refill [facility] [address] [place] [address] Glenys Wynn MD 01/04/2025 Orders Only [facility] [address] [place] [phone] Carlene Lucas MD 01/04/2025 Telephone [facility] [address] [place] [phone] Carlene Lucas MD Critical Glucose 01/03/2025 Telephone [facility] [address] [place] [phone] Carlene Lucas MD Lab Orders 12/25/2024 Refill [facility] [address] [place] [address] Carlene Lucas MD 12/21/2024 Patient Outreach [facility] [address] [place] [address] Carlene Lucas MD Pre-visit Planning ((Unable to reach for PVP screening, LVM)) 12/09/2024 Telephone [facility] [address] [place] [phone] Carlene Lucas MD PT-1 12/02/2024 Population Health Risk Score Community [facility] (C[facility]) Department [address] [phone] Provider, Population Health Generic 11/29/2024 Telephone [facility] [address] [place] [address] Carlene Lucas MD FYI 10/30/2024 Refill [facility] [address] [place] [address] Carlene Lucas MD Vitamin D deficiency 10/27/2024 Refill [facility] [address] [place] [address] Carlene Lucas MD 10/25/2024 Telephone [facility] [address] [place] [address] Kev HerlindaLADARIUS castro recall 10/24/2024 Telephone [facility] [address] [place] [address] Carlene Lucas MD No Show from Last 3 Months Immunizations Name Administration [...] Not Answered Alcohol Use Standard Drinks/Week Comments Not Currently [...] Sign Reading Time Taken Comments Blood Pressure 132/70 01/13/2025 2:36 PM EDT Pulse 91 01/13/2025 2:36 PM EDT Temperature 36.8 ??C (98.3 ??F) 01/13/2025 2:36 PM ED T Respiratory Rate 21 01/13/2025 2:36 PM EDT Oxygen Saturation 97% 01/13/2025 2:36 PM EDT Inhaled Oxygen Concentration - - Weight 70.3 kg (155 lb) 01/13/2025 2:36 PM EDT Height 167.6 cm (5' 6 ) 01/13/2025 2:36 PM EDT Body Mass Index 25.02 01/13/2025 2:36 PM EDT Plan of Treatment Upcoming Encounters Date Type Department Care Team (Late st Contact Info) Description 01/25/2025 3:30 PM EDT Office Visit [facility] [address] [place], [place] [phone] JoyEusebioLissette Correa, DDS [address] [place], [place] [phone] 04/12/2025 3:00 PM EDT Office Visit [facility] [address] [place], [place] [phone] Carlene Lucas MD [address] [place], [place] [phone] Health Maintenance Due Date Last Done Comments [...] 09/29/2020 018, 03/08/2015, 07/03/2014, Additional history exists COVID-19 Vaccine ( season) 2024 10/16/2022, 01/29/2022, 12/27/2020, Additional history exists Influenza Vaccine (#1) 2024 , 07/09/2020, 07/07/2019, Additional history exists Depression Screening 08/31/2024 08/31/2023, 08/31/20 23 RSV Patients and Patients Aged 60 years or older (1 - Risk 60-74 years 1-dose series) 2024 Diabetes: Hemoglobin A1C 04/14/2025 025, 12/18/2023, 08/31/2023, Additional history exists Eye Exam 05/30/2025 05/30/2024, 05/2024, 05/30/2024, Additional history exists Colonoscopy 09/09/2025 09/11/2020 Colorectal Cancer Screening 09/09/2025 Diabetes: Urine Protein Screening 01/04/2026 01/04/2025, 01/12/2023, 02/03/2022, Additional history exists Lipid Panel 01/04/2026 01/04/2025, 12/21, 02/03/2022 SDOH Screening 01/13/2026 01/13/2025 Tobacco Screening 01/13/2026 01/13/2025 DTaP/Tdap/Td Vaccines (2 - Td or Tdap) 03/25/2026 03/25/2016, 12/29/2005, 09/07/1995 Hepatitis A Vaccines Aged Out 01/23/2021 No long er eligible based on patient's age to complete this topic Zoster Vaccines Completed 05/16/2021, 02/04/2021 Pneumococcal Vaccine: 50+ Years Completed 01/12/2023, 05/01/2003, 07/13/1997 HIV Screening Completed 01/04/2025, 12/21, 01/23/2021 Hepatitis C Screening Completed 01/04/2025 , 01/12/2023, 01/23/2021 HIB Vaccines Aged Out No longer eligi [...] Name Priority Date/Time Associated Diagnosis Comments POCT URINALYSIS DIPSTICK Routine 01/13/2025 2:40 PM EDT Type 2 diabetes mellitus with hyperglycemia, with long-term current use of insulin ([facility]) POCT GLYCATED HEMOGLOBIN, TOTAL Routine 01/13/2025 2:40 PM EDT Type 2 diabetes mellitus with hyperglycemia, with long-term current use of insulin ([facility]) POCT GLUCOSE Routine 01/13/2025 2:39 PM EDT Type 2 diabetes mellitus with hyperglycemia, with long-term current use of insulin (CMS/HCC) HEPATITIS B CORE ANTIBODY (IGM) Routine 01/04/2025 10:34 AM EDT CREATINE KINASE ISOENZYMES (CK ISOENZYMES) WITH TOTAL CK Routine 01/04/2025 10:34 AM EDT Medication side effect HEPATITIS A ANTIBODY, TOTAL Routine 01/04/2025 10:34 AM EDT Type 2 diabetes mellitus with hyperglycemia, with long-term current use of insulin (CMS/HCC) HEPATITIS B PROFILE Routine 01/04/2025 1 0:34 AM EDT Screening examination for STI HEPATITIS C AB W/REFL TO HCV RNA, QN, PCR Routine 01/04/2025 10:34 AM EDT Screening examination for STI HIV 1/2 ANTIGEN/ANTIBODY, FOURTH GENERATION W/RFL Routine 01/04/2025 10:34 AM EDT Screening examination for STI COMPREHENSIVE METABOLIC PANEL Routine 01/04/2025 10:34 AM EDT Type 2 diabetes mellitus with hyperglycemia, with long-term current use of insulin (CMS/HCC) ALBUMIN, RANDOM URINE W/CREATININE Routine 01/04/2025 10:34 AM EDT Type 2 diabetes mellitus with hyperglycemia, with long-term current use of insulin (CMS/HCC) LIPID PANEL, STANDARD Routine 01/04/2025 10:34 AM EDT Type 2 diabetes mellitus with hyperglycemia, with long-term current use of insulin (CMS/HCC) [...] to Health Maintenance Results * (ABNORMAL) POCT HGB A1C (01/13/2025 2:40 PM EDT) [facility] Hemoglobin A1C 12.2(A) 4.0 - 6.0 % QC Media Lot # [id number] Lot# Expiration Date Blood 01/13/2025 2:40 PM EDT Carlene Lucas MD POINT OF CARE TEST ENTER/EDIT ORDERABLES Final Result * POCT Urinalysis (01/13/2025 2:40 PM EDT) [facility] Color, UA Yellow Clarity, UA Clear Glucose, UA 3+ 500+++ Bilirubin, UA Negative Ketones, UA Negative Spec Grav, UA 1.015 Blood, UA Negative Negative, None Detected pH, UA 6.0 Protein, UA Negative Urobilinogen, UA 0.2 Leukocytes, UA Negative Negative, Rare, Trace Nitrite, UA Negative Negative, None Detected QC Media Lot # [id number] Lot# Expiration Date Urine 01/13/2025 2:40 PM EDT Carlene Lucas MD POINT OF CARE TEST ENTER/EDIT ORDERABLES Final Result * (ABNORMAL) POCT Glucose (01/13/2025 2:39 PM EDT) [facility] Glucose Blood, POC 500(A) 60 - 200 mg/dL Comment:[facility] QC Media Lot # [id number] Lot# Expiration Date Blood Capillary blood specimen / Unknown 01/13/2025 2:39 PM EDT Carlene Lucas MD POINT OF CARE TEST ENTER/EDIT ORDERABLES Final Result * Hepatitis B Profile (01/04/2025 10:34 AM EDT) ~Hepatitis B Surface Antibody NONREACTIVE Nonreactive [facility] Comment:Nonreactive: < 8.00 mIU/mL Hepatitis B Core Antibody Reactive Nonreactive [facility] Comment:Presumptive evidence of anti-HBc. Hepatitis B Surface Ag Negative Negative [facility] 01/04/2025 10:3 4 AM EDT 01/04/2025 11:10 AM EDT Carlene Lucas MD LAB BLOOD ORDERABLES Final Res ult Performing Organization Address [facility] Co de Phone Number [facility] [address] [place] [phone] * Albumin, Random Urine W/Creatinine (01/04/2025 10:34 AM EDT) Pathologist [facility] Creatinine, Urine 19.84 mg/dL [facility] Microalbumin Urine <5.0 mg/L [facility] Microalbum Creatinine Ratio Ur TNP <30 ug/mg cr [facility] Comment:Unable to calculate albumin/creatinine ratio due to lowmicroalbumin or creatinine result. Urine (Urine, Random) 01/04/2025 10:34 AM EDT 01/04/2025 11:09 AM EDT Carlene Lucas MD LAB URINE ORDERABLES Final Res ult Performing Organization Address [facility] de Phone Number [facility] [address] [place] [phone] * Hepatitis C Antibody with Reflex to HCV, RNA, Quantitative, Real-Time PCR (01/04/2025 10:34 AM EDT) Pathologist [facility] Hepatitis C Antibody Nonreactive Nonreactive [facility] Comment:Antibodies to HCV no t detected; does not exclude early acuteHCV infection. Blood Venous blood specimen / Unknown 01/04/2025 10:34 AM EDT 01/04/2025 11:10 AM EDT Carlene Lucas MD LAB BLOOD ORDERABLES Final Res ult Performing Organization Address [facility]/ZIP Co de Phone Number [facility] [address] [place] [phone] * Hepatitis A Antibody, Total (01/04/2025 10:34 AM EDT) Hepatitis A Antibody IgG Nonreactive Nonreactive [facility] Blood Venous blood specimen / Unknown 01/04/2025 10:34 AM EDT 01/04/2025 11:10 AM EDT Carlene Lucas MD LAB BLOOD ORDERABLES Final Res ult Performing Organization Address [facility] Phone Number [facility] [address] [place] [phone] * Hepatitis B Core??Antibody (IgM) (01/04/2025 10:34 AM EDT) Pathologist [facility] Hepatitis B Core Antibody IgM NON-REACTI VE NON-REACTI VE [facility] Comment:For additional infor mation, please refer [email or web address](This link is being provided for informational/educational purposes only.)THIS TEST WAS PERFORMED AT:[employer] [place] [phone] FARRIS MD 01/04/2025 10:3 4 AM EDT 01/04/2025 11:10 AM EDT Carlene Lucas MD LAB BLOOD ORDERABLES Final Res ult Performing Organization Address [facility] Co de Phone Number [facility] [address] [place] [phone] * HIV-1/2 Antigen and Antibodies, Fourth Generation, with Reflexes (01/04/2025 10:34 AM EDT) HIV AB/AG Nonreactive Nonreactive [facility] Comment:HIV-1 p24 Ag and/or HIV-1/HIV-2 Ab not detected.A test result that is nonreactive does not exclude thepossibility of exposure to or infection with HIV-1 and/orHIV-2. Nonreactive results in this assay for individualswith prior exposure to HIV-1 and/or HIV-2 may be due toantigen and antibody levels that are below the limit ofdetection of this assay.The [employer] HIV Ag/Ab Combo assay result andsupplemental assay results should be interpreted inconjunction with the patient's clinical presentation,history and other laboratory results. If the results areinconsistent with clinical evidence, additional testing issuggested to confirm the result. Blood Venous blood specimen / Unknown 01/04/2025 10:34 AM EDT 01/04/2025 11:10 AM EDT us Carlene Lucas MD LAB BLOOD ORDERABLES Final Res ult [facility] [address] [place] [phone] * (ABNORMAL) Creatine Kinase Isoenzymes (CK Isoenzymes) w/ Total CK (01/04/2025 10:34 AM EDT) Creatine Kinase, Total 287 22 - 308 U/L [facility] CK-MM 94(A) 95 - 100 % [facility] Comment:MACRO CK TYPE 1 = 6% Ck-Mb 0 <5 % [facility] CK-BB None Detected None Detected % [facility] Creatine Kinase Isoenzyme Interpretation MACRO CK TYPE 1 [facility] Comment:Macro CK type 1 migr ates to a position betweenCK-MM and CK-BB and can be interpreted as MB inquantitative assays. They are generally com-plexes of CK-BB and immunoglobulins, but in a fewcases they have been reported to be complexes ofCK- MM and IgA. Macro CK type 1 has been identi-fied as a CK-BB bound to IgG, a CK-MM bound toIgA, a CK-MB bound to IgG and a CK-BB bound to IgAor IgM. The macro CK type 1 complex predominantlyappears in older patients with an average age thatis greater than 65 years. No correlation betweenthe macro CK type 1 and any specific disease hasbeen found, although the activity of the macro CKtype 1 has been known to persist for longer thana year.THIS TEST WAS PERFORMED AT:[id number] [place] [id number] FAJARDO MD,PHD Blood Venous blood specimen / Unknown 01/04/2025 10:34 AM EDT 01/04/2025 11:10 AM EDT us Carlene Lucas MD LAB BLOOD ORDERABLES Final Res ult [facility] [address] [place] [phone] * (ABNORMAL) Lipid Panel, Standard (01/04/2025 10:34 AM EDT) Triglycerides 326(H) <150 mg/dL [facility] Comment:Desirable Triglyceri de: less than 150 mg/dLBorderline High Triglyceride 150-199 mg/dLHigh Triglyceride: 200-499 mg/dLVery High Triglyceride: greater than or equal to 5OO mg/dL Cholesterol 167 <200 mg/dL [facility] Comment:Desirable Cholestero l: less than 200 mg/dLBorderline High Cholesterol: 200-239 mg/dLHigh Cholesterol: greater than 239 mg/dL LDL Cholesterol Calculated 68 <100 mg/dL [facility] Comment:Desirable LDL: less than 100 mg/dLNear Optimal/Above Optimal LDL: 110- 129 mg/dLBorderline High LDL: 130-159 mg/dLHigh LDL: 160-189 mg/dLVery High LDL: greater than or equal to 190 mg/dL HDL Cholesterol 34(L) >40 mg/dL [facility] Comment:Desirable HDL: great er than 40 mg/dL Note: This HDL assay may give artificially low results in patients with liver disease. Blood Venous blood specimen / Unknown 01/04/2025 10:34 AM EDT 01/04/2025 11:10 AM EDT us Carlene Lucas MD LAB BLOOD ORDERABLES Final Res ult [facility] [address] [place] [address] [phone] * (ABNORMAL) Comprehensive Metabolic Panel (01/04/2025 10:34 AM EDT) Sodium 133(L) 135 - 145 mmol/L [facility] Potassium 4.3 3.3 - 5.1 mmol/L [facility] Chloride 99 96 - 108 mmol/L [facility] Carbon Dioxide 24 22 - 29 mmol/L [facility] Anion Gap 14 12 - 20 [facility] Urea Nitrogen (BUN) 11 9 - 16 mg/dL [facility] Creatinine, Serum 1.16 0.5 - 1.4 mg/dL [facility] Estimated Glomerular Filt Rate >60 [facility] Comment:Chronic Kidney Disea se: Estimated GFR < 60 mL/min/1.99n9Eqbaom Kidney Disease: Estimated GFR < 15 mL/min/1.73m2 Glucose 563(HH) 60 - 115 mg/dL [facility] Comment:Critical value GLUCO SE Results called to and read back by:SY Flood Person calling: STEPHEN Date: 01/04/2025 Time:1255 Calcium 9.8 8.4 - 10.2 mg/dL [facility] Bilirubin, Total 0.4 0.0 - 1.0 mg/dL [facility] Aspartate Amino Transferase 28 5 - 37 U/L [facility] Alanine Aminotransferase 36 0 - 40 U/L [facility] Total Protein 7.3 6.5 - 8.0 g/dL [facility] Albumin Level 4.3 3.5 - 5.0 g/dL [facility] Alkaline Phosphatase 81 39 - 117 U/L [facility] Blood Venous blood specimen / Unknown 01/04/2025 10:34 AM EDT 01/04/2025 11:10 AM EDT Carlene Lucas MD LAB BLOOD ORDERABLES Final Res ult [facility] [address] [place] [phone] * Hm Colonoscopy (09/11/2020 9:39 AM EST) Historical Provider HEALTH MAINTENANCE Final Result from Last 3 Months or Most Recently Relevant to Health Maintenance Insurance [facility] [address] [place] [id number] DENTAL-[facility] MEDICAID STAND ADULT [address] [place] [address] Care Teams Legal Transcriber Relationship Specialty Start Date End Date Carlene Lucas MD [address] [place] [phone] PCP - General Family Medicine 10/14/22 Gee Gallardo Medical AuditorBag Worker 02/24/24 Gee Gallardo Coding File ClerkBag Worker 10/06/24
--- OUTSIDE RECORDS SUMMARY | 2025-01-13 15:48 | XMS_ITS | Encounter Summary ---
Author Organization [email or web address] Address 75 [facility] 7t [place] [address] Care Team Providers Care Electrocardiograph Technician Name Role Phone Carlene Lucas MD Primary Care Provider [phone] Reason for Visit * Reason Comments Med Refill Encounter Details Date Type Department Care Team ([facility] st Contact Info) Description 10/21/2023 Refill [facility] [address] [place], [place] [phone] Marley Obregon MD [address] [place], [place] [phone] Social History Tobacco Use Types Packs/Day Years [...] Description 01/25/2025 3:30 PM EDT Office Visit [facility] [address] [place] [address] Lissette Velazquez, DDS [address] [place] [address] 04/12/2025 3:00 PM EDT Office Visit [facility] [address] [place] [address] Carlene Lucas MD [address] [place] [address] documented as of this encounter Visit Diagnoses Not on filedocumented in this encounter Additional Health Concerns Assessment Noted Time PHQ-9 Depression Total Score: 8 08/31/20 23 1:46 PM EST documented as of this encounter Care Teams Electrocardiograph Technician Relationship Specialty Start Date End Date Carlene Lucas MD [address] [place] [phone] PCP - General Family Medicine 10/14/22 Gee Gallardo Auto Transport DriverCat Sitter 02/24/24 Gee Gallardo Wringer Machine OperatorCat Sitter 10/06/24 documented as of this encounter
--- OUTSIDE RECORDS SUMMARY | 2025-01-13 15:48 | XMS_ITS | Encounter Summary ---
Author Organization [employer] Address 75 [facility] 7t [place] [address] Care Team Providers Care Epic Willow Analyst Name Role Phone Carlene Lucas MD Primary Care Provider [phone] Reason for Visit * Reason Onset Date Comments Critical Glucose 01/04/2025 Encounter Details Date Type Department Care Team ([facility] st Contact Info) Description 01/04/2025 Telephone [facility] 230 [place] [address] Carlene Lucas MD [address] [place], [place] [phone] Critical Glucose Social History Tobacco Use Types Packs/Day Years [...] encounter Miscellaneous Notes * Telephone Encounter - Brady Smith - 01/12/2025 4:03 PM EDT Tc from pt returning call in regards prior message Please return call [phone] * Telephone Encounter - Rosita Fatima RN - 01/12/2025 2:53 PM EDT TC placed to patient [phone] in regards to below message. Patient did not answer, RN left requesting CB to red team nurses. TC placed to [phone] the number you requested cannot be dialed . Patient to f/u PRN. * Telephone Encounter - Elisabeth Castro - 01/12/2025 1:11 PM EDT Tc from pt returning phone call. * Telephone Encounter - Rosita Fatima RN - 01/05/2025 12:47 PM EDT TC x3 placed to patient [phone] however no answer, RN left VM requesting CB to red team nurses. TC x3 placed to [phone] the service you are attempting to use has been restricted or is unavailable . TC x3 to [phone] however number is OOS. RN discussed with provider who requested RN send a letter to patients address on file (labs completed yesterday were ordered 05/2024). RN has sent letter to address on file. Patient to f/u PRN. Sending to PCP as FYI-RN unable to contact patient. Letter sent to address on file. * Telephone Encounter - Rosita Fatima RN - 01/04/2025 3:39 PM EDT TC placed x2 to patient [phone] in regards to critical result, status check and determine POC however no answer again, RN left VM requesting CB to red team nurses. TC placed to patient [phone] (number in mediech) however automated recording the service you are attempting to use has been restricted or is unavailable . Sending to PCP as FYI-RN is unable to get ahold of patient x2. * Telephone Encounter - Nelly Arnold RN - 01/04/2025 2:02 PM EDT See previous message from Dr. Lucas . Will route this message to the red team nurses . TY ! * Telephone Encounter - Rosita Fatima RN - 01/04/2025 2:00 PM EDT TC placed to patient [phone] to discuss critical result, status check and determine POC. Patient did not answer, RN left VM requesting CB to red team. RN called secondary number [phone] however received automated recording the number you are trying to reach is no longer in service . RN will re-attempt prior to end of day, sending to PCP as FYI. * Telephone Encounter - Nelly Arnold RN - 01/04/2025 12:56 PM EDT Incoming call from Marlene at the [facility] [place] . Marlene states the pt's Glucose is Critical 563 drawn at 1044 am today . A warm handoff call was placed but the Red team nurses ,and Dr. Lucas werenot available . Will route this message high prioirity to the Red team nurses ,and Dr. Lucas for review . documented in this encounter Plan of Treatment Upcoming Encounters Date Type Department Care Team (Late st Contact Info) Description 01/25/2025 3:30 PM EDT Office Visit [facility] ADULT D[facility] 230 [place] [address] HamiltonLissette Reid, DDS [address] [place] [address] 04/12/2025 3:00 PM EDT Office Visit [facility] [address] [place] [address] Carlene Lucas MD [address] [place] [address] documented as of this encounter Visit Diagnoses Not on filedocumented in this encounter Additional Health Concerns Assessment Noted Time PHQ-9 Depression Total Score: 8 08/31/20 23 1:46 PM EST documented as of this encounter Care Teams Epic Willow Analyst Relationship Specialty Start Date End Date Carlene Lucas MD [address] [place] [address] PCP - General Family Medicine 10/14/22 Gee Gallardo Steam Generating Powerplant MechanicDisk Sharpener 02/24/24 Gee Gallardo Dry Lumber GraderDisk Sharpener 10/06/24 documented as of this encounter
--- OUTSIDE RECORDS SUMMARY | 2025-01-13 15:48 | XMS_ITS | Encounter Summary ---
Author Organization [employer] Address 75 [facility] 7t [place] [address] Care Team Providers Care Edging Machine Feeder Name Role Phone Carlene Lucas MD Primary Care Provider [phone] Reason for Visit * Reason Onset Date Comments Nurse Triage 05/21/2023 Encounter Details Date Type Department Care Team (Late st Contact Info) Description 05/21/2023 Telephone [facility] 230 [place] [address] Carlene Lucas MD 230 [place] [address] Nurse Triage Social History Tobacco Use Types [...] 05/21/2023 2:46 PM EDT Triage call with Roy Patient Support Associate [place] [id number] Pt reports upper abdominal pain, above umbilicus, which is hard to describe . Pt reports heart burn, sour taste in mouth and some times feels like chest pain. Pt denies dizziness, light headedness, difficulty breathing. Pt is advised to come to [facility] to be seen by provider and Pt [...] accepted this outcome Please contact pt at [phone] documented in this encounter Plan of Treatment Upcoming Encounters Date Type Department Care Team (Late st Contact Info) Description 01/25/2025 3:30 PM EDT Office Visit [facility] ADULT DENTAL [address] [place] [address] Hamilton-Correa, Lissette, DDS [address] [place] [address] 04/12/2025 3:00 PM EDT Office Visit [facility] MEDICINE 230 [place] [address] Carlene Lucas MD 230 [place] [address] documented as of this encounter Visit Diagnoses Not on filedocumented in this encounter Additional Health Concerns Assessment Noted Time PHQ-9 Depression Total Score: 4 01/13/20 23 1:46 PM EDT documented as of this encounter Care Teams Edging Machine Feeder Relationship Specialty Start Date End Date Carlene Lucas MD 230 [place] [address] PCP - General Family Medicine 10/14/22 Gee Gallardo Rotary Rock Drilling Machine OperatorGreenhouse Laborer 02/24/24 Gee Gallardo Master MechanicGreenhouse Laborer 10/06/24 documented as of this encounter
--- OUTSIDE RECORDS SUMMARY | 2025-01-13 15:48 | XMS_ITS | Encounter Summary ---
Author Organization [employer] Address 75 [facility] 7t [place] [address] Care Team Providers Care Core Driller Helper Name Role Phone Carlene Lucas MD Primary Care Provider [phone] Reason for Visit * Reason Comments Med Refill Encounter Details Date Type Department Care Team ([facility] st Contact Info) Description 01/12/2025 Refill [facility] 230 [place], [place] [phone] Glenys Wynn MD 230 [place], [place] [phone] Social History Tobacco Use Types Packs/Day Years [...] Description 01/25/2025 3:30 PM EDT Office Visit [facility] ADULT DENT[facility] [address] [place] [address] Lissette Velazquez DDS [address] [place] [address] 04/12/2025 3:00 PM EDT Office Visit [facility] [address] [place] [address] Carlene Lucas MD [address] [place] [address] documented as of this encounter Visit Diagnoses Not on filedocumented in this encounter Additional Health Concerns Assessment Noted Time PHQ-9 Depression Total Score: 8 08/31/20 23 1:46 PM EST documented as of this encounter Care Teams Core Driller Helper Relationship Specialty Start Date End Date Carlene Lucas MD [address] [place] [address] PCP - General Family Medicine 10/14/22 Gee Gallardo Trim Stencil MakerProcess Control Operator 02/24/24 Gee Gallardo Cad InternProcess Control Operator 10/06/24 documented as of this encounter
--- OUTSIDE RECORDS SUMMARY | 2025-01-13 15:48 | XMS_ITS | Encounter Summary ---
Author Organization [employer] Address 75 [facility] 7t [place] [address] Care Team Providers Care Casino Banker Name Role Phone Carlene Lucas MD Primary Care Provider [phone] Encounter Details Date Type Department Care Team (Latest Contact Info) Description 01/13/2025 2:30 PM EDT Office Visit [facility] MED[facility]INE 230 [place], [place] [phone] Carlene Lucas MD 230 [place] [address] Mild nonproliferative diabetic retinopathy of both eyes without macular edema associated with type 2 diabetes mellitus (CMS/HCC) (Primary Dx); Type 2 diabetes mellitus with hyperglycemia, with long-term current use of insulin (CMS/HCC); Dietary counseling; Exercise counseling; Mild intermittent asthma, unspecified whether complicated; Type 2 diabetes mellitus with other specified complication, with long-term current use of insulin (CMS/HCC) Social History Tobacco Use Types Packs/Day Years [...] AM EDT documented as of this encounter Last Filed Vital Signs Vital Sign Reading [...] Mass Index 25.02 01/13/2025 2:36 PM EDT documented in this encounter Plan of Treatment Upcoming Encounters Date Type Department Care Team (Late st Contact Info) Description 01/25/2025 3:30 PM EDT Office Visit [facility] ADULT DENTAL 230 [place] [address] Lissette Velazquez DDS [address] [place], [place] [phone] 04/12/2025 3:00 PM EDT Office Visit [facility] MEDICINE [address] [place] [address] Carlene Lucas MD [address] [place] [address] Scheduled Orders Name Type Priority Associated Diagnoses Order Schedule Comprehensive Metabolic Panel Lab Routine Type 2 diabetes mellitus with hyperglycemia, with long-term current use of insulin ([facility]) Expected: 01/13/2025 (Approximate), Expires: 01/13/2026 CBC auto differential Lab Routine Type 2 diabetes mellitus with hyperglycemia, with long-term current use of insulin (CMS/HCC) Expected: 01/13/2025 (Approximate), Expires: 01/13/2026 Beta-Hydroxybutyrate Lab Routine Type 2 diabetes mellitus with hyperglycemia, with long-term current use of insulin ([facility]) Expected: 01/13/2025 (Approximate), Expires: 01/13/2026 POCT Glucose Point of Care Testing Routine Type 2 diabetes mellitus with hyperglycemia, with long-term current use of insulin ([facility]) Ordered: 01/13/2025 documented as of this encounter Procedures Procedure Name Priority Date/Time Associated Diagnosis Comments POCT GLYCATED HEMOGLOBIN, TOTAL Routine 01/13/2025 2:40 PM EDT Type 2 diabetes mellitus with hyperglycemia, with long-term current use of insulin ([facility]) POCT URINALYSIS DIPSTICK Routine 01/13/2025 2:40 PM EDT Type 2 diabetes mellitus with hyperglycemia, with long-term current use of insulin ([facility]) POCT GLUCOSE Routine 01/13/2025 2:39 PM EDT Type 2 diabetes mellitus with hyperglycemia, with long-term current use of insulin ([facility]) documented in this encounter Results * POCT Urinalysis (01/13/2025 2:40 PM EDT) Color, UA Yellow Clarity, UA Clear Glucose, UA 3+ 500+++ Bilirubin, UA Negative Ketones, UA Negative Spec Grav, UA 1.015 Blood, UA Negative Negative, None Detected pH, UA 6.0 Protein, UA Negative Urobilinogen, UA 0.2 Leukocytes, UA Negative Negative, Rare, Trace Nitrite, UA Negative Negative, None Detected QC Media Lot # [id number] Lot# Expiration Date Urine 01/13/2025 2:40 PM EDT us Carlene Lucas MD POINT OF CARE TEST ENTER/EDIT ORDERABLES Final Result * (ABNORMAL) POCT HGB A1C (01/13/2025 2:40 PM EDT) Hemoglobin A1C 12.2(A) 4.0 - 6.0 % QC Media Lot # [id number] Lot# Expiration Date Blood 01/13/2025 2:40 PM EDT Result [facility] us Carlene Lucas MD POINT OF CARE TEST ENTER/EDIT ORDERABLES Final Result * (ABNORMAL) POCT Glucose (01/13/2025 2:39 PM EDT) Glucose Blood, POC 500(A) 60 - 200 mg/dL Comment:[facility] QC Media Lot # [id number] Lot# Expiration Date Blood Capillary blood specimen / Unknown 01/13/2025 2:39 PM EDT Result [facility] Carlene Lucas MD POINT OF CARE TEST ENTER/EDIT ORDERABLES Final Result documented in this encounter Visit Diagnoses Diagnosis Mild nonproliferative diabetic retinopathy of both eyes without macular edema associated with type 2 diabetes mellitus ([facility])- Primary Type 2 diabetes mellitus with hyperglycemia, with long-term current use of insulin ([facility]) Dietary counseling Dietary surveillance and counseling Exercise counseling Mild intermittent asthma, unspecified whether complicated Type 2 diabetes mellitus with other specified complication, with long-term current use of insulin ([facility]) documented in this encounter Administered Medications Inactive Administered Medications - up to 3 most recent administrations Medication Order MAR Action Action Date Dose Rate Site Insulin Lispro solution 14 Units 14 Units, Injection, at 14 mL/hr, Once, On Thu01/13/25 at 1500, For 1 doseIndications:Type 2 diabetes mellitus with hyperglycemia, with long-term current use of insulin ([facility]) Given 01/13/2025 3:00 PM EDT 14 Units 14 mL/hr Right Lower Abdomen documented in this encounter Additional Health Concerns Assessment Noted Time PHQ-9 Depression Total Score: 4 01/14/20 3:38 PM EDT documented as of this encounter Care Teams Casino Banker Relationship Specialty Start Date End Date Carlene Lucas MD [address] [place] [address] PCP - General Family Medicine 10/14/22 Gee Gallardo Landing WorkerEnamel Buffer 02/24/24 Gee Gallardo Benzene WorkerEnamel Buffer 10/06/24 documented as of this encounter
--- OUTSIDE RECORDS SUMMARY | 2025-01-13 15:48 | XMS_ITS | Encounter Summary ---
Author Organization [employer] Address 75 [facility] 7t [place] [address] Care Team Providers Care Maori Liaison Adviser Name Role Phone Carlene Lucas MD Primary Care Provider [phone] Reason for Visit * Reason Onset Date Comments Nurse Triage 06/03/2023 Encounter Details Date Type Department Care Team (Late st Contact Info) Description 06/03/2023 Telephone [facility] MED[facility] 230 [place] [address] Carlene Lucas MD 230 [place] [address] Nurse Triage Social History Tobacco Use Types [...] Description 01/25/2025 3:30 PM EDT Office Visit [facility] ADULT DENTAL 230 [place] [address] Lissette Velazquez DDS [address] [place] [address] 04/12/2025 3:00 PM EDT Office Visit [facility] MEDICINE [address] [place] [address] Carlene Lucas MD [address] [place] [address] documented as of this encounter Visit Diagnoses Not on filedocumented in this encounter Additional Health Concerns Assessment Noted Time PHQ-9 Depression Total Score: 4 01/13/20 23 1:46 PM EDT documented as of this encounter Care Teams Maori Liaison Adviser Relationship Specialty Start Date End Date Carlene Lucas MD [address] [place] [address] PCP - General Family Medicine 10/14/22 Gee Gallardo Photogrammetric Compilation SpecialistCane Splicer 02/24/[address] Sql DeveloperCane Splicer 10/06/24 documented as of this encounter
--- OUTSIDE RECORDS SUMMARY | 2025-01-13 15:48 | XMS_ITS | Encounter Summary ---
Author Organization [facility] Address 75 [facility] 7t [place] [address] Care Team Providers Care Evaporative Cooler Installer Name Role Phone Carlene Lucas MD Primary Care Provider [phone] Encounter Details Date Type Department Care Team (Late st Contact Info) Description 05/26/2023 Abstract [facility] MEDICINE [address] [place] [address] Carlene Lucas MD 230 [place] [address] Social History Tobacco Use Types Packs/Day Years [...] Description 01/25/2025 3:30 PM EDT Office Visit [facility] ADULT DENTAL [address] [place] [address] Lissette Velazquez, DDS [address] [place] [address] 04/12/2025 3:00 PM EDT Office Visit [facility] MEDICINE [address] [place] [address] Carlene Lucas MD [address] [place] [address] documented as of this encounter Visit Diagnoses Not on filedocumented in this encounter Additional Health Concerns Assessment Noted Time PHQ-9 Depression Total Score: 4 01/13/20 23 1:46 PM EDT documented as of this encounter Care Teams Evaporative Cooler Installer Relationship Specialty Start Date End Date Carlene Lucas MD 230 [place] [address] PCP - General Family Medicine 10/14/22 Gee Gallardo Home School TeacherTemperature Regulator 02/24/24 Gee Gallardo Lumber CarrierTemperature Regulator 10/06/24 documented as of this encounter
--- OUTSIDE RECORDS SUMMARY | 2025-01-13 15:48 | XMS_ITS | Encounter Summary ---
Author Organization [employer] Address 75 [facility] 7t [place] [address] Care Team Providers Care Subway Train Operator Name Role Phone Carlene uLcas MD Primary Care Provider [phone] Reason for Visit * Reason Onset Date Comments ER Follow-up 11/11/2022 Encounter Details Date Type Department Care Team (Late st Contact Info) Description 11/11/2022 Telephone [facility] MEDICINE [address] [place] [address] Carlene Lucas MD 230 [place], [place] [phone] ER Follow-up Social History Tobacco Use Types [...] to report ED visit on 11/06/22 at [facility]. Diagnosed with minor stroke. Patient advisedwill forward to team nurse for follow up. documented in this encounter Plan of Treatment Upcoming Encounters Date Type Department Care Team (Late st Contact Info) Description 01/25/2025 3:30 PM EDT Office Visit [facility] ADULT DENTAL [address] [place] [address] Lissette Velazquez DDS [address] [place] [address] 04/12/2025 3:00 PM EDT Office Visit [facility] MEDICINE [address] [place] [address] Carlene Lucas MD [address] [place] [address] documented as of this encounter Visit Diagnoses Not on filedocumented in this encounter Care Teams Subway Train Operator Relationship Specialty Start Date End Date Carlene Lucas MD [address] [place] [phone] PCP - General Family Medicine 10/14/22 Gee Gallardo Property ValuerShoemaking Cutter 02/24/24 Gee Gallardo Employee Communications SpecialistShoemaking Cutter 10/06/24 documented as of this encounter
--- OUTSIDE RECORDS SUMMARY | 2025-01-13 15:48 | XMS_ITS | Encounter Summary ---
Author Organization [employer] Address 75 [facility] 7t [place] [address] Care Team Providers Care Infant Childcare Provider Name Role Phone Carlene Lucas MD Primary Care Provider Encounter Details Date Type Department Care Team (Late st Contact Info) Description 02/01/2024 Orders Only [facility] MEDICINE [address] [place] [address] Provider, MD Akanksha Social History Tobacco Use [...] [facility] [address] [place], [place] [phone] Lissette Velazquez, DDS [address] [place] [address] 04/12/2025 3:00 PM EDT Office Visit [facility] MEDICINE [address] [place] [address] Carlene Lucas MD [address] [place] [address] documented as of this encounter Procedures Procedure [...] documented as of this encounter Care Teams Infant Childcare Provider Relationship Specialty Start Date End Date Carlene Lucas MD [address] [place] [address] PCP - General Family Medicine 10/14/22 Gee Gallardo Lease AdministratorGauge Controller 02/24/24 Gee Gallardo Nondestructive TesterGauge Controller 10/06/24 documented as of this encounter
--- OUTSIDE RECORDS SUMMARY | 2025-01-13 15:48 | XMS_ITS | Encounter Summary ---
Author Organization [employer] Address 75 [facility] 7t [place] [address] Care Team Providers Care Medical Clerical Assistant Name Role Phone Carlene Lucas MD Primary Care Provider [phone] Encounter Details Date Type Department Care Team (Late st Contact Info) Description 06/22/2024 Orders Only [facility] MEDICINE 230 [place], [place] [phone] Carlene Lucas MD 230 [place], [place] [phone] Encounter for HIV pre-exposure prophylaxis (Primary Dx) [...] Description 01/25/2025 3:30 PM EDT Office Visit [facility] ADULT DENTAL [address] [place] [address] Lissette Velazquez DDS 230 [place] [address] 04/12/2025 3:00 PM EDT Office Visit [facility] MEDICINE [address] [place] [address] Carlene Lucas MD [address] [place] [address] documented as of this encounter Visit Diagnoses Diagnosis Encounter for HIV pre-exposure prophylaxis- Primary documented in this encounter Additional Health Concerns Assessment Noted Time PHQ-9 Depression Total Score: 8 08/31/20 23 1:46 PM EST documented as of this encounter Care Teams Medical Clerical Assistant Relationship Specialty Start Date End Date Carlene Lucas MD [address] [place] [address] PCP - General Family Medicine 10/14/22 Gee Gallardo Script SupervisorFilm Archivist 02/24/24 Gee Gallardo Transmitter Engineer In ChargeFilm Archivist 10/06/24 documented as of this encounter
--- OUTSIDE RECORDS SUMMARY | 2025-01-13 15:48 | XMS_ITS | Encounter Summary ---
Author Organization [employer] Address 75 [facility] 7t [place] [address] Care Team Providers Care Cotton Tipper Name Role Phone Carlene Lucas MD Primary Care Provider [phone] Reason for Visit * Reason Comments Med Refill Encounter Details Date Type Department Care Team ([facility] st Contact Info) Description 04/18/2024 Refill [facility] MEDICINE [address] [place], [place] [phone] Carlene Lucas MD 230 [place], [place] [phone] Vitamin D deficiency Social History Tobacco Use [...] Description 01/25/2025 3:30 PM EDT Office Visit [facility] ADULT DENTAL [address] [place] [address] Lissette Velazquez DDS 230 [place] [address] 04/12/2025 3:00 PM EDT Office Visit [facility] MEDICINE [address] [place] [address] Carlene Lucas MD [address] [place] [address] documented as of this encounter Visit Diagnoses Diagnosis Vitamin D deficiency documented in this encounter Additional Health Concerns Assessment Noted Time PHQ-9 Depression Total Score: 8 08/31/20 23 1:46 PM EST documented as of this encounter Care Teams Cotton Tipper Relationship Specialty Start Date End Date Carlene Lucas MD [address] [place] [address] PCP - General Family Medicine 10/14/22 Gee Gallardo Location ManagerWarehouse Manager 02/24/24 Gee Gallardo Major Appliance Assembly SupervisorWarehouse Manager 10/06/24 documented as of this encounter
--- OUTSIDE RECORDS SUMMARY | 2025-01-13 15:48 | XMS_ITS | Encounter Summary ---
Author Organization [employer] Address 75 [facility] 7t [place] [address] Care Team Providers Care Golf Ball Inspector Name Role Phone Carlene Lucas MD Primary Care Provider [phone] Reason for Visit * Reason Onset Date Comments Med Refill Letter Request 10/28/2023 The patient requ ested a letter, because he would like his LIGHTER CAPTAIN hours increased through [facility]. I informed him the the forms nurse called [facility], and was told that the most hours that they offer are 7 hours a week. I asked if he would like to be referred to a different agency, such as [facility] or [facility], but he stated that he would call back tomorrow and disconnected the call. Encounter Details Date Type Department Care Team (Late st Contact Info) Description 10/28/2023 Refill [facility] MEDICINE 230 [place], [place] [phone] Rebecca Callahan DO 230 [place], [place] [phone] Social History Tobacco Use Types Packs/Day Years [...] a letter, because he would like his LIGHTER CAPTAIN hours increased through [facility]. I informed him the the forms nurse called [facility], and was told that the most hours that they offer are 7 hours a week. I asked if he would like to be referred to a different agency,such as [facility] or [facility], but he stated that he would call back tomorrow and disconnected the call. documented in this encounter Plan of Treatment Upcoming Encounters Date Type Department Care Team (Late st Contact Info) Description 01/25/2025 3:30 PM EDT Office Visit [facility] ADULT DENTAL [address] [place] [address] Lissette Velazquez DDS [address] [place] [address] 04/12/2025 3:00 PM EDT Office Visit [facility] MEDICINE [address] [place] [address] Carlene Lucas MD 230 [place], [place] [phone] documented as of this encounter Visit Diagnoses Not on filedocumented in this encounter Additional Health Concerns Assessment Noted Time PHQ-9 Depression Total Score: 8 08/31/20 1:46 PM EST documented as of this encounter Care Teams Golf Ball Inspector Relationship Specialty Start Date End Date Carlene Lucas MD [address] [place] [phone] PCP - General Family Medicine 10/14/22 Gee Gallardo Third RiggerVehicle Operator Technician 02/24/24 Gee Gallardo General ManagerVehicle Operator Technician 10/06/24 documented as of this encounter
--- OUTSIDE RECORDS SUMMARY | 2025-01-13 15:48 | XMS_ITS | Encounter Summary ---
Author Organization [employer] Address 75 [facility] 7t [place] [address] Care Team Providers Care Boxer Operator Name Role Phone Carlene Lucas MD Primary Care Provider [phone] Encounter Details Date Type Department Care Team (Late st Contact Info) Description 03/03/2024 Orders Only [facility] MEDICINE 230 [place] [address] Merle Sotelo LPN Social History Tobacco Use [...] Description 01/25/2025 3:30 PM EDT Office Visit [facility] ADULT DENTAL [address] [place] [address] Lissette Velazquez DDS [address] [place] [address] 04/12/2025 3:00 PM EDT Office Visit [facility] MEDICINE [address] [place] [address] Carlene Lucas MD 230 [place] [address] documented as of this encounter Visit Diagnoses Not on filedocumented in this encounter Additional Health Concerns Assessment Noted Time PHQ-9 Depression Total Score: 8 08/31/20 23 1:46 PM EST documented as of this encounter Care Teams Boxer Operator Relationship Specialty Start Date End Date Carlene Lucas MD 230 [place] [address] PCP - General Family Medicine 10/14/22 Gee Gallardo Electrical Unit RebuilderHearing Instrument Specialist 02/24/24 Gee Gallardo Oil Pipe InspectorHearing Instrument Specialist 10/06/24 documented as of this encounter
[2025-01-13 16:11] LABS: MANUAL DIFF FLAG NO
[2025-01-13 16:17] LABS: Basophils Absolute Auto 0.1 X10*3/uL (0.0-0.2); Basophils Percent Auto 1.2 % (0-2); Eosinophils Absolute Auto 0.2 X10*3/uL (0.0-0.4); Hematocrit 41.5 % (42.0-52.0); Hemoglobin 14.5 g/dl (14.0-18.0); Lymphocytes Absolute Auto 2.3 X10*3/uL (1.2-4.9); Lymphocytes Percent Auto 53.3 % (20-40); Mean Corpuscular HGB Conc 34.9 g/dl (31.0-36.0); Mean Corpuscular Hemoglobin 31.9 pg (27.0-33.0); Mean Corpuscular Volume 91.4 fL (80.0-98.0); Mean Platelet Volume 11.4 fL (9.4-12.4); Monocytes Absolute Auto 0.3 X10*3/uL (0.1-1.2); Monocytes Percent Auto 6.2 % (2-11); Neutrophils Absolute Auto 1.5 x10*3/uL (2.0-8.3); Neutrophils Percent Auto 34.3 % (45-73); Platelet Count 268 X10*3/uL (160-400); Red Blood Count 4.54 X10*6/uL (4.60-5.80); Red Cell Distribution Width 12.2 % (11.0-16.0); White Blood Count 4.2 X10*3/uL (4.8-10.8)
[2025-01-13 17:24] LABS: Alanine Aminotransferase 32 U/L (0-40); Albumin Level 4.4 g/dL (3.5-5.0); Alkaline Phosphatase 73 U/L (39-117); Anion Gap 15 (12-20); Aspartate Amino Transferase 31 U/L (5-37); Beta-Hydroxybutyrate 0.18 mmol/L (0.02-0.27); Bilirubin Total 0.4 mg/dL (0.0-1.0); Blood Urea Nitrogen 17 mg/dL (9-16); Calcium 10.3 mg/dL (8.4-10.2); Carbon Dioxide 25 mmol/L (22-29); Chloride 99 mmol/L (96-108); Estimated Glomerular Filt Rate 59; Glucose Random 441 mg/dL (60-115); Potassium 4.4 mmol/L (3.3-5.1); Sodium 135 mmol/L (135-145); Total Protein 7.7 g/dL (6.5-8.0)
== END 2025-01-13 15:13 | disposition home or self-care (01) ==
LOC: HO.HHCL 15:12
PROVIDERS: Visit Provider General Practice
DX: E11.65 Type 2 diabetes mellitus with hyperglycemia (principal); Z79.4 Long term (current) use of insulin
CPT/HCPCS: 36415; 80053; 82010; 85025

== ENCOUNTER 2025-05-25 12:01 | Outpatient (REF) | payer MEDICAID, SELFPAY ==
--- OUTSIDE RECORDS SUMMARY | 2025-05-25 11:00 | XMS_ITS | Encounter Summary ---
Author Organization [employer] Address [address] [facility] 7t [place] [address] Care Team Providers Care Senior Accounts Payable Specialist Name Role Phone Carlene Lucas MD Primary Care Provider [phone] Encounter Details Date Type Department Care Team (Late st Contact Info) Description 05/25/2025 11:00 AM EDT Office Visit [facility] MEDICINE 230 [place] [address] Patsy Massey FNP 230 [place] [address] Cough, unspecified type (Primary Dx); Bloody diarrhea Social History Tobacco Use Types Packs/Day Years Used Date Smoking Tobacco: Never Passive Smoke Exposure: Never Smokeless Tobacco: Never Alcohol Use Standard Drinks/Week Comments Not Currently 0 (1 standard drink = 0.6 oz pur e alcohol) sometimes Alcohol Answer Date Recorded How often do you have a drink containing alcohol ? 0 01/16/2025 How many drinks containing a lcohol do you have on a typical day when you are drinking? 0 01/16/2025 How often do you have six or more drinks on one occasion? 0 01/16/2025 Depression Answer Date Recorded Patient Health Questionnaire-9 Score 0 04/12/2025 Patient Health Questionnaire-9 Score 0 04/12/2025 Last PHQ-9: Questionnaire Data Not on file 0 04/12/2025 Housing Stability Answer Date Recorded What is [...] Answer Date Recorded Patient Health Questionnaire-2 Score 0 04/12/2025 Internet Access Answer Date Recorded Internet Access [...] Sign Reading Time Taken Comments Blood Pressure 160/88 05/25/2025 10:59 AM EDT Pulse 106 05/25/2025 10:59 AM EDT Temperature 36.7 C (98.1 F) 05/25/2025 10:59 AM EDT Respiratory Rate 14 05/25/2025 10:59 AM EDT Oxygen Saturation 96% 05/25/2025 10:59 AM EDT Inhaled Oxygen Concentration - - Weight 68.2 kg (150 lb 6 oz) 05/25/2025 10:59 AM EDT Height 167.6 cm (5' 6 ) 05/25/2025 10:59 AM EDT Body Mass Index 24.27 05/25/2025 10:59 AM EDT documented in this encounter Plan of Treatment Upcoming Encounters Date Type Department Care Team (Late st Contact Info) Description 08/14/2025 10:00 AM EST Office Visit [facility] OPTOMETRY [address] [place] [address] Cedrick, Jyothi, OD [address] [place] [address] Scheduled Orders Name Type Priority Associated Diagnoses Orde r Schedule Salmonella/Shigella Cult, Campy EIA and Shiga Toxin reflex E.coli O157 Cult Microbiology Routine Bloody diarrhea Expected: 05/25/2025 (Approximate), Expires: 05/25/2026 CBC auto differential Lab Routine Bloody diarrhea Expected: 05/25/2025 (Approximate), Expires: 05/25/2026 C-reactive Protein Lab Routine Bloody diarrhea Expected: 05/25/2025 (Approximate), Expires: 05/25/2026 Sed Rate by Modified [place] Lab Routine Bloody diarrhea Expected: 05/25/2025, Expires: 05/25/2026 Calprotectin, Stool Lab Routine Bloody diarrhea Expected: 05/25/2025, Expires: 05/25/2026 documented as of this encounter Procedures Procedure Name Priority Date/Time Associated Diagnosis Comments POCT COVID-19 AG BOURGEOIS ID NOW Routine 05/25/2025 11:17 AM EDT Cough, unspecified type documented in this encounter Results * POCT Rapid Covid-19 BOURGEOIS ID NOW (05/25/2025 11:17 AM EDT) Coronavirus Antigen PCR Negative Negative, Indeterminate, None Detected, Invalid, Specimen unsatisfactory for evaluation, Weakly Positive, 2+ QC Media Lot # [id number] Lot# Expiration Date [id number] Swab 05/25/2025 11:1 7 AM EDT [facility] POINT OF CARE TEST ENTER/EDIT ORDERABLES Final Result documented in this encounter Visit Diagnoses Diagnosis Cough, unspecified type- Primary Bloody diarrhea Diarrhea documented in this encounter Additional Health Concerns Assessment Noted Time PHQ-9 Depression Total Score: 0 04/12/20 25 3:06 PM EDT documented as of this encounter Care Teams Senior Accounts Payable Specialist Relationship Specialty Start Date End Date Carlene Lucas MD 230 [place] [address] PCP - General Family Medicine 10/14/22 Gee Gallardo Supervisor FabricationForm Block Maker 02/24/24 Gee Gallardo Intelligence Research SpecialistForm Block Maker 10/06/24 documented as of this encounter
[2025-05-25 13:35] LABS: MANUAL DIFF FLAG NO
--- OUTSIDE RECORDS SUMMARY | 2025-05-25 13:36 | XMS_ITS | Encounter Summary ---
Author Organization [employer] Address 75 [facility] 7t [place] [address] Care Team Providers Care Cloth Cutting Machine Operator Name Role Phone Carlene Lucas MD Primary Care Provider [phone] Reason for Visit * Reason Onset Date Comments ER Follow-up 11/11/2022 Encounter Details Date Type Department Care Team (Late st Contact Info) Description 11/11/2022 Telephone [facility] MEDICINE 230 [place] [address] Carlene Lucas MD 230 [place] [address] ER Follow-up Social History Tobacco Use Types [...] to report ED visit on 11/06/22 at [facility]. Diagnosed with minor stroke. Patient advisedwill forward to team nurse for follow up. documented in this encounter Plan of Treatment Upcoming Encounters Date Type Department Care Team (Late st Contact Info) Description 08/14/2025 10:00 AM EST Office Visit [facility] OPTOMETRY [address] [place] [address] Jyothi Philip, OD 230 [place] [address] documented as of this encounter Visit Diagnoses Not on filedocumented in this encounter Care Teams Cloth Cutting Machine Operator Relationship Specialty Start Date End Date Carlene Lucas MD [address] [place] [address] PCP - General Family Medicine 10/14/22 Gee Gallardo Directory CompilerExcelsior Machine Feeder 02/24/24 Gee Gallardo Occupational Safety SpecialistExcelsior Machine Feeder 10/06/24 documented as of this encounter
--- OUTSIDE RECORDS SUMMARY | 2025-05-25 13:37 | XMS_ITS | Encounter Summary ---
Author Organization [employer] Address 75 [facility] 7t [place] [address] Care Team Providers Care Retort Feeder Ground Bone Name Role Phone Carlene Lucas MD Primary Care Provider [phone] Reason for Visit * Reason Onset Date Comments Nurse Triage 06/03/2023 Encounter Details Date Type Department Care Team (Late Contact Info) Description 06/03/2023 Telephone [facility] MEDICINE 230 [place] [address] Carlene Lucas MD 230 [place] [address] Nurse Triage Social History Tobacco Use Types [...] Description 08/14/2025 10:00 AM EST Office Visit [facility] OPTOMETRY [address] [place], [place] [phone] Jyothi Philip, OD 230 [place] [address] documented as of this encounter Visit Diagnoses Not on filedocumented in this encounter Additional Health Concerns Assessment Noted Time PHQ-9 Depression Total Score: 4 01/13/20 23 1:46 PM EDT documented as of this encounter Care Teams Retort Feeder Ground Bone Relationship Specialty Start Date End Date Carlene Lucas MD 230 [place], [place] [phone] PCP - General Family Medicine 10/14/22 Gee Gallardo Tour Production SupervisorMontessori Lead Teacher 02/24/24 Gee Gallardo Operations AsstMontessori Lead Teacher 10/06/24 documented as of this encounter
--- OUTSIDE RECORDS SUMMARY | 2025-05-25 13:37 | XMS_ITS | Encounter Summary ---
Author Organization [employer] Address 75 [facility] 7t [place] [address] Care Team Providers Care Steamboat Inspector Name Role Phone Carlene Lucas MD Primary Care Provider [phone] Reason for Visit * Reason Onset Date Comments Nurse Triage 05/21/2023 Encounter Details Date Type Department Care Team (Late st Contact Info) Description 05/21/[address] [facility] MEDICINE 230 [place] [address] Carlene Lucas MD 230 [place] [address] Nurse Triage Social History Tobacco Use Types [...] 05/21/2023 2:46 PM EDT Triage call with [employer] [place] [id number] Pt reports upper abdominal pain, above umbilicus, which is hard to describe . Pt reports heart burn, sour taste in mouth and some times feels like chest pain. Pt denies dizziness, light headedness, difficulty breathing. Pt is advised to come to [facility] to be seen by provider [...] accepted this outcome Please contact pt at [phone] documented in this encounter Plan of Treatment Upcoming Encounters Date Type Department Care Team (Late st Contact Info) Description 08/14/2025 10:00 AM EST Office Visit [facility] OPTOMETRY [address] [place] [address] Cedrick, Jyothi, OD 230 [place] [address] documented as of this encounter Visit Diagnoses Not on filedocumented in this encounter Additional Health Concerns Assessment Noted Time PHQ-9 Depression Total Score: 4 01/13/20 23 1:46 PM EDT documented as of this encounter Care Teams Steamboat Inspector Relationship Specialty Start Date End Date Carlene Lucas MD 230 [place] [address] PCP - General Family Medicine 10/14/22 Gee Gallardo Knocker OutGroup Social Worker 02/24/24 Gee Gallardo Diamond SelectorGroup Social Worker 10/06/24 documented as of this encounter
--- OUTSIDE RECORDS SUMMARY | 2025-05-25 13:37 | XMS_ITS | Encounter Summary ---
Author Organization [employer] Address 75 [facility] 7t [place] [address] Care Team Providers Care Prototype Assembler Electronics Name Role Phone Carlene Lucas MD Primary Care Provider [phone] Encounter Details Date Type Department Care Team (Late st Contact Info) Description 06/22/2024 Orders Only [facility] MEDICINE 230 [place], [place] [phone] Carlene Lucas MD 230 [place] [address] Encounter for HIV pre-exposure prophylaxis (Primary Dx) [...] Description 08/14/2025 10:00 AM EST Office Visit [facility] OPTOMETRY [address] [place] [address] Cedrick, Jyothi, OD 230 [place] [address] documented as of this encounter Visit Diagnoses Diagnosis Encounter for HIV pre-exposure prophylaxis- Primary documented in this encounter Additional Health Concerns Assessment Noted Time PHQ-9 Depression Total Score: 8 08/31/20 23 1:46 PM EST documented as of this encounter Care Teams Prototype Assembler Electronics Relationship Specialty Start Date End Date Carlene Lucas MD [address] [place] [address] PCP - General Family Medicine 10/14/22 Gee Gallardo Software Performance EngineerBooth Cashier 02/24/24 Gee Gallardo Portable Feed Mill OperatorBooth Cashier 10/06/24 documented as of this encounter
--- OUTSIDE RECORDS SUMMARY | 2025-05-25 13:37 | XMS_ITS | Encounter Summary ---
Author Organization [employer] Address 75 [facility] 7t [place] [address] Care Team Providers Care Rubber Moulding Machine Operator Name Role Phone Carlene Lucas MD Primary Care Provider [phone] Encounter Details Date Type Department Care Team (Late st Contact Info) Description 05/26/2023 Abstract [facility] MEDICINE 230 [place] [address] Carlene Lucas MD 230 [place] [address] Social History Tobacco Use Types Packs/Day Years [...] Description 08/14/2025 10:00 AM EST Office Visit [facility] OPTOMETRY [address] [place], [place] [phone] Jyothi Philip, OD 230 [place] [address] documented as of this encounter Visit Diagnoses Not on filedocumented in this encounter Additional Health Concerns Assessment Noted Time PHQ-9 Depression Total Score: 4 01/13/20 1:46 PM EDT documented as of this encounter Care Teams Rubber Moulding Machine Operator Relationship Specialty Start Date End Date Carlene Lucas MD [address] [place] [address] PCP - General Family Medicine 10/14/22 Gee Gallardo Customs ExaminerSanitor 02/24/24 Gee Gallardo Radiographer AngiogramSanitor 10/06/24 documented as of this encounter
--- OUTSIDE RECORDS SUMMARY | 2025-05-25 13:37 | XMS_ITS | Patient Health Record ---
Author Organization [facility] Address [address] [place] [address] Care Team Providers Care Lease Out Man Name Role Phone EverettJihan Primary Care Provider Arsenio Clinton Jr Unavailable Reason For Referral No Information Problems Problem Type SNOMED Code ICD Code Onset Dates Problem Status W/U Status Risk Notes Problem Dysphagia (56632185) Dysphagia (R13.10) Active confirmed Problem 74394051 Erosive esophagitis (K22.10) Active confirmed Problem Ulcer of esophagus (24061795) Esophagitis, erosive (K22.10) Active confirmed Problem Erosive gastritis (3078906597017 100) Erosive gastritis (K29.60) Active confirmed Plan Of Treatment Future Test Test Name Order Date UPPER GI ENDOSCOPY 12/03/2022 Insurance Providers Payer Name Payer Address Payer Phone Subscriber Number Group Number Insured Name Patient Relationship to Insured Coverage Start Date Coverage End Date MEDICAID OF [facility] [address] [place] [phone] [id number] YARELY MAC Self - patient is the insured
--- OUTSIDE RECORDS SUMMARY | 2025-05-25 13:37 | XMS_ITS | Encounter Summary ---
Author Organization [employer] Address 75 [facility] 7t [place] [address] Care Team Providers Care Jaw Skinner Name Role Phone Carlene Lucas MD Primary Care Provider [phone] Encounter Details Date Type Department Care Team (Late st Contact Info) Description 03/03/2024 Orders Only [facility] MEDICINE [address] [place] [address] Merle Sotelo LPN Social History Tobacco Use [...] Description 08/14/2025 10:00 AM EST Office Visit [facility] OPTOMETRY [address] [place] [address] CedrickJyothi tsai, OD 230 [place] [address] documented as of this encounter Visit Diagnoses Not on filedocumented in this encounter Additional Health Concerns Assessment Noted Time PHQ-9 Depression Total Score: 8 08/31/20 23 1:46 PM EST documented as of this encounter Care Teams Jaw Skinner Relationship Specialty Start Date End Date Carlene Lucas MD 230 [place] [address] PCP - General Family Medicine 10/14/22 Gee Gallarod Milling MachinistAgricultural Crop Farm Manager 02/24/24 Gee Gallardo Structural DraftsmanAgricultural Crop Farm Manager 10/06/24 documented as of this encounter
--- OUTSIDE RECORDS SUMMARY | 2025-05-25 13:37 | XMS_ITS | Encounter Summary ---
Author Organization [employer] Address 75 [facility] 7t [place] [address] Care Team Providers Care Motor Vehicles Inspector Name Role Phone Carlene Lucas MD Primary Care Provider [phone] Encounter Details Date Type Department Care Team (Late st Contact Info) Description 02/01/2024 Orders Only [facility] MEDICINE 230 [place] [address] Provider, MD Akanksha Social History Tobacco Use [...] Description 08/14/2025 10:00 AM EST Office Visit [facility] OPTOMETRY [address] [place] [address] Cedrick, Jyothi, OD 230 [place] [address] documented as of this encounter Procedures Procedure [...] documented as of this encounter Care Teams Motor Vehicles Inspector Relationship Specialty Start Date End Date Carlene Lucas MD 230 [place] [address] PCP - General Family Medicine 10/14/22 Gee Gallardo Recruitment InternSeismograph Observer 02/24/24 Gee Gallardo Convenience Recycle Center TechSeismograph Observer 10/06/24 documented as of this encounter
--- OUTSIDE RECORDS SUMMARY | 2025-05-25 13:37 | XMS_ITS | Encounter Summary ---
Author Organization [employer] Address 75 [facility] 7t [place] [address] Care Team Providers Care Scale Manager Name Role Phone Carlene Lucas MD Primary Care Provider [phone] Reason for Visit * Reason Comments Med Refill Encounter Details Date Type Department Care Team ([facility] st Contact Info) Description 04/18/2024 Refill [facility] MEDICINE 230 [place], [place] [phone] Carlene Lucas MD 230 [place], [place] [phone] Vitamin D deficiency Social History Tobacco Use [...] Description 08/14/2025 10:00 AM EST Office Visit [facility] OPTOMETRY [address] [place] [address] Cedrick, Megan, OD 230 [place] [address] documented as of this encounter Visit Diagnoses Diagnosis Vitamin D deficiency documented in this encounter Additional Health Concerns Assessment Noted Time PHQ-9 Depression Total Score: 8 08/31/20 23 1:46 PM EST documented as of this encounter Care Teams Scale Manager Relationship Specialty Start Date End Date Carlene Lucas MD 230 [place] [address] PCP - General Family Medicine 10/14/22 Gee Gallardo Tool Profiling Machine Set Up OperatorAdaptive Physical Education Specialist 02/24/24 Gee Gallardo Construction TeacherAdaptive Physical Education Specialist 10/06/24 documented as of this encounter
--- OUTSIDE RECORDS SUMMARY | 2025-05-25 13:37 | XMS_ITS | Clinical Summary ---
Author Organization [employer] Address [address] [place] [address] Care Team Providers Care Mechanical Tech Name Role Phone Carlene Lucas MD Primary Care Provider [phone] Allergies Active Allergy Reactions Criticality Noted Date Comments Statins 05/22/2010 Other reaction(s): ELEVATED CPK Medications prazosin (Minipress) 1 MG capsule TAKE 3 CAPSULES BY MOUTH AT BEDTIME Y MARIO 1 CAPSULA CADA MANANA CUANDO SEA NECESARIO 2 Active sertraline (Zoloft) 50 MG tablet Take 50 mg by mouth in the morning. 3 Active Alcohol Swabs (SM Alcohol Prep) 70 % pads USE FOUR TIMES DAILY DIRECTED 100 each 11 3 Active Multiple Vitamins-Mineral s (CertaVite/Antio xidants) tablet TAKE 1 TABLET BY MOUTH EVERY MORNING 90 tablet 3 3 Active hydrocortisone 2.5 % cream Apply topically 2 times daily. 30 g 1 4 Active Aspirin Low Dose 81 MG EC tablet Take 1 tablet (81 mg) by mouth at bedtime. 90 tablet 3 4 Active atorvastatin (Lipitor) 80 MG tablet TAKE 1 TABLET BY MOUTH AT BEDTIME (for cholesterol) 90 tablet 3 4 Active omeprazole (PriLOSEC) [address] capsuleIndicatio ns:Gastroesophag eal reflux disease without esophagitis TAKE 1 CAPSULE BY MOUTH TWICE DAILY IN THE MORNING AND IN THE EVENING (for stomach acid) 180 capsule 3 4 Active sertraline (Zoloft) 100 MG tablet Take 100 mg by mouth in the morning. 4 Active omega-3 acid ethyl esters (Lovaza) 1 g capsule TAKE 2 CAPSULES BY MOUTH TWICE DAILY IN THE MORNING AND EVENING 360 capsule 3 4 Active hydrALAZINE (Apresoline) 50 MG tablet TAKE 1 TABLET BY MOUTH TWICE DAILY IN THE MORNING AND IN THE EVENING (HIGH BLOOD PRESSURE) 180 tablet 3 4 Active naltrexone (Depade) 50 MG tablet TAKE 1 TABLET BY MOUTH EVERY MORNING WITH FOOD 30 tablet 5 4 Active risperiDONE (RisperDAL) 0.5 MG tablet TAKE 1 TABLET BY MOUTH TWICE DAILY IN THE MORNING AND IN THE EVENING 4 Active lisinopril 30 MG tablet TAKE 1 TABLET BY MOUTH EVERY MORNING 90 tablet 3 5 Active metoprolol tartrate (Lopressor) 25 MG tablet TAKE 1 TABLET BY MOUTH TWICE DAILY IN THE MORNING AND IN THE EVENING (for high blood pressure) 180 tablet 3 5 Active insulin pen needle (Pentips Generic Pen Shubuta) 32G x 4 mm misc USE DIRECTED WITH INSULIN 100 each 3 5 Active ARIPiprazole (Abilify) 20 MG tablet Take 20 mg by mouth at bedtime. 5 Active clonazePAM (KlonoPIN) 0.5 MG tablet TAKE 1 TABLET BY MOUTH EVERY DAY NEEDED FOR SEVERE ANXIETY 5 Active risperiDONE (RisperDAL) 1 MG tablet TAKE 1 TABLET BY MOUTH TWICE DAILY FOR ANXIETY AND VOICES 5 Active Blood Glucose Monitoring Suppl (FreeStyle Baldwin Lite) w/Device kitIndications:T ype 2 diabetes mellitus with other specified complication, with long-term current use of insulin ([facility]) Apply 1 each topically Once per day. 1 kit 5 Active insulin glargine (Lantus SoloStar) 100 UNIT/ML pen Inject 20 Units under the skin at bedtime. 15 mL 3 5 Active loratadine (Claritin) 10 MG tablet Take 1 tablet (10 mg) by mouth Once per day. 90 tablet 3 5 01/14/20 26 Active Dulaglutide (Trulicity) 1.5 MG/0.5ML solution auto-injectorInd ications:Type 2 diabetes mellitus with other specified complication, with long-term current use of insulin (CMS/[facility]) Inject 1.5 mg as directed 1 (one) time per week. 2 mL 3 5 Active thiamine (Vitamin B-1) 100 MG tabletIndication s:Alcohol abuse TAKE 1 TABLET BY MOUTH EVERY MORNING 90 tablet 3 5 Active folic acid (Folvite) 1 MG tabletIndication s:Alcohol abuse TAKE 1 TABLET BY MOUTH EVERY MORNING 90 tablet 3 5 Active metFORMIN (Glucophage) 1000 MG tabletIndication s:Type 2 diabetes mellitus with other specified complication, unspecified whether termite exterminator insulin use ([facility]) TAKE 1 TABLET BY MOUTH TWICE DAILY IN THE MORNING AND IN THE EVENING WITH FOOD 180 tablet 3 5 Active D3 Super Strength 50 MCG (1999 UT) capsuleIndicatio ns:Vitamin D deficiency TAKE 1 CAPSULE BY MOUTH EVERY MORNING 90 capsule 5 Active fenofibrate (Triglide) 160 MG tabletIndication s:Hypertriglycer idemia TAKE 1 TABLET BY MOUTH EVERY EVENING 90 tablet 3 5 Active Descovy 200-25 MG tabletIndication s:Encounter for HIV pre-exposure prophylaxis TAKE 1 TABLET BY MOUTH ONCE DAILY 30 tablet 2 5 Active Salicylic Acid 40 % padsIndications: Plantar wart Apply 1 Pad topically if needed at bedtime (plantar wart). 10 each 1 5 Active glucose blood (FREESTYLE LITE) test stripIndications :Type 2 diabetes mellitus with hyperglycemia, with long-term current use of insulin ([facility]) TEST BLOOD SUGAR 2 OR 3 TIMES DAILY 100 strip 11 5 Active TRUEplus Lancets 33G miscIndications: Type 2 diabetes mellitus with hyperglycemia, with long-term current use of insulin ([facility]) TEST BLOOD SUGAR 4 TO 6 TIMES A DAY 100 each 11 5 Active gabapentin (Neurontin) 100 MG capsule TAKE 1 CAPSULE BY MOUTH AT BEDTIME 30 capsule 5 Active Active Problems Problem Noted Date Diagnosed Date Bloody diarrhea 05/25/2025 Mild nonproliferative diabet ic retinopathy of both eyes without macular edema associated with type 2 diabetes mellitus 01/13/2025 Precordial pain 09/01/2023 Assessment & Plan (12/20/2023 7:33 PM EDT): Pt has multiple risk factors for IL, EKG without ST-T segment changes and NSR 08/2023 Will check echo for structural abnormalities Assessment & Plan (09/01/2023 10:37 AM EST): Pt has multiple risk factors for IL, EKG without ST-T segment changes, however if [...] Naltrexone 50mg daily Recommend AUD services at [facility] Assessment & Plan (04/10/2023 9:36 AM EDT): Hospitalized with withdrawal in 12/2022 Has been on Naltrexone intermittently for AUD Would like ongoing support as he tried to cut back Referral to AUD, DR Huffman made Ulcer of esophagus 02/04/2023 Erosive gastritis 02/04/2023 Dysphagia 02/04/2023 Leg pain, left 08/24/2018 Onychomycosis 03/01/2018 Asthma 02/20/2012 Depressive disorder 02/20/2012 Essential hypertension 02/20/2012 Assessment & Plan (06/13/2024 12:19 PM EDT): Continue to monitor at home BP is low here, he has his Bps checked at [facility], to please notify us of lows [...] dose statin (Atorvastatin 80mg nightly), fenofibrate 160mg, Rodeo 3 1gm BID Consider adding ezetimibe if next cholesterol panel still shows TG >200 Type 2 diabetes mellitus 02/20/2012 Assessment & Plan (01/16/2025 9:06 AM EDT): Current A1c: 12.2 DM2 medications should be as follows: Trulicity 1.5mg weekly Lantus 20units nightly Metformin 1000mg BID Followup in 2 weeks to discuss further titration of Lantus or Trulicity Microalbumin: Lab Results Component Value Date MICROALBUR <5.0 01/04/2025 Foot Exam: Complete at follow up Eye Exam: Completed Lipid panel: 12/2022 ASCVD: > 10% Statin: Yes-- CK shows that he can tolerate Atorvastatin without elevation in CK ASA: Yes JEFFREY/ARB: Yes Encouraged regular aerobic exercise for improved glycemic control Encouraged daily foot checks Encouraged lean protein snacks and to avoid foods high in sugar and simple carbohydrates Treatment Goals: A1c goal: <7% FBG goal: <130 2 hour post prandial goal: <180 Assessment & Plan (06/13/2024 12:19 PM EDT): [...] help with the insulin injection at night. Resolved Problems Problem Noted Date Diagnosed Date Resolved Date Esophagitis, erosive 04/12/2025 025 Esophagitis 01/12/2023 04/17/2025 Assessment & Plan (01/12/2023 9:44 PM EDT): [...] alcohol abuse problem and currently taking Naltrexone Encounters Date Type Department Care Team Description 05/25/2025 11:00 AM EDT Office Visit [facility] [address] [place] [phone] Patsy Massey FNP Cough, unspecified type (Primary Dx); Bloody diarrhea 05/25/2025 Travel 05/24/2025 Telephone [facility] [address] [place] [address] Carlene Lucas MD Nurse Triage 04/18/2025 Telephone [facility] [address] [place] [address] Celia Tiwari MA 04/13/2025 Refill [facility] [address] [place] [address] Carlene Lucas MD Type 2 diabetes mellitus with hyperglycemia, with long-term current use of insulin (CMS/HCC) 04/13/2025 Refill [facility] [address] [place] [address] Glenys Wynn MD 04/12/2025 3:00 PM EDT Office Visit [facility] [address] [place] [address] Carlene Lucas MD Type 2 diabetes mellitus with hyperglycemia, with long-term current use of insulin ([facility]) (Primary Dx); Alcohol use disorder; Essential hypertension; Mild nonproliferative diabetic retinopathy of both eyes without macular edema associated with type 2 diabetes mellitus (CMS/HCC); Onychomycosis; Depressive disorder; Plantar wart 04/12/2025 Travel 04/11/2025 Telephone [facility] [address] [place] [address] Carlene Lucas MD chart prep 04/09/2025 Refill [facility] [address] [place] [address] Carlene Lucas MD Encounter for HIV pre-exposure prophylaxis 04/04/2025 Patient Outreach [facility] [address] [place] [address] Carlene Lucas MD Pre-visit Planning ([facility] screening completed on 01/13/2025) 03/17/2025 Refill [facility] [address] [place], [place] [phone] Carlene Lucas MD 03/02/2025 9:00 AM EDT Office Visit [facility] [address] [place] [id number] Presbyopia (Primary Dx) from Last 3 Months Immunizations Immunization Administration Dates Next Due Hep A, Adult [...] Mass Index 24.27 05/25/2025 10:59 AM EDT Plan of Treatment Upcoming Encounters Date Type Department Care Team (Late st Contact Info) Description 08/14/2025 10:00 AM EST Office Visit [facility] [address] [place], [place] [phone] Cedrick, Jyothi, OD [address] [place] [address] Health Maintenance Due Date Last Done Comments CT Colonography 1964 FIT DNA/Cologuard 1964 FIT 1964 FOBT 1965 Sigmoidoscopy 1965 Hepatitis B Vaccines (2 of 3 - 19+ 3-dose series) 06/27/2011 05/30/2011 Dental Prophylaxis 10/11/2011 04/09/2011 Dental X-Ray: Bitewings 07/04/2015 07/03/2014, 07/03 Dental Oral Exam 03/29/2018 09/28/2017, , 07/03/2014, Additional history exists Dental X-Ray: Full Mouth 09/29/2020 018, 03/08/2015, 07/03/2014, Additional history exists RSV Patients and Patients Aged 60 years or older (1 - Risk 60-74 years 1-dose series) 2024 COVID-19 Vaccine ( season) 2025 10/16/2022, 01/29/2022, 12/27/2020, Additional history exists Influenza Vaccine (#1) 2025 , 07/09/2020, 07/07/2019, Additional history exists Eye Exam 05/30/2025 05/30/2024, 05/2024, 05/30/2024, Additional history exists Diabetes: Hemoglobin A1C 07/13/2025 025, 01/13/2025, 12/18/2023, Additional history exists Colonoscopy 09/09/2025 09/11/2020 Colorectal Cancer Screening 09/09/2025 Diabetes: Urine Protein Screening 01/04/2026 01/04/2025, 01/12/2023, 02/03/2022, Additional history exists Lipid Panel 01/04/2026 01/04/2025, 12/21, 02/03/2022 Disability Screening 01/13/2026 01/13/2025 SDOH Screening 01/13/2026 01/13/2025 Alcohol/Substance Use Screening 01/16/2026 01/16/2025 DTaP/Tdap/Td Vaccines (2 - Td or Tdap) 03/25/2026 03/25/2016, 12/29/2005, 09/07/1995 Depression Screening 04/12/2026 04/12/2025, 04/12/20 Diabetes: Foot Exam 04/12/2026 04/12/2025, 04/12/2025, 04/12/2025, Additional history exists Tobacco Screening 05/25/2026 05/25/2025 Hepatitis A Vaccines Aged Out 01/23/2021 No [...] patient's age to complete this topic Meningococcal B Vaccine Aged Out No l onger eligible based on patient's age to complete [...] 05/25/2025 11:17 AM EDT Cough, unspecified type POCT GLYCATED HEMOGLOBIN, TOTAL Routine 04/12/2025 3:07 PM EDT Type 2 diabetes mellitus with hyperglycemia, with long-term current use of insulin ([facility]) POCT GLUCOSE Routine 04/12/2025 3:07 PM EDT Type 2 diabetes mellitus with hyperglycemia, with long-term current use of insulin ([facility]) HEPATITIS C AB W/REFL TO HCV RNA, QN, PCR Routine 01/04/2025 10:34 AM EDT Screening examination for STI HIV 1/2 ANTIGEN/ANTIBODY, FOURTH GENERATION W/RFL Routine 01/04/2025 10:34 AM EDT Screening examination for STI ALBUMIN, RANDOM URINE W/CREATININE Routine 01/04/2025 10:34 AM EDT Type 2 diabetes mellitus with hyperglycemia, with long-term current use of insulin ([facility]) LIPID PANEL, STANDARD Routine 01/04/2025 10:34 AM EDT Type 2 diabetes mellitus with hyperglycemia, with long-term current use of insulin ([facility]) HM COLONOSCOPY Routine 09/11/2020 9:39 AM EST PANORAMIC RADIOGRAPHIC IMAGE Routine 09/28/2017 12:00 AM EST PERIODIC ORAL EVALUATION - ESTABLISHED PATIENT Routine 09/28/2017 12:00 AM EST INTRAORAL - COMPLETE SERIES OF RADIOGRAPHIC IMAGES Routine 07/03/2014 12:00 AM EDT PROPHYLAXIS - ADULT Routine 04/09/2011 1 2:00 AM EDT from Last 3 Months or Most Recently Relevant to Health Maintenance Results * POCT Rapid Covid-19 [facility] ID NOW (05/25/2025 11:17 AM EDT) Coronavirus Antigen PCR Negative Negative, Indeterminate, None Detected, Invalid, Specimen unsatisfactory for evaluation, Weakly Positive, 2+ QC Media Lot # [id number] Lot# Expiration Date [id number] Swab 05/25/2025 11:1 7 AM EDT Patsy MCKEONP POINT OF CARE TEST ENTER/EDIT ORDERABLES Final Result * (ABNORMAL) POCT HGB A1C (04/12/2025 3:07 PM EDT) Hemoglobin A1C 7.7(A) 4.0 - 5.7 % Blood 04/12/2025 3:07 PM EDT Carlene Lucas MD POINT OF CARE TEST ENTER/EDIT ORDERABLES Final Result * POCT Glucose (04/12/2025 3:07 PM EDT) Glucose Blood, POC 183 60 - 200 mg/dL Blood Capillary blood specimen / Unknown 04/12/2025 3:07 PM EDT Carlene Lucas MD POINT OF CARE TEST ENTER/EDIT ORDERABLES Final Result * Albumin, Random Urine W/Creatinine (01/04/2025 10:34 AM EDT) Creatinine, Urine 19.84 mg/dL [facility] Microalbumin Urine <5.0 mg/L [facility] Microalbum Creatinine Ratio Ur TNP <30 ug/mg cr [facility] Comment:Unable to calculate albumin/creatinine ratio due to lowmicroalbumin or creatinine result. Urine (Urine, Random) 01/04/2025 10:34 AM EDT 01/04/2025 11:09 AM EDT Carlene Lucas MD LAB URINE ORDERABLES Final Res ult Performing Organization Address [facility] Co de Phone Number [facility] [address] [place] [phone] * Hepatitis C Antibody with Reflex to HCV, RNA, Quantitative, Real-Time PCR (01/04/2025 10:34 AM EDT) Pathologist [facility] Hepatitis C Antibody Nonreactive Nonreactive [facility] Comment:Antibodies to HCV no t detected; does not exclude early acuteHCV infection. Blood Venous blood specimen / Unknown 01/04/2025 10:34 AM EDT 01/04/2025 11:10 AM EDT Carlene Lucas MD LAB BLOOD ORDERABLES Final Res ult Performing Organization Address City/[facility]/ZIP Co de Phone Number [facility] [address] [place] [phone] * HIV-1/2 Antigen and Antibodies, Fourth Generation, with Reflexes (01/04/2025 10:34 AM EDT) HIV AB/AG Nonreactive Nonreactive [facility] Comment:HIV-1 p24 Ag and/or HIV-1/HIV-2 Ab not detected.A test result that is nonreactive does not exclude thepossibility of exposure to or infection with HIV-1 and/orHIV-2. Nonreactive results in this assay for individualswith prior exposure to HIV-1 and/or HIV-2 may be due toantigen and antibody levels that are below the limit ofdetection of this assay.The [employer] HIV Ag/Ab Combo assay result andsupplemental assay results should be interpreted inconjunction with the patient's clinical presentation,history and other laboratory results. If the results areinconsistent with clinical evidence, additional testing issuggested to confirm the result. Blood Venous blood specimen / Unknown 01/04/2025 10:34 AM EDT 01/04/2025 11:10 AM EDT us Carlene Lucas MD LAB BLOOD ORDERABLES Final Res ult [facility] [address] [place] [address] [phone] * (ABNORMAL) Lipid Panel, Standard (01/04/2025 10:34 AM EDT) Triglycerides 326(H) <150 mg/dL [facility] Comment:Desirable Triglyceri de: less than 150 mg/dLBorderline High Triglyceride 150-199 mg/dLHigh Triglyceride: 200-499 mg/dLVery High Triglyceride: greater than or equal to 5OO mg/dL Cholesterol 167 <200 mg/dL [facility] Comment:Desirable Cholestero l: less than 200 mg/dLBorderline High Cholesterol: 200-239 mg/dLHigh Cholesterol: greater than 239 mg/dL LDL Cholesterol Calculated 68 <100 mg/dL [facility] Comment:Desirable LDL: less than 100 mg/dLNear Optimal/Above Optimal LDL: 110- 129 mg/dLBorderline High LDL: 130-159 mg/dLHigh LDL: 160-189 mg/dLVery High LDL: greater than or equal to 190 mg/dL HDL Cholesterol 34(L) >40 mg/dL [facility] Comment:Desirable HDL: great er than 40 mg/dL Note: This HDL assay may give artificially low results in patients with liver disease. Blood Venous blood specimen / Unknown 01/04/2025 10:34 AM EDT 01/04/2025 11:10 AM EDT us Carlene Lucas MD LAB BLOOD ORDERABLES Final Res ult [facility] [address] [place] [phone] [phone] * Hm Colonoscopy (09/11/2020 9:39 AM EST) us Historical Provider HEALTH MAINTENANCE Final Result from Last 3 Months or Most Recently Relevant to Health Maintenance Insurance [facility] C3 DENTAL-[employer] [facility] MEDICAID STAND ADULT Care Teams Mechanical Tech Relationship Specialty Start Date End Date Carlene Lucas MD [address] [place] [phone] PCP - General Family Medicine 10/14/22 Gee Gallardo Manager ArchitectureAcademic Adviser 02/24/24 Gee Gallardo Charge AuthorizerAcademic Adviser 10/06/24
--- OUTSIDE RECORDS SUMMARY | 2025-05-25 13:37 | XMS_ITS | Encounter Summary ---
Author Organization [employer] Address [address] [facility] [address] [place] [address] Care Team Providers Care Assurance Senior Manager Name Role Phone Carlene Lucas MD Primary Care Provider [phone] Reason for Visit * Reason Comments Med Refill Encounter Details Date Type Department Care Team ([facility] st Contact Info) Description 10/21/2023 Refill [facility] [address] [place] [address] Marley Obregon MD [address] [place] [address] Social History Tobacco Use Types Packs/Day Years [...] Description 08/14/2025 10:00 AM EST Office Visit [facility] [address] [place], [place] [phone] Cedrick, Megan, OD [address] [place] [address] documented as of this encounter Visit Diagnoses Not on filedocumented in this encounter Additional Health Concerns Assessment Noted Time PHQ-9 Depression Total Score: 8 08/31/20 23 1:46 PM EST documented as of this encounter Care Teams Assurance Senior Manager Relationship Specialty Start Date End Date Carlene Lucas MD [address] [place] [address] PCP - General Family Medicine 10/14/22 Gee Gallardo Powder Blender And PourerPlastics Sheet Finishing Press Operator 02/24/24 Gee Gallardo Material ChaserPlastics Sheet Finishing Press Operator 10/06/24 documented as of this encounter
--- OUTSIDE RECORDS SUMMARY | 2025-05-25 13:37 | XMS_ITS | Encounter Summary ---
Author Organization [employer] Address [address] [facility] [address] [place] [address] Care Team Providers Care Cyber Security Name Role Phone Carlene Lucas MD Primary Care Provider [phone] Encounter Details Date Type Department Care Team (Latest Contact Info) Description 05/25/2025 Travel Social History Tobacco Use Types Packs/Day [...] Description 08/14/2025 10:00 AM EST Office Visit [facility] [address] [place] [address] Cedrick, Jyothi, OD [address] [place] [address] documented as of this encounter Visit Diagnoses Not on filedocumented in this encounter Additional Health Concerns Assessment Noted Time PHQ-9 Depression Total Score: 0 04/12/20 3:06 PM EDT documented as of this encounter Care Teams Cyber Security Relationship Specialty Start Date End Date Carlene Lucas MD [address] [place] [address] PCP - General Family Medicine 10/14/22 Gee Gallardo Physician Credentialing SpecialistClay Pigeon Setter 02/24/24 Gee Gallardo Continuous Improvement SpecialistClay Pigeon Setter 10/06/24 documented as of this encounter
--- OUTSIDE RECORDS SUMMARY | 2025-05-25 13:37 | XMS_ITS | Encounter Summary ---
Author Organization [employer] Address [address] [facility] [address] [place] [address] Care Team Providers Care Engine Cowling Installer Name Role Phone Carlene Lucas MD Primary Care Provider [phone] Reason for Visit * Reason Onset Date Comments Lab Orders 01/24/2025 Encounter Details Date Type Department Care Team ([facility] st Contact Info) Description 01/24/2025 Telephone [facility] [address] [place] [address] Carlene Lucas MD [address] [place] [address] Lab Orders Social History Tobacco Use Types [...] encounter Miscellaneous Notes * Telephone Encounter - Elisabeth Castro - 01/24/2025 2:47 PM EDT Tc from [facility] with [facility] requesting Tb test order so pt can be admitted to program. documented in this encounter Plan of Treatment Upcoming Encounters Date Type Department Care Team (Late st Contact Info) Description 08/14/2025 10:00 AM EST Office Visit [facility] [address] [place], [place] [phone] Cedrick, Jyothi, OD [address] [place] [address] documented as of this encounter Visit Diagnoses Not on filedocumented in this encounter Additional Health Concerns Assessment Noted Time PHQ-9 Depression Total Score: 4 01/14/20 3:38 PM EDT documented as of this encounter Care Teams Engine Cowling Installer Relationship Specialty Start Date End Date Carlene Lucas MD [address] [place] [address] PCP - General Family Medicine 10/14/22 Gee Gallardo Sock LinerIntern Retail 02/24/24 Gee Gallardo Functional DirectorIntern Retail 10/06/24 documented as of this encounter
--- OUTSIDE RECORDS SUMMARY | 2025-05-25 13:37 | XMS_ITS | Encounter Summary ---
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 I informed him the the forms nurse called [facility], and was told that the most hours that they offer are 7 hours a week. I asked if he would like to be referred to a different agency, such [place] [facility] [place] [facility], but he stated that he would call back tomorrow and disconnected the call. 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 I informed him the the forms nurse called [facility], and was told that the most hoursthat they offer are 7 hours a week. I asked if he would like to be referred to a different agency, [place] [facility] [place] [facility], but he stated that he would call back tomorrow and disconnected the call. documented in this encounter Plan of Treatment Upcoming Encounters Date Type Department Care Team (Late st Contact Info) Description 08/14/2025 10:00 AM EST Office Visit [facility] OPT[facility] [address] [place] [address] Jyothi Philip, OD [address] [place] [address] documented as of this encounter Visit Diagnoses Not on filedocumented in this encounter Additional Health Concerns Assessment Noted Time PHQ-9 Depression Total Score: 8 08/31/20 23 1:46 PM EST documented as of this encounter Care Teams Rn Sexual Assault Relationship Specialty Start Date End Date Carlene Lucas MD [address] [place] [address] PCP - General Family Medicine 10/14/22 Gee Gallardo High Speed OperatorDental Laboratory Technology Teacher 02/24/24 Gee Gallardo Bus And Sys Integration Senior ManagerDental Laboratory Technology Teacher 10/06/24 documented as of this encounter
--- OUTSIDE RECORDS SUMMARY | 2025-05-25 13:37 | XMS_ITS | Encounter Summary ---
Author Organization [employer] Address [address] [facility] [address] [place] [address] Care Team Providers Care Zoo Keeper Name Role Phone Carlene Lucas MD Primary Care Provider [phone] Reason for Visit * Reason Onset Date Comments Nurse Triage 05/24/2025 Encounter Details Date Type Department Care Team ([facility] st Contact Info) Description 05/24/2025 Telephone [facility] [address] [place] [address] Carlene Lucas MD [address] [place] [address] Nurse Triage Social History Tobacco Use Types [...] encounter Miscellaneous Notes * Telephone Encounter - Celia Dominguez RN - 05/24/2025 12:39 PM EDT Incoming call from Nell ZAMORA with [facility]. Reports pt having Small amount of BRB mixed with stool.Onset of watery diarrhea x 4 days. No recent abx. Pt having R and L UQ pain. No vomiting or fever. No recent travel reported. [facility] staff will bring patient to visit. Reviewed home care advise, ER precautions and reasons to call back. Protocol Used: Diarrhea (Adult) Protocol-Based Disposition: See in Office or Video Visit Today Override (Final) Disposition: See in Office or Video Visit Today or Tomorrow Override Reason: Transportation not available Override Notes: [facility] will bring patient to visit Video visit offer not recorded Positive Triage Question: * Blood in the stool (Exception: Only on toilet paper. Reason: Diarrhea can cause rectal irritationwith blood on wiping.) * All higher-acuity triage questions were negative Care Advice Discussed: * Reassurance and Education - Diarrhea * Fluid Therapy During Mild to Moderate Diarrhea * Reasons To Call Back - Signs of dehydration occur (such as no urine over 12 hours, very dry mouth, lightheaded, etc.) - Moderate diarrhea lasts more than 2 days - Diarrhea lasts over 7 days - You become worse * Telephone Encounter - Celia Dominguez RN - 05/24/2025 12:05 PM EDT Call returned to Nell ZAMORA with [facility]. No answer, LVM ot reutrn call. Call to Daniel Angulo to further triage below at [phone], no answer, LVM to return call to [facility] triageline PRN. * Telephone Encounter - Scott Troy - 05/24/2025 10:52 AM EDT Symptom: Diarrhea Outcome: Talk to a nurse or provider within 15 minutes Reason: Blood in the diarrhea The caller accepted this outcome. Duration 3 days documented in this encounter Plan of Treatment Upcoming Encounters Date Type Department Care Team (Late st Contact Info) Description 08/14/2025 10:00 AM EST Office Visit [facility] OPTOMETRY [address] [place] [address] Cedrick, Megan, OD [address] [place] [address] documented as of this encounter Visit Diagnoses Not on filedocumented in this encounter Additional Health Concerns Assessment Noted Time PHQ-9 Depression Total Score: 0 04/12/20 3:06 PM EDT documented as of this encounter Care Teams Zoo Keeper Relationship Specialty Start Date End Date Carlene Lucas MD [address] [place] [address] PCP - General Family Medicine 10/14/22 Gee Gallardo Plastic Surgery TechnicianStreet Inspector 02/24/24 Gee Gallardo Inset CutterStreet Inspector 10/06/24 documented as of this encounter
[2025-05-25 13:39] LABS: Hematocrit 38.2 % (42.0-52.0); Hemoglobin 13.5 g/dl (14.0-18.0); Imm Gran Pct Auto 0.4 % (0.0-0.4); Mean Corpuscular HGB Conc 35.3 g/dl (31.0-36.0); Mean Corpuscular Hemoglobin 33.3 pg (27.0-33.0); Mean Corpuscular Volume 94.3 fL (80.0-98.0); Platelet Count 294 X10*3/uL (160-400); Red Blood Count 4.05 X10*6/uL (4.60-5.80); White Blood Count 5.3 X10*3/uL (4.8-10.8)
[2025-05-25 13:40] LABS: Imm Gran Abs Auto 0.02 X10*3/uL (0.00-0.03); Lymphocytes Absolute Auto 2.2 X10*3/uL (1.2-4.9); NRBC Abs Auto 0.000 X10*3/uL (0.0-0.012); NRBC Pct Auto 0.0 /100WBC (0.0-0.2)
== END 2025-05-25 12:02 | disposition home or self-care (01) ==
LOC: HO.HHCL 12:01
PROVIDERS: PCP General Practice; Visit Provider Nurse Practitioner Family
DX: R19.7 Diarrhea, unspecified (principal)
CPT/HCPCS: 36415; 85025; 85652; 86140

== ENCOUNTER 2025-06-29 07:52 | Outpatient (REF) | payer MEDICAID, SELFPAY ==
[2025-06-29 08:04] LABS: MANUAL DIFF FLAG NO
[2025-06-29 08:33] LABS: Hematocrit 31.3 % (42.0-52.0); Hemoglobin 10.8 g/dl (14.0-18.0); Imm Gran Abs Auto 0.02 X10*3/uL (0.00-0.03); Imm Gran Pct Auto 0.4 % (0.0-0.4); Lymphocytes Absolute Auto 2.2 X10*3/uL (1.2-4.9); Mean Corpuscular HGB Conc 34.5 g/dl (31.0-36.0); Mean Corpuscular Hemoglobin 32.9 pg (27.0-33.0); Mean Corpuscular Volume 95.4 fL (80.0-98.0); NRBC Abs Auto 0.000 X10*3/uL (0.0-0.012); NRBC Pct Auto 0.0 /100WBC (0.0-0.2); Platelet Count 261 X10*3/uL (160-400); Red Blood Count 3.28 X10*6/uL (4.60-5.80); White Blood Count 5.2 X10*3/uL (4.8-10.8)
[2025-06-29 09:07] LABS: Alanine Aminotransferase 29 U/L (0-40); Albumin Level 4.0 g/dL (3.5-5.0); Alkaline Phosphatase 97 U/L (39-117); Anion Gap 11 (12-20); Aspartate Amino Transferase 34 U/L (5-37); Blood Urea Nitrogen 17 mg/dL (9-16); Calcium 9.2 mg/dL (8.4-10.2); Carbon Dioxide 26 mmol/L (22-29); Chloride 106 mmol/L (96-108); Cholesterol 146 mg/dL (<200); Estimated Glomerular Filt Rate > 60; HDL Cholesterol 28 mg/dL (>40); Potassium 4.3 mmol/L (3.3-5.1); Sodium 139 mmol/L (135-145); Total Protein 6.8 g/dL (6.5-8.0); Triglycerides 369 mg/dL (<150)
[2025-06-29 09:26] LABS: Thyroid Stimulating Hormone 2.01 uIU/mL (0.32-4.0)
[2025-07-03 00:19] LABS: TS Negative Control Passed; TS Panel A 1; TS Panel B 0; TS Positive Control Passed; TSpotTB Negative (Negative)
== END 2025-06-29 07:53 | disposition home or self-care (01) ==
LOC: HO.LAB 07:52
PROVIDERS: Absent Provider Dietitian, Registered; PCP General Practice; Visit Provider General Practice
DX: F43.10 Post-traumatic stress disorder, unspecified (principal); F33.3 Major depressive disorder, recurrent, severe with psychotic symptoms; Z11.1 Encounter for screening for respiratory tuberculosis; Z13.29 Encounter for screening for other suspected endocrine disorder; Z13.1 Encounter for screening for diabetes mellitus; Z13.6 Encounter for screening for cardiovascular disorders
CPT/HCPCS: 36415; 80053; 80061; 83036; 84443; 85025; 86481

== ENCOUNTER 2025-08-21 10:16 | Emergency (ER) | payer MEDICAID, SELFPAY ==
--- NOTE | ~2025-08-21 | XR_ITS ---
EXAMINATION: XR FINGER, RIGHT CLINICAL INFORMATION: laceration, ?open fracture COMPARISON: None available. TECHNIQUE: PA hand and oblique and lateral views of the right second digit right hand. FINDINGS: There is amputation of the soft tissues involving the distal radial and dorsal end of the second digit of the right hand. There is also amputation of the ulnar side of the tuft of the second phalanx. No fracture line is apparent. There is mild to moderate narrowing of DIP joints in the digits of the hand, most advanced at the second digit. There are also marginal osteophytes. Mild to moderate atherosclerotic calcifications are present in the vasculature of the hand and wrist. XR/XR finger RT min 2V IMPRESSION: There is amputation of the soft tissues involving the tip of the second digit of the right hand as well as a small portion of the tuft of the distal phalanx on the radial side. No fracture line traverses the remaining bone. Osteoarthritis. Atherosclerotic disease. Electronically signed by: Logan Kee MD 08/21/2025 02:59 PM HOMERO
[2025-08-21 10:21] VITALS: BP 131/74; BP 138/78; PULSE 100; PULSE 104; RESP 16; TEMP 36.9; O2SAT 95; BMI 24.3
--- NOTE | 2025-08-21 11:53 | ED.WOUNDLAC ---
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 Patient reports that while he was getting out of the van he accidentally slammed his right 2nd digit into a door and instead of opening the door to take his finger out, he pulled the tip of his finger off. Does endorse alcohol use prior to this incident. This unsure when his last tetanus shot was. No other complaints or concerns at this time. Onset (ago): day(s) Patient tetanus UTD: No Context: accidental Associated symptoms: pain Treatments prior to arrival: bandage Related Data Home Medications ?Medication ?Instructions ?Recorded ?Confirmed aspirin 81 mg tablet,delayed 81 mg PO DAILY 06/28/20 11/24/22 release (Adult Low Dose Aspirin) folic acid 1 mg tablet 1 mg PO DAILY 06/28/20 11/24/22 gabapentin 100 mg capsule 100 mg PO BEDTIME 06/28/20 11/24/22 atorvastatin 80 mg tablet 80 mg PO BEDTIME 11/05/22 11/24/22 dulaglutide 1.5 mg/0.5 mL 1.5 mg subcut WE 11/05/22 11/24/22 subcutaneous pen injector (Trulicity) fenofibrate 160 mg tablet 160 mg PO BEDTIME 11/05/22 11/24/22 hydralazine 50 mg tablet 50 mg PO BID 11/05/22 11/24/22 icosapent ethyl 1 gram capsule 2 g PO BIDWMEAL 11/05/22 11/24/22 (Vascepa) lisinopril 30 mg tablet 30 mg PO DAILY 11/05/22 11/24/22 metformin 1,000 mg tablet 1,000 mg PO BIDWM 11/05/22 11/24/22 multivitamin-ferrous 1 tab PO DAILY 11/05/22 11/24/22 fumarate-folic acid 18 mg-400 mcg tablet (Certavite-Antioxidant) naltrexone 50 mg tablet 50 mg PO DAILY 11/05/22 11/24/22 prazosin 1 mg capsule 1 mg PO DAILY PRN BIZTALK CONSULTANT 11/05/22 11/24/22 AWAKENINGS prazosin 1 mg capsule 3 mg PO BEDTIME 11/05/22 11/24/22 sertraline 50 mg tablet 50 mg PO DAILY 11/05/22 11/24/22 thiamine HCl (vitamin B1) 100 mg 100 mg PO DAILY 11/05/22 11/24/22 tablet Previous Rx's ?Medication ?Instructions ?Recorded cholecalciferol (vitamin D3) 50 50 mcg PO DAILY 30 days #30 caps 01/15/21 mcg (2,000 unit) capsule pen needle, diabetic 32 gauge x #150 ea 08/29/21 (BD Bela 2nd Gen Pen Needle) compr.stocking,knee,long,small #12 ea 12/01/22 (T.E.D. Knee Yxxqlp-B-Sonw [facility] [place]) metoprolol tartrate 25 mg tablet 25 mg PO BID #60 tabs 12/01/22 naltrexone 50 mg tablet 50 mg PO DAILY #30 tabs 12/01/22 omeprazole 20 mg capsule,delayed 20 mg PO BID #60 caps 12/01/22 release cephalexin 500 mg capsule 500 mg PO QID 7 days #28 caps 08/21/25 doxycycline hyclate 100 mg capsule 100 mg PO BID 7 days #14 caps 08/21/25 Allergies Allergy/AdvReac Type Severity Reaction Status Date / Time No Known Allergies Allergy Verified 08/21/25 10:28 Review of Systems Review of Systems: Yes all other systems are reviewed and are negative Constitutional: Constitutional: Reports as per [facility] Past Medical History Medical History Arthritis Asthma Bipolar 1 disorder Diabetes mellitus Diabetes type 2, uncontrolled Diabetic polyneuropathy associated with type 2 diabetes mellitus Diabetic retinopathy associated with type 2 diabetes mellitus GERD (gastroesophageal reflux disease) Hypercholesterolemia 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 Lipoma MCFP (current) use of insulin Vitamin D deficiency Surgical History Hx of colonoscopy No pertinent past surgical history Family History Family History Father Diabetes mellitus Complete amputation of bilateral legs Mother Diabetes mellitus Social History Social History Household Members: None Housing: Apartment Alcohol intake: current Alcohol intake frequency: former alcohol drinker Alcohol type: hard liquor Patient Tobacco Use Status: Never used Tobacco e-Cigarette/Vaping Use: Never Used Second Hand Smoke Exposure: No Advance Directives: No Advance Directives Information Provided: No service: No Current occupational status: disabled Physical Exam Vital Signs: Vital Signs: Last Vital Signs Temp 98.3 F 08/21/25 15:50 Pulse 81 08/21/25 15:50 Resp 16 08/21/25 15:50 BP 116/63 08/21/25 15:50 Pulse Ox 96 08/21/25 15:50 O2 Del Method Room Air 08/21/25 15:50 BMI result Body Mass Index 24.3 Extrem: Other: Right distal phalanx partial amputation noted, able to flex and extend at the DIP, strong radial pulse. Medical Decision Making Medical Decision Making [facility] Narrative: This is a 59-year-old [place]isian-speaking male, with a past medical history of diabetes, bipolar, GERD, hypertension, and hyper cholesterolemia, who presents emergency department due to a partial finger amputation after accidentally slamming his finger in a car door. On arrival, patient appears to be under no acute distress. He is speaking full sentences. Patient with obvious open fracture noted to the right distal phalanx. Will obtain labs, x-ray, and provide wound care 4:33 PM 08/21/2025 (Nelly Dixon PA-C): Reached out to orthopedic [facility]. Recommending cleansing, Xeroform, and large dressing. Recommending to not remove large dressing until patient is seen by the orthopedist outpatient. This does not work prior inpatient orthopedic care per orthopedist. I discussed this with patient. Given doxycycline and Keflex in the department. Also discharged home with antibiotics. Updated tetanus in the department. I discussed overall workup as well as care with patient, also called and spoke to his sister who is aware of this situation, and will ensure that he follows up. Given strict return precautions, patient stable for discharge. Differential Diagnosis Differential Diagnoses: The differential diagnosis associated with the presentation includes Laceration, contusion, fracture, open fracture Consult Healthcare Provider Management of the patient was discussed with: [facility] Lab Data MDM Lab Attestation statement: I reviewed the patient's lab results. No leukocytosis, normocytic anemia with an H&H of 13.4/39.1, chemistry revealing slight hyperglycemia at 186, otherwise no electrolyte derangement. 08/21/25 13:28 08/21/25 13:28 Labs: Lab Results 08/21/25 08/21/25 Range/Units 13:28 13:55 WBC 5.0 (4.8-10.8) X10*3/uL RBC 3.94 L D (4.60-5.80) X10*6/uL Hgb 13.4 L D (14.0-18.0) g/dl Hct 39.1 L D (42.0-52.0) % MCV 99.2 H (80.0-98.0) fL MCH 34.0 H (27.0-33.0) pg MCHC 34.3 (31.0-36.0) g/dl RDW 12.4 (11.0-16.0) % Plt Count 265 (160-400) X10*3/uL MPV 9.5 (9.4-12.4) fL Immature Gran % (Auto) 0.2 (0.0-0.4) % Neut % (Auto) 40.2 L (45-73) % Lymph % (Auto) 46.0 H (20-40) % [place] % (Auto) 9.0 (2-11) % Eos % (Auto) 3.4 (0-4) % Baso % (Auto) 1.2 (0-2) % Lymph # (Auto) 2.3 (1.2-4.9) X10*3/uL [place] # (Auto) 0.5 (0.1-1.2) X10*3/uL Eos # (Auto) 0.2 (0.0-0.4) X10*3/uL Baso # (Auto) 0.1 (0.0-0.2) X10*3/uL Abs Immat Gran (auto) 0.01 (0.00-0.03) X10*3/uL Absolute Neuts (auto) 2.0 (2.0-8.3) x10*3/uL Absolute Nucleated RBC 0.000 (0.0-0.012) X10*3/uL Nucleated RBC % (auto) 0.0 (0.0-0.2) /100WBC Sodium 136 (135-145) mmol/L Potassium 3.7 (3.3-5.1) mmol/L Chloride 101 (96-108) mmol/L Carbon Dioxide 21 L (22-29) mmol/L Anion Gap 18 (12-20) BUN 12 (9-16) mg/dL Creatinine 0.77 (0.5-1.4) mg/dL Estim Creat Clear Calc 92.0 Estimated GFR > 60 POC Glucose 186 H (60-115) mg/dL Random Glucose 244 H (60-115) mg/dL Calcium 9.7 (8.4-10.2) mg/dL Total Bilirubin 0.4 (0.0-1.0) mg/dL Direct Bilirubin 0.1 (0.0-0.5) mg/dL AST 27 (5-37) U/L ALT 20 (0-40) U/L Alkaline Phosphatase 95 (39-117) U/L Total Protein 7.4 (6.5-8.0) g/dL Albumin 4.5 (3.5-5.0) g/dL Blood Type A Positive Antibody Screen NEGATIVE Radiology Impression Discussion of test interpretation with radiology: I have reviewed the radiologist's reading. Radiologist Impression: FINDINGS: There is amputation of the soft tissues involving the distal radial and dorsal end of the second digit of the right hand. There is also amputation of the ulnar side of the tuft of the second phalanx. No fracture line is apparent. There is mild to moderate narrowing of DIP joints in the digits of the hand, most advanced at the second digit. There are also marginal osteophytes. Mild to moderate atherosclerotic calcifications are present in the vasculature of the hand and wrist. XR/XR finger RT min 2V IMPRESSION: There is amputation of the soft tissues involving the tip of the second digit of the right hand as well as a small portion of the tuft of the distal phalanx on the radial side. No fracture line traverses the remaining bone. Osteoarthritis. Atherosclerotic disease. Electronically signed by: Logan Kee MD 08/21/2025 02:59 PM [facility] Dictated By: Logan Kee MD Procedures Procedure Narrative Procedure Narrative: Wound was cleansed using Betadine and saline, Xeroform applied to wound, dressed with nonstick, as well as 4 x 4 gauze as well as gauze wrapping. Patient tolerated procedure well without any complications or concerns. Discharge Plan Discharge Clinical Impression: Open fracture of tuft of distal phalanx of finger Patient Disposition: Home, Self-Care Instructions: Finger Fracture (ED) Additional Instructions: You were seen in the emergency department and you partially amputated your right 2nd finger. This wound was cleansed, and a large dressing was placed on your finger. Do not remove this dressing until you follow-up with the loan servicing specialist. You need to call the orthopedist, call to make an appointment. We are also putting you on antibiotics, take both antibiotics as prescribed. Finish the entire courses. If any new or worsening symptoms occur including but not limited to increased pain, high fevers, please return immediately. Prescriptions: New doxycycline hyclate 100 mg capsule 100 mg PO BID 7 Days Qty: 14 0RF cephalexin 500 mg capsule 500 mg PO QID 7 Days Qty: 28 0RF No Action (DME) pen needle, diabetic [BD Bela 2nd Gen Pen Needle] 32 gauge x 5/32 needle See Rx Instructions .MEDSUPPLY Qty: 150 0RF Rx Instructions: 5 times daily NO FURTHER REFILLS WITHOUT APPOINTMENT! prazosin 1 mg capsule 3 mg PO BEDTIME sertraline 50 mg tablet 50 mg PO DAILY atorvastatin 80 mg tablet 80 mg PO BEDTIME fenofibrate 160 mg tablet 160 mg PO BEDTIME naltrexone 50 mg tablet 50 mg PO DAILY lisinopril 30 mg tablet 30 mg PO DAILY thiamine HCl (vitamin B1) 100 mg tablet 100 mg PO DAILY hydralazine 50 mg tablet 50 mg PO BID Certavite-Antioxidant 18-400 mg-mcg tablet 1 tab PO DAILY icosapent ethyl [Vascepa] 1 gram capsule 2 g PO BIDWMEAL Trulicity 1.5 mg/0.5 mL pen injector 1.5 mg SUBCUT WE prazosin 1 mg capsule 1 mg PO DAILY PRN (Reason: BIZTALK CONSULTANT AWAKENINGS) metformin 1,000 mg tablet 1,000 mg PO BIDWM metoprolol tartrate 25 mg Tablet 25 mg PO BID Qty: 60 0RF Protocol: Hold for SBP/HR < HOLD for SBP < : 90 HOLD for HR < : 60 omeprazole 20 mg capsule,delayed release(DR/EC) 20 mg PO BID Qty: 60 0RF naltrexone 50 mg tablet 50 mg PO DAILY Qty: 30 1RF (SONIA) T.E.D. Knee Rxzggm-T-Opob [facility] [place] See Rx Instructions .ROUTE .MEDSUPPLY Qty: 12 0RF Rx Instructions: As directed cholecalciferol (vitamin D3) 50 mcg (2,000 unit) capsule 50 mcg PO DAILY 30 Days Qty: 30 6RF aspirin [Adult Low Dose Aspirin] 81 mg tablet,delayed release (DR/EC) 81 mg PO DAILY gabapentin 100 mg capsule 100 mg PO BEDTIME folic acid 1 mg tablet 1 mg PO DAILY Referrals: [facility] Orthopedic Surgeons [Provider Group] Print Language: Tunisian
--- OUTSIDE RECORDS SUMMARY | 2025-08-21 13:31 | XMS_ITS | Clinical Summary ---
Author Organization [employer] Address [address] [facility] [address] [place] [address] Care Team Providers Care Pvc Monitor Name Role Phone Carlene Lucas MD Primary Care Provider [phone] Allergies Active Allergy Reactions Criticality Noted Date Comments Statins 05/22/2010 Other reaction(s): ELEVATED CPK Medications prazosin (Minipress) 1 MG capsule TAKE 3 CAPSULES BY MOUTH AT BEDTIME Y MARIO 1 CAPSULA CADA MANANA CUANDO SEA NECESARIO 08/18/20 22 Active sertraline (Zoloft) 50 MG tablet Take 50 mg by mouth in the morning. 12/30/19 23 Active Alcohol Swabs (SM Alcohol Prep) 70 % pads USE FOUR TIMES DAILY DIRECTED 100 each 11 03/30/20 23 Active Multiple Vitamins-Minera ls (CertaVite/Anti oxidants) tablet TAKE 1 TABLET BY MOUTH EVERY MORNING 90 tablet 3 07/27/20 23 Active hydrocortisone 2.5 % cream Apply topically 2 times daily. 30 g 1 12/08/19 24 Active Aspirin Low Dose 81 MG EC tablet Take 1 tablet (81 mg) by mouth at bedtime. 90 tablet 3 05/17/20 24 Active sertraline (Zoloft) 100 MG tablet Take 100 mg by mouth in the morning. 04/12/20 24 Active hydrALAZINE (Apresoline) 50 MG tablet TAKE 1 TABLET BY MOUTH TWICE DAILY IN THE MORNING AND IN THE EVENING (HIGH BLOOD PRESSURE) 180 tablet 3 08/05/20 24 Active risperiDONE (RisperDAL) 0.5 MG tablet TAKE 1 TABLET BY MOUTH TWICE DAILY IN THE MORNING AND IN THE EVENING 09/02/20 24 Active lisinopril 30 MG tablet TAKE 1 TABLET BY MOUTH EVERY MORNING 90 tablet 3 10/27/19 25 Active metoprolol tartrate (Lopressor) 25 MG tablet TAKE 1 TABLET BY MOUTH TWICE DAILY IN THE MORNING AND IN THE EVENING (for high blood pressure) 180 tablet 3 12/27/19 25 Active insulin pen needle (Pentips Generic Pen [place]) 32G x 4 mm misc USE DIRECTED WITH INSULIN 100 each 3 01/14/20 Active ARIPiprazole (Abilify) 20 MG tablet Take 20 mg by mouth at bedtime. 10/27/19 25 Active clonazePAM (KlonoPIN) 0.5 MG tablet TAKE 1 TABLET BY MOUTH EVERY DAY NEEDED FOR SEVERE ANXIETY 11/30/19 Active risperiDONE (RisperDAL) 1 MG tablet TAKE 1 TABLET BY MOUTH TWICE DAILY FOR ANXIETY AND VOICES 11/30/19 Active Blood Glucose Monitoring Suppl (Minimus Spine Lite) w/Device kitIndications: Type 2 diabetes mellitus with other specified complication, with long-term current use of insulin (HCC) Apply 1 each topically Once per day. 1 kit 01/14/20 Active insulin glargine (Lantus SoloStar) 100 UNIT/ML pen Inject 20 Units under the skin at bedtime. 15 mL 3 01/14/20 25 Active loratadine (Claritin) 10 MG tablet Take 1 tablet (10 mg) by mouth Once per day. 90 tablet 3 01/14/20 25 026 Active Dulaglutide (Trulicity) 1.5 MG/0.5ML solution auto-injectorIn dications:Type 2 diabetes mellitus with other specified complication, with long-term current use of insulin (HCC) Inject 1.5 mg as directed 1 (one) time per week. 2 mL 3 5 4:45 PM EST 01/17/20 25 Active thiamine (Vitamin B-1) 100 MG tabletIndicatio ns:Alcohol abuse TAKE 1 TABLET BY MOUTH EVERY MORNING 90 tablet 3 5 4:45 PM EST 01/23/20 25 Active folic acid (Folvite) 1 MG tabletIndicatio ns:Alcohol abuse TAKE 1 TABLET BY MOUTH EVERY MORNING 90 tablet 3 5 4:45 PM EST 01/23/20 25 Active metFORMIN (Glucophage) 1000 MG tabletIndicatio ns:Type 2 diabetes mellitus with other specified complication, unspecified whether senior living insulin use (HCC) TAKE 1 TABLET BY MOUTH TWICE DAILY IN THE MORNING AND IN THE EVENING WITH FOOD 180 tablet 3 5 4:45 PM EST 01/23/20 25 Active fenofibrate (Triglide) 160 MG tabletIndicatio ns:Hypertriglyc eridemia TAKE 1 TABLET BY MOUTH EVERY EVENING 90 tablet 3 02/16/20 25 Active Salicylic Acid 40 % padsIndications :Plantar wart Apply 1 Pad topically if needed at bedtime (plantar wart). 10 each 1 04/12/20 25 Active glucose blood (FREESTYLE LITE) test stripIndication s:Type 2 diabetes mellitus with hyperglycemia, with long-term current use of insulin ([facility]) TEST BLOOD SUGAR 2 OR 3 TIMES DAILY 100 strip 04/13/20 25 Active TRUEplus Lancets 33G miscIndications :Type 2 diabetes mellitus with hyperglycemia, with long-term current use of insulin ([facility]) TEST BLOOD SUGAR 4 TO 6 TIMES A DAY 100 each 11 04/13/20 25 Active naltrexone (Depade) 50 MG tabletIndicatio ns:Severe alcohol dependence (CMS/HCC) ([facility]) TAKE 1 TABLET BY MOUTH EVERY MORNING WITH FOOD 30 tablet 11 5 4:45 PM EST 06/16/20 25 Active omeprazole (PriLOSEC) [address] capsuleIndicati ons:Gastroesoph ageal reflux disease without esophagitis TAKE 1 CAPSULE BY MOUTH TWICE DAILY IN THE MORNING AND IN THE EVENING (for stomach acid) 180 capsule 3 06/27/20 25 Active gabapentin (Neurontin) 100 MG capsule TAKE 1 CAPSULE BY MOUTH AT BEDTIME 90 capsule 3 5 4:45 PM EST 06/27/20 25 Active atorvastatin (Lipitor) 80 MG tablet TAKE 1 TABLET BY MOUTH AT BEDTIME ((for cholesterol) ) 90 tablet 3 07/05/20 25 Active D3 Super Strength 50 MCG (1999 UT) capsuleIndicati ons:Vitamin D deficiency TAKE 1 CAPSULE BY MOUTH EVERY MORNING 90 capsule 3 5 4:45 PM EST 07/26/20 25 Active omega-3 acid ethyl esters (Lovaza) 1 g capsule TAKE 2 CAPSULES BY MOUTH TWICE DAILY IN THE MORNING AND EVENING 360 capsule 3 5 4:45 PM EST 07/26/20 25 Active Descovy 200-25 MG tabletIndicatio ns:Encounter for HIV pre-exposure prophylaxis TAKE 1 TABLET BY MOUTH EVERY DAY 30 tablet 2 08/21/20 25 Active omega-3 acid ethyl esters (Lovaza) 1 g capsule TAKE 2 CAPSULES BY MOUTH TWICE DAILY IN THE MORNING AND EVENING 360 capsule 3 07/08/20 24 025 Discontinued(Re order (will not trigger notification to Pharmacy)) D3 Super Strength 50 MCG (1999) capsuleIndicati ons:Vitamin D deficiency TAKE 1 CAPSULE BY MOUTH EVERY MORNING 90 capsule 01/24/20 25 025 Discontinued Descovy 200-25 MG tabletIndicatio ns:Encounter for HIV pre-exposure prophylaxis TAKE 1 TABLET BY MOUTH ONCE DAILY 30 tablet 2 5 4:45 PM EST 04/10/20 25 025 Discontinued Active Problems Problem Noted Date Diagnosed Date Bloody diarrhea 05/25/2025 Mild nonproliferative diabet ic retinopathy of both eyes without macular edema associated with type 2 diabetes mellitus 01/13/2025 Precordial pain 09/01/2023 Assessment & Plan (12/20/2023 7:33 PM EDT): Pt has multiple risk factors for WA, EKG without ST-T segment changes and NSR 08/2023 Will check echo for structural abnormalities Assessment & Plan (09/01/2023 10:37 AM EST): Pt has multiple risk factors for WA, EKG without ST-T segment changes, however if [...] Naltrexone 50mg daily Recommend AUD services at [facility] Assessment & Plan (04/10/2023 9:36 AM [...] here, he has his Bps checked at [facility], to please notify us of lows there [...] dose statin (Atorvastatin 80mg nightly), fenofibrate 160mg, [place] 3 1gm BID Consider adding ezetimibe if [...] Encounters Date Type Department Care Team Description 08/21/2025 Telephone [facility] [address] [place] [phone] Carlene Lucas MD ER Follow-up 08/18/2025 Refill [facility] [address] [place] [phone] Carlene Lucas MD Encounter for HIV pre-exposure prophylaxis 08/09/2025 Telephone [facility] [address] [place] [address] Carlene Lucas MD Medication Question 08/04/2025 Telephone [facility] [address] [place] [phone] Carlene Lucas MD telephone call; Care Coordination 07/26/2025 Refill [facility] [address] [place] [address] [place], [facility] Vitamin D deficiency 07/26/2025 Refill [facility] [address] [place] [address] Carlene Lucas MD 07/05/2025 Refill [facility] [address] [place] [address] Carlene Lucas MD 06/27/2025 Refill [facility] [address] [place] [address] Carlene Lucas MD Gastroesophageal reflux disease without esophagitis 06/23/2025 Telephone [facility] [address], [place] [phone] Carlene Lucas MD Care Coordination (ICP Care Plan) 06/16/2025 2:00 PM EDT Office Visit [facility] [address] [place] [phone] Greg Huffman MD Severe alcohol dependence (CMS/HCC) (Primary Dx) 06/16/2025 Travel 06/06/2025 Telephone [facility] [address], [place] [phone] Carlene Lucas MD Medication Question 06/02/2025 Patient Outreach [facility] [address], [place] [phone] Jovi Stephen Recovery Supports 05/25/2025 11:00 AM EDT Office Visit [facility] [address], [place] [phone] Patsy Massey FNP Bloody diarrhea (Primary Dx) 05/25/2025 Travel 05/24/[address] [phone] Carlene Lucas MD Nurse Triage from Last 3 Months Immunizations Immunization Administration [...] is your housing situation today? I have wendykevin marinelli 01/13/[address] you [...] Sign Reading Time Taken Comments Blood Pressure 99/65 06/16/2025 1:45 PM EDT Pulse 97 06/16/2025 1:45 PM EDT Temperature 36.7 C (98 F) 06/16/2025 1:45 PM EDT Respiratory Rate 18 06/16/2025 1:45 PM EDT Oxygen Saturation 96% 05/25/2025 10:59 AM EDT Inhaled Oxygen Concentration - - Weight 68.2 kg (150 lb 6 oz) 05/25/2025 10:59 AM EDT Height 167.6 cm (5' 6 ) 05/25/2025 10:59 AM EDT Body Mass Index 24.27 05/25/2025 10:59 AM EDT Plan of Treatment Upcoming Encounters Date Type Department Care Team (Late st Contact Info) Description 08/25/2025 3:45 PM EST Office Visit [facility] [address] [place] [address] Carlene Lucas MD [address] [place], [place] [phone] Health Maintenance Due Date Last Done Comments CT Colonography 1964 FIT DNA/Cologuard 1964 FIT 1964 FOBT 1965 Sigmoidoscopy 1965 Hepatitis B Vaccines (2 of 3 - 19+ 3-dose series) 06/27/2011 05/30/2011 Dental Prophylaxis 10/11/2011 04/09/2011 RSV Patients and Patients Aged 60 years or older (1 - Risk 50-74 years 1-dose series) 2014 Dental X-Ray: Bitewings 07/04/2015 07/03/2014, 07/03 Dental Oral Exam 03/29/2018 09/28/2017, , 07/03/2014, Additional history exists COVID-19 Vaccine ( season) 2025 10/16/2022, 01/29/2022, 12/27/2020, Additional history exists Influenza Vaccine (#1) 2025 , 07/09/2020, 07/07/2019, Additional history exists Eye Exam 05/30/2025 05/30/2024, 09/0 05/2024, 05/30/2024, Additional history exists Colonoscopy 09/09/2025 09/11/2020 Colorectal Cancer Screening 09/09/2025 Diabetes: Hemoglobin A1C 09/29/2025 025, 04/12/2025, 01/13/2025, Additional history exists Diabetes: Urine Protein Screening 01/04/2026 01/04/2025, 01/12/2023, 02/03/2022, Additional history exists Disability Screening 01/13/2026 01/13/2025 SDOH Screening 01/13/2026 01/13/2025 Alcohol/Substance Use Screening 01/16/2026 01/16/2025 DTaP/Tdap/Td Vaccines (2 - Td or Tdap) 03/25/2026 03/25/2016, 12/29/2005, 09/07/1995 Depression Screening 04/12/2026 04/12/2025, 04/12/20 Diabetes: Foot Exam 04/12/2026 04/12/2025, 04/12/2025, 04/12/2025, Additional history exists Tobacco Screening 05/25/2026 05/25/2025 Lipid Panel 06/29/2026 06/29/2025, 12/20, 01/12/2023, Additional history exists Dental X-Ray: Full Mouth 04/02/2027 024, 09/28/2017, 03/08/2015, Additional history exists Hepatitis A Vaccines Aged Out 01/23/2021 No [...] on patient's age to complete this topic Goals Goal Patient Goal Type Associated Problems Recent Progress Patient-Stated? Author Help patients manage their type 2 diabetes Care Plan Help patients manage their type 2 diabetes No VangEmily white Weekly blood pressure task Care Plan Weekly blood pressure task No Emily Vang Help patients manage their type 2 diabetes Care Plan Help patients manage their type 2 diabetes No Taj Emily Patient has diabetic eye disease Care Plan Patient has diabetic eye disease No Emily Vang Help patients manage their type 2 diabetes Care Plan Help patients manage their type 2 diabetes No Emily Vang Patient has chronic kidney disease Care Plan Patient has chronic kidney disease No Emily Vang Weekly blood pressure task Care Plan Weekly blood pressure task No Emily Vang Weekly blood pressure task Care Plan Weekly blood pressure task No Taj Emily Patient has diabetic eye disease Care Plan Patient has diabetic eye disease No Taj, Emily Patient has diabetic eye disease Care Plan Patient has diabetic eye disease No Taj Emily Patient has chronic kidney disease Care Plan Patient has chronic kidney disease No Taj, Emily Patient has chronic kidney disease Care Plan Patient has chronic kidney disease No Emily Vang Weekly blood pressure task Care Plan Weekly blood pressure task No Casey Crawford Weekly blood pressure task Care Plan Weekly blood pressure task No Casey Crafword Weekly blood pressure task Care Plan Weekly blood pressure task No Casey Crawford Patient has diabetic eye disease Care Plan Patient has diabetic eye disease No Casey Crawford Patient has diabetic eye disease Care Plan Patient has diabetic eye disease No Casey Crawford Patient has diabetic eye disease Care Plan Patient has diabetic eye disease No Casey Crawford Patient has chronic kidney disease Care Plan Patient has chronic kidney disease No Casey Crawford Patient has chronic kidney disease Care Plan Patient has chronic kidney disease No Casey Crawford Patient has chronic kidney disease Care Plan Patient has chronic kidney disease No Casey Crawford Weekly blood pressure task Care Plan Weekly blood pressure task No Daniel Crawford Weekly blood pressure task Care Plan Weekly blood pressure task No Daniel Crawford Weekly blood pressure task Care Plan Weekly blood pressure task No Daniel Crawford Patient has diabetic eye disease Care Plan Patient has diabetic eye disease No Daniel Crawford Patient has diabetic eye disease Care Plan Patient has diabetic eye disease No Daniel Crawford Patient has diabetic eye disease Care Plan Patient has diabetic eye disease No Daniel Crawford Patient has chronic kidney disease Care Plan Patient has chronic kidney disease No Daniel Crawford Patient has chronic kidney disease Care Plan Patient has chronic kidney disease No Daniel Crawford Patient has chronic kidney disease Care Plan Patient has chronic kidney disease No Daniel Crawford Procedures Procedure Name Priority Date/Time Associated Diagnosis Comments TSH Routine 06/29/2025 8:03 AM EDT LIPID PANEL, STANDARD Routine 06/29/2025 8:03 AM EDT COMPREHENSIVE METABOLIC PANEL Routine 06/29/2025 8:03 AM EDT HEMOGLOBIN A1C Routine 06/29/2025 8:03 AM EDT CBC WITH AUTO DIFFERENTIAL Routine 06/29/2025 8:03 AM EDT T-SPOT(R).TB Routine 06/29/2025 8:03 AM EDT Screening examination for pulmonary tuberculosis POCT ALCOHOL BREATH TEST Routine 06/16/2025 1:49 PM EDT Severe alcohol dependence (CMS/HCC) POCT SERGE-14 URINE DRUG SCREEN Routine 06/16/2025 1:48 PM EDT Severe alcohol dependence (CMS/HCC) SED RATE BY MODIFIED WESTERGREN Routine 05/25/2025 12:05 PM EDT Bloody diarrhea C-REACTIVE PROTEIN Routine 05/25/2025 12 :05 PM EDT Bloody diarrhea CBC WITH AUTO DIFFERENTIAL Routine 05/25/2025 12:05 PM EDT Bloody diarrhea POCT COVID-19 AG BOURGEOIS ID NOW Routine 05/25/2025 11:17 AM EDT Bloody diarrhea HEPATITIS C AB W/REFL TO HCV RNA, [...] Recently Relevant to Health Maintenance Results * T-SPOT??.TB (06/29/2025 8:03 AM EDT) T Spot TB Negative Negative [facility] Comment:A negative test resu lt does not exclude the possibilityof exposure to or infection with Mycobacteriumtuberculosis (M. tuberculosis). Patients with recentexposure to TB infected individuals exhibiting anegative T-SPOT.TB result should be considered forretesting within 6 weeks or if other relevant clinicalsymptoms indicate. Results from T-SPOT.TB testing mustbe used in conjunction with each individual'sepidemiological history, current medical status,and results of other diagnostic evaluations.The T-SPOT.TB test is qualitative and results arereported as positive, borderline, or negative, giventhat the test controls perform as expected. In linewith the Centers for Disease Control and Prevention's2010 recommendation to report quantitative measurementsalongside the qualitative result, the laboratoryprovides spot counts for informational purposes only.The T-SPOT.TB test should not be interpreted as aquantitative test. TS PANEL A 1 [facility] TS PANEL B 0 [facility] Negative Control Passed [facility] Positive Control Passed [facility] Comment:For additional infor wilberto, please refer tohttp://education.[employer]/faq/QPF657(This link is being provided for informational/educational purposes only.)THIS TEST WAS PERFORMED AT:[employer] [id number] [place] [id number] FAJARDO MD,PHD 06/29/2025 8:03 AM EDT 06/29/2025 8:03 AM EDT us Carlene Lucas MD LAB BLOOD ORDERABLES Final Res ult [facility] [address] [place] [phone] * (ABNORMAL) CBC auto differential (06/29/2025 8:03 AM EDT) Only the most recent of2 resultswithin the time period is included. White Blood Count 5.2 4.8 - 10.8 X10*3/uL [facility] Red Blood Count 3.28(L) 4.60 - 5.80 X10*6/uL [facility] Hemoglobin 10.8(L) 14.0 - 18.0 g/dl [facility] Hematocrit 31.3(L) 42.0 - 52.0 % [facility] Mean Corpuscular Volume 95.4 80.0 - 98.0 fL [facility] Mean Corpuscular Hemoglobin 32.9 27.0 - 33.0 pg [facility] Mean Corpuscular HGB Conc 34.5 31.0 - 36.0 g/dl [facility] Red Cell Distribution Width 12.0 11.0 - 16.0 % [facility] Platelet Count 261 160 - 400 X10*3/uL [facility] Mean Platelet Volume 9.9 9.4 - 12.4 fL [facility] Neutrophils Percent Auto 45.2 45 - 73 % [facility] Imm Gran Pct Auto 0.4 0.0 - 0.4 % [facility] Lymphocytes Percent Auto 43.1(H) 20 - 40 % [facility] Monocytes Percent Auto 7.2 2 - 11 % [facility] Eosinophils Percent Auto 3.3 0 - 4 % [facility] Basophils Percent Auto 0.8 0 - 2 % [facility] NRBC Pct Auto 0.0 0.0 - 0.2 /100WBC [facility] Neutrophils Absolute Auto 2.3 2.0 - 8.3 x10*3/uL [facility] Imm Gran Abs Auto 0.02 0.00 - 0.03 X10*3/uL [facility] Lymphocytes Absolute Auto 2.2 1.2 - 4.9 X10*3/uL [facility] Monocytes Absolute Auto 0.4 0.1 - 1.2 X10*3/uL [facility] Eosinophils Absolute Auto 0.2 0.0 - 0.4 X10*3/uL [facility] Basophils Absolute Auto 0.0 0.0 - 0.2 X10*3/uL [facility] NRBC Abs Auto 0.000 0.0 - 0.012 X10*3/uL [facility] 06/29/2025 8:03 AM EDT 06/29/2025 8:03 AM EDT us Generic External Data Provider LAB BLOOD ORDERAB LES Final Result [facility] [address] [place] [address] [phone] * TSH (06/29/2025 8:03 AM EDT) Thyroid Stimulating Hormone 2.01 0.32 - 4.0 uIU/mL [facility] Comment:TSH 3rd Generation ( [facility]) 06/29/2025 8:03 AM EDT 06/29/2025 8:03 AM EDT us Generic External Data Provider LAB BLOOD ORDERAB LES Final Result Performing Organization Address [facility]/ZIP Co de Phone Number [facility] [address] [place] [phone] * (ABNORMAL) Hemoglobin A1c (06/29/2025 8:03 AM EDT) Hemoglobin A1c 8.2(H) <6.0 % [facility] Comment:Hemoglobin A1C Refer ence Range Adults: 4.8 - 6.0 % Non diabetic: < 6.0 % Goal: < 7.0 %Additional Action Suggested: > 8.0 %Note: Hemoglobin A1c results are invalid for patients with abnormal amounts of HbF. Blood transfusions may impact the HbA1c concentration in the patient sample. Estimated Average Glucose 189 mg/dL [facility] Comment:eAG = Estimated ave rage glucose which is %A1C expressed asaverage glucose, using the formula of the [id number]-[id number] Glucose study (ADAG), Diabetes Care, Vol.31,#8,Apr. 2007 06/29/2025 8:03 AM EDT 06/29/2025 8:03 AM EDT Generic External Data Provider LAB BLOOD ORDERAB LES Final Result Performing Organization Address [facility] Co de Phone Number [facility] [address] [place] [phone] * (ABNORMAL) Lipid Panel, Standard (06/29/2025 8:03 AM EDT) Triglycerides 369(H) <150 mg/dL [facility] Comment:Desirable Triglyceri de: less than 150 mg/dLBorderline High Triglyceride 150-199 mg/dLHigh Triglyceride: 200-499 mg/dLVery High Triglyceride: greater than or equal to 5OO mg/dL Cholesterol 146 <200 mg/dL [facility] Comment:Desirable Cholestero l: less than 200 mg/dLBorderline High Cholesterol: 200-239 mg/dLHigh Cholesterol: greater than 239 mg/dL LDL Cholesterol Calculated 45 <100 mg/dL [facility] Comment:Desirable LDL: less than 100 mg/dLNear Optimal/Above Optimal LDL: 110- 129 mg/dLBorderline High LDL: 130-159 mg/dLHigh LDL: 160-189 mg/dLVery High LDL: greater than or equal to 190 mg/dL HDL Cholesterol 28(L) >40 mg/dL [facility] Comment:Desirable HDL: great er than 40 mg/dL Note: This HDL assay may give artificially low results in patients with liver disease. 06/29/2025 8:03 AM EDT 06/29/2025 8:03 AM EDT us Generic External Data Provider LAB BLOOD ORDERAB LES Final Result [facility] [address] [place] [phone] [phone] * (ABNORMAL) Comprehensive Metabolic Panel (06/29/2025 8:03 AM EDT) Sodium 139 135 - 145 mmol/L [facility] Potassium 4.3 3.3 - 5.1 mmol/L [facility] Chloride 106 96 - 108 mmol/L [facility] Carbon Dioxide 26 22 - 29 mmol/L [facility] Anion Gap 11(L) 12 - 20 [facility] Urea Nitrogen (BUN) 17(H) 9 - 16 mg/dL [facility] Creatinine, Serum 0.77 0.5 - 1.4 mg/dL [facility] Estimated Glomerular Filt Rate >60 [facility] Comment:Chronic Kidney Disea se: Estimated GFR < 60 mL/min/1.54w5Ycnrnq Kidney Disease: Estimated GFR < 15 mL/min/1.73m2 Glucose 241(H) 60 - 115 mg/dL [facility] Calcium 9.2 8.4 - 10.2 mg/dL [facility] Bilirubin, Total 0.3 0.0 - 1.0 mg/dL [facility] Aspartate Amino Transferase 34 5 - 37 U/L [facility] Alanine Aminotransferase 29 0 - 40 U/L [facility] Total Protein 6.8 6.5 - 8.0 g/dL [facility] Albumin Level 4.0 3.5 - 5.0 g/dL [facility] Alkaline Phosphatase 97 39 - 117 U/L [facility] 06/29/2025 8:03 AM EDT 06/29/2025 8:03 AM EDT Generic External Data Provider LAB BLOOD ORDERAB LES Final Result [facility] [address] [place] [phone] * POCT alcohol breath test manually resulted (06/16/2025 1:49 PM EDT) Breath Alcohol 0.00 Breath 06/16/2025 1:49 PM EDT Greg Huffman MD POINT OF CARE TEST ENTER/EDIT OR DERABLES Final Result * POCT SERGE-14 Urine Drug Screen (06/16/2025 1:48 PM EDT) THC Negative Negative Cocaine Screen, Urine Negative Negative Opiate Screen, Urine Negative Negative Methamphetamine Screen Urine Negative Negative Amphetamine Screen, Urine Negative Negative Benzodiazepines Screen, Urine Negative Negative Barbiturate Screen, Urine Negative Negative Methadone Screen, Urine Negative Negative Buprenophine Screen, Urine Negative Negative TCA, Urine Negative Negative MDMA Urine Negative Negative ng/mL Oxycodone Screen, Urine Negative Negative Phencyclidine (PCP), Urine Negative Negative Fentanyl, Urine Negative Negative Urine Urine specimen obtained by clean catch procedure / Unknown 06/16/2025 1:48 PM EDT Greg Huffman MD POINT OF CARE TEST ENTER/EDIT OR DERABLES Final Result * Sed Rate by Modified Rocio (05/25/2025 12:05 PM EDT) Erythrocyte Sedimentation Rate 13 0 - 15 MM/HR [facility] Comment:Patients with polycy themia and many hemoglobin abnormalitiesmay have depressed sed rates whereas patients with anemiamay have elevated sed rates. Blood Venous blood specimen / Unknown 05/25/2025 12:05 PM EDT 05/25/2025 1:28 PM EDT [facility] B[facility] ORDERABLES Final Res ult Performing Organization Address [facility]/ZIP Co de Phone Number [facility] [address] [place] [phone] * C-reactive Protein (05/25/2025 12:05 PM EDT) Pathologist [facility] C Reactive Protein 0.32 < or = 0.50 mg/dL [facility] Blood Venous blood specimen / Unknown 05/25/2025 12:05 PM EDT 05/25/2025 1:24 PM EDT [facility] BLOOD ORDERABLES Final Res ult Performing Organization Address [facility] Co de Phone Number [facility] [address] [place] [phone] * POCT Rapid Covid-19 [facility] ID NOW (05/25/2025 11:17 AM EDT) Coronavirus Antigen PCR Negative Negative, Indeterminate, None Detected, Invalid, Specimen unsatisfactory for evaluation, Weakly Positive, 2+ QC Media Lot # [id number] Lot# Expiration Date Swab 05/25/2025 11:1 7 AM EDT [facility] POINT OF CARE TEST ENTER/EDIT ORDERABLES Final Result * Albumin, Random Urine W/Creatinine (01/04/2025 10:34 AM EDT) Creatinine, Urine 19.84 mg/dL [facility] Microalbumin Urine <5.0 mg/L [facility] Microalbum Creatinine Ratio Ur TNP <30 ug/mg cr [facility] Comment:Unable to calculate albumin/creatinine ratio due to lowmicroalbumin or creatinine result. Urine (Urine, Random) 01/04/2025 10:34 AM EDT 01/04/2025 11:09 AM EDT Carlene Lucas MD LAB URINE ORDERABLES Final Res ult Performing Organization Address [facility] Co de Phone Number [facility] [address] [place] [phone] * Hepatitis C Antibody with Reflex to HCV, RNA, Quantitative, Real-Time PCR (01/04/2025 10:34 AM EDT) Pathologist [facility] Hepatitis C Antibody Nonreactive Nonreactive [facility] Comment:Antibodies to HCV no t detected; does not exclude early acuteHCV infection. Blood Venous blood specimen / Unknown 01/04/2025 10:34 AM EDT 01/04/2025 11:10 AM EDT Carlene Lucas MD LAB BLOOD ORDERABLES Final Res ult Performing Organization Address [facility] de Phone Number [facility] [address] [place] [phone] * HIV-1/2 Antigen and Antibodies, Fourth Generation, with Reflexes (01/04/2025 10:34 AM EDT) HIV AB/AG Nonreactive Nonreactive [facility] Comment:HIV-1 p24 Ag and/or HIV-1/HIV-2 Ab not detected.A test result that is nonreactive does not exclude thepossibility of exposure to or infection with HIV-1 and/orHIV-2. Nonreactive results in this assay for individualswith prior exposure to HIV-1 and/or HIV-2 may be due toantigen and antibody levels that are below the limit ofdetection of this assay.The [employer] HIV Ag/Ab Combo assay result andsupplemental assay results should be interpreted inconjunction with the patient's clinical presentation,history and other laboratory results. If the results areinconsistent with clinical evidence, additional testing issuggested to confirm the result. Blood Venous blood specimen / Unknown 01/04/2025 10:34 AM EDT 01/04/2025 11:10 AM EDT us Carlene Lucas MD LAB BLOOD ORDERABLES Final Res ult [facility] [address] [place] [address] [phone] * Hm Colonoscopy (09/11/2020 9:39 AM EST) us Historical Provider HEALTH MAINTENANCE Final Result from Last 3 Months or Most Recently Relevant to Health Maintenance Additional Health Concerns Active Problems Noted Date Diagnosed Date Help patients manage their type 2 diabetes 08/04 Weekly blood pressure task 08/04/2025 Help patients manage their type 2 diabetes 08/04 Patient has diabetic eye disease 08/04/2025 Help patients manage their type 2 diabetes 08/04 Patient has chronic kidney disease 08/04/2025 Weekly blood pressure task 08/04/2025 Weekly blood pressure task 08/04/2025 Patient has diabetic eye disease 08/04/2025 Patient has diabetic eye disease 08/04/2025 Patient has chronic kidney disease 08/04/2025 Patient has chronic kidney disease 08/04/2025 Weekly blood pressure task 08/09/2025 Weekly blood pressure task 08/09/2025 Weekly blood pressure task 08/09/2025 Patient has diabetic eye disease 08/09/2025 Patient has diabetic eye disease 08/09/2025 Patient has diabetic eye disease 08/09/2025 Patient has chronic kidney disease 08/09/2025 Patient has chronic kidney disease 08/09/2025 Patient has chronic kidney disease 08/09/2025 Weekly blood pressure task 08/21/2025 Weekly blood pressure task 08/21/2025 Weekly blood pressure task 08/21/2025 Patient has diabetic eye disease 08/21/2025 Patient has diabetic eye disease 08/21/2025 Patient has diabetic eye disease 08/21/2025 Patient has chronic kidney disease 08/21/2025 Patient has chronic kidney disease 08/21/2025 Patient has chronic kidney disease 08/21/2025 Insurance [facility] STAND ADULT Care Teams Pvc Monitor Relationship Specialty Start Date End Date Carlene Lucas MD [address] [place] [phone] PCP - General Family Medicine 10/14/22 Gee Gallardo Armored Machine OperatorPromotions Team Leader 02/24/24 Gee Gallardo Production Tool EngineerPromotions Team Leader 10/06/24
--- OUTSIDE RECORDS SUMMARY | 2025-08-21 13:31 | XMS_ITS | Encounter Summary ---
Author Organization [employer] Address [address] [facility] 7t [place] [address] Care Team Providers Care Sash Repairer Name Role Phone Carlene Lucas MD Primary Care Provider [phone] Reason for Visit * Reason Comments Med Refill Encounter Details Date Type Department Care Team ([facility] st Contact Info) Description 08/18/2025 Refill [facility] MEDICINE [address] [place] [address] Carlene Lucas MD [address] [place] [address] Encounter for HIV pre-exposure prophylaxis Social History Tobacco Use Types Packs/Day Years [...] Description 08/25/2025 3:45 PM EST Office Visit [facility] [address] [place] [address] Carlene Lucas MD [address] [place] [address] documented as of this encounter Goals Goal Patient Goal Type Associated Problems Recent Progress Patient-Stated? Author Help patients manage their type 2 diabetes Care Plan Help patients manage their type 2 diabetes No Emily Vang Weekly blood pressure task Care Plan Weekly blood pressure task No Emily Vang Help patients manage their type 2 diabetes Care Plan Help patients manage their type 2 diabetes No Emily Vang Patient has diabetic eye disease Care Plan Patient has diabetic eye disease No Taj Emily Help patients manage their type 2 diabetes Care Plan Help patients manage their type 2 diabetes No Emily Vang Patient has chronic kidney disease Care Plan Patient has chronic kidney disease No Emily Vang Weekly blood pressure task Care Plan Weekly blood pressure task No Taj Emily Weekly blood pressure task Care Plan Weekly blood pressure task No Emily Vang Patient has diabetic eye disease Care Plan Patient has diabetic eye disease No Emily Vang Patient has diabetic eye disease Care Plan Patient has diabetic eye disease No Taj Emily Patient has chronic kidney disease Care Plan Patient has chronic kidney disease No Taj Emily Patient has chronic kidney disease Care Plan Patient has chronic kidney disease No Vang Emily Weekly blood pressure task Care Plan Weekly blood pressure task No Casey Crawford Weekly blood pressure task Care Plan Weekly blood pressure task No TyCasey Weekly blood pressure task Care Plan Weekly blood pressure task No Ty Casey Patient has diabetic eye disease Care Plan Patient has diabetic eye disease No Ty Casey Patient has diabetic eye disease Care Plan Patient has diabetic eye disease No Ty Casey Patient has diabetic eye disease Care Plan Patient has diabetic eye disease No Ty Casey Patient has chronic kidney disease Care Plan Patient has chronic kidney disease No Ty Casey Patient has chronic kidney disease Care Plan Patient has chronic kidney disease No Ty Casey Patient has chronic kidney disease Care Plan Patient has chronic kidney disease No Casey Crawford documented as of this encounter Visit Diagnoses Diagnosis Encounter for HIV pre-exposure prophylaxis documented in this encounter Additional Health Concerns Active Problems Noted Date [...] 08/09/2025 Patient has chronic kidney disease 08/09/2025 Assessment Noted Time PHQ-9 Depression Total Score: 0 04/12/20 25 3:06 PM EDT documented as of this encounter Care Teams Sash Repairer Relationship Specialty Start Date End Date Carlene Lucas MD [address] [place] [address] PCP - General Family Medicine 10/14/22 Gee Gallardo Orientation And Mobility SpecialistHealth Workers 02/24/24 Gee Gallardo Tapping Machine Operator AutomaticHealth Workers 10/06/24 documented as of this encounter
--- OUTSIDE RECORDS SUMMARY | 2025-08-21 13:31 | XMS_ITS | Encounter Summary ---
Author Organization [employer] Address [address] [facility] 7t [place] [address] Care Team Providers Care Airline Customer Service Agent Name Role Phone Carlene Lucas MD Primary Care Provider [phone] Reason for Visit * Reason Comments Med Refill Encounter Details Date Type Department Care Team ([facility] st Contact Info) Description 04/18/2024 Refill [facility] MED[facility]INE [address] [place], [place] [phone] Carlene Lucas MD [address] [place], [place] [phone] Vitamin D deficiency Social History Tobacco Use [...] Description 08/25/2025 3:45 PM EST Office Visit [facility] MEDICINE [address] [place] [address] Carlene Lucas MD [address] [place] [address] documented as of this encounter Visit Diagnoses Diagnosis Vitamin D deficiency documented in this encounter Additional Health Concerns Assessment Noted Time PHQ-9 Depression Total Score: 8 08/31/20 23 1:46 PM EST documented as of this encounter Care Teams Airline Customer Service Agent Relationship Specialty Start Date End Date Carlene Lucas MD [address] [place] [phone] PCP - General Family Medicine 10/14/22 Gee Gallardo Bulkhead CarpenterMeat Counter Clerk 02/24/24 Gee Gallardo Wide Area Network AdministratorMeat Counter Clerk 10/06/24 documented as of this encounter
--- OUTSIDE RECORDS SUMMARY | 2025-08-21 13:31 | XMS_ITS | Encounter Summary ---
Author Organization [employer] Address [address] [facility] 7t [place] [address] Care Team Providers Care Middle School Reading Teacher Name Role Phone Carlene Lucas MD Primary Care Provider [phone] Encounter Details Date Type Department Care Team (Late st Contact Info) Description 06/22/2024 Orders Only [facility] MEDICINE [address] [place], [place] [phone] Carlene Lucas MD [address] [place] [address] Encounter for HIV pre-exposure prophylaxis (Primary Dx) [...] your housing situation today? I have wendy marnielli 07/08/[address] you li [...] Description 08/25/2025 3:45 PM EST Office Visit [facility] [address] [place] [address] Carlene Lucas MD [address] [place] [address] documented as of this encounter Visit Diagnoses Diagnosis Encounter for HIV pre-exposure prophylaxis- Primary documented in this encounter Additional Health Concerns Assessment Noted Time PHQ-9 Depression Total Score: 8 08/31/20 23 1:46 PM EST documented as of this encounter Care Teams Middle School Reading Teacher Relationship Specialty Start Date End Date Carlene Lucas MD [address] [place] [phone] PCP - General Family Medicine 10/14/22 Gee Gallardo Helpdesk AnalystLinen Aide 02/24/24 Gee Gallardo Lens And Frames Prescription ClerkLinen Aide 10/06/24 documented as of this encounter
--- OUTSIDE RECORDS SUMMARY | 2025-08-21 13:31 | XMS_ITS | Encounter Summary ---
Author Organization [employer] Address [address] [facility] 7t [place] [address] Care Team Providers Care Electronics Processing Supervisor Name Role Phone Carlene Lucas MD Primary Care Provider [phone] Reason for Visit * Reason Onset Date Comments ER Follow-up 08/21/2025 Encounter Details Date Type Department Care Team ([facility] st Contact Info) Description 08/21/2025 Telephone [facility] MEDICINE [address] [place] [address] Carlene Lucas MD [address] [place] [address] ER Follow-up Social History Tobacco Use Types [...] encounter Miscellaneous Notes * Telephone Encounter - Daniel Crawford - 08/21/2025 11:30 AM EST Patient calling to report ED visit on : Date: 08/21 Hospital: [facility] Seen for: right hand finger pointer cut off onside of the finger Symptomatic No *if yes message should go to Triage Patient advised will forward to team nurse for follow up documented in this encounter Plan of Treatment Upcoming Encounters Date Type Department Care Team (Late st Contact Info) Description 08/25/2025 3:45 PM EST Office Visit [facility] MEDICINE [address] [place] [address] Carlene Lucas MD [address] [place] [address] documented as of this encounter Goals Goal Patient Goal Type Associated Problems Recent Progress Patient-Stated? Author Help patients manage their type 2 diabetes Care Plan Help patients manage their type 2 diabetes Emily Andino Weekly blood pressure task Care Plan Weekly blood pressure task Emily Andino Help patients manage their type 2 diabetes Care Plan Help patients manage their type 2 diabetes No Taj, Emily Patient has diabetic eye disease Care Plan Patient has diabetic eye disease No Emily Vang Help patients manage their type 2 diabetes Care Plan Help patients manage their type 2 diabetes No Taj, Emily Patient has chronic kidney disease Care Plan Patient has chronic kidney disease No Emily Vang Weekly blood pressure task Care Plan Weekly blood pressure task No Taj, Emily Weekly blood pressure task Care Plan Weekly blood pressure task No Taj, Emily Patient has diabetic eye disease Care Plan Patient has diabetic eye disease No Taj, Emily Patient has diabetic eye disease Care Plan Patient has diabetic eye disease No Taj, Emily Patient has chronic [...] Patient has chronic kidney disease No Daniel Carwford documented as of this encounter Visit Diagnoses Not on filedocumented in this encounter Additional Health Concerns Active [...] 08/21/2025 Patient has chronic kidney disease 08/21/2025 Assessment Noted Time PHQ-9 Depression Total Score: 0 04/12/20 3:06 PM EDT documented as of this encounter Care Teams Electronics Processing Supervisor Relationship Specialty Start Date End Date Carlene Lucas MD [address] [place] [address] PCP - General Family Medicine 10/14/22 Gee Gallardo Analysis Or Research Safety InspectorDirector Paid Media 02/24/24 Gee Gallardo Shaper Machine HandDirector Paid Media 10/06/24 documented as of this encounter
--- OUTSIDE RECORDS SUMMARY | 2025-08-21 13:31 | XMS_ITS | Encounter Summary ---
Author Organization [employer] Address [address] [facility] 7t [place] [address] Care Team Providers Care Mushroom Spawn Maker Name Role Phone Carlene Lucas MD Primary Care Provider [phone] Reason for Visit * Reason Onset Date Comments Lab Orders 01/24/2025 Encounter Details Date Type Department Care Team ([facility] st Contact Info) Description 01/24/2025 Telephone [facility] MEDICINE [address] [place] [address] Carlene Lucas MD [address] [place] [address] Lab Orders Social History Tobacco Use Types [...] - 01/24/2025 2:47 PM EDT Tc from [facility] with [facility] requesting Tb test order so pt can be admitted to program. documented in this encounter Plan of Treatment Upcoming Encounters Date Type Department Care Team (Late st Contact Info) Description 08/25/2025 3:45 PM EST Office Visit [facility] MEDICINE [address] [place] [address] Carlene Lucas MD [address] [place] [address] documented as of this encounter Visit Diagnoses Not on filedocumented in this encounter Additional Health Concerns Assessment Noted Time PHQ-9 Depression Total Score: 4 01/14/20 3:38 PM EDT documented as of this encounter Care Teams Mushroom Spawn Maker Relationship Specialty Start Date End Date Carlene Lucas MD [address] [place] [address] PCP - General Family Medicine 10/14/22 Gee Gallardo Cryptographic ClerkExercise Scientist 02/24/24 Gee Gallardo Bilingual InstructorExercise Scientist 10/06/24 documented as of this encounter
--- OUTSIDE RECORDS SUMMARY | 2025-08-21 13:31 | XMS_ITS | Encounter Summary ---
Author Organization [employer] Address 75 [facility] 7t [place] [address] Care Team Providers Care Anesthesia Associate Name Role Phone Carlene Lucas MD Primary Care Provider [phone] Reason for Visit * Reason Onset Date Comments ER Follow-up 11/11/2022 Encounter Details Date Type Department Care Team (Late st Contact Info) Description 11/11/2022 Telephone [facility] MEDICINE [address] [place] [address] Carlene Lucas MD [address] [place] [address] ER Follow-up Social History Tobacco Use Types [...] to report ED visit on 11/06/22 at [facility]. Diagnosed with minor stroke. Patient advisedwill forward to team nurse for follow up. documented in this encounter Plan of Treatment Upcoming Encounters Date Type Department Care Team (Late st Contact Info) Description 08/25/2025 3:45 PM EST Office Visit [facility] MEDICINE [address] [place] [address] Carlene Lucas MD [address] [place] [address] documented as of this encounter Visit Diagnoses Not on filedocumented in this encounter Care Teams Anesthesia Associate Relationship Specialty Start Date End Date Carlene Lucas MD [address] [place] [phone] PCP - General Family Medicine 10/14/22 Gee Gallardo Television Engineering TeacherAcid Pump Operator 02/24/24 Gee Gallardo Drilling Field SpecialistAcid Pump Operator 10/06/24 documented as of this encounter
--- OUTSIDE RECORDS SUMMARY | 2025-08-21 13:31 | XMS_ITS | Encounter Summary ---
Author Organization [employer] Address [address] [facility] 7t [place] [address] Care Team Providers Care Scrubber Machine Tender Name Role Phone Carlene Lucas MD Primary Care Provider Encounter Details Date Type Department Care Team (Late st Contact Info) Description 02/01/2024 Orders Only [facility] MEDICINE [address] [place] [address] Provider, MD Akanksha Social History Tobacco Use [...] Description 08/25/2025 3:45 PM EST Office Visit [facility] [address] [place] [address] Carlene Lucas MD [address] [place] [address] documented as of this encounter Procedures Procedure [...] documented as of this encounter Care Teams Scrubber Machine Tender Relationship Specialty Start Date End Date Carlene Lucas MD [address] [place] [address] PCP - General Family Medicine 10/14/22 Gee Gallardo Diversified Crops SupervisorWaste Disposal Leakage Tester 02/24/24 Gee Gallardo Route Vending Machine ServicerWaste Disposal Leakage Tester 10/06/24 documented as of this encounter
--- OUTSIDE RECORDS SUMMARY | 2025-08-21 13:31 | XMS_ITS | Encounter Summary ---
Author Organization [employer] Address [address] [facility] 7t [place] [address] Care Team Providers Care Athletic Equipment Manager Name Role Phone Carlene Lucas MD Primary Care Provider [phone] Reason for Visit * Reason Comments Med Refill Encounter Details Date Type Department Care Team ([facility] st Contact Info) Description 10/21/2023 Refill [facility] MEDICINE [address] [place] [address] Marley Obregon MD [address] [place] [address] Social History Tobacco Use Types Packs/Day Years [...] Description 08/25/2025 3:45 PM EST Office Visit [facility] MED[facility]INE [address] [place] [address] Carlene Lucas MD [address] [place] [address] documented as of this encounter Visit Diagnoses Not on filedocumented in this encounter Additional Health Concerns Assessment Noted Time PHQ-9 Depression Total Score: 8 08/31/20 23 1:46 PM EST documented as of this encounter Care Teams Athletic Equipment Manager Relationship Specialty Start Date End Date Carlene Lucas MD [address] [place] [address] PCP - General Family Medicine 10/14/22 Gee Gallardo Tool TechnicianRacecourse Barrier Attendant 02/24/24 Gee Gallardo Manufacturing WorkerRacecourse Barrier Attendant 10/06/24 documented as of this encounter
--- OUTSIDE RECORDS SUMMARY | 2025-08-21 13:31 | XMS_ITS | Encounter Summary ---
Author Organization [employer] Address [address] [facility] 7t [place] [address] Care Team Providers Care Car Manager Name Role Phone Carlene Lucas MD Primary Care Provider [phone] Encounter Details Date Type Department Care Team (Late st Contact Info) Description 03/03/2024 Orders Only [facility] MEDICINE [address] [place] [address] Merle Sotelo LPN Social History Tobacco Use [...] Description 08/25/2025 3:45 PM EST Office Visit [facility] MEDICINE [address] [place] [address] Carelne Lucas MD [address] [place] [address] documented as of this encounter Visit Diagnoses Not on filedocumented in this encounter Additional Health Concerns Assessment Noted Time PHQ-9 Depression Total Score: 8 08/31/20 23 1:46 PM EST documented as of this encounter Care Teams Car Manager Relationship Specialty Start Date End Date Carlene Lucas MD [address] [place] [address] PCP - General Family Medicine 10/14/22 Gee Gallardo President Ergonomic ConsultingGunner Mate 02/24/24 Gee Gallardo Er TechGunner Mate 10/06/24 documented as of this encounter
--- OUTSIDE RECORDS SUMMARY | 2025-08-21 13:31 | XMS_ITS | Encounter Summary ---
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 I informed him the the forms nurse called [facility], and was told that the most hours that they offer are 7 hours a week. I asked if he would like to be referred to a different agency, such as [facility] or [facility], but he stated that he would call back tomorrow and disconnected the call. 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. I informed him the the forms nurse called [facility], and was told that the most hoursthat they offer are 7 hours a week. I asked if he would like to be referred to a different agency, such as [facility] or [facility], but he stated that he would call back tomorrow and disconnected the call. documented in this encounter Plan of Treatment Upcoming Encounters Date Type Department Care Team (Late st Contact Info) Description 08/25/2025 3:45 PM EST Office Visit [facility] MEDICINE [address] [place] [address] Carlene Lucas MD [address] [place] [address] documented as of this encounter Visit Diagnoses Not on filedocumented in this encounter Additional Health Concerns Assessment Noted Time PHQ-9 Depression Total Score: 8 08/31/20 23 1:46 PM EST documented as of this encounter Care Teams Railroad Firer Relationship Specialty Start Date End Date Carlene Lucas MD [address] [place] [address] PCP - General Family Medicine 10/14/22 Gee Gallardo Machine WasherSingle Resource Boss 02/24/24 Gee Gallardo Medical Record AssistantSingle Resource Boss 10/06/24 documented as of this encounter
--- OUTSIDE RECORDS SUMMARY | 2025-08-21 13:32 | XMS_ITS | Encounter Summary ---
Author Organization [employer] Address 75 [facility] 7t [place] [address] Care Team Providers Care Scrap Separator Name Role Phone Carlene Lucas MD Primary Care Provider [phone] Reason for Visit * Reason Onset Date Comments Nurse Triage 06/03/2023 Encounter Details Date Type Department Care Team (Late Contact Info) Description 06/03/2023 Telephone [facility] MEDICINE [address] [place] [address] Carlene Lucas MD [address] [place] [address] Nurse Triage Social History Tobacco Use Types [...] Description 08/25/2025 3:45 PM EST Office Visit [facility] MEDICINE [address] [place] [address] Carlene Lucas MD [address] [place], [place] [phone] documented as of this encounter Visit Diagnoses Not on filedocumented in this encounter Additional Health Concerns Assessment Noted Time PHQ-9 Depression Total Score: 4 01/13/20 23 1:46 PM EDT documented as of this encounter Care Teams Scrap Separator Relationship Specialty Start Date End Date Carlene Lucas MD [address] [place], [place] [phone] PCP - General Family Medicine 10/14/22 Gee aGllardo Info Print Press OperatorOccupational Health And Safety Adviser 02/24/24 Gee Gallardo Taxation AccountantOccupational Health And Safety Adviser 10/06/24 documented as of this encounter
--- OUTSIDE RECORDS SUMMARY | 2025-08-21 13:32 | XMS_ITS | Encounter Summary ---
Author Organization [email or web address] Address 75 [facility] 7t [place] [address] Care Team Providers Care Curriculum Counselor Name Role Phone Carlene Lucas MD Primary Care Provider [phone] Encounter Details Date Type Department Care Team (Late st Contact Info) Description 05/26/2023 Abstract [facility] MEDICINE [address] [place] [address] [phone] Carlene Lucas MD [address] [place] [address] [phone] Social History Tobacco Use Types Packs/Day Years [...] Description 08/25/2025 3:45 PM EST Office Visit [facility] MEDICINE [address] [place] [address] [phone] Carlene Lucas MD [address] [place] [address] [phone] documented as of this encounter Visit Diagnoses Not on filedocumented in this encounter Additional Health Concerns Assessment Noted Time PHQ-9 Depression Total Score: 4 01/13/20 1:46 PM EDT documented as of this encounter Care Teams Curriculum Counselor Relationship Specialty Start Date End Date Carlene Lucas MD [address] [place] [phone] PCP - General Family Medicine 10/14/22 Gee Gallardo Part MakerPhotographic Equipment Assembler 02/24/24 Gee Gallardo Director Of Business OperationsPhotographic Equipment Assembler 10/06/24 documented as of this encounter
--- OUTSIDE RECORDS SUMMARY | 2025-08-21 13:32 | XMS_ITS | Encounter Summary ---
Author Organization [employer] Address 75 [facility] 7t [place] [address] Care Team Providers Care Backup Operator Name Role Phone Carlene Lucas MD Primary Care Provider [phone] Reason for Visit * Reason Onset Date Comments Nurse Triage 05/21/2023 Encounter Details Date Type Department Care Team (Late st Contact Info) Description 05/21/2023 Telephone [facility] MEDICINE [address] [place] [address] Carlene Lucas MD [address] [place] [address] Nurse Triage Social History Tobacco Use Types [...] 05/21/2023 2:46 PM EDT Triage call with [place] [id number] Pt reports upper abdominal pain, above umbilicus, which is hard to describe . Pt reports heart burn, sour taste in mouth and some times feels like chest pain. Pt denies dizziness, light headedness, difficulty breathing. Pt is advised to come to [facility] to be seen by provider and [...] accepted this outcome Please contact pt at [phone] documented in this encounter Plan of Treatment Upcoming Encounters Date Type Department Care Team (Late st Contact Info) Description 08/25/2025 3:45 PM EST Office Visit [facility] MEDICINE [address] [place] [address] Carlene Lucas MD [address] [place] [address] documented as of this encounter Visit Diagnoses Not on filedocumented in this encounter Additional Health Concerns Assessment Noted Time PHQ-9 Depression Total Score: 4 01/13/20 23 1:46 PM EDT documented as of this encounter Care Teams Backup Operator Relationship Specialty Start Date End Date Carlene Lucas MD [address] [place] [address] PCP - General Family Medicine 10/14/22 Gee Gallardo Roof ForemanSaxophone Player 02/24/24 Gee Gallardo Ceo NaSaxophone Player 10/06/24 documented as of this encounter
[2025-08-21 13:39] LABS: MANUAL DIFF FLAG NO
[2025-08-21 13:48] LABS: Hematocrit 39.1 % (42.0-52.0); Hemoglobin 13.4 g/dl (14.0-18.0); Imm Gran Abs Auto 0.01 X10*3/uL (0.00-0.03); Imm Gran Pct Auto 0.2 % (0.0-0.4); Lymphocytes Absolute Auto 2.3 X10*3/uL (1.2-4.9); Mean Corpuscular HGB Conc 34.3 g/dl (31.0-36.0); Mean Corpuscular Hemoglobin 34.0 pg (27.0-33.0); Mean Corpuscular Volume 99.2 fL (80.0-98.0); NRBC Abs Auto 0.000 X10*3/uL (0.0-0.012); NRBC Pct Auto 0.0 /100WBC (0.0-0.2); Platelet Count 265 X10*3/uL (160-400); Red Blood Count 3.94 X10*6/uL (4.60-5.80); White Blood Count 5.0 X10*3/uL (4.8-10.8)
[2025-08-21 13:57] VITALS: BP 126/67; PULSE 86; RESP 16; TEMP 36.7; O2SAT 96
[2025-08-21 13:58] LABS: Alanine Aminotransferase 20 U/L (0-40); Albumin Level 4.5 g/dL (3.5-5.0); Alkaline Phosphatase 95 U/L (39-117); Anion Gap 18 (12-20); Aspartate Amino Transferase 27 U/L (5-37); Blood Urea Nitrogen 12 mg/dL (9-16); Calcium 9.7 mg/dL (8.4-10.2); Carbon Dioxide 21 mmol/L (22-29); Chloride 101 mmol/L (96-108); Creatinine Clr Calc Pharmacy 92.0; Estimated Glomerular Filt Rate > 60; Potassium 3.7 mmol/L (3.3-5.1); Sodium 136 mmol/L (135-145); Total Protein 7.4 g/dL (6.5-8.0)
[2025-08-21 13:58] LABS: Glucose, Whole Blood 186 mg/dL (60-115)
[2025-08-21 15:50] VITALS: BP 116/63; PULSE 81; RESP 16; TEMP 36.8; O2SAT 96
[2025-08-21] MEDS: Diphth,Pertus(ACell),Tet Adult 0.5 ML SYRINGE IM (16:41)
[2025-08-21 16:58] VITALS: BP 116/63; PULSE 81; RESP 16; TEMP 36.8; O2SAT 96
== END 2025-08-21 17:00 | disposition home or self-care (01) ==
PROVIDERS: Physician Assistant Medical; Emergency Provider Emergency Medicine Emergency Medical Services; PCP General Practice
DX: S62.630B Displaced fracture of distal phalanx of right index finger, initial encounter for open fracture (principal); Z23 Encounter for immunization; E11.42 Type 2 diabetes mellitus with diabetic polyneuropathy; I10 Essential (primary) hypertension; Z79.4 Long term (current) use of insulin; W23.0XXA Caught, crushed, jammed, or pinched between moving objects, initial encounter; Y93.9 Activity, unspecified; Y92.818 Other transport vehicle as the place of occurrence of the external cause; Y99.9 Unspecified external cause status
CPT/HCPCS: 36415; 73140; 80048; 80076; 82947; 85025; 86850; 86900; 86901; 90471; 90715; 99283; 99284

== ENCOUNTER → 2025-08-21 12:52 | Outpatient (BNV) | payer MEDICAID, SELFPAY | PROVIDERS: Emergency Provider Emergency Medicine Emergency Medical Services; PCP General Practice; Visit Provider Radiology Diagnostic Radiology | DX: S61.210A Laceration without foreign body of right index finger without damage to nail, initial encounter (principal); M19.041 Primary osteoarthritis, right hand; I25.10 Atherosclerotic heart disease of native coronary artery without angina pectoris | CPT/HCPCS: 73140 ==

== ENCOUNTER 2025-08-23 10:26 | Outpatient (AMB) | payer MEDICAID, SELFPAY ==
[2025-08-23 10:39] VITALS: BMI 19.4
--- NOTE | 2025-08-23 10:39 | MHC.OFFVIS ---
Vital Signs 08/23/25 10:39 Height 5 ft 6 in Weight 120 lb BMI 19.4 Intake Visit Reasons: FC-Open FC of tuft of distal phalanx RT IF Intake Note: Daniel 59 yr old right hand dominant male who is disable, presents today for his right index finger injury. Patient states on 08/21/25 he accidentally closed his car door on his finger causing it to be partially amputated. Patient was seen at [facility] ED same day where he was cleaned up and his finger was wrapped. Today patient states he pain is a 4/10. DRessing removed in office. Denies numbness or tingling. Patient was given ABX and was advise to finish medication. Hx of HBP, DM, high cholesterol. Assistant Office Manager Name: Therese Allergies No Known Allergies Allergy (Verified 08/23/25 10:42) HPI HPI FC-Open FC of tuft of distal phalanx RT IF: Details: Daniel is a 59 year old right hand dominant Diabetic Czech speaking man who presents for a right index finger partial amputation & fracture. he closed his fingertip in a door, DOI: 08/21/25, and removed his fingertip when pulling his finger free. He was seen in the ED and referred here. He complains of pain in his fingertip. He denies any numbness or tingling. He continues to take his Abx. He has a Hx of bipolar disorder & ETOH abuse. He is a Diabetic, his most recent HgA1c was 8.2% on 06/29/25. He is currently in a day program due to disabilities, and is accompanied by a worker from this day program today. [facility] Medical History Arthritis Asthma Bipolar 1 disorder Diabetes mellitus Diabetes type 2, uncontrolled Diabetic polyneuropathy associated with type 2 diabetes mellitus Diabetic retinopathy associated with type 2 diabetes mellitus GERD (gastroesophageal reflux disease) Hypercholesterolemia 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 Lipoma half-way (current) use of insulin Vitamin D deficiency Surgical History Hx of colonoscopy No pertinent past surgical history Family History Father Diabetes mellitus Complete amputation of bilateral legs Mother Diabetes mellitus Social History (Updated 08/23/25 @ 10:45 by Maude Short CCMA) Household Members: None Housing: Apartment Alcohol intake: current Alcohol intake frequency: former alcohol drinker Alcohol type: hard liquor Patient Tobacco Use Status: Never used Tobacco e-Cigarette/Vaping Use: Never Used Second Hand Smoke Exposure: No service: No Current occupational status: disabled 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 Review of Systems Const All systems reviewed & are unremarkable except as noted in HPI and below Physical Exam Vital Signs: BMI result Body Mass Index 19.4 Const General: cooperative, healthy appearing and no acute distress Orientation/consciousness: patient oriented x3 HEENT Head: Yes normocephalic and Yes atraumatic Eyes EOM: EOMs intact bilaterally Resp Effort & Inspection: normal respiratory effort and able to speak in complete sentences Cardio Jugular venous distension: no JVD Skin General skin exam: turgor normal Rashes: no rashes Neuro General: patient oriented x3 Extrem Other: Evaluation of Right Upper Extremity: The patient is alert, oriented, and in no acute distress Neuro: Median, Ulnar, Radial nerves motor and sensory intact and sensation is normal to the tips of all digits Vascular: Cap refill brisk ROM: He can make a fist and extend all his digits Skin: Partial index finger amputation through the distal phalanx & nailbed There is exposed bone, 2/3rds or more of nail & sterile matrix are missing More tissue & skin volarly & dorsally General: No Ecchymosis. No Erythema or evidence of infection. Radiographs: 3 views of the right hand were taken and viewed by me today in clinic. They show an index finger distal phalanx tuft fracture & partial amputation through the distal phalanx. 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 Right index fingertip partial amputation 2. Right index finger distal phalanx open tuft fracture 3. Right index finger nail bed injury From a crush injury, DOI: 08/21/25 I educated him about this condition I discussed operative and non-operative treatment options The patient would like to proceed with surgery I explained the signs and symptoms of infection, if the patient develops any new or worsening erythema, drainage, pain, or warmth they should contact the clinic or attend the ED. He will continue to take his Abx as instructed The risks and benefits of operative treatment were discussed with the patient and the patient wishes to proceed with surgery. These risks include, but are not limited to risk of damage to blood vessels, nerves, tendons, infection, recurrence, incomplete relief of preoperative symptoms, persistent pain, possible need for further surgery and the risks associated with regional blocks and anesthesia. The plan is to take the patient to the operating room sometime on 08/24/25 for the following procedures: 1. Right index finger revision amputation, under local 2. Right index finger I&D of open fracture & 3. excision of nail matrix, under local All of the preoperative paperwork including the consent was reviewed today. All the patient's questions were answered. The patient understands that they will be contacted by our strip cutter soon to schedule this procedure He denies blood thinners, asthma, heart, lung, kidney issues He is a Diabetic, his most recent HgA1c was 8.2% on 06/29/25. He is also on Trulicity & says his last injection was on 08/21/25. He has a Hx of Bipolar disorder & ETOH abuse. The day center he stays at shows he is on Descovy for HIV prep, he is not HIV positive. This is not listed in our systems. Please note that greater than 40 minutes was spent with this patient going over the history, evaluating the patient and radiographs, formulating possible treatment options, discussing them with the patient, and documenting the visit. Scribed for Concepcion Quinones MD by Dwain Madden, lpn or medical assistant, on 08/23/25 at 10:50 AM, EST. 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
--- OUTSIDE RECORDS SUMMARY | 2025-08-23 11:58 | XMS_ITS | Encounter Summary ---
Author Organization [employer] Address 75 [facility] 7t [place] [address] Care Team Providers Care Sewer System Supervisor Name Role Phone Carlene Lucas MD Primary Care Provider [phone] Argenis Garcia RN Unavailable [phone] Cynthia Malik Unavailable Reason for Visit * Reason Onset Date Comments Lab Orders 01/24/2025 Encounter Details Date Type Department Care Team ([facility] st Contact Info) Description 01/24/2025 Telephone [facility] MEDICINE [address] [place], [place] [phone] Carlene Lucas MD [address] [place], [place] [phone] Lab Orders Social History Tobacco Use Types [...] the past 12 months, has t he [employer], gas, oil or water company threatened to [...] - 01/24/2025 2:47 PM EDT Tc from [facility] with [facility] requesting Tb test order so pt can be admitted to program. documented in this encounter Plan of Treatment Upcoming Encounters Date Type Department Care Team (Late st Contact Info) Description 08/25/2025 3:45 PM EST Office Visit [facility] MEDICINE [address] [place] [address] Carlene Lucas MD [address] [place] [address] documented as of this encounter Visit Diagnoses Not on filedocumented in this encounter Additional Health Concerns Assessment Noted Time PHQ-9 Depression Total Score: 4 01/14/20 3:38 PM EDT documented as of this encounter Care Teams Sewer System Supervisor Relationship Specialty Start Date End Date Carlene Lucas MD [address] [place] [address] PCP - General Family Medicine 10/14/22 Argenis Garcia, RN Registered Nurse Internal Medicine 08/22/25 08/23/25 Cynthia Malik 08/23/25 Gee Glalardo Personnel AssistantStaff Engineer 02/24/24 Gee Gallardo Paid Search ManagerStaff Engineer 10/06/24 documented as of this encounter
--- OUTSIDE RECORDS SUMMARY | 2025-08-23 11:58 | XMS_ITS | Encounter Summary ---
Author Organization [employer] Address 75 [facility] 7t [place] [address] Care Team Providers Care Stationary Engineer Apprentice Name Role Phone Carlene Lucas MD Primary Care Provider [phone] Argenis Garcia RN Unavailable [phone] Cynthia Malik Unavailable Encounter Details Date Type Department Care Team (Late st Contact Info) Description 03/03/2024 Orders Only [facility] MEDICINE [address] [place] [address] Merle Sotelo LPN Social History Tobacco Use [...] Description 08/25/2025 3:45 PM EST Office Visit [facility] MEDICINE [address] [place] [address] [phone] Carlene Lucas MD [address] [place] [address] documented as of this encounter Visit Diagnoses Not on filedocumented in this encounter Additional Health Concerns Assessment Noted Time PHQ-9 Depression Total Score: 8 08/31/20 23 1:46 PM EST documented as of this encounter Care Teams Stationary Engineer Apprentice Relationship Specialty Start Date End Date Carlene Lucas MD [address] [place] [address] [phone] PCP - General Family Medicine 10/14/22 Argenis Garcia, SERA Registered Nurse Internal Medicine 08/22/25 08/23/25 Cynthia Malik 08/23/25 Gee Gallardo Clam ShuckerBroadcast Correspondent 02/24/24 Gee Gallardo Branch Office ManagerBroadcast Correspondent 10/06/24 documented as of this encounter
--- OUTSIDE RECORDS SUMMARY | 2025-08-23 11:58 | XMS_ITS | Patient Health Record ---
Author Organization [facility] Address [address] [place] [address] Care Team Providers Care Emergency Room Physician Assistant Name Role Phone EverettJihan Primary Care Provider Arsenio Clinton Jr Unavailable Reason For Referral No Information Problems Problem Type SNOMED Code ICD Code Onset Dates Problem Status W/U Status Risk Notes Problem Dysphagia (42503927) Dysphagia (R13.10) Active confirmed Problem Erosive esophagitis (86243064) Erosive esophagitis (K22.10) Active confirmed Problem Ulcer of esophagus (84311227) Esophagitis, erosive (K22.10) Active confirmed Problem Erosive gastritis (331642384808820 0) Erosive gastritis (K29.60) Active confirmed Plan Of Treatment Future Test Test Name Order Date UPPER GI ENDOSCOPY 12/03/2022 Insurance Providers Payer Name Payer Address Payer Phone Subscriber Number Group Number Insured Name Patient Relationship to Insured Coverage Start Date Coverage End Date MEDICAID OF [facility] [address] [place] [id number] YARELY MAC Self - patient is the insured
--- OUTSIDE RECORDS SUMMARY | 2025-08-23 11:58 | XMS_ITS ---
Author Organization [employer] Address 75 [facility] 7t [place] [address] Care Team Providers Care Oracle Technical Developer Name Role Phone Carlene Lucas MD Primary Care Provider [phone] Argenis Garcia RN Unavailable [phone] Cynthia Malik Unavailable CHW Complex Status:Identified (Enrolling) Start date:08/22/2025 Enrollment reason:ADT Feed Overview CP Assigned Patient- Pt went to [facility] ED on 08/21/25. Task already assigned to team nurse for ED f/u. Please contact CP coordinator. Case Team Name Relationship Phone Argenis Garcia RN Registered Nurse Cynthia Malik(Responsible Staff) [phone] Continued Care and Services Coordination
--- OUTSIDE RECORDS SUMMARY | 2025-08-23 11:58 | XMS_ITS | Encounter Summary ---
Author Organization [employer] Address 75 [facility] 7t [place] [address] Care Team Providers Care Regional Account Director Name Role Phone Carlene Lucas MD Primary Care Provider [phone] Argenis Garcia RN Unavailable [phone] Reason for Visit * Reason Onset Date Comments ER Follow-up 08/21/2025 Encounter Details Date Type Department Care Team (Late st Contact Info) Description 08/21/2025 Telephone [facility] MEDICINE [address] [place] [address] Carlene Lucas MD [address] [place], [place] [phone] ER Follow-up Social History Tobacco Use Types [...] the past 12 months, has t he [employer], gas, oil or water company threatened to [...] Telephone Encounter - Carline Hahn RN - 08/22/2025 1:05 PM EST ED note reviewed. Pt. In ED yesterday for tip of R index finger amputated in car door. Prescribed doxy bid x 7 days, cephalexin qid x 7 days. Advised to f/up with ortho and pt. Has ortho appointment scheduled for tomorrow 08/23/25 at 10:30am with [facility]. TC placed to pt. For status check, no answer, reached personal VM and left message requesting call back to Red Team RN Upon receipt of message. Pt. To f/up at scheduled appointment with PCP 08/25/25 or sooner prn * Telephone Encounter - Daniel Crawford - 08/21/2025 11:30 AM EST Patient calling to report ED visit on : Date: 08/21 Hospital: [facility] Seen for: right hand finger pointer cut off onside of the finger Symptomatic No *if yes message should go to Triage Patient advised will forward to team nurse for follow up documented in this encounter Plan of Treatment Upcoming Encounters Date Type Department Care Team (Late st Contact Info) Description 08/25/2025 3:45 PM EST Office Visit [facility] MEDICINE [address] [place] [address] Carlene Lucas MD [address] [place], [place] [phone] documented as of this encounter Goals Goal Patient Goal Type Associated Problems Recent Progress Patient-Stated? Author Help patients manage their type 2 diabetes Care Plan Help patients manage their type 2 diabetes No VangEmily white Weekly blood pressure task Care Plan Weekly blood pressure task No Taj, Emily Help patients manage their type 2 diabetes Care Plan Help patients manage their type 2 diabetes No Emily Vang Patient has diabetic eye disease Care Plan Patient has diabetic eye disease No Taj, Emily Help patients manage their type 2 diabetes Care Plan Help patients manage their type 2 diabetes No Taj, Emily Patient has chronic kidney disease Care Plan Patient has chronic kidney disease No Taj Emily Weekly blood pressure task [...] has chronic kidney disease No Daniel Crawford documented as of this encounter Visit [...] documented as of this encounter Care Teams Regional Account Director Relationship Specialty Start Date End Date Carlene Lucas MD [address] [place] [address] PCP - General Family Medicine 10/14/22 Argenis Garcia, RN Registered Nurse Internal Medicine 08/22/25 08/23/25 Gee Gallardo Seat Covers TrimmerObedience Trainer 02/24/24 Gee Gallardo Skein Winding OperatorObedience Trainer 10/06/24 documented as of this encounter
--- OUTSIDE RECORDS SUMMARY | 2025-08-23 11:58 | XMS_ITS | Encounter Summary ---
Author Organization [employer] Address 75 [facility] 7t [place] [address] Care Team Providers Care Third Cook Name Role Phone Carlene Lucas MD Primary Care Provider [phone] Argenis Garcia RN Unavailable [phone] Cynthia Malik Unavailable Encounter Details Date Type Department Care Team (Late st Contact Info) Description 02/01/2024 Orders Only [facility] MEDICINE [address] [place] [address] Provider, MD Akanksha Social History Tobacco Use [...] housing situation today? I have wendykevin marinelli 07/08/[address] you [...] Description 08/25/2025 3:45 PM EST Office Visit [facility] MEDICINE [address] [place], [place] [phone] Carlene Lucas MD [address] [place] [phone] documented as of this encounter Procedures Procedure Name Priority Date/Time Associated Diagnosis Comments HM COLONOSCOPY Routine 09/11/2020 9:39 AM EST documented in this encounter Results * Hm Colonoscopy (09/11/2020 9:39 AM EST) us Historical Provider HEALTH MAINTENANCE Final Result documented in this encounter Visit Diagnoses Not on filedocumented in this encounter Additional Health Concerns Assessment Noted Time PHQ-9 Depression Total Score: 8 08/31/20 23 1:46 PM EST documented as of this encounter Care Teams Third Cook Relationship Specialty Start Date End Date Carlene Lucas MD [address] [place] [address] PCP - General Family Medicine 10/14/22 Argenis Garcia, RN Registered Nurse Internal Medicine 08/22/25 08/23/25 Cynthia Malik 08/23/25 Gee Gallardo Research ExecutiveLabor Utilization Superintendent 02/24/24 Gee Gallardo Grapple Yarder OperatorLabor Utilization Superintendent 10/06/24 documented as of this encounter
--- OUTSIDE RECORDS SUMMARY | 2025-08-23 11:58 | XMS_ITS | Clinical Summary ---
Author Organization [employer] Address [address] [place] [address] Care Team Providers Care Before School Name Role Phone Carlene Lucas MD Primary Care Provider [phone] Argenis Garcia RN Unavailable [phone] Cynthia Malik Unavailable Allergies Active Allergy Reactions Criticality Noted Date [...] Active insulin pen needle (Pentips Generic Pen [place]) 32G x 4 mm misc USE DIRECTED WITH INSULIN 100 each 3 01/14/20 25 Active ARIPiprazole (Abilify) 20 MG tablet Take 20 mg by mouth at bedtime. 10/27/19 25 Active clonazePAM (KlonoPIN) 0.5 MG tablet TAKE 1 TABLET BY MOUTH EVERY DAY NEEDED FOR SEVERE ANXIETY 11/30/19 Active risperiDONE (RisperDAL) 1 MG tablet TAKE 1 TABLET BY MOUTH TWICE DAILY FOR ANXIETY AND VOICES 11/30/19 Active Blood Glucose Monitoring Suppl ([place] Lite) w/Device kitIndications: Type 2 diabetes mellitus with other specified complication, with long-term current use of insulin (HCC) Apply 1 each topically Once per day. 1 kit 01/14/20 25 Active insulin glargine (Lantus SoloStar) 100 UNIT/ML [...] mellitus with other specified complication, unspecified whether correction insulin use (HCC) TAKE 1 TABLET BY [...] needed at bedtime (plantar wart). 10 each 04/12/20 25 Active glucose blood (FREESTYLE LITE) test stripIndication s:Type 2 diabetes mellitus with hyperglycemia, with long-term current use of insulin ([facility]) TEST BLOOD SUGAR 2 OR 3 TIMES DAILY 100 strip 04/13/20 25 Active TRUEplus Lancets 33G miscIndications :Type 2 diabetes mellitus with hyperglycemia, with long-term current use of insulin ([facility]) TEST BLOOD SUGAR 4 TO 6 TIMES A DAY 100 each 04/13/20 25 Active naltrexone (Depade) 50 MG tabletIndicatio ns:Severe alcohol dependence (CMS/HCC) ([facility]) TAKE 1 TABLET BY MOUTH EVERY MORNING WITH FOOD 30 tablet 5 4:45 PM EST 06/16/20 25 Active [...] to Pharmacy)) D3 Super Strength 50 MCG (2000 UT) capsuleIndicati ons:Vitamin D deficiency TAKE 1 [...] EDT): Pt has multiple risk factors for AR, EKG without ST-T segment changes and NSR 08/2023 Will check echo for structural abnormalities Assessment & Plan (09/01/2023 10:37 AM EST): Pt has multiple risk factors for AR, EKG without ST-T segment changes, however if [...] Naltrexone 50mg daily Recommend [facility]UD services at [facility] Assessment & Plan (04/10/2023 9:36 [...] here, he has his Bps checked at [facility], to please notify us of lows [...] dose statin (Atorvastatin 80mg nightly), fenofibrate 160mg, [place] 3 1gm BID Consider adding ezetimibe if [...] Encounters Date Type Department Care Team Description 08/23/2025 Refill [facility] [address] [place] [phone] Carlene Lucas MD 08/22/2025 Patient Outreach [facility] [address] [place] [phone] Carlene Lucas MD 08/21/2025 Orders Only [facility] External Provider, [facility] 08/21/2025 Telephone [facility] [address] [place] [phone] Carlene Lucas MD ER Follow-up 08/18/2025 Refill [facility] [address] [place] [phone] Carlene Lucas MD Encounter for HIV pre-exposure prophylaxis 08/09/2025 Telephone [facility] [address] [place] [address] Carlene Lucas MD Medication Question 08/04/2025 Telephone [facility] [address] [place] [phone] Carlene Lucas MD telephone call; Care Coordination 07/26/2025 Refill [facility] [address] [place] [address] PuebloLiz FNP Vitamin D deficiency 07/26/2025 Refill [facility] [address] [place] [address] Carlene Lucas MD 07/05/2025 Refill [facility] [address] [place] [address] Carlene Lucas MD 06/27/2025 Refill [facility] [address] [place] [address] Carlene Lucas MD Gastroesophageal reflux disease without esophagitis 06/23/2025 Telephone [facility] [address] [place] [address] Carlene Lucas MD Care Coordination (ICP Care Plan) 06/16/2025 2:00 PM EDT Office Visit [facility] [address] [place] [phone] Greg Huffman MD Severe alcohol dependence (CMS/HCC) (Primary Dx) 06/16/2025 Travel 06/06/[address] [address] Carlene Lucas MD Medication Question 06/02/2025 Patient Outreach [address] [address] Jovi Stephen RC Recovery Supports 05/25/2025 11:00 AM EDT Office Visit [address] [address] Patsy Massey FNP Bloody diarrhea (Primary Dx) 05/25/2025 Travel 05/24/[address] [address] Carlene Lucas MD Nurse Triage from Last [...] Description 08/25/2025 3:45 PM EST Office Visit [facility] [address] [place] [address] Carlene Lucas MD [address] [place] [address] Health Maintenance Due Date Last Done Comments [...] Additional history exists Eye Exam 05/30/2025 05/30/2024, 090 05/2024, 05/30/2024, Additional history exists Colonoscopy 09/09/2025 [...] Plan Weekly blood pressure task No Emily Vnag Weekly blood pressure task Care Plan Weekly blood pressure task No Taj Emily Patient has diabetic eye disease Care Plan Patient has diabetic eye disease No Emily Vagn Patient has diabetic eye disease Care Plan Patient has diabetic eye disease No Emily Vang Patient has chronic kidney [...] Plan Patient has diabetic eye disease No TyCasey Patient has diabetic eye disease Care Plan [...] Plan Weekly blood pressure task No Ty Daniel Patient has diabetic eye disease Care Plan [...] has chronic kidney disease No Daniel Crawford Weekly blood pressure task Care Plan Weekly blood pressure task No Argenis Garcia RN Weekly blood pressure task Care Plan Weekly blood pressure task No Argenis Garcia RN Weekly blood pressure task Care Plan Weekly blood pressure task No Argenis Garcia RN Patient has diabetic eye disease Care Plan Patient has diabetic eye disease No Argenis Garcia RN Patient has diabetic eye disease Care Plan Patient has diabetic eye disease No Argenis Garcia RN Patient has diabetic eye disease Care Plan Patient has diabetic eye disease No Argenis Garcia RN Patient has chronic kidney disease Care Plan Patient has chronic kidney disease No Argenis Garcia RN Patient has chronic kidney disease Care Plan Patient has chronic kidney disease No Argenis Garcia RN Patient has chronic kidney disease Care Plan Patient has chronic kidney disease No Argenis Garcia RN Procedures Procedure Name Priority Date/Time Associated Diagnosis Comments XR FINGERS 2+ VIEWS RIGHT Routine 08/21/2025 2:36 PM EST GLUCOSE, WHOLE BLOOD Routine 08/21/2025 1:55 PM EST TYPE AND SCREEN Routine 08/21/2025 1:28 PM EST BASIC METABOLIC PANEL Routine 08/21/2025 1:28 PM EST HEPATIC FUNCTION PANEL Routine 08/21/2025 1:28 PM EST CBC WITH AUTO DIFFERENTIAL Routine 08/21/2025 1:28 PM EST TSH Routine 06/29/2025 8:03 AM EDT LIPID [...] hyperglycemia, with long-term current use of insulin ([facility]) HM COLONOSCOPY Routine 09/11/2020 9:39 AM EST PANORAMIC RADIOGRAPHIC IMAGE Routine 09/28/2017 12:00 AM EST PERIODIC ORAL EVALUATION - ESTABLISHED PATIENT Routine 09/28/2017 12:00 AM EST INTRAORAL - COMPLETE SERIES OF RADIOGRAPHIC IMAGES Routine 07/03/2014 12:00 AM EDT PROPHYLAXIS - ADULT Routine 04/09/2011 1 2:00 AM EDT from Last 3 Months or Most Recently Relevant to Health Maintenance Results * XR Fingers 2+ Views Right (08/21/2025 2:36 PM EST) Anatomical Region Laterality Modality Upper Extremities, Fingers Right Radio graphic Imaging 08/21/2025 2:36 PM EST Narrative 08/21/2025 3:03 PM EST [place] [address] XRay Report Signed Patient: Daniel Angulo MR#: [id number] 5 : 1965 Acct:[id number] Age/Sex: 59 / M ADM Date: 08/21/25 Loc: HO.ED Attending Dr: Ordering Physician: Nelly Dixon Date of Service: 08/21/25 Procedure(s): XR finger RT min 2V Accession Number(s): [id number] cc: Carlene Lucas; Nelly Dixon Reason for Exam: laceration, ?open fracture EXAMINATION: XR FINGER, RIGHT CLINICAL INFORMATION: laceration, ?open fracture COMPARISON: None available. TECHNIQUE: PA hand and oblique and lateral views of the right second digit right hand. FINDINGS: There is amputation of the soft tissues involving the distal radial and dorsal end of the second digit of the right hand. There is also amputation of the ulnar side of the tuft of the second phalanx. No fracture line is apparent. There is mild to moderate narrowing of DIP joints in the digits of the hand, most advanced at the second digit. There are also marginal osteophytes. Mild to moderate atherosclerotic calcifications are present in the vasculature of the hand and wrist. XR/XR finger RT min 2V IMPRESSION: There is amputation of the soft tissues involving the tip of the second digit of the right hand as well as a small portion of the tuft of the distal phalanx on the radial side. No fracture line traverses the remaining bone. Osteoarthritis. Atherosclerotic disease. Electronically signed by: Logan Kee MD 08/21/2025 02:59 PM EST Dictated By: Logan Kee MD Signed By: <Electronically signed by Logan Kee MD in OV> 08/21/25 1459 DD/ 1436 TD/TT: 08/21/25 1445 Art Psychotherapist Or Therapist: Procedure Note Donotuseinterpreter, Image - 08/21/[address] [address] XRay Report Signed Patient: Daniel AnguloMR#: [id number] 5 : 1965Acct:[id number] Age/Sex: 59 / MADM Date: 08/21/25 Loc: .ED Attending Dr: Ordering Physician: Nelly Dixon Date of Service: 08/21/25 Procedure(s): XR finger RT min 2V Accession Number(s): [id number] cc: Carlene Lucas; Nelly Dixon Reason for Exam: laceration, ?open fracture EXAMINATION: XR FINGER, RIGHT CLINICAL INFORMATION: laceration, ?open fracture COMPARISON: None available. TECHNIQUE: PA hand and oblique and lateral views of the right second digit right hand. FINDINGS: There is amputation of the soft tissues involving the distal radial and dorsal end of the second digit of the right hand. There is also amputation of the ulnar side of the tuft of the second phalanx. No fracture line is apparent. There is mild to moderate narrowing of DIP joints in the digits of the hand, most advanced at the second digit. There are also marginal osteophytes. Mild to moderate atherosclerotic calcifications are present in the vasculature of the hand and wrist. XR/XR finger RT min 2V IMPRESSION: There is amputation of the soft tissues involving the tip of the second digit of the right hand as well as a small portion of the tuft of the distal phalanx on the radial side. No fracture line traverses the remaining bone. Osteoarthritis. Atherosclerotic disease. Electronically signed by: Logan Kee MD 08/21/2025 02:59 PM EST RP Dictated By: Logan Kee MD Signed By: <Electronically signed by Logan Kee MD in OV> 08/21/25 1459 DD/ 1436 TD/TT: 08/21/25 1445 Art Psychotherapist Or Therapist: [facility] External Provider IMG XR PROCEDURES Final Result * (ABNORMAL) Glucose, Whole Blood (08/21/2025 1:55 PM EST) Pathologist [facility] Glucose, Whole Blood 186(H) 60 - 115 mg/dL [facility] Comment:METER #: [id number] 08/21/2025 1:55 PM EST 08/21/2025 1:58 PM EST Generic External Data Provider LAB BLOOD ORDERAB LES Final Result [facility] [address] [place] [phone] * (ABNORMAL) CBC auto differential (08/21/2025 1:28 PM EST) Only the most recent of3 resultswithin the time period is included. [facility] White Blood Count 5.0 4.8 - 10.8 X10*3/uL [facility] Red Blood Count 3.94(L) 4.60 - 5.80 X10*6/uL [facility] Hemoglobin 13.4(L) 14.0 - 18.0 g/dl [facility] Hematocrit 39.1(L) 42.0 - 52.0 % [facility] Mean Corpuscular Volume 99.2(H) 80.0 - 98.0 fL [facility] Mean Corpuscular Hemoglobin 34.0(H) 27.0 - 33.0 pg [facility] Mean Corpuscular HGB Conc 34.3 31.0 - 36.0 g/dl [facility] Red Cell Distribution Width 12.4 11.0 - 16.0 % [facility] Platelet Count 265 160 - 400 X10*3/uL [facility] Mean Platelet Volume 9.5 9.4 - 12.4 fL [facility] Neutrophils Percent Auto 40.2(L) 45 - 73 % [facility] Imm Gran Pct Auto 0.2 0.0 - 0.4 % [facility] Lymphocytes Percent Auto 46.0(H) 20 - 40 % [facility] Monocytes Percent Auto 9.0 2 - 11 % [facility] Eosinophils Percent Auto 3.4 0 - 4 % [facility] Basophils Percent Auto 1.2 0 - 2 % [facility] NRBC Pct Auto 0.0 0.0 - 0.2 /100WBC [facility] Neutrophils Absolute Auto 2.0 2.0 - 8.3 x10*3/uL [facility] Imm Gran Abs Auto 0.01 0.00 - 0.03 X10*3/uL [facility] Lymphocytes Absolute Auto 2.3 1.2 - 4.9 X10*3/uL [facility] Monocytes Absolute Auto 0.5 0.1 - 1.2 X10*3/uL [facility] Eosinophils Absolute Auto 0.2 0.0 - 0.4 X10*3/uL [facility] Basophils Absolute Auto 0.1 0.0 - 0.2 X10*3/uL [facility] NRBC Abs Auto 0.000 0.0 - 0.012 X10*3/uL [facility] 08/21/2025 1:28 PM EST 08/21/2025 1:37 PM EST us Generic External Data Provider LAB BLOOD ORDERAB LES Final Result Performing Organization Address City/[facility]/ZIP Co de Phone Number [facility] [address] [place] [phone] * Type and screen (08/21/2025 1:28 PM EST) Blood Type AP [facility] Antibody Screen NEGATIVE [facility] 08/21/2025 1:28 PM EST 08/21/2025 1:41 PM EST Generic External Data Provider LAB BLOOD BANK TE ST ORDERABLES Final Result Performing Organization Address [facility] Co de Phone Number [facility] [address] [place] [phone] * Hepatic Function Panel (08/21/2025 1:28 PM EST) Pathologist [facility] Bilirubin, Total 0.4 0.0 - 1.0 mg/dL [facility] Bilirubin, Direct 0.1 0.0 - 0.5 mg/dL [facility] Aspartate Amino Transferase 27 5 - 37 U/L [facility] Alanine Aminotransferase 20 0 - 40 U/L [facility] Total Protein 7.4 6.5 - 8.0 g/dL [facility] Albumin Level 4.5 3.5 - 5.0 g/dL [facility] Alkaline Phosphatase 95 39 - 117 U/L [facility] 08/21/2025 1:28 PM EST 08/21/2025 1:37 PM EST Generic External Data Provider LAB BLOOD ORDERAB LES Final Result Performing Organization Address City/[facility] Co de Phone Number [facility] [address] [place] [phone] * (ABNORMAL) Basic Metabolic Panel (08/21/2025 1:28 PM EST) Sodium 136 135 - 145 mmol/L [facility] Potassium 3.7 3.3 - 5.1 mmol/L [facility] Chloride 101 96 - 108 mmol/L [facility] Carbon Dioxide 21(L) 22 - 29 mmol/L [facility] Anion Gap 18 12 - 20 [facility] Urea Nitrogen (BUN) 12 9 - 16 mg/dL [facility] Creatinine, Serum 0.77 0.5 - 1.4 mg/dL [facility] Creatinine Clr Calc Pharmacy 92.0 [facility] Comment:eGFR (calculated fro m the MDRD study equation) and eCrCl(calculated from the Cockcroft-Gault equation) are based ondifferent parameters and may not yield comparable results.If eCrCl result is absurd, please check patient'sheight/weight. Estimated Glomerular Filt Rate >60 [facility] Comment:Chronic Kidney Disea se: Estimated GFR < 60 mL/min/1.20m7[place]alam Kidney Disease: Estimated GFR < 15 mL/min/1.73m2 Glucose 244(H) 60 - 115 mg/dL [facility] Calcium 9.7 8.4 - 10.2 mg/dL [facility] 08/21/2025 1:28 PM EST 08/21/2025 1:37 PM EST us Generic External Data Provider LAB BLOOD ORDERAB LES Final Result [facility] [address] [place] [phone] * T-SPOT??.TB (06/29/2025 8:03 AM EDT) Pathologist [facility] T Spot TB Negative Negative [facility] Comment:A negative test resu lt does [...] as aquantitative test. TS PANEL A 1 [facility] TS PANEL B 0 [facility] Negative Control Passed [facility] Positive Control Passed [facility] Comment:For additional infor matafy, please refer tohttp://education.[employer]/faq/UXU479(This link is being provided for informational/educational purposes only.)THIS TEST WAS PERFORMED AT:[employer] [facility] [employer] [facility] [employer] [id number] [place] [id number] FAJARDO MD,PHD 06/29/2025 8:03 AM EDT 06/29/2025 8:03 AM EDT us Carlene Lucas MD LAB BLOOD ORDERABLES Final Res ult Performing Organization Address [facility]/ZIP Co de Phone Number [facility] [address] [place] [phone] * TSH (06/29/2025 8:03 AM EDT) Thyroid Stimulating Hormone 2.01 0.32 - 4.0 uIU/mL [facility] Comment:TSH 3rd Generation ( [facility]) 06/29/2025 8:03 AM EDT 06/29/2025 8:03 AM EDT us Generic External Data Provider LAB BLOOD ORDERAB LES Final Result Performing Organization Address [facility]/ZIP Co de Phone Number [facility] [address] [place] [phone] * (ABNORMAL) Hemoglobin A1c (06/29/2025 8:03 AM EDT) Hemoglobin A1c 8.2(H) <6.0 % [facility] Comment:Hemoglobin A1C Refer ence Range Adults: 4.8 - 6.0 % Non diabetic: < 6.0 % Goal: < 7.0 %Additional Action Suggested: > 8.0 %Note: Hemoglobin A1c results are invalid for patients with abnormal amounts of HbF. Blood transfusions may impact the HbA1c concentration in the patient sample. Estimated Average Glucose 189 mg/dL [facility] Comment:eAG = Estimated ave rage glucose which is %A1C expressed asaverage glucose, using the formula of the C0T-ZnrixjqLcfcefe Glucose study (ADAG), Diabetes Care, Vol.31,#8,Apr. 2007 06/29/2025 8:03 AM EDT 06/29/2025 8:03 AM EDT us Generic External Data Provider LAB BLOOD ORDERAB LES Final Result [facility] [address] [place] [phone] * (ABNORMAL) Lipid Panel, Standard (06/29/2025 8:03 AM EDT) Triglycerides 369(H) <150 mg/dL [facility] Comment:Desirable Triglyceri de: less than 150 mg/dLBorderline High Triglyceride 150-199 mg/dLHigh Triglyceride: 200-499 mg/dLVery High Triglyceride: greater than or equal to 5OO mg/dL Cholesterol 146 <200 mg/dL [facility] Comment:Desirable Cholestero l: less than 200 mg/dLBorderline High Cholesterol: 200-239 mg/dLHigh Cholesterol: greater than 239 mg/dL LDL Cholesterol Calculated 45 <100 mg/dL [facility] Comment:Desirable LDL: less than 100 mg/dLNear Optimal/Above Optimal LDL: 110- 129 mg/dLBorderline High LDL: 130-159 mg/dLHigh LDL: 160-189 mg/dLVery High LDL: greater than or equal to 190 mg/dL HDL Cholesterol 28(L) >40 mg/dL [facility] Comment:Desirable HDL: great er than 40 mg/dL Note: This HDL assay may give artificially low results in patients with liver disease. 06/29/2025 8:03 AM EDT 06/29/2025 8:03 AM EDT us Generic External Data Provider LAB BLOOD ORDERAB LES Final Result [facility] [address] [place] [phone] * (ABNORMAL) Comprehensive Metabolic Panel (06/29/2025 8:03 AM EDT) Sodium 139 135 - 145 mmol/L [facility] Potassium 4.3 3.3 - 5.1 mmol/L [facility] Chloride 106 96 - 108 mmol/L [facility] Carbon Dioxide 26 22 - 29 mmol/L [facility] Anion Gap 11(L) 12 - 20 [facility] Urea Nitrogen (BUN) 17(H) 9 - 16 mg/dL [facility] Creatinine, Serum 0.77 0.5 - 1.4 mg/dL [facility] Estimated Glomerular Filt Rate >60 [facility] Comment:Chronic Kidney Disea se: Estimated GFR < 60 mL/min/1.29s0Zxqnhb Kidney Disease: Estimated GFR < 15 mL/min/1.73m2 Glucose 241(H) 60 - 115 mg/dL [facility] Calcium 9.2 8.4 - 10.2 mg/dL [facility] Bilirubin, Total 0.3 0.0 - 1.0 mg/dL [facility] Aspartate Amino Transferase 34 5 - 37 U/L [facility] Alanine Aminotransferase 29 0 - 40 U/L [facility] Total Protein 6.8 6.5 - 8.0 g/dL [facility] Albumin Level 4.0 3.5 - 5.0 g/dL [facility] Alkaline Phosphatase 97 39 - 117 U/L [facility] 06/29/2025 8:03 AM EDT 06/29/2025 8:03 AM EDT Generic External Data Provider LAB BLOOD ORDERAB LES Final Result [facility] [address] [place] [phone] * POCT alcohol breath test manually [...] Final Result * Sed Rate by Modified Cooperergren (05/25/2025 12:05 PM EDT) Erythrocyte Sedimentation Rate 13 0 - 15 MM/HR [facility] Comment:Patients with polycy themia and many hemoglobin abnormalitiesmay have depressed sed rates whereas patients with anemiamay have elevated sed rates. Blood Venous blood specimen / Unknown 05/25/2025 12:05 PM EDT 05/25/2025 1:28 PM EDT [facility] LAB BLOOD ORDERABLES Final Res ult Performing Organization Address City/[facility]/ZIP Co de Phone Number [facility] [address] [place] [phone] * C-reactive Protein (05/25/2025 12:05 PM EDT) C Reactive Protein 0.32 < or = 0.50 mg/dL [facility] Blood Venous blood specimen / Unknown 05/25/2025 12:05 PM EDT 05/25/2025 1:24 PM EDT [facility] LAB BLOOD ORDERABLES Final Res ult Performing Organization Address [facility]/ZIP Co de Phone Number [facility] [address] [place] [phone] * POCT Rapid Covid-19 [facility] ID NOW (05/25/2025 11:17 AM EDT) Coronavirus Antigen PCR Negative Negative, Indeterminate, None Detected, Invalid, Specimen unsatisfactory for evaluation, Weakly Positive, 2+ QC Media Lot # [id number] Lot# Expiration Date Swab 05/25/2025 11:1 7 AM EDT [facility] POINT OF CARE TEST ENTER/EDIT ORDERABLES Final Result * Albumin, Random Urine W/Creatinine (01/04/2025 10:34 AM EDT) Creatinine, Urine 19.84 mg/dL [facility] Microalbumin Urine <5.0 mg/L H [facility] Microalbum Creatinine Ratio Ur TNP <30 ug/mg cr [facility] Comment:Unable to calculate albumin/creatinine ratio due to lowmicroalbumin or creatinine result. Urine (Urine, Random) 01/04/2025 10:34 AM EDT 01/04/2025 11:09 AM EDT Carlene Lucas MD LAB URINE ORDERABLES Final Res ult Performing Organization Address [facility] Co de Phone Number [facility] [address] [place] [phone] * Hepatitis C Antibody with Reflex to HCV, RNA, Quantitative, Real-Time PCR (01/04/2025 10:34 AM EDT) Hepatitis C Antibody Nonreactive Nonreactive [facility] Comment:Antibodies to HCV no t detected; does not exclude early acuteHCV infection. Blood Venous blood specimen / Unknown 01/04/2025 10:34 AM EDT 01/04/2025 11:10 AM EDT Carlene Lucas MD LAB BLOOD ORDERABLES Final Res ult Performing Organization Address [facility] de Phone Number [facility] [address] [place] [phone] * HIV-1/2 Antigen and Antibodies, Fourth Generation, with Reflexes (01/04/2025 10:34 AM EDT) Pathologist [facility] HIV AB/AG Nonreactive Nonreactive [facility] Comment:HIV-1 p24 Ag and/or HIV-1/HIV-2 Ab not detected.A test result that is nonreactive does not exclude thepossibility of exposure to or infection with HIV-1 and/orHIV-2. Nonreactive results in this assay for individualswith prior exposure to HIV-1 and/or HIV-2 may be due toantigen and antibody levels that are below the limit ofdetection of this assay.[employer] HIV Ag/Ab Combo assay result andsupplemental assay results should be interpreted inconjunction with the patient's clinical presentation,history and other laboratory results. If the results areinconsistent with clinical evidence, additional testing issuggested to confirm the result. Blood Venous blood specimen / Unknown 01/04/2025 10:34 AM EDT 01/04/2025 11:10 AM EDT us Carlene Lucas MD LAB BLOOD ORDERABLES Final Res ult [facility] [address] [place] [address] [phone] * Hm Colonoscopy (09/11/2020 9:39 AM [...] 08/21/2025 Patient has chronic kidney disease 08/21/2025 Weekly blood pressure task 08/22/2025 Weekly blood pressure task 08/22/2025 Weekly blood pressure task 08/22/2025 Patient has diabetic eye disease 08/22/2025 Patient has diabetic eye disease 08/22/2025 Patient has diabetic eye disease 08/22/2025 Patient has chronic kidney disease 08/22/2025 Patient has chronic kidney disease 08/22/2025 Patient has chronic kidney disease 08/22/2025 Insurance [facility] C3 DENTAL-[facility] MEDICAID STAND ADULT Care Teams Before School Relationship Specialty Start Date End Date Carlene Lucas MD [address] [place] [id number] PCP - General Family Medicine 10/14/22 Argenis Garcia, RN Registered Nurse Internal Medicine 08/22/25 08/23/25 Cynthia Malik 08/23/25 Gee Gallardo Molder Inflated BallPersonal Banking Representative 02/24/24 Gee Gallardo Reservoir Engineering AdvisorPersonal Banking Representative 10/06/24
--- OUTSIDE RECORDS SUMMARY | 2025-08-23 11:58 | XMS_ITS | Encounter Summary ---
Author Organization [employer] Address 75 [facility] 7t [place] [address] Care Team Providers Care Flask Carrier Name Role Phone Carlene Lucas MD Primary Care Provider [phone] Reason for Visit * Reason Comments Med Refill Encounter Details Date Type Department Care Team ([facility] st Contact Info) Description 08/18/2025 Refill [facility] [address] [place] [address] Carlene Lucas MD [address] [place] [address] Encounter for HIV pre-exposure prophylaxis Social History [...] Description 08/25/2025 3:45 PM EST Office Visit [facility] [address] [place] [address] Carlene Lucas MD [address] [place] [address] documented as of this encounter Goals Goal [...] documented as of this encounter Care Teams Flask Carrier Relationship Specialty Start Date End Date Carlene Lucas MD [address] [place] [address] PCP - General Family Medicine 10/14/22 Gee Gallardo Pricing ClerkAssembly Hand 02/24/24 Gee Gallardo Floral Designer SalespersonAssembly Hand 10/06/24 documented as of this encounter
--- OUTSIDE RECORDS SUMMARY | 2025-08-23 11:58 | XMS_ITS | Encounter Summary ---
Author Organization [employer] Address 75 [facility] 7t [place] [address] Care Team Providers Care Algebra Tutor Name Role Phone Carlene Lucas MD Primary Care Provider [phone] Argenis Garcia RN Unavailable Cynthia Malik Unavailable Reason for Visit * Reason Onset Date Comments ER Follow-up 11/11/2022 Encounter Details Date Type Department Care Team ([facility] st Contact Info) Description 11/11/2022 Telephone [facility] MED[facility]INE [address] [place] [address] Carlene Lucas MD [address] [place] [address] ER Follow-up Social History Tobacco Use Types [...] to report ED visit on 11/06/22 at [facility]. Diagnosed with minor stroke. Patient advisedwill forward to team nurse for follow up. documented in this encounter Plan of Treatment Upcoming Encounters Date Type Department Care Team (Late st Contact Info) Description 08/25/2025 3:45 PM EST Office Visit [facility] [address] [place] [address] Carlene Lucas MD [address] [place], [place] [phone] documented as of this encounter Visit Diagnoses Not on filedocumented in this encounter Care Teams Algebra Tutor Relationship Specialty Start Date End Date Carlene Lucas MD [address] [place], [place] [phone] PCP - General Family Medicine 10/14/22 Argenis Garcia, RN Registered Nurse Internal Medicine 08/22/25 08/23/25 Cynthia Malik 08/23/25 Gee Gallardo Case AdvocateSmash Hand 02/24/24 Gee Gallardo Rail Gang SupervisorSmash Hand 10/06/24 documented as of this encounter
--- OUTSIDE RECORDS SUMMARY | 2025-08-23 11:59 | XMS_ITS | Encounter Summary ---
Author Organization [employer] Address 75 [facility] 7t [place] [address] Care Team Providers Care Alteration Hand Name Role Phone Carlene Lucas MD Primary Care Provider [phone] Argenis Garcia RN Unavailable [phone] Cynthia Malik Unavailable Encounter Details Date Type Department Care Team (Late st Contact Info) Description 08/22/2025 Patient Outreach [facility] [address] [place] [address] Carlene Lucas MD [address] [place] [address] Social History Tobacco Use Types Packs/Day Years [...] Description 08/25/2025 3:45 PM EST Office Visit [facility] [address] [place] [address] Carlene Lucas MD [address] [place] [address] documented as of this encounter Goals Goal Patient Goal Type Associated Problems Recent Progress Patient-Stated? Author Help patients manage their type 2 diabetes Care Plan Help patients manage their type 2 diabetes No Emily Vang Weekly blood pressure task Care Plan Weekly blood pressure task No Taj Emily Help patients manage their [...] Care Plan Weekly blood pressure task No Vagn Emily Weekly blood pressure task Care Plan Weekly blood pressure task No Emily Vang Patient has diabetic eye disease Care Plan Patient has diabetic eye disease No Taj, Emily Patient has diabetic eye disease Care Plan Patient has diabetic eye disease No TajEmily Patient has chronic kidney disease Care Plan [...] Care Plan Patient has chronic kidney disease Argenis Vega RN Patient has chronic kidney disease Care Plan Patient has chronic kidney disease No Argenis Garcia RN documented as of this encounter Visit Diagnoses [...] 08/22/2025 Patient has chronic kidney disease 08/22/2025 Assessment Noted Time PHQ-9 Depression Total Score: 0 07/23/20 25 3:06 PM EDT documented as of this encounter Care Teams Alteration Hand Relationship Specialty Start Date End Date Carleen Lucas MD [address] [place] [address] PCP - General Family Medicine 10/14/22 Argenis Garcia, SERA Registered Nurse Internal Medicine 08/22/25 08/23/25 Cynthia Malik 08/23/25 Gee Gallardo National Sales TrainerLathe Puller 02/24/24 Gee Gallardo Industrial Electrical TechnicianLathe Puller 10/06/24 documented as of this encounter
--- OUTSIDE RECORDS SUMMARY | 2025-08-23 11:59 | XMS_ITS | Encounter Summary ---
Author Organization [employer] Address [address] [facility] 7t [place] [address] Care Team Providers Care Aquaculture Program Director Name Role Phone Carlene Lucas MD Primary Care Provider [phone] Encounter Details Date Type Department Care Team (Late st Contact Info) Description 08/21/2025 Orders Only [facility] External Provider, [facility] Social History Tobacco Use Types Packs/Day Years [...] Description 08/25/2025 3:45 PM EST Office Visit [facility] [address] [place] [address] Carlene Lucas MD [address] [place] [address] documented as of this encounter Goals Goal Patient Goal Type Associated Problems Recent Progress Patient-Stated? Author Help patients manage their type 2 diabetes Care Plan Help patients manage their type 2 diabetes No VangEmily white Weekly blood pressure task Care Plan Weekly blood pressure task No Vang Emily Help patients manage their type 2 diabetes Care Plan Help patients manage their type 2 diabetes No Vang, Emily Patient has diabetic eye disease Care Plan Patient has diabetic eye disease No Vang, Emily Help patients manage their type 2 diabetes Care Plan Help patients manage their type 2 diabetes No Vang, Emily Patient has chronic kidney disease Care Plan Patient has chronic kidney disease No Vang, Emily Weekly blood pressure task Care Plan Weekly blood pressure task No Vang, Emily Weekly blood pressure task Care Plan Weekly blood pressure task No Vang, Emily Patient has diabetic eye disease Care Plan Patient has diabetic eye disease No Vang, Emily Patient has diabetic eye disease Care Plan Patient has diabetic eye disease No Vang, Emily Patient has chronic kidney disease Care Plan Patient has chronic kidney disease No Vang, Emily Patient has chronic kidney disease Care Plan Patient has chronic kidney disease No Vang, Emily Weekly blood pressure task Care Plan Weekly blood pressure task No Ty Casey Weekly blood pressure task Care Plan Weekly [...] Daniel Crawford documented as of this encounter Procedures Procedure Name Priority Date/Time Associated Diagnosis Comments XR FINGERS 2+ VIEWS RIGHT Routine 08/21/2025 2:36 PM EST documented in this encounter Results * XR Fingers 2+ Views Right (08/21/2025 2:36 PM EST) Anatomical Region Laterality Modality Upper Extremities, Fingers Right Radio graphic Imaging 08/21/2025 2:36 PM EST Narrative 08/21/2025 3:03 PM EST [address] [address] XRay Report Signed Patient: Daniel Angulo MR#: [id number] 5 : 1965 Acct:[id number] Age/Sex: 59 / M ADM Date: 08/21/25 Loc: HO.ED Attending Dr: Ordering Physician: Nelly Dixon Date of Service: 08/21/25 Procedure(s): XR finger RT min 2V Accession Number(s): [id number] cc: Carlene Lucas; Nelly Dixon Reason for [...] by: Logan Kee MD 08/21/2025 02:59 PM [facility] Dictated By: Logan Kee MD Signed By: <Electronically signed by Logan Kee MD in OV> 08/21/25 1459 DD/ 1436 TD/TT: 08/21/25 1445 Systems Management Consultant: Procedure Note Donotuseinterpreter, Image - 08/21/[address] [address] XRay Report Signed Patient: Daniel AnguloMR#: [id number] 5 : 1965Acct:[id number] Age/Sex: 59 / MADM Date: 08/21/25 Loc: HO.ED Attending Dr: Ordering Physician: Nelly Dixon Date of Service: 08/21/25 Procedure(s): XR finger RT min 2V Accession Number(s): [id number] cc: Carlene Lucas; Nelly Dixon Reason for [...] 08/21/25 1459 DD/ 1436 TD/TT: 08/21/25 1445 Systems Management Consultant: [facility] External Provider IMG XR PROCEDURES Final Result documented in this encounter Visit [...] documented as of this encounter Care Teams Aquaculture Program Director Relationship Specialty Start Date End Date Carlene Lucas MD [address] [place] [address] PCP - General Family Medicine 10/14/22 Gee Gallardo Operations Label ClerkSustainable Development Policy Analyst 02/24/24 Gee Gallardo Dental Appliance MechanicSustainable Development Policy Analyst 10/06/24 documented as of this encounter
--- OUTSIDE RECORDS SUMMARY | 2025-08-23 11:59 | XMS_ITS | Encounter Summary ---
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 I informed him the the forms nurse called [facility], and was told that the most hours that they offer are 7 hours a week. I asked if he would like to be referred to a different agency, such as [facility] or [facility], but he stated that he would call back tomorrow and disconnected the call. 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 I informed him the the forms nurse called [facility], and was told that the most hoursthat they offer are 7 hours a week. I asked if he would like to be referred to a different agency, such as [facility] or [facility], but he stated that he would call back tomorrow and disconnected the call. documented in this encounter Plan of Treatment Upcoming Encounters Date Type Department Care Team (Late st Contact Info) Description 08/25/2025 3:45 PM EST Office Visit [facility] MEDICINE [address] [place] [phone] Carlene Lucas MD [address] [place], [place] [phone] documented as of this encounter Visit Diagnoses Not on filedocumented in this encounter Additional Health Concerns Assessment Noted Time PHQ-9 Depression Total Score: 8 08/31/20 23 1:46 PM EST documented as of this encounter Care Teams Ladder Operator Relationship Specialty Start Date End Date Carlene Lucas MD [address] [place], [place] [phone] PCP - General Family Medicine 10/14/22 Argenis Garcia, RN Registered Nurse Internal Medicine 08/22/25 08/23/25 Cynthia Malik 08/23/25 Gee Gallardo Infection Control CoordinatorStatement Distribution Clerk 02/24/24 Gee Gallardo Wire TinnerStatement Distribution Clerk 10/06/24 documented as of this encounter
--- OUTSIDE RECORDS SUMMARY | 2025-08-23 11:59 | XMS_ITS | Encounter Summary ---
Author Organization [email or web address] Address 75 [facility] 7t [place] [address] Care Team Providers Care Hydraulic Lift Operator Name Role Phone Carlene Lucas MD Primary Care Provider [phone] Argenis Garcia RN Unavailable [phone] Cynthia Malik Unavailable Encounter Details Date Type Department Care Team ([facility] st Contact Info) Description 06/22/2024 Orders Only [facility] MEDICINE [address] [place], [place] [phone] Carlene Lucas MD [address] [place] [address] Encounter for HIV pre-exposure prophylaxis (Primary Dx) [...] EST Office Visit [facility] MEDICINE [address] [place] [address] Carlene Lucas MD [address] [place] [address] documented as of this encounter Visit Diagnoses Diagnosis Encounter for HIV pre-exposure prophylaxis- Primary documented in this encounter Additional Health Concerns Assessment Noted Time PHQ-9 Depression Total Score: 8 08/31/20 23 1:46 PM EST documented as of this encounter Care Teams Hydraulic Lift Operator Relationship Specialty Start Date End Date Carlene Lucas MD [address] [place] [address] PCP - General Family Medicine 10/14/22 Argenis Garcia, RN Registered Nurse Internal Medicine 08/22/25 08/23/25 Cynthia Malik 08/23/25 Gee Gallardo Precision DyerBanquet Line Cook 02/24/24 Gee Gallardo Fitter HelperBanquet Line Cook 10/06/24 documented as of this encounter
--- OUTSIDE RECORDS SUMMARY | 2025-08-23 11:59 | XMS_ITS | Encounter Summary ---
Author Organization [employer] Address 75 [facility] 7t [place] [address] Care Team Providers Care Jboss Architect Name Role Phone Carlene Lucas MD Primary Care Provider [phone] Argenis Garcia RN Unavailable [phone] Cynthia Malik Unavailable Encounter Details Date Type Department Care Team (Late Contact Info) Description 05/26/2023 Abstract [facility] MEDICINE [address] [place] [address] [phone] Carlene Lucas MD [address] [place] [address] [phone] Social History Tobacco Use Types Packs/Day Years [...] Encounters Date Type Department Care Team (Late Contact Info) Description 08/25/2025 3:45 PM EST Office Visit [facility] MEDICINE [address] [place] [address] [phone] Carlene Lucas MD [address] [place] [address] [phone] documented as of this encounter Visit Diagnoses Not on filedocumented in this encounter Additional Health Concerns Assessment Noted Time PHQ-9 Depression Total Score: 4 01/13/20 23 1:46 PM EDT documented as of this encounter Care Teams Jboss Architect Relationship Specialty Start Date End Date Carlene Lucas MD [address] [place] [address] PCP - General Family Medicine 10/14/22 Argenis Garcia, ESRA Registered Nurse Internal Medicine 08/22/25 08/23/25 Cynthia Malik 08/23/25 Gee Gallardo Plastic Fixture BuilderNanny Babysitter 02/24/24 Gee Gallardo Tool And Die RepairerNanny Babysitter 10/06/24 documented as of this encounter
--- OUTSIDE RECORDS SUMMARY | 2025-08-23 11:59 | XMS_ITS | Encounter Summary ---
Author Organization [employer] Address 75 [facility] 7t [place] [address] Care Team Providers Care Gas Tester Name Role Phone Carlene Lucas MD Primary Care Provider [phone] Argenis Garcia RN Unavailable [phone] Cynthia Malik Unavailable Reason for Visit * Reason Onset Date Comments Nurse Triage 05/21/2023 Encounter Details Date Type Department Care Team ([facility] st Contact Info) Description 05/21/2023 Telephone [facility] MEDICINE [address] [place] [address] Carlene Lucas MD 230 [place] [address] Nurse Triage Social History Tobacco Use Types [...] 05/21/2023 2:46 PM EDT Triage call with [employer] [facility] [place] [id number] Pt reports upper abdominal pain, above umbilicus, which is hard to describe . Pt reports heart burn, sour taste in mouth and some times feels like chest pain. Pt denies dizziness, light headedness, difficulty breathing. Pt is advised to come to [facility] to be seen by provider and [...] become worse * Telephone Encounter - Ritika Deepak - 05/21/2023 1:39 PM EDT Symptom: Chest Pain - Adult Outcome: Talk to a nurse or provider within 15 minutes Reason: Getting worse The caller accepted this outcome Please contact pt at [phone] documented in this encounter Plan of Treatment Upcoming Encounters Date Type Department Care Team (Late st Contact Info) Description 08/25/2025 3:45 PM EST Office Visit [facility] MEDICINE [address] [place] [address] Carlene Lucas MD [address] [place] [address] documented as of this encounter Visit Diagnoses Not on filedocumented in this encounter Additional Health Concerns Assessment Noted Time PHQ-9 Depression Total Score: 4 01/13/20 1:46 PM EDT documented as of this encounter Care Teams Gas Tester Relationship Specialty Start Date End Date Carlene Lucas MD [address] [place] [address] PCP - General Family Medicine 10/14/22 Argenis Garcia, RN Registered Nurse Internal Medicine 08/22/25 08/23/25 Cynthia Malik 08/23/25 Gee Gallardo Cold Storage SuperintendentGreens Or Grounds Superintendent 02/24/24 Gee Gallardo Auto Rental SupervisorGreens Or Grounds Superintendent 10/06/24 documented as of this encounter
--- OUTSIDE RECORDS SUMMARY | 2025-08-23 11:59 | XMS_ITS | Encounter Summary ---
Author Organization [employer] Address 75 [facility] 7t [place] [address] Care Team Providers Care Patient Sitter Name Role Phone Carlene Lucas MD Primary Care Provider [phone] Argenis Garcia RN Unavailable [phone] Cynthia Malik Unavailable Reason for Visit * Reason Comments Med Refill Encounter Details Date Type Department Care Team (Late st Contact Info) Description 04/18/2024 Refill [facility] MEDICINE 230 [place], [place] [phone] Carlene Lucas MD 230 [place], [place] [phone] Vitamin D deficiency Social History Tobacco Use [...] Description 08/25/2025 3:45 PM EST Office Visit [facility] MEDICINE [address] [place] [address] Carlene Lucas MD [address] [place] [address] documented as of this encounter Visit Diagnoses Diagnosis Vitamin D deficiency documented in this encounter Additional Health Concerns Assessment Noted Time PHQ-9 Depression Total Score: 8 08/31/20 23 1:46 PM EST documented as of this encounter Care Teams Patient Sitter Relationship Specialty Start Date End Date Carlene Lucas MD [address] [place] [address] PCP - General Family Medicine 10/14/22 Argenis Garcia, RN Registered Nurse Internal Medicine 08/22/25 08/23/25 Cynthia Malik 08/23/25 Gee Gallardo Latin DancerCovered Buckle Assembler 02/24/24 Gee Gallardo Straw BossCovered Buckle Assembler 10/06/24 documented as of this encounter
--- OUTSIDE RECORDS SUMMARY | 2025-08-23 11:59 | XMS_ITS | Encounter Summary ---
Author Organization [employer] Address 75 [facility] 7t [place] [address] Care Team Providers Care Game Artist Name Role Phone Carlene Lucas MD Primary Care Provider [phone] Argenis Garcia RN Unavailable [phone] Cynthia Malik Unavailable Reason for Visit * Reason Comments Med Refill Encounter Details Date Type Department Care Team (Late st Contact Info) Description 08/23/2025 Refill [facility] MEDICINE [address] [place] [address] Carlene Lucas MD [address] [place], [place] [phone] Social History Tobacco Use Types Packs/Day Years [...] Description 08/25/2025 3:45 PM EST Office Visit [facility] MEDICINE [address] [place] [address] Carlene Lucas MD [address] [place] [address] documented as of this encounter Goals Goal [...] Plan Patient has diabetic eye disease No VangEmily Patient has chronic kidney disease Care Plan Patient has chronic kidney disease No Vang, Emily Patient has chronic kidney disease Care Plan Patient has chronic kidney disease No VangEmily Weekly blood pressure task Care Plan Weekly [...] Patient has chronic kidney disease No Argenis Garcia, SERA Patient has chronic kidney disease Care Plan [...] documented as of this encounter Care Teams Game Artist Relationship Specialty Start Date End Date Carlene Lucas MD [address] [place] [address] PCP - General Family Medicine 10/14/22 Argenis Garcia, SERA Registered Nurse Internal Medicine 08/22/25 08/23/25 Cynthia Malik 08/23/25 Gee Gallardo Bottomer OperatorAdjunct Physical Education Instructor 02/24/24 Gee Gallardo Contract Management SpecialistAdjunct Physical Education Instructor 10/06/24 documented as of this encounter
--- OUTSIDE RECORDS SUMMARY | 2025-08-23 11:59 | XMS_ITS | Encounter Summary ---
Author Organization [employer] Address 75 [facility] 7t [place] [address] Care Team Providers Care Retail Administrative Assistant Name Role Phone Carlene Lucas MD Primary Care Provider [phone] Argenis Garcia RN Unavailable [phone] Cynthia Malik Unavailable Reason for Visit * Reason Comments Med Refill Encounter Details Date Type Department Care Team ([facility] st Contact Info) Description 10/21/2023 Refill [facility] MEDICINE [address] [place] [address] Marley Obregon MD [address] [place] [address] Social History Tobacco Use Types Packs/Day Years [...] Description 08/25/2025 3:45 PM EST Office Visit [facility] MEDICINE [address] [place] [phone] Carlene Lucas MD [address] [place] [address] documented as of this encounter Visit Diagnoses Not on filedocumented in this encounter Additional Health Concerns Assessment Noted Time PHQ-9 Depression Total Score: 8 08/31/20 23 1:46 PM EST documented as of this encounter Care Teams Retail Administrative Assistant Relationship Specialty Start Date End Date Carlene Lucas MD [address] [place] [address] PCP - General Family Medicine 10/14/22 Argenis Garcia, RN Registered Nurse Internal Medicine 08/22/25 08/23/25 Cynthia Malik 08/23/25 Gee Gallardo Forms AnalystIn Store Banker 02/24/24 Gee Gallardo Portable Track Line MarkerIn Store Banker 10/06/24 documented as of this encounter
--- OUTSIDE RECORDS SUMMARY | 2025-08-23 11:59 | XMS_ITS | Encounter Summary ---
Author Organization [employer] Address [address] [facility] 7t [place] [address] Care Team Providers Care Lie Detector Operator Name Role Phone Carlene Lucas MD Primary Care Provider [phone] Argenis Garcia RN Unavailable [phone] Cynthia Malik Unavailable Reason for Visit * Reason Onset Date Comments Nurse Triage 06/03/2023 Encounter Details Date Type Department Care Team ([facility] st Contact Info) Description 06/03/2023 Telephone [facility] [address] [place] [address] Carlene Lucas MD [address] [place] [address] Nurse Triage Social History Tobacco Use Types [...] 3:45 PM EST Office Visit [facility] [address] [place], [place] [phone] Carlene Lucas MD [address] [place], [place] [phone] documented as of this encounter Visit Diagnoses Not on filedocumented in this encounter Additional Health Concerns Assessment Noted Time PHQ-9 Depression Total Score: 4 01/13/20 23 1:46 PM EDT documented as of this encounter Care Teams Lie Detector Operator Relationship Specialty Start Date End Date Carlene Lucas MD [address] [place], [place] [phone] PCP - General Family Medicine 10/14/22 Argenis Garcia, RN Registered Nurse Internal Medicine 08/22/25 08/23/25 Cynthia Malik 08/23/25 Gee Gallardo Chief CrnaManager Urology 02/24/24 Gee Gallardo Continuous Mining Machine Coal MinerManager Urology 10/06/24 documented as of this encounter
== END 2025-08-23 11:42 | disposition home or self-care (01) ==
LOC: HO.HOS 10:27
PROVIDERS: PCP General Practice; Visit Provider Orthopaedic Surgery
DX: S68.620A Partial traumatic transphalangeal amputation of right index finger, initial encounter (principal); F31.9 Bipolar disorder, unspecified; F10.90 Alcohol use, unspecified, uncomplicated; E11.9 Type 2 diabetes mellitus without complications
CPT/HCPCS: 99204

== ENCOUNTER 2025-08-23 10:28 | Outpatient (REF) | payer MEDICAID, SELFPAY ==
--- NOTE | ~2025-08-23 | XR_ITS ---
EXAMINATION: XR HAND 3 OR MORE VIEWS RIGHT HISTORY: M79.641 - Pain in right hand COMPARISON: Comparison is made with the prior examination dated 08/21/2025. FINDINGS: Three views of the right hand are submitted. Osseous mineralization is normal. 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 There is mild narrowing of the DIP joints. There are vascular calcifications. 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 Electronically signed by: Francisco Monae MD 08/23/2025 10:44 AM EST
--- OUTSIDE RECORDS SUMMARY | 2025-08-24 12:52 | XMS_ITS | Encounter Summary ---
Author Organization [employer] Address [address] [facility] 7t [place] [address] Care Team Providers Care Cement Finisher Apprentice Name Role Phone Carlene Lucas MD Primary Care Provider [phone] Argenis Garcia RN Unavailable [phone] Cynthia Malik Unavailable Reason for Visit * Reason Onset Date Comments ER Follow-up 11/11/2022 Encounter Details Date Type Department Care Team ([facility] st Contact Info) Description 11/11/2022 Telephone [facility] [address] [place] [address] Carlene Lucas MD [address] [place] [address] ER Follow-up Social History Tobacco Use Types [...] ED visit on 11/06/22 at [facility]. Diagnosed with minor stroke. Patient advisedwill forward to team nurse for follow up. documented in this encounter Plan of Treatment Upcoming Encounters Date Type Department Care Team (Late st Contact Info) Description 08/25/2025 3:45 PM EST Office Visit [facility] [address] [place] [address] Carlene Lucas MD [address] [place], [place] [phone] documented as of this encounter Visit Diagnoses Not on filedocumented in this encounter Care Teams Cement Finisher Apprentice Relationship Specialty Start Date End Date Carlene Lucas MD [address] [place], [place] [phone] PCP - General Family Medicine 10/14/22 Argenis Garcia, RN Registered Nurse Internal Medicine 08/22/25 08/23/25 Cynthia Malik 08/23/25 08/24/25 Gee Gallardo Electric Frying Pan RepairerDimensional Integration Engineer 02/24/24 Gee Gallardo Equal Opportunity OfficerDimensional Integration Engineer 10/06/24 documented as of this encounter
--- OUTSIDE RECORDS SUMMARY | 2025-08-24 12:53 | XMS_ITS | Encounter Summary ---
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 I informed him the the forms nurse called [facility], and was told that the most hours that they offer are 7 hours a week. I asked if he would like to be referred to a different agency, such as [facility] or [facility], but he stated that he would call back tomorrow and disconnected the call. 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 I informed him the the forms nurse called [facility], and was told that the most hoursthat they offer are 7 hours a week. I asked if he would like to be referred to a different agency, such as [facility] or [facility], but he stated that he would call back tomorrow and disconnected the call. documented in this encounter Plan of Treatment Upcoming Encounters Date Type Department Care Team (Late st Contact Info) Description 08/25/2025 3:45 PM EST Office Visit [facility] [address] [place] [address] [phone] Carlene Lucas MD [address] [place], [place] [phone] documented as of this encounter Visit Diagnoses Not on filedocumented in this encounter Additional Health Concerns Assessment Noted Time PHQ-9 Depression Total Score: 8 08/31/20 23 1:46 PM EST documented as of this encounter Care Teams Mail Delivery Supervisor Relationship Specialty Start Date End Date Carlene Lucas MD [address] [place], [place] [phone] PCP - General Family Medicine 10/14/22 Argenis Garcia, RN Registered Nurse Internal Medicine 08/22/25 08/23/25 Cynthia Malik 08/23/25 08/24/25 Gee Gallardo Co Founder And ChairmanForeign Exchange Services Manager 02/24/24 Gee Gallardo Regional Marketing DirectorForeign Exchange Services Manager 10/06/24 documented as of this encounter
--- OUTSIDE RECORDS SUMMARY | 2025-08-24 12:53 | XMS_ITS | Patient Health Record ---
Author Organization [facility] Address [address] [place] [address] Care Team Providers Care Bath Steward Name Role Phone EverettJihan Primary Care Provider Arsenio Clinton Jr Unavailable [phone] Reason For Referral No Information Problems Problem Type SNOMED Code ICD Code Onset Dates Problem Status W/U Status Risk Notes Problem Dysphagia (58540358) Dysphagia (R13.10) Active confirmed Problem Erosive esophagitis (78177422) Erosive esophagitis (K22.10) Active confirmed Problem Ulcer of esophagus (67190355) Esophagitis, erosive (K22.10) Active confirmed Problem Erosive gastritis (446856103969910 0) Erosive gastritis (K29.60) Active confirmed Plan Of Treatment Future Test Test Name Order Date UPPER GI ENDOSCOPY 12/03/2022 Insurance Providers Payer Name Payer Address Payer Phone Subscriber Number Group Number Insured Name Patient Relationship to Insured Coverage Start Date Coverage End Date MEDICAID OF [facility] [address] [place] [phone] [id number] YARELY MAC Self - patient is the insured
--- OUTSIDE RECORDS SUMMARY | 2025-08-24 12:53 | XMS_ITS | Encounter Summary ---
Author Organization [employer] Address [address] [facility] 7t [place] [address] Care Team Providers Care Victorian Literature Professor Name Role Phone Carlene Lucas MD Primary Care Provider [phone] Argenis Garcia RN Unavailable [phone] Cynthia Malik Unavailable Encounter Details Date Type Department Care Team (Late st Contact Info) Description 02/01/2024 Orders Only [facility] [address] [place] [address] Provider, MD Akanksha Social History Tobacco Use [...] Description 08/25/2025 3:45 PM EST Office Visit [facility] [address] [place] [phone] Carlene Lucas MD [address] [place] [address] documented as of this encounter Procedures Procedure [...] documented as of this encounter Care Teams Victorian Literature Professor Relationship Specialty Start Date End Date Carlene Lucas MD [address] [place] [address] PCP - General Family Medicine 10/14/22 Argenis Garcia, RN Registered Nurse Internal Medicine 08/22/25 08/23/25 Cynthia Malik 08/23/25 08/24/25 Gee Gallardo Charging Board OperatorSand Filler 02/24/[address] TechnologistSand Filler 10/06/24 documented as of this encounter
--- OUTSIDE RECORDS SUMMARY | 2025-08-24 12:53 | XMS_ITS | Encounter Summary ---
Author Organization [employer] Address [address] [facility] 7t [place] [address] Care Team Providers Care Wire Winding Machine Tender Name Role Phone Carlene Lucas MD Primary Care Provider [phone] Argenis Garcia RN Unavailable Cynthia Malik Unavailable Reason for Visit * Reason Comments Med Refill Encounter Details Date Type Department Care Team ([facility] st Contact Info) Description 10/21/2023 Refill [facility]INE [address] [place] [address] Marley Obregon MD [address] [place] [address] Social History Tobacco Use Types Packs/Day Years [...] 08/25/2025 3:45 PM EST Office Visit [facility]INE [address] [place] [phone] Carlene Lucas MD [address] [place] [address] documented as of this encounter Visit Diagnoses Not on filedocumented in this encounter Additional Health Concerns Assessment Noted Time PHQ-9 Depression Total Score: 8 08/31/20 23 1:46 PM EST documented as of this encounter Care Teams Wire Winding Machine Tender Relationship Specialty Start Date End Date Carlene Lucas MD [address] [place] [address] PCP - General Family Medicine 10/14/22 Argenis Garcia, RN Registered Nurse Internal Medicine 08/22/25 08/23/25 Cynthia Malik 08/23/25 08/24/25 Gee Gallardo Architect InternshipAssurance Auditor 02/24/24 Gee Gallardo Passenger ScreenerAssurance Auditor 10/06/24 documented as of this encounter
--- OUTSIDE RECORDS SUMMARY | 2025-08-24 12:53 | XMS_ITS | Encounter Summary ---
Author Organization [employer] Address [address] [facility] 7t [place] [address] Care Team Providers Care Mailer Apprentice Name Role Phone Carlene Lucas MD Primary Care Provider [phone] Argenis Garcia RN Unavailable [phone] Cynthia Malik Unavailable Reason for Visit * Reason Comments Med Refill Encounter Details Date Type Department Care Team (Late st Contact Info) Description 08/23/2025 Refill [facility] [address] [place] [address] Carlene Lucas MD [address] [place], [place] [phone] Social History Tobacco Use Types Packs/Day Years [...] 3:45 PM EST Office Visit [facility] [address] [place] [address] Carlene Lucas MD [address] [place] [address] documented as of this encounter Goals Goal [...] Plan Patient has chronic kidney disease No Jose, Argenis, RN Patient has chronic kidney disease Care Plan Patient has chronic kidney disease No Argenis Garcia, RN Patient has chronic kidney disease Care Plan Patient has chronic kidney disease No Argenis Garcia, SERA Weekly blood pressure task Care Plan Weekly blood pressure task No Cynthia Malik Weekly blood pressure task Care Plan Weekly blood pressure task No Cynthia Malik Weekly blood pressure task Care Plan Weekly blood pressure task No Cynthia Malik Patient has diabetic eye disease Care Plan Patient has diabetic eye disease No Cynthia Malik Patient has diabetic eye disease Care Plan Patient has diabetic eye disease No Cynthia Malik Patient has diabetic eye disease Care Plan Patient has diabetic eye disease No Cynthia Malik Patient has chronic kidney disease Care Plan Patient has chronic kidney disease No Cynthia Malik Patient has chronic kidney disease Care Plan Patient has chronic kidney disease No Cynthia Malik Patient has chronic kidney disease Care Plan Patient has chronic kidney disease No Cynthia Malik documented as of this encounter Visit Diagnoses [...] 08/22/2025 Patient has chronic kidney disease 08/22/2025 Weekly blood pressure task 08/23/2025 Weekly blood pressure task 08/23/2025 Weekly blood pressure task 08/23/2025 Patient has diabetic eye disease 08/23/2025 Patient has diabetic eye disease 08/23/2025 Patient has diabetic eye disease 08/23/2025 Patient has chronic kidney disease 08/23/2025 Patient has chronic kidney disease 08/23/2025 Patient has chronic kidney disease 08/23/2025 Assessment Noted Time PHQ-9 Depression Total Score: 0 04/12/20 3:06 PM EDT documented as of this encounter Care Teams Mailer Apprentice Relationship Specialty Start Date End Date Carlene Lucas MD [address] [place] [address] PCP - General Family Medicine 10/14/22 Argenis Garcia, SERA Registered Nurse Internal Medicine 08/22/25 08/23/25 Cynthia Malik 08/23/25 08/24/25 Gee Gallardo Display MechanicFlotation Tank Operator 02/24/24 Gee Gallardo Willow Machine TenderFlotation Tank Operator 10/06/24 documented as of this encounter
--- OUTSIDE RECORDS SUMMARY | 2025-08-24 12:53 | XMS_ITS | Encounter Summary ---
Author Organization [employer] Address [address] [facility] 7t [place] [address] Care Team Providers Care Base Engineer Name Role Phone Carlene Lucas MD Primary Care Provider [phone] Argenis Garcia RN Unavailable [phone] Cynthia Malik Unavailable Reason for Visit * Reason Onset Date Comments Lab Orders 01/24/2025 Encounter Details Date Type Department Care Team ([facility] st Contact Info) Description 01/24/2025 Telephone [facility]INE [address] [place], [place] [phone] Carlene Lucas MD [address] [place], [place] [phone] Lab Orders Social History Tobacco Use Types [...] is your housing situation today? I have wnedy marinelli 01/13/[address] you [...] the past 12 months, has t he [employer], gas, oil or water company threatened to [...] 2:47 PM EDT Tc from [facility] with [facility] requesting Tb test order so pt can be admitted to program. documented in this encounter Plan of Treatment Upcoming Encounters Date Type Department Care Team (Late st Contact Info) Description 08/25/2025 3:45 PM EST Office Visit [facility] [address] [place] [address] Carlene Lucas MD [address] [place] [address] documented as of this encounter Visit Diagnoses Not on filedocumented in this encounter Additional Health Concerns Assessment Noted Time PHQ-9 Depression Total Score: 4 01/14/20 3:38 PM EDT documented as of this encounter Care Teams Base Engineer Relationship Specialty Start Date End Date Carlene Lucas MD [address] [place] [address] PCP - General Family Medicine 10/14/22 Argenis Garcia, RN Registered Nurse Internal Medicine 08/22/25 08/23/25 Cynthia Malik 08/23/25 08/24/25 Gee Gallardo Allocations ClerkAudit Spec 02/24/24 Gee Gallardo Ob NurseAudit Spec 10/06/24 documented as of this encounter
--- OUTSIDE RECORDS SUMMARY | 2025-08-24 12:53 | XMS_ITS | Encounter Summary ---
Author Organization [employer] Address [address] [facility] 7t [place] [address] Care Team Providers Care Router Setter Name Role Phone Carlene Lucas MD Primary Care Provider [phone] Argenis Garcia RN Unavailable [phone] Reason for Visit * Reason Onset Date Comments ER Follow-up 08/21/2025 Encounter Details Date Type Department Care Team (Late st Contact Info) Description 08/21/2025 Telephone [facility] [address] [place] [address] Carlene Lucas MD [address] [place], [place] [phone] ER Follow-up Social History Tobacco Use Types [...] the past 12 months, has t he [employer], gas, oil or water company threatened to [...] scheduled for tomorrow 08/23/25 at 10:30am with [facility]. TC placed to pt. For status check, no answer, reached personal VM and left message requesting call back to Red Team RN Upon receipt of message. Pt. To f/up at scheduled appointment with PCP 08/25/25 or sooner prn * Telephone Encounter - Daniel Crawford - 08/21/2025 11:30 AM EST Patient calling to report ED visit on : Date: 08/21 Hospital: [facility] Seen for: right hand finger pointer cut off onside of the finger Symptomatic No *if yes message should go to Triage Patient advised will forward to team nurse for follow up documented in this encounter Plan of Treatment Upcoming Encounters Date Type Department Care Team (Late st Contact Info) Description 08/25/2025 3:45 PM EST Office Visit [facility] [address] [place] [address] Carlene Lucas MD [address] [place], [place] [phone] documented as of this encounter Goals Goal [...] documented as of this encounter Care Teams Router Setter Relationship Specialty Start Date End Date Carlene Lucas MD [address] [place] [address] PCP - General Family Medicine 10/14/22 Argenis Garcia, RN Registered Nurse Internal Medicine 08/22/25 08/23/25 Gee Gallardo International Accounting ManagerTechnology Education Teacher 02/24/24 Gee Gallardo Molder ApprenticeTechnology Education Teacher 10/06/24 documented as of this encounter
--- OUTSIDE RECORDS SUMMARY | 2025-08-24 12:53 | XMS_ITS | Encounter Summary ---
Author Organization [employer] Address [address] [facility] 7t [place] [address] Care Team Providers Care Airport Maintenance Laborer Name Role Phone Carlene Lucas MD Primary Care Provider [phone] Encounter Details Date Type Department Care Team (Late st Contact Info) Description 08/21/2025 Orders Only [facility] External Provider, [facility] Social History Tobacco Use Types Packs/Day Years [...] Description 08/25/2025 3:45 PM EST Office Visit [facility] [address] [place] [address] Carlene Lucas MD [address] [place] [address] documented as of this encounter Goals Goal [...] Plan Patient has diabetic eye disease No Csaey Crawford Patient has diabetic eye disease Care [...] PM EST Narrative 08/21/2025 3:03 PM EST [address] [address] XRay Report Signed Patient: Daniel Angulo MR#: [id number] 5 : 1965 Acct:[id number] Age/Sex: 59 / M ADM Date: 08/21/25 Loc: HO.ED Attending Dr: Ordering Physician: Nelly Dixon Date of Service: 08/21/25 Procedure(s): XR finger RT min 2V Accession Number(s): [id number] cc: Carlene Lucas; Nelly Dixon Reason for [...] by: Logan Kee MD 08/21/2025 02:59 PM [facility] Dictated By: Logan Kee MD Signed By: <Electronically signed by Logan Kee MD in OV> 08/21/25 1459 DD/ 1436 TD/TT: 08/21/25 1445 Geological E Logger: Procedure Note Donotuseinterpreter, Image - 08/21/[address] [address] XRay Report Signed Patient: Daniel AnguloMR#: [id number] 5 : 1965Acct:[id number] Age/Sex: 59 / MADM Date: 08/21/25 Loc: HO.ED Attending Dr: Ordering Physician: Nelly Dixon Date of Service: 08/21/25 Procedure(s): XR finger RT min 2V Accession Number(s): [id number] cc: Carlene Lucas; Nelly Dixon Reason for [...] 08/21/25 1459 DD/ 1436 TD/TT: 08/21/25 1445 Geological E Logger: [facility] External Provider IMG XR PROCEDURES Final Result [...] documented as of this encounter Care Teams Airport Maintenance Laborer Relationship Specialty Start Date End Date Carlene Lucas MD [address] [place] [address] PCP - General Family Medicine 10/14/22 Gee Gallardo Tie FastenerRn Stars 02/24/24 Gee Gallardo Physical Therapy InstructorRn Stars 10/06/24 documented as of this encounter
--- OUTSIDE RECORDS SUMMARY | 2025-08-24 12:53 | XMS_ITS | Encounter Summary ---
Author Organization [employer] Address [address] [facility] [address] [place] [address] Care Team Providers Care Donor Recruiter Name Role Phone Carlene Lucas MD Primary Care Provider [phone] Argenis Garcia RN Unavailable [phone] Cynthia Malik Unavailable Encounter Details Date Type Department Care Team (Late st Contact Info) Description 03/03/2024 Orders Only [facility] [address] [place] [address] Merle Sotelo LPN Social History Tobacco Use [...] Description 08/25/2025 3:45 PM EST Office Visit [facility] [address] [place] [address] [phone] Carlene Lucas MD [address] [place] [phone] documented as of this encounter Visit Diagnoses Not on filedocumented in this encounter Additional Health Concerns Assessment Noted Time PHQ-9 Depression Total Score: 8 08/31/20 23 1:46 PM EST documented as of this encounter Care Teams Donor Recruiter Relationship Specialty Start Date End Date Carlene Lucas MD [address] [place] [address] [phone] PCP - General Family Medicine 10/14/22 Argenis Garcia, SERA Registered Nurse Internal Medicine 08/22/25 08/23/25 Cynthia Malik 08/23/25 08/24/25 Gee Gallardo [employer] Utility SupervisorRetail Stock Clerk 02/24/24 Gee Gallardo Digital Forensics InvestigatorRetail Stock Clerk 10/06/24 documented as of this encounter
--- OUTSIDE RECORDS SUMMARY | 2025-08-24 12:53 | XMS_ITS | Encounter Summary ---
Author Organization [employer] Address [address] [facility] [address] [place] [address] Care Team Providers Care Office Support Name Role Phone Carlene Lucas MD Primary Care Provider [phone] Argenis Garcia RN Unavailable [phone] Cynthia Malik Unavailable Encounter Details Date Type Department Care Team ([facility] st Contact Info) Description 06/22/2024 Orders Only [facility] [address] [place], [place] [phone] Carlene Lucas MD [address] [place] [address] Encounter for HIV pre-exposure prophylaxis (Primary Dx) [...] Description 08/25/2025 3:45 PM EST Office Visit [facility] [address] [place] [phone] Carlene Lucas MD [address] [place] [phone] documented as of this encounter Visit Diagnoses Diagnosis Encounter for HIV pre-exposure prophylaxis- Primary documented in this encounter Additional Health Concerns Assessment Noted Time PHQ-9 Depression Total Score: 8 08/31/20 23 1:46 PM EST documented as of this encounter Care Teams Office Support Relationship Specialty Start Date End Date Carlene Lucas MD [address] [place] [phone] PCP - General Family Medicine 10/14/22 Argenis Garcia, RN Registered Nurse Internal Medicine 08/22/25 08/23/25 Cynthia Malik 08/23/25 08/24/25 Gee Gallardo Medical ClerkWildlife Veterinarian 02/24/24 Gee Gallardo Cross Country CoachWildlife Veterinarian 10/06/24 documented as of this encounter
--- OUTSIDE RECORDS SUMMARY | 2025-08-24 12:53 | XMS_ITS | Clinical Summary ---
Author Organization [employer] Address [address] [place] [address] Care Team Providers Care Scale Mechanic Name Role Phone Carlene Lucas MD Primary Care Provider [phone] Cynthia Malik Unavailable Allergies Active Allergy Reactions [...] DIRECTED 100 each 11 03/30/20 23 Active hydrocortisone 2.5 % cream Apply topically 2 times daily. 30 g 1 12/08/19 24 Active sertraline (Zoloft) 100 MG tablet [...] Active insulin pen needle (Pentips Generic Pen Norman) 32G x 4 mm misc USE DIRECTED WITH INSULIN 100 each 3 01/14/20 25 Active ARIPiprazole (Abilify) 20 MG tablet Take 20 mg by mouth at bedtime. 10/27/19 Active clonazePAM (KlonoPIN) 0.5 MG tablet TAKE 1 TABLET BY MOUTH EVERY DAY NEEDED FOR SEVERE ANXIETY 11/30/19 Active risperiDONE (RisperDAL) 1 MG tablet TAKE 1 TABLET BY MOUTH TWICE DAILY FOR ANXIETY AND VOICES 11/30/19 Active Blood Glucose Monitoring Suppl (Verdex TechnologiesStHuan Xiong Lite) w/Device kitIndications: Type 2 diabetes mellitus with other specified complication, with long-term current use of insulin ([facility]) Apply 1 each topically Once per day. 1 kit 01/14/20 Active insulin glargine (Lantus SoloStar) 100 UNIT/ML pen Inject 20 Units under the skin at bedtime. 15 mL 3 01/14/20 Active loratadine (Claritin) 10 MG tablet Take 1 tablet (10 mg) by mouth Once per day. 90 tablet 3 01/14/20 25 026 Active Dulaglutide (Trulicity) 1.5 MG/0.5ML solution auto-injectorIn dications:Type 2 diabetes mellitus with other specified complication, with long-term current use of insulin ([facility]) Inject 1.5 mg as directed [...] mellitus with other specified complication, unspecified whether oysterman insulin use (HCC) TAKE 1 TABLET BY [...] hyperglycemia, with long-term current use of insulin ([facility]) TEST BLOOD SUGAR 2 OR 3 TIMES DAILY 100 strip 04/13/20 25 Active TRUEplus Lancets 33G miscIndications :Type 2 diabetes mellitus with hyperglycemia, with long-term current use of insulin ([facility]) TEST BLOOD SUGAR 4 TO 6 TIMES A DAY 100 each 04/13/20 25 Active naltrexone (Depade) 50 MG tabletIndicatio ns:Severe alcohol dependence (CMS/HCC) ([facility]) TAKE 1 TABLET BY MOUTH EVERY MORNING [...] BY MOUTH EVERY DAY 30 tablet 2 5 2:18 PM EST 08/21/20 25 Active Aspirin Low Dose 81 MG EC tablet TAKE 1 TABLET BY MOUTH AT BEDTIME ((for the heart)) 90 tablet 3 08/23/20 25 Active Multiple Vitamins-Minera ls (CertaVite/Anti oxidants) tablet TAKE 1 TABLET BY MOUTH EVERY MORNING 90 tablet 3 08/23/20 25 Active Multiple Vitamins-Minera ls (CertaVite/Anti oxidants) tablet TAKE 1 TABLET BY MOUTH EVERY MORNING 90 tablet 3 07/27/20 23 025 Discontinued Aspirin Low Dose 81 MG EC tablet Take 1 tablet (81 mg) by mouth at bedtime. 90 tablet 3 05/17/20 24 025 Discontinued omega-3 acid ethyl esters (Lovaza) 1 g capsule TAKE 2 CAPSULES BY MOUTH TWICE DAILY IN THE MORNING AND EVENING 360 capsule 3 07/08/20 24 025 Discontinued(Re order (will not trigger notification to Pharmacy)) D3 Super Strength 50 MCG (1999 UT) [...] EDT): Pt has multiple risk factors for IA, EKG without ST-T segment changes and NSR 08/2023 Will check echo for structural abnormalities Assessment & Plan (09/01/2023 10:37 AM EST): Pt has multiple risk factors for IA, EKG without ST-T segment changes, however if [...] Naltrexone 50mg daily Recommend AUD services at [facility] Assessment & Plan (04/10/2023 9:36 AM [...] here, he has his Bps checked at [facility], to please notify us of lows [...] visit all his medications. - Patient at [facility]. Pure hypercholesterolemia 02/20/2012 Assessment & Plan (04/10/2023 9:43 AM EDT): On max dose statin (Atorvastatin 80mg nightly), fenofibrate 160mg, Dresden 3 1gm BID Consider adding ezetimibe if [...] Encounters Date Type Department Care Team Description 08/24/2025 Patient Outreach [facility] [address] [place] [address] Carlene Lucas MD Care Coordination (Communication to pts assigned CP Coordinator ) 08/23/2025 Patient Outreach [facility] [address] [place] [address] Carlene Lucas MD Care Coordination (CP Care Coordination Chart Review) 08/23/2025 Refill [facility] [address] [place] [phone] Carlene Lucas MD 08/22/2025 Patient Outreach [facility] [address] [place] [phone] Carlene Lucas MD 08/21/2025 Orders Only [facility] External Provider, [facility] 08/21/2025 Telephone [facility] [address] [place] [phone] Carlene Lucas MD ER Follow-up 08/18/2025 Refill [facility] [address] [place] [phone] Carlene Lucas MD Encounter for HIV pre-exposure prophylaxis 08/09/[address] [address] Carlene Lucas MD Medication Question 08/04/[address] [address] Carlene Lucas MD telephone call; Care Coordination 07/26/2025 Refill [facility] [address] [place] [phone] AjLiz FNP Vitamin D deficiency 07/26/2025 Refill [facility] [address] [place] [phone] Carlene Lucas MD 07/05/2025 Refill [facility] [address] [place] [phone] Carlene Lucas MD 06/27/2025 Refill [facility] [address] [place] [phone] Carlene Lucas MD Gastroesophageal reflux disease without esophagitis 06/23/2025 Telephone [facility] [address] [place], [place] [phone] Carlene Lucas MD Care Coordination (ICP Care Plan) 06/16/2025 2:00 PM EDT Office Visit [address] [address] Greg Huffman MD Severe alcohol dependence (CMS/HCC) (Primary Dx) 06/16/2025 Travel 06/06/[address] [address] Carlene Lucas MD Medication Question 06/02/2025 Patient Outreach [address] [address] Jovi Stephen Recovery Supports 05/25/2025 11:00 AM EDT Office Visit [address] [address] Patsy Massey FNP Bloody diarrhea (Primary Dx) 05/25/2025 Travel from Last 3 Months Immunizations Immunization Administration [...] Description 08/25/2025 3:45 PM EST Office Visit [facility] [address] [place] [address] Carlene Lucas MD [address] [place] [address] Health Maintenance Due Date Last Done Comments [...] Plan Patient has chronic kidney disease No aCsey Crawford Patient has chronic kidney disease Care [...] chronic kidney disease No Argenis Garcia RN Weekly blood pressure [...] has chronic kidney disease No Cynthia Malik Weekly blood pressure task [...] has chronic kidney disease No Cynthia Malik Procedures Procedure Name Priority Date/Time Associated Diagnosis [...] hyperglycemia, with long-term current use of insulin ([facility]) HM COLONOSCOPY Routine 09/11/2020 9:39 [...] PM EST Narrative 08/21/2025 3:03 PM EST [place] [address] XRay Report Signed Patient: Daniel Angulo MR#: [id number] 5 : 1965 Acct:[id number] Age/Sex: 59 / M ADM Date: 08/21/25 Loc: HO.ED Attending Dr: Ordering Physician: Nelly Dixon Date of Service: 08/21/25 Procedure(s): XR finger RT min 2V Accession Number(s): [id number] cc: Carlene Lucas; Nelly Dixon Reason for [...] 08/21/25 1459 DD/ 1436 TD/TT: 08/21/25 1445 Seal Extrusion Operator: Procedure Note Donotuseinterpreter, Image - 08/21/2025 [place] [address] XRay Report Signed Patient: Daniel AnguloMR#: [id number] 5 : 1965Acct:[id number] Age/Sex: 59 / MADM Date: 08/21/25 Loc: .ED Attending Dr: Ordering Physician: Nelly Dixon Date of Service: 08/21/25 Procedure(s): XR finger RT min 2V Accession Number(s): [id number] cc: Carlene Lucas; Nelly Dixon Reason for [...] 08/21/25 1459 DD/ 1436 TD/TT: 08/21/25 1445 Seal Extrusion Operator: [facility] External Provider IMG XR PROCEDURES Final Result * (ABNORMAL) Glucose, Whole Blood (08/21/2025 1:55 PM EST) [facility] Glucose, Whole Blood 186(H) 60 - 115 mg/dL [facility] Comment:METER #: [id number] 08/21/2025 1:55 PM EST 08/21/2025 1:58 PM EST Generic External Data Provider LAB BLOOD ORDERAB LES Final Result [facility] [address] [place] [phone] * (ABNORMAL) CBC auto differential (08/21/2025 1:28 PM EST) Only the most recent of3 resultswithin the time period is included. [facility] White Blood Count 5.0 4.8 - 10.8 X10*3/uL [facility] Red Blood Count 3.94(L) 4.60 - 5.80 X10*6/uL [facility] Hemoglobin 13.4(L) 14.0 - 18.0 g/dl [facility] Hematocrit 39.1(L) 42.0 - 52.0 % [facility] Mean Corpuscular Volume 99.2(H) 80.0 - 98.0 fL [facility] Mean Corpuscular Hemoglobin 34.0(H) 27.0 - 33.0 pg [facility] Mean Corpuscular HGB Conc 34.3 31.0 - 36.0 g/dl [facility] Red Cell Distribution Width 12.4 11.0 - 16.0 % [facility] Platelet Count 265 160 - 400 X10*3/uL [facility] Mean Platelet Volume 9.5 9.4 - 12.4 fL [facility] Neutrophils Percent Auto 40.2(L) 45 - 73 % [facility] Imm Gran Pct Auto 0.2 0.0 - 0.4 % [facility] Lymphocytes Percent Auto 46.0(H) 20 - 40 % [facility] Monocytes Percent Auto 9.0 2 - 11 % [facility] Eosinophils Percent Auto 3.4 0 - 4 % [facility] Basophils Percent Auto 1.2 0 - 2 % [facility] NRBC Pct Auto 0.0 0.0 - 0.2 /100WBC [facility] Neutrophils Absolute Auto 2.0 2.0 - 8.3 x10*3/uL [facility] Imm Gran Abs Auto 0.01 0.00 - 0.03 X10*3/uL [facility] Lymphocytes Absolute Auto 2.3 1.2 - 4.9 X10*3/uL [facility] Monocytes Absolute Auto 0.5 0.1 - 1.2 X10*3/uL [facility] Eosinophils Absolute Auto 0.2 0.0 - 0.4 X10*3/uL [facility] Basophils Absolute Auto 0.1 0.0 - 0.2 X10*3/uL [facility] NRBC Abs Auto 0.000 0.0 - 0.012 X10*3/uL [facility] 08/21/2025 1:28 PM EST 08/21/2025 1:37 PM EST us Generic External Data Provider LAB BLOOD ORDERAB LES Final Result [facility] [address] [place] [phone] [phone] * Type and screen (08/21/2025 1:28 PM EST) Blood Type AP [facility] Antibody Screen NEGATIVE [facility] 08/21/2025 1:28 PM EST 08/21/2025 1:41 PM EST Generic External Data Provider LAB BLOOD BANK TE ST ORDERABLES Final Result Performing Organization Address [facility] de Phone Number [facility] [address] [place] [phone] * Hepatic Function Panel (08/21/2025 1:28 PM EST) [facility] Bilirubin, Total 0.4 0.0 - 1.0 mg/dL [facility] Bilirubin, Direct 0.1 0.0 - 0.5 mg/dL [facility] Aspartate Amino Transferase 27 5 - 37 U/L [facility] Alanine Aminotransferase 20 0 - 40 U/L [facility] Total Protein 7.4 6.5 - 8.0 g/dL [facility] Albumin Level 4.5 3.5 - 5.0 g/dL [facility] Alkaline Phosphatase 95 39 - 117 U/L [facility] 08/21/2025 1:28 PM EST 08/21/2025 1:37 PM EST Generic External Data Provider LAB BLOOD ORDERAB LES Final Result Performing Organization Address [facility] de Phone Number [facility] [address] [place] [phone] * (ABNORMAL) Basic Metabolic Panel (08/21/2025 1:28 PM EST) Pathologist [facility] Sodium 136 135 - 145 mmol/L [facility] Potassium 3.7 3.3 - 5.1 mmol/L [facility] Chloride 101 96 - 108 mmol/L [facility] Carbon Dioxide 21(L) 22 - 29 mmol/L [facility] Anion Gap 18 12 - 20 [facility] Urea Nitrogen (BUN) 12 9 - 16 mg/dL [facility] Creatinine, Serum 0.77 0.5 - 1.4 mg/dL [facility] Creatinine Clr Calc Pharmacy 92.0 [facility] Comment:eGFR (calculated fro m the MDRD study equation) and eCrCl(calculated from the Cockcroft-Gault equation) are based ondifferent parameters and may not yield comparable results.If eCrCl result is absurd, please check patient'sheight/weight. Estimated Glomerular Filt Rate >60 [facility] Comment:Chronic Kidney Disea se: Estimated GFR < 60 mL/min/1.01x6Xjzbpr Kidney Disease: Estimated GFR < 15 mL/min/1.73m2 Glucose 244(H) 60 - 115 mg/dL [facility] Calcium 9.7 8.4 - 10.2 mg/dL [facility] 08/21/2025 1:28 PM EST 08/21/2025 1:37 PM EST us Generic External Data Provider LAB BLOOD ORDERAB LES Final Result [facility] [address] [place] [phone] * T-SPOT??.TB (06/29/2025 8:03 AM EDT) T Spot TB Negative Negative [facility] Comment:A negative test resu lt does [...] as aquantitative test. TS PANEL A 1 [facility] TS PANEL B 0 [facility] Negative Control Passed [facility] Positive Control Passed [facility] Comment:For additional infor wilberto, please refer tohttp://education.GPMESS/faq/SCH062(This link is being provided for informational/educational purposes only.)THIS TEST WAS PERFORMED AT:[employer] [id number] [place] [id number] W. MASON,MD,PHD 06/29/2025 8:03 AM EDT 06/29/2025 8:03 AM EDT us Carlene Lucas MD LAB BLOOD ORDERABLES Final Res ult Performing Organization Address City/[facility]/ZIP Co de Phone Number [facility] [address] [place] [phone] * TSH (06/29/2025 8:03 AM EDT) Thyroid Stimulating Hormone 2.01 0.32 - 4.0 uIU/mL [facility] Comment:TSH 3rd Generation ( [facility]) 06/29/2025 8:03 AM EDT 06/29/2025 8:03 AM EDT us Generic External Data Provider LAB BLOOD ORDERAB LES Final Result Performing Organization Address [facility]/ZIP Co de Phone Number [facility] [address] [place] [phone] * (ABNORMAL) Hemoglobin A1c (06/29/2025 8:03 AM EDT) Hemoglobin A1c 8.2(H) <6.0 % [facility] Comment:Hemoglobin A1C Refer ence Range Adults: 4.8 - 6.0 % Non diabetic: < 6.0 % Goal: < 7.0 %Additional Action Suggested: > 8.0 %Note: Hemoglobin A1c results are invalid for patients with abnormal amounts of HbF. Blood transfusions may impact the HbA1c concentration in the patient sample. Estimated Average Glucose 189 mg/dL [facility] Comment:eAG = Estimated ave rage glucose which is %A1C expressed asaverage glucose, using the formula of the M5J-IgeayopDyfteah Glucose study (ADAG), Diabetes Care, Vol.31,#8,Apr. 2007 06/29/2025 8:03 AM EDT 06/29/2025 8:03 AM EDT us Generic External Data Provider LAB BLOOD ORDERAB LES Final Result [facility] [address] [place] [phone] * (ABNORMAL) Lipid Panel, Standard (06/29/2025 8:03 AM EDT) Triglycerides 369(H) <150 mg/dL [facility] Comment:Desirable Triglyceri de: less than 150 mg/dLBorderline High Triglyceride 150-199 mg/dLHigh Triglyceride: 200-499 mg/dLVery High Triglyceride: greater than or equal to 5OO mg/dL Cholesterol 146 <200 mg/dL [facility] Comment:Desirable Cholestero l: less than 200 mg/dLBorderline High Cholesterol: 200-239 mg/dLHigh Cholesterol: greater than 239 mg/dL LDL Cholesterol Calculated 45 <100 mg/dL [facility] Comment:Desirable LDL: less than 100 mg/dLNear Optimal/Above Optimal LDL: 110- 129 mg/dLBorderline High LDL: 130-159 mg/dLHigh LDL: 160-189 mg/dLVery High LDL: greater than or equal to 190 mg/dL HDL Cholesterol 28(L) >40 mg/dL [facility] Comment:Desirable HDL: great er than 40 mg/dL Note: This HDL assay may give artificially low results in patients with liver disease. 06/29/2025 8:03 AM EDT 06/29/2025 8:03 AM EDT us Generic External Data Provider LAB BLOOD ORDERAB LES Final Result Performing Organization Address [facility]/ZIP Co de Phone Number [facility] [address] [place] [phone] * (ABNORMAL) Comprehensive Metabolic Panel (06/29/2025 8:03 AM EDT) Sodium 139 135 - 145 mmol/L [facility] Potassium 4.3 3.3 - 5.1 mmol/L [facility] Chloride 106 96 - 108 mmol/L [facility] Carbon Dioxide 26 22 - 29 mmol/L [facility] Anion Gap 11(L) 12 - 20 [facility] Urea Nitrogen (BUN) 17(H) 9 - 16 mg/dL [facility] Creatinine, Serum 0.77 0.5 - 1.4 mg/dL [facility] Estimated Glomerular Filt Rate >60 [facility] Comment:Chronic Kidney Disea se: Estimated GFR < 60 mL/min/1.04v8Ubfygo Kidney Disease: Estimated GFR < 15 mL/min/1.73m2 Glucose 241(H) 60 - 115 mg/dL [facility] Calcium 9.2 8.4 - 10.2 mg/dL [facility] Bilirubin, Total 0.3 0.0 - 1.0 mg/dL [facility] Aspartate Amino Transferase 34 5 - 37 U/L [facility] Alanine Aminotransferase 29 0 - 40 U/L [facility] Total Protein 6.8 6.5 - 8.0 g/dL [facility] Albumin Level 4.0 3.5 - 5.0 g/dL [facility] Alkaline Phosphatase 97 39 - 117 U/L [facility] 06/29/2025 8:03 AM EDT 06/29/2025 8:03 AM EDT us Generic External Data Provider LAB BLOOD ORDERAB LES Final Result Performing Organization Address [facility]/ZIP Co de Phone Number [facility] [address] [place] [phone] * POCT alcohol breath test manually [...] Final Result * Sed Rate by Modified Joshren (05/25/2025 12:05 PM EDT) Erythrocyte Sedimentation Rate 13 0 - 15 MM/HR [facility] Comment:Patients with polycy themia and many hemoglobin abnormalitiesmay have depressed sed rates whereas patients with anemiamay have elevated sed rates. Blood Venous blood specimen / Unknown 05/25/2025 12:05 PM EDT 05/25/2025 1:28 PM EDT Patsy Massey CRITICAL CARE TECHNICIAN LAB BLOOD ORDERABLES Final Res ult [facility] [address] [place] [phone] * C-reactive Protein (05/25/2025 12:05 PM EDT) C Reactive Protein 0.32 < or = 0.50 mg/dL [facility] Blood Venous blood specimen / Unknown 05/25/2025 12:05 PM EDT 05/25/2025 1:24 PM EDT Patsy Massey CRITICAL CARE TECHNICIAN LAB BLOOD ORDERABLES Final Res ult Performing Organization Address [facility] Co de Phone Number [facility] [address] [place] [phone] * POCT Rapid Covid-19 BOURGEOIS ID NOW (05/25/2025 11:17 AM EDT) Pathologist [facility] Coronavirus Antigen PCR Negative Negative, Indeterminate, None Detected, Invalid, Specimen unsatisfactory for evaluation, Weakly Positive, 2+ QC Media Lot # [id number] Lot# Expiration Date Swab 05/25/2025 11:1 7 AM EDT Patsy Browneo CRITICAL CARE TECHNICIAN POINT OF CARE TEST ENTER/EDIT ORDERABLES Final Result * Albumin, Random Urine W/Creatinine (01/04/2025 10:34 AM EDT) Pathologist [facility] Creatinine, Urine 19.84 mg/dL [facility] Microalbumin Urine <5.0 mg/L [facility] Microalbum Creatinine Ratio Ur TNP <30 ug/mg cr [facility] Comment:Unable to calculate albumin/creatinine ratio due to lowmicroalbumin or creatinine result. Urine (Urine, Random) 01/04/2025 10:34 AM EDT 01/04/2025 11:09 AM EDT Carlene Lucas MD LAB URINE ORDERABLES Final Res ult Performing Organization Address [facility]/ZIP Co de Phone Number [facility] [address] [place] [phone] * Hepatitis C Antibody with Reflex to HCV, RNA, Quantitative, Real-Time PCR (01/04/2025 10:34 AM EDT) Hepatitis C Antibody Nonreactive Nonreactive [facility] Comment:Antibodies to HCV no t detected; does not exclude early acuteHCV infection. Blood Venous blood specimen / Unknown 01/04/2025 10:34 AM EDT 01/04/2025 11:10 AM EDT us Carlene Lucas MD LAB BLOOD ORDERABLES Final Res ult [facility] [address] [place] [phone] * HIV-1/2 Antigen and Antibodies, Fourth Generation, with Reflexes (01/04/2025 10:34 AM EDT) HIV AB/AG Nonreactive Nonreactive [facility] Comment:HIV-1 p24 Ag and/or HIV-1/HIV-2 Ab not detected.A test result that is nonreactive does not exclude thepossibility of exposure to or infection with HIV-1 and/orHIV-2. Nonreactive results in this assay for individualswith prior exposure to HIV-1 and/or HIV-2 may be due toantigen and antibody levels that are below the limit ofdetection of this assay.The [employer] HIV Ag/Ab Combo assay result andsupplemental assay results should be interpreted inconjunction with the patient's clinical presentation,history and other laboratory results. If the results areinconsistent with clinical evidence, additional testing issuggested to confirm the result. Blood Venous blood specimen / Unknown 01/04/2025 10:34 AM EDT 01/04/2025 11:10 AM EDT us Carlene Lucas MD LAB BLOOD ORDERABLES Final Res ult [facility] [address] [place] [phone] * Hm Colonoscopy (09/11/2020 9:39 AM EST) us Historical Provider MD HEALTH MAINTENANCE Final Result from Last 3 [...] 08/23/2025 Patient has chronic kidney disease 08/23/2025 Weekly blood pressure task 08/24/2025 Weekly blood pressure task 08/24/2025 Weekly blood pressure task 08/24/2025 Patient has diabetic eye disease 08/24/2025 Patient has diabetic eye disease 08/24/2025 Patient has diabetic eye disease 08/24/2025 Patient has chronic kidney disease 08/24/2025 Patient has chronic kidney disease 08/24/2025 Patient has chronic kidney disease 08/24/2025 Insurance [facility] [address] [place] [id number] DENTAL-[facility] MEDICAID STAND ADULT Care Teams Scale Mechanic Relationship Specialty Start Date End Date Carlene Lucas MD [address] [place] [phone] PCP - General Family Medicine 10/14/22 Cynthia Malik 08/23/25 08/24/25 Gee Gallardo T[employer]ings [employer] 02/24/24 Gee Gallardo Bedspread Cutter [employer] 10/06/24
--- OUTSIDE RECORDS SUMMARY | 2025-08-24 12:53 | XMS_ITS ---
Author Organization [employer] Address [address] [place] [address] Care Team Providers Care Bridge Maintainer Name Role Phone Carlene Lucas MD Primary Care Provider [phone] Cynthia Malik CHW Complex Status:Closed (Closed) Start date:08/22/2025 Enrollment reason:ADT Feed End date:08/24/2025 Close reason:Transferred to [facility] Overview CP Assigned Patient- [place] [facility] [place]. Task already assigned to team nurse for ED f/u. Please contact CP coordinator. Case Team Name Relationship Phone Cynthia Malik(Responsible Staff) [phone] Continued Care and Services Coordination
--- OUTSIDE RECORDS SUMMARY | 2025-08-24 12:53 | XMS_ITS | Encounter Summary ---
Author Organization [employer] Address 75 [facility] 7t [place] [address] Care Team Providers Care Home Therapy Clinician Name Role Phone Carlene Lucas MD Primary Care Provider [phone] Reason for Visit * Reason Comments Med Refill Encounter Details Date Type Department Care Team ([facility] st Contact Info) Description 08/18/2025 Refill [facility] MED[facility]INE [address] [place] [address] Carlene Lucas MD [address] [place] [address] Encounter for HIV pre-exposure prophylaxis Social History [...] Description 08/25/2025 3:45 PM EST Office Visit [facility] MED[facility]INE [address] [place] [address] Carlene Lucas MD [address] [place] [address] documented as of this encounter Goals Goal [...] documented as of this encounter Care Teams Home Therapy Clinician Relationship Specialty Start Date End Date Carlene Lucas MD [address] [place] [address] PCP - General Family Medicine 10/14/22 Gee Gallardo Hose InspectorPanelbeater 02/24/24 Gee Gallardo Drapery MakerPanelbeater 10/06/24 documented as of this encounter
--- OUTSIDE RECORDS SUMMARY | 2025-08-24 12:53 | XMS_ITS | Encounter Summary ---
Author Organization [employer] Address 75 [facility] 7t [place] [address] Care Team Providers Care Unhairing Machine Operator Name Role Phone Carlene Lucas MD Primary Care Provider Argenis Garcia RN Unavailable [phone] Cynthia Malik Unavailable Encounter Details Date Type Department Care Team (Late st Contact Info) Description 08/22/2025 Patient Outreach [facility] MEDICINE [address] [place] [address] Carlene Lucas MD [address] [place] [address] Social History Tobacco Use Types Packs/Day Years [...] Description 08/25/2025 3:45 PM EST Office Visit [facility] [address] [place] [address] Carlene Lucas MD [address] [place] [address] documented as of this encounter Goals Goal [...] Patient has chronic kidney disease No Taj Emiyl Weekly blood pressure task Care Plan Weekly blood pressure task No Vang Emily Weekly blood pressure task [...] 08/24/2025 Patient has chronic kidney disease 08/24/2025 Assessment Noted Time PHQ-9 Depression Total Score: 0 04/12/20 3:06 PM EDT documented as of this encounter Care Teams Unhairing Machine Operator Relationship Specialty Start Date End Date Carlene Lucas MD [address] [place] [address] PCP - General Family Medicine 10/14/22 Argenis Garcia, RN Registered Nurse Internal Medicine 08/22/25 08/23/25 Cynthia Malik 08/23/25 08/24/25 Gee Gallardo Guard Dance HallFood Service Employee 02/24/24 Gee Gallardo Concrete Batch Plant OperatorFood Service Employee 10/06/24 documented as of this encounter
--- OUTSIDE RECORDS SUMMARY | 2025-08-24 12:53 | XMS_ITS | Encounter Summary ---
Author Organization [employer] Address 75 [facility] 7t [place] [address] Care Team Providers Care Electronics Assembler Name Role Phone Carlene Lucas MD Primary Care Provider [phone] Argenis Garcia RN Unavailable [phone] Cynthia Malik Unavailable Reason for Visit * Reason Comments Med Refill Encounter Details Date Type Department Care Team (Late st Contact Info) Description 04/18/2024 Refill [facility] MED[facility]INE [address] [place], [place] [phone] Carlene Lucas MD [address] [place], [place] [phone] Vitamin D deficiency Social History Tobacco Use [...] EST Office Visit [facility] [address] [place] [address] Carlene Lucas MD [address] [place] [phone] documented as of this encounter Visit Diagnoses Diagnosis Vitamin D deficiency documented in this encounter Additional Health Concerns Assessment Noted Time PHQ-9 Depression Total Score: 8 08/31/20 23 1:46 PM EST documented as of this encounter Care Teams Electronics Assembler Relationship Specialty Start Date End Date Carlene Lucas MD [address] [place] [id number] PCP - General Family Medicine 10/14/22 Argenis Garcia, RN Registered Nurse Internal Medicine 08/22/25 08/23/25 Cynthia Malik 08/23/25 08/24/25 Gee Gallardo Polisher BrassForestry Aid 02/24/24 Gee Gallardo Bolt ThreaderForestry Aid 10/06/24 documented as of this encounter
--- OUTSIDE RECORDS SUMMARY | 2025-08-24 12:53 | XMS_ITS | Encounter Summary ---
Author Organization [employer] Address 75 [facility] 7t [place] [address] Care Team Providers Care Channeler Outsole Name Role Phone Carlene Lucas MD Primary Care Provider [phone] Cynthia Malik Unavailable Reason for Visit * Reason Comments Care Coordination Communication to pts assigned CP Coordinator Encounter Details Date Type Department Care Team (Latest Contact Info) Description 08/24/2025 Patient Outreach [facility] [address] [place] [address] Carlene Lucas MD [address] [place] [address] Care Coordination (Communication to pts assigned CP Coordinator ) Social History Tobacco Use Types Packs/Day Years [...] AM EDT documented as of this encounter Progress Notes * Cynthia Malik - 08/24/2025 11:31 AM EST Ashley, I am writing to you as our records indicate that the following patient is engaged in your program: Patient Daniel Angulo 1965 This email is to notify you that we have received notification that the patient went to [facility] on 08/21/25 . The patient has been outreached by the [facility]'s triage nurse for a status check, but was unsuccessful. If you are able to connect with the patient, please advise the patient to contact the [facility] for an ED follow up with the provider. If there are any questions or concerns, please feel free to reach out to me. Thank You documented in this encounter Plan of Treatment Upcoming Encounters Date Type Department Care Team (Late st Contact Info) Description 08/25/2025 3:45 PM EST Office Visit [facility] MEDICINE [address] [place] [address] Carlene Lucas MD [address] [place] [address] documented as of this encounter Goals Goal [...] Plan Patient has chronic kidney disease No King, Cynthia Patient has chronic kidney disease Care Plan Patient has chronic kidney disease Cynthia Willis documented as of this encounter Visit Diagnoses [...] documented as of this encounter Care Teams Channeler Outsole Relationship Specialty Start Date End Date Carlene Lucas MD [address] [place] [address] PCP - General Family Medicine 10/14/22 Cynthia Malik 08/23/25 08/24/25 Gee Gallardo Hammer AdjusterKnife Changer 02/24/24 Gee Gallardo History Card ClerkKnife Changer 10/06/24 documented as of this encounter
--- OUTSIDE RECORDS SUMMARY | 2025-08-24 12:56 | XMS_ITS | Encounter Summary ---
Author Organization [employer] Address 75 [facility] 7t [place] [address] Care Team Providers Care Repairer Engine Production Name Role Phone Carlene Lucas MD Primary Care Provider [phone] Argenis Garcia RN Unavailable [phone] Cynthia Malik Unavailable Reason for Visit * Reason Onset Date Comments Nurse Triage 05/21/2023 Encounter Details Date Type Department Care Team ([facility] st Contact Info) Description 05/21/2023 Telephone [facility] MEDICINE [address] [place] [address] Carlene Lucas MD [address] [place] [address] Nurse Triage Social History Tobacco Use Types [...] 05/21/2023 2:46 PM EDT Triage call with [facility] [place] [id number] Pt reports upper abdominal pain, above umbilicus, which is hard to describe . Pt reports heart burn, sour taste in mouth and some times feels like chest pain. Pt denies dizziness, light headedness, difficulty breathing. Pt is advised to come to [facility] to be seen by provider and [...] accepted this outcome Please contact pt at [phone] documented in this encounter Plan of Treatment Upcoming Encounters Date Type Department Care Team (Late st Contact Info) Description 08/25/2025 3:45 PM EST Office Visit [facility] MEDICINE [address] [place] [phone] Carlene Lucas MD [address] [place] [phone] documented as of this encounter Visit Diagnoses Not on filedocumented in this encounter Additional Health Concerns Assessment Noted Time PHQ-9 Depression Total Score: 4 01/13/20 1:46 PM EDT documented as of this encounter Care Teams Repairer Engine Production Relationship Specialty Start Date End Date Carlene Lucas MD [address] [place] [address] PCP - General Family Medicine 10/14/22 Argenis Garcia, RN Registered Nurse Internal Medicine 08/22/25 08/23/25 Cynthia Malik 08/23/25 08/24/25 Gee Gallardo Chief Librarian Music DepartmentManager Analysis 02/24/24 Gee Gallardo Washer EngineerManager Analysis 10/06/24 documented as of this encounter
--- OUTSIDE RECORDS SUMMARY | 2025-08-24 12:56 | XMS_ITS | Encounter Summary ---
Author Organization [email or web address] Address 75 [facility] 7t [place] [address] Care Team Providers Care Ash Conveyor Operator Name Role Phone Carlene Lucas MD Primary Care Provider [phone] Argenis Garcia RN Unavailable [phone] Cynthia Malik Unavailable Reason for Visit * Reason Onset Date Comments Nurse Triage 06/03/2023 Encounter Details Date Type Department Care Team ([facility] st Contact Info) Description 06/03/2023 Telephone [facility] MEDICINE [address] [place] [address] Carlene Lucas MD [address] [place] [address] Nurse Triage Social History Tobacco Use Types [...] Visit [facility] MEDICINE [address] [place], [place] [phone] Carlene Lucas MD [address] [place], [place] [phone] documented as of this encounter Visit Diagnoses Not on filedocumented in this encounter Additional Health Concerns Assessment Noted Time PHQ-9 Depression Total Score: 4 01/13/20 23 1:46 PM EDT documented as of this encounter Care Teams Ash Conveyor Operator Relationship Specialty Start Date End Date Carlene Lucas MD [address] [place], [place] [phone] PCP - General Family Medicine 10/14/22 Argenis Garcia, RN Registered Nurse Internal Medicine 08/22/25 08/23/25 Cynthia Malik 08/23/25 08/24/25 Gee Gallardo Home Performance LaborerLine Palletizer 02/24/24 Gee Gallardo Early Childhood Services CoordinatorLine Palletizer 10/06/24 documented as of this encounter
--- OUTSIDE RECORDS SUMMARY | 2025-08-24 12:56 | XMS_ITS | Encounter Summary ---
Author Organization [employer] Address 75 [facility] 7t [place] [address] Care Team Providers Care Bilingual Research Interviewer Name Role Phone Carlene Lucas MD Primary Care Provider [phone] Argenis Garcia RN Unavailable [phone] Cynthia Malik Unavailable Encounter Details Date Type Department Care Team (Late Contact Info) Description 05/26/2023 Abstract [facility] MEDICINE [address] [place] [address] [phone] Carlene Lucas MD [address] [place] [phone] Social History Tobacco Use Types Packs/Day Years [...] Description 08/25/2025 3:45 PM EST Office Visit [facility] MEDICINE [address] [place] [phone] Carlene Lucas MD [address] [place] [phone] documented as of this encounter Visit Diagnoses Not on filedocumented in this encounter Additional Health Concerns Assessment Noted Time PHQ-9 Depression Total Score: 4 01/13/20 23 1:46 PM EDT documented as of this encounter Care Teams Bilingual Research Interviewer Relationship Specialty Start Date End Date Carlene Lucas MD [address] [place] [address] PCP - General Family Medicine 10/14/22 Argenis Garcia, SERA Registered Nurse Internal Medicine 08/22/25 08/23/25 Cynthia Malik 08/23/25 08/24/25 Gee Gallardo Cooler ServicerRadiation Control Health Physicist 02/24/24 Gee Gallardo Beef Cattle GrazierRadiation Control Health Physicist 10/06/24 documented as of this encounter
== END 2025-08-23 10:29 | disposition home or self-care (01) ==
LOC: HO.HOSX 10:28
PROVIDERS: Visit Provider Orthopaedic Surgery
DX: S62.630B Displaced fracture of distal phalanx of right index finger, initial encounter for open fracture (principal); F31.9 Bipolar disorder, unspecified; F10.90 Alcohol use, unspecified, uncomplicated; E11.9 Type 2 diabetes mellitus without complications; Z79.85 Long-term (current) use of injectable non-insulin antidiabetic drugs
CPT/HCPCS: 73130; 99202

== ENCOUNTER → 2025-08-23 10:28 | Outpatient (BNV) | payer MEDICAID, SELFPAY | PROVIDERS: Visit Provider Radiology Diagnostic Radiology | DX: M79.641 Pain in right hand (principal) | CPT/HCPCS: 73130 ==

== ENCOUNTER 2025-08-24 12:48 | Day surgery (SDC) | payer MEDICAID, SELFPAY ==
--- NOTE | 2025-08-24 11:17 | P.OP_ITS ---
Operative Note Operative Note Date of Service: 08/24/25 Narrative: Operative Note Narrative: Preop diagnosis: 1. Right index finger distal phalanx level Amputation 2. Right index finger nail bed injury Postop diagnosis: Same Procedure: 1. Right index finger Revision amputation 2. Right index finger I and D of open fracture 3. Right index finger Excision of germinal and sterile nail matrices Surgeon: Concepcion Quinones MD Virtual Classroom Manager: Ryan NICHOLSON Anesthesia: Digital block Findings: Right index finger amputation through the distal phalanx with loss of the distal 2/3 of the nail bed and nail plate Implants: None Tourniquet time: 0 EBL: 5.0 ml Specimen: None Drains: None Complications: None Disposition: Brought to the recovery room in stable condition Plan: Follow-up in next week for wound check Anticipate suture removal in 3 weeks Continue antibiotics until finished Indications: The patient is 59 years old with a right index finger amputation through the distal phalanx also involving the nail bed . The risks and bene fits of operative treatment, including but not limited to risk of damage to blood vessels, nerves, tendons, infection, recurrence, persistent pain or numbness, incomplete resolution of preoperative symptoms, or need for further surgery were discussed with the patient and they wished to proceed with surgery. Procedure: Once consent was obtained a digital block was performed in preop hold. The patient was brought back to the operating suite and placed in the operating table in a supine position. The extremity was prepped and draped in a standard surgical fashion. I placed a finger tourniquet about the base of the index finger for fewer than 30 minutes. The right index finger amputation site was debrided of nonviable tissue, meaning the nonviable tissue was excised. The end of the bone was debrided using a curette where necessary and also shortened using a rongeur and a bone biter as appropriate. The the sharp edges at the end of the bone were smoothed using a small rongeur. The ends of the digital nerves were shortened as indicated. The wound was then copiously irrigated with normal saline. Our attention was turned to the nail bed. Because of the severity of this in jury it was felt that the nail apparatus to would be best removed. The sterile and germinal matrices were carefully excised using a 15. Blade and then a rongeur. The skin edges at the paronychial fold and soft tissue injury were freshened using a 15. Blade or iris scissors removing only approximately 1 mm to facilitate healing at the skin edges. The volar flap of skin and tissue was in relatively good condition. It was shaped appropriately to use this flap of tissue to cover the distal end of the bone at the end of the finger. The wound was copiously irrigated with normal saline. The skin edges were reapproximated with 4-0 Prolene suture. Hemostasis was obtained with a brief period of local pressure and a sterile dressing was applied. The patient appears to have tolerated the procedure well and with no complications. All digits were well vascularized conclusion of the case.
--- NOTE | 2025-08-24 11:17 | MHC.SHP ---
Pre-Procedural Eval Section A - 24 Hr Update-Section A only Date of Service: 08/24/25 The patient is an INPATIENT: No Changes since office visit: No Cold of Flu in the past 2 weeks, No New Medical Problems, No Changes in Medication and No Patient answered all questions The patient has been examined within 24 hours of the surgical procedure. The History & Physical has been completed within 30 days and I have reviewed it.: Yes Section B - Complete if H&P > 30 days Chief Complaint: Displaced fracture of distal phalanx of unspecifie Allergies: Allergies Allergy/AdvReac Type Severity Reaction Status Date / Time No Known Allergies Allergy Verified 08/23/25 10:42 Plan I have reviewed the history and physical and performed a pertinent physical examination on my patient. No changes have occurred unless specified. Time Spent With Patient Time: Total time managing care of this patient today ____ minutes.
[2025-08-24 13:48] VITALS: BP 142/84; PULSE 100; RESP 16; TEMP 37.5; O2SAT 96; BMI 26.3
[2025-08-24 15:03] VITALS: BP 158/91; PULSE 109; RESP 18; O2SAT 94
== END 2025-08-24 15:21 | disposition home or self-care (01) ==
PROVIDERS: PCP General Practice; Visit Provider Orthopaedic Surgery
PROC: (CPT 26951; principal; 2025-08-24 14:50)
DX: S68.620A Partial traumatic transphalangeal amputation of right index finger, initial encounter (principal); S60.121A Contusion of right index finger with damage to nail, initial encounter; W23.0XXA Caught, crushed, jammed, or pinched between moving objects, initial encounter; S69.81XA Other specified injuries of right wrist, hand and finger(s), initial encounter; Y93.89 Activity, other specified; Y92.9 Unspecified place or not applicable; Y99.9 Unspecified external cause status; F31.9 Bipolar disorder, unspecified; F10.11 Alcohol abuse, in remission; I10 Essential (primary) hypertension; E78.00 Pure hypercholesterolemia, unspecified; E11.42 Type 2 diabetes mellitus with diabetic polyneuropathy; Z79.4 Long term (current) use of insulin; Z20.6 Contact with and (suspected) exposure to human immunodeficiency virus [HIV]; Z79.85 Long-term (current) use of injectable non-insulin antidiabetic drugs; Z79.899 Other long term (current) drug therapy
CPT/HCPCS: 26951; 11750; 11012

== ENCOUNTER → 2025-08-24 12:48 | Outpatient (BNV) | payer MEDICAID, SELFPAY | PROVIDERS: PCP General Practice; Visit Provider Orthopaedic Surgery | DX: S68.620A Partial traumatic transphalangeal amputation of right index finger, initial encounter (principal) | CPT/HCPCS: 26951 ==

== ENCOUNTER 2025-08-30 10:23 | Outpatient (AMB) | payer MEDICAID, SELFPAY ==
[2025-08-30 10:50] VITALS: BMI 26.3
--- NOTE | 2025-08-30 10:50 | A.OFFVIS_ITS ---
Vital Signs 08/30/25 10:50 Height 5 ft 6 in Weight 163 lb BMI 26.3 Intake Visit Reasons: PO 1 week RT IF I&D rev amp 08/24/25 AR Intake Note: Daniel 59 yr old right hand dominant male, presents today for his P/O visit for his right index finger I&D revision amp done with Dr Quinones on 08/24/25. He is here today for a wound check. Allergies No Known Allergies Allergy (Verified 08/30/25 10:50) HPI HPI PO 1 week RT IF I&D rev amp 08/24/25 AR: Details: Daniel is a 59 year old right hand dominant Diabetic Bulgarian speaking man who returns S/P right index finger revision amputation. I&D open fracture, and excision of nail matrix, DOS: 08/24/25. He closed his fingertip in a door, DOI: 08/21/25, and removed his fingertip when pulling his finger free. He says he is doing well He denies any numbness or tingling. He continues to take his Abx. He has a Hx of bipolar disorder & ETOH abuse. He is a Diabetic, his most recent HgA1c was 8.2% on 06/29/25. He is currently in a day program due to disabilities, and is accompanied by a worker from this day program today. 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 Vitamin D deficiency Surgical History Hx of colonoscopy No pertinent past surgical history Family History Father Diabetes mellitus Complete amputation of bilateral legs Mother Diabetes mellitus Social History Household Members: None Housing: Apartment Alcohol intake: current Alcohol intake frequency: former alcohol drinker Alcohol type: hard liquor Patient Tobacco Use Status: Never used Tobacco e-Cigarette/Vaping Use: Never Used Second Hand Smoke Exposure: No service: No Current occupational status: disabled 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 Right index fingertip partial amputation, S/P revision amputation 2. Right index finger distal phalanx open tuft fracture, S/P I&D 3. Right index finger nail bed injury, S/P excision of germinal and sterile nail matrices From a crush injury, DOI: 08/21/25 DOS: 08/24/25 The patient appears to be doing well post-operatively I educated him about the post-operative course I explained the signs and symptoms of infection, if the patient develops any new or worsening erythema, drainage, pain, or warmth they should contact the clinic or attend the ED. I discussed activity modifications, he is to lift nothing heavier than a cellphone for the next 4 weeks. They should also avoid any heavy impact activities, falls, or sports activities for the next 6 weeks He will perform gentle ROM exercises at home He should avoid any underwater activities He will folow up in 2 weeks for a wound check, suture removal, and X-rays, 3V R IF We gave him a note allowing him to go back to his day program. He needs to keep his right hand clean and dry and has a 2 lb weight limit. Scribed for Concepcion Quinones MD by Dwain Madden, medical safety director, on 08/30/25 at 10:55 AM, EST. 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
== END 2025-08-30 11:05 | disposition home or self-care (01) ==
LOC: HO.HOS 10:23
PROVIDERS: PCP General Practice; Visit Provider Orthopaedic Surgery
DX: S62.639B Displaced fracture of distal phalanx of unspecified finger, initial encounter for open fracture (principal); S68.620A Partial traumatic transphalangeal amputation of right index finger, initial encounter; F31.9 Bipolar disorder, unspecified; F10.90 Alcohol use, unspecified, uncomplicated; E11.9 Type 2 diabetes mellitus without complications
CPT/HCPCS: 99024

== ENCOUNTER → 2025-08-30 10:23 | Outpatient (BNVA) | payer MEDICAID, SELFPAY | PROVIDERS: PCP General Practice; Visit Provider Orthopaedic Surgery | DX: S62.630B Displaced fracture of distal phalanx of right index finger, initial encounter for open fracture (principal); Z98.890 Other specified postprocedural states; F31.9 Bipolar disorder, unspecified; F10.90 Alcohol use, unspecified, uncomplicated; E11.65 Type 2 diabetes mellitus with hyperglycemia; Z79.84 Long term (current) use of oral hypoglycemic drugs; Z79.82 Long term (current) use of aspirin | CPT/HCPCS: 99212 ==

== ENCOUNTER 2025-09-19 14:27 | Outpatient (AMB) | payer MEDICAID, SELFPAY ==
--- NOTE | 2025-09-19 14:35 | MHC.OFFVIS ---
Vital Signs 09/19/25 14:36 Height 5 ft 6 in Weight 163 lb BMI 26.3 Intake Visit Reasons: PO RT IF I&D rev amp 08/24/25 AR Intake Note: Daniel 59 yr old right hand dominant male, presents today for his P/O visit for his right index finger I&D revision amp done with Dr Quinones on 08/24/25. He is here today for a wound check and to have his sutures removed. Allergies No Known Allergies Allergy (Verified 09/19/25 14:36) HPI HPI PO RT IF I&D rev amp 08/24/25 AR: Details: Daniel is a 59 year old right hand dominant Diabetic Danish speaking man who returns S/P right index finger revision amputation. I&D open fracture, and excision of nail matrix, DOS: 08/24/25. He closed his fingertip in a door, DOI: 08/21/25, and removed his fingertip when pulling his finger free. He says he is doing well overall. He denies any numbness or tingling. He has completed his Abx. He has a Hx of bipolar disorder & ETOH abuse. He is a Diabetic, his most recent HgA1c was 8.2% on 06/29/25. He is currently in a day program due to disabilities, and is accompanied by a worker from this day program today. [facility] Medical History Arthritis Asthma Bipolar 1 disorder Diabetes mellitus Diabetes type 2, uncontrolled Diabetic polyneuropathy associated with type 2 diabetes mellitus Diabetic retinopathy associated with type 2 diabetes mellitus GERD (gastroesophageal reflux disease) Hypercholesterolemia 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 Lipoma [facility] (current) use of insulin Vitamin D deficiency Surgical History Hx of colonoscopy No pertinent past surgical history Family History Father Diabetes mellitus Complete amputation of bilateral legs Mother Diabetes mellitus Social History Household Members: None Housing: Apartment Alcohol intake: current Alcohol intake frequency: former alcohol drinker Alcohol type: hard liquor Patient Tobacco Use Status: Never used Tobacco e-Cigarette/Vaping Use: Never Used Second Hand Smoke Exposure: No service: No Current occupational status: disabled 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 Sutures removed and steri-strips applied There was a small amount of yellow purulence that came out with the sutures from the radial side of the amputation site. The small amount of purulence was expressed. The wound was then cleaned and a sterile dressing applied. 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 Right index fingertip partial amputation, S/P revision amputation 2. Right index finger distal phalanx open tuft fracture, S/P I&D 3. Right index finger nail bed injury, S/P excision of germinal and sterile nail matrices From a crush injury, DOI: 08/21/25 DOS: 08/24/25 4. Right index finger post-op infection The patient appears to be doing well post-operatively I educated him about the post-operative course I explained the signs and symptoms of infection, if the patient develops any new or worsening erythema, drainage, pain, or warmth they should contact the clinic or attend the ED. I ordered a 7 day course of PO Augmentin for him to take, and discussed wound care I discussed activity modifications, he is to lift nothing heavier than a cellphone for the next 2 weeks. They should also avoid any heavy impact activities, falls, or sports activities for the next 4 weeks He will perform gentle ROM exercises at home He should avoid any underwater activities for the next 5 days He will follow up in 3 days with LYN Davis for a wound check We gave him a note allowing him to go back to his day program. He needs to keep his right hand clean and dry and has a 2 lb weight limit. Scribed for Concepcion Quinones MD by Dwain Madden, medical assistant secretary, on 09/19/25 at 2:38 PM, EST. 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
[2025-09-19 14:36] VITALS: BMI 26.3
--- OUTSIDE RECORDS SUMMARY | 2025-09-19 18:08 | XMS_ITS | Encounter Summary ---
Author Organization [employer] Address 75 [facility] 7t [place] [address] Care Team Providers Care Pipe Line Repairer Name Role Phone Carlene Lucas MD Primary Care Provider [phone] Argenis Garcia RN Unavailable [phone] Cynthia Malik Unavailable Encounter Details Date Type Department Care Team (Late st Contact Info) Description 03/03/2024 Orders Only [facility] MEDICINE [address] [place] [address] Merle Sotelo LPN Social History Tobacco Use [...] documented as of this encounter Care Teams Pipe Line Repairer Relationship Specialty Start Date End Date Carlene Lucas MD [address] [place] [address] PCP - General Family Medicine 10/14/22 Argenis Garcia, RN Registered Nurse Internal Medicine 08/22/25 08/23/25 Cynthia Malik 08/23/25 08/24/25 Gee Gallardo Shelter SupervisorHighway Maintenance Supervisor 02/24/24 Gee Gallardo Director Of InformaticsHighway Maintenance Supervisor 10/06/24 documented as of this encounter
--- OUTSIDE RECORDS SUMMARY | 2025-09-19 18:08 | XMS_ITS | Encounter Summary ---
Author Organization [email or web address] Address [address] [facility] [address] [place] [address] Care Team Providers Care Sound Effects Supervisor Name Role Phone Carlene Lucas MD Primary Care Provider [phone] Argenis Garcia RN Unavailable [phone] Cynthia Malik Unavailable Encounter Details Date Type Department Care Team ([facility] st Contact Info) Description 06/22/[address] [facility] MEDICINE [address] [place], [place] [phone] Carlene Lucas MD [address] [place] [address] Encounter for HIV pre-exposure prophylaxis (Primary Dx) [...] documented as of this encounter Care Teams Sound Effects Supervisor Relationship Specialty Start Date End Date Carlene Lucas MD [address] [place] [address] PCP - General Family Medicine 10/14/22 Argenis Garcia, SERA Registered Nurse Internal Medicine 08/22/25 08/23/25 Cynthia Malik 08/23/25 08/24/25 Gee Gallardo Steel GrinderCorporate Treasurer 02/24/24 Gee Gallardo Mortar Mixer OperatorCorporate Treasurer 10/06/24 documented as of this encounter
--- OUTSIDE RECORDS SUMMARY | 2025-09-19 18:08 | XMS_ITS | Encounter Summary ---
Author Organization [employer] Address [address] [facility] [address] [place] [address] Care Team Providers Care Grain Picker Name Role Phone Carlene Lucas MD Primary Care Provider [phone] Argenis Garcia RN Unavailable [phone] Cynthia Malik Unavailable Reason for Visit * Reason Comments Med Refill Encounter Details Date Type Department Care Team (Late st Contact Info) Description 04/18/2024 Refill [facility] MEDICINE [address] [place], [place] [phone] Carlene Lucas MD [address] [place], [place] [phone] Vitamin D deficiency Social History Tobacco Use [...] documented as of this encounter Care Teams Grain Picker Relationship Specialty Start Date End Date Carlene Lucas MD [address] [place] [id number] PCP - General Family Medicine 10/14/22 Argenis Garcia, SERA Registered Nurse Internal Medicine 08/22/25 08/23/25 Cynthia Malik 08/23/25 08/24/25 Gee Gallardo Regional Sales AssociatePhysical Education Teacher 02/24/24 Gee Gallardo Cartridge Loading OperatorPhysical Education Teacher 10/06/24 documented as of this encounter
--- OUTSIDE RECORDS SUMMARY | 2025-09-19 18:08 | XMS_ITS | Encounter Summary ---
Author Organization [employer] Address [address] [facility] [address] [place] [address] Care Team Providers Care Childhood Development Teacher Name Role Phone Carlene Lucas MD Primary Care Provider [phone] Argenis Garcia RN Unavailable [phone] Cynthia Malik Unavailable Reason for Visit * Reason Onset Date Comments Lab Orders 01/24/2025 Encounter Details Date Type Department Care Team ([facility] st Contact Info) Description 01/24/2025 Telephone [facility] MEDICINE [address] [place], [place] [phone] Carlene Lucas MD [address] [place], [place] [phone] Lab Orders Social History Tobacco Use Types [...] the past 12 months, has t he [employer], gas, oil or water company threatened to [...] - 01/24/2025 2:47 PM EDT Tc from [facility] with [facility] requesting Tb test order so pt can be admitted to program. documented in this encounter Plan of Treatment Not on file documented as of this encounter Visit Diagnoses Not on filedocumented in this encounter Additional Health Concerns Assessment Noted Time PHQ-9 Depression Total Score: 4 01/14/20 3:38 PM EDT documented as of this encounter Care Teams Childhood Development Teacher Relationship Specialty Start Date End Date Carlene Lucas MD [address] [place] [address] PCP - General Family Medicine 10/14/22 Argenis Garcia, SERA Registered Nurse Internal Medicine 08/22/25 08/23/25 Cynthia Malik 08/23/25 08/24/25 Gee Gallardo Instrument MakerCupola Melter 02/24/24 Gee Gallardo Market Development ExecutiveCupola Melter 10/06/24 documented as of this encounter
--- OUTSIDE RECORDS SUMMARY | 2025-09-19 18:08 | XMS_ITS | Clinical Summary ---
Author Organization [employer] Address [address] [place] [address] Care Team Providers Care Flat Surfacer Jewel Name Role Phone Carlene Lucas MD Primary Care Provider Allergies Active Allergy Reactions Criticality Noted Date [...] DAILY DIRECTED 100 each 11 023 Active hydrocortisone 2.5 % cream Apply topically 2 times daily. 30 g 1 024 Active sertraline (Zoloft) 100 MG tablet Take 100 mg by mouth in the morning. 024 Active hydrALAZINE (Apresoline) 50 MG tablet TAKE 1 TABLET BY MOUTH TWICE DAILY IN THE MORNING AND IN THE EVENING (HIGH BLOOD PRESSURE) 180 tablet 3 024 Active risperiDONE (RisperDAL) 0.5 MG tablet TAKE 1 TABLET BY MOUTH TWICE DAILY IN THE MORNING AND IN THE EVENING 024 Active lisinopril 30 MG tablet TAKE 1 TABLET BY MOUTH EVERY MORNING 90 tablet 3 5 2:37 PM EST 025 Active metoprolol tartrate (Lopressor) 25 MG tablet TAKE 1 TABLET BY MOUTH TWICE DAILY IN THE MORNING AND IN THE EVENING (for high blood pressure) 180 tablet 3 025 Active insulin pen needle (Pentips Generic Pen [place]) 32G x 4 mm misc USE DIRECTED [...] VOICES Active Blood Glucose Monitoring Suppl (FreeStyle [place] Lite) w/Device kitIndications :Type 2 diabetes mellitus with other specified complication, with long-term current use of insulin (HCC) Apply 1 each topically Once per day. 1 kit Active insulin glargine (Lantus SoloStar) 100 UNIT/ML pen Inject 20 Units under the skin at bedtime. 15 mL 3 5 2:37 PM EST Active loratadine (Claritin) 10 MG tablet Take 1 tablet (10 mg) by mouth Once per day. 90 tablet 3 5 2:37 PM EST 025 2025 Active thiamine (Vitamin B-1) 100 MG tabletIndicati ons:Alcohol abuse TAKE 1 TABLET BY MOUTH EVERY MORNING 90 tablet 3 5 4:45 PM EST Active folic acid (Folvite) 1 MG tabletIndicati ons:Alcohol abuse TAKE 1 TABLET BY MOUTH EVERY MORNING 90 tablet 3 5 4:45 PM EST Active metFORMIN (Glucophage) 1000 MG tabletIndicati ons:Type 2 diabetes mellitus with other specified complication, unspecified whether long-term insulin use (HCC) TAKE 1 TABLET BY MOUTH TWICE DAILY IN THE MORNING AND IN THE EVENING WITH FOOD 180 tablet 3 5 4:45 PM EST Active fenofibrate (Triglide) 160 MG tabletIndicati ons:Hypertrigl yceridemia TAKE 1 TABLET BY MOUTH EVERY EVENING 90 tablet 3 5 2:37 PM EST Active Salicylic Acid 40 % padsIndication s:Plantar wart Apply 1 Pad topically if needed at bedtime (plantar wart). 10 each 1 07/23/2 025 Active glucose blood (FREESTYLE LITE) test stripIndicatio ns:Type 2 diabetes mellitus with hyperglycemia, with long-term current use of insulin ([facility]) TEST BLOOD SUGAR 2 OR 3 TIMES DAILY 100 strip 025 Active TRUEplus Lancets 33G miscIndication s:Type 2 diabetes mellitus with hyperglycemia, with long-term current use of insulin ([facility]) TEST BLOOD SUGAR 4 TO 6 TIMES A DAY 100 each 025 Active naltrexone (Depade) 50 MG tabletIndicati ons:Severe alcohol dependence (CMS/HCC) ([facility]) TAKE 1 TABLET BY MOUTH EVERY MORNING WITH FOOD 30 tablet 11 5 2:37 PM EST 025 Active omeprazole (PriLOSEC) [address] capsuleIndicat ions:Gastroeso phageal reflux disease without esophagitis TAKE 1 CAPSULE BY MOUTH TWICE DAILY IN THE MORNING AND IN THE EVENING (for stomach acid) 180 capsule 3 025 Active gabapentin (Neurontin) 100 MG capsule TAKE 1 CAPSULE BY MOUTH AT BEDTIME 90 capsule 3 5 2:37 PM EST 025 Active atorvastatin (Lipitor) 80 MG tablet TAKE 1 TABLET BY MOUTH AT BEDTIME ((for cholesterol)) 90 tablet 3 5 2:37 PM EST 025 Active D3 Super Strength 50 MCG (1999 UT) capsuleIndicat ions:Vitamin D deficiency TAKE 1 CAPSULE BY MOUTH EVERY MORNING 90 capsule 3 5 4:45 PM EST 025 Active omega-3 acid ethyl esters (Lovaza) 1 g capsule TAKE 2 CAPSULES BY MOUTH TWICE DAILY IN THE MORNING AND EVENING 360 capsule 3 5 4:45 PM EST 025 Active Descovy 200-25 MG tabletIndicati ons:Encounter for HIV pre-exposure prophylaxis TAKE 1 TABLET BY MOUTH EVERY DAY 30 tablet 2 5 2:18 PM EST 025 Active Aspirin Low Dose 81 MG EC tablet TAKE 1 TABLET BY MOUTH AT BEDTIME ((for the heart)) 90 tablet 3 5 2:37 PM EST 025 Active Multiple Vitamins-[place] als (CertaVite/Ant ioxidants) tablet TAKE 1 TABLET BY MOUTH EVERY MORNING 90 tablet 3 Active ARIPiprazole (Abilify) 10 MG tablet Take 10 mg by mouth at bedtime. Active doxycycline (Vibramycin) 100 MG capsule Take 1 capsule by mouth 2 times daily. Active Trulicity 1.5 MG/0.5ML solution auto-injectorI ndications:Typ e 2 diabetes mellitus with other specified complication, with long-term current use of insulin (HCC) INJECT ONE PEN (=1.5MG) SUBCUTANEOUSLY ONCE A WEEK DIRECTED 2 mL 3 025 Active Multiple Vitamins-[place] als (CertaVite/Ant ioxidants) tablet TAKE 1 TABLET BY MOUTH EVERY MORNING 90 tablet 3 023 2024 Discontinued Aspirin Low Dose 81 MG EC tablet Take 1 tablet (81 mg) by mouth at bedtime. 90 tablet 3 024 2024 Discontinued Dulaglutide (Trulicity) 1.5 MG/0.5ML solution auto-injectorI ndications:Typ e 2 diabetes mellitus with other specified complication, with long-term current use of insulin (HCC) Inject 1.5 mg as directed 1 (one) time per week. 2 mL 3 5 2:37 PM EST 025 2024 Discontinued Descovy 200-25 MG tabletIndicati ons:Encounter for HIV pre-exposure prophylaxis TAKE 1 TABLET BY MOUTH ONCE DAILY 30 tablet 2 5 4:45 PM EST 025 2024 Discontinued Active Problems Problem Noted Date [...] Naltrexone 50mg daily Recommend AUD services at [facility] Assessment & Plan (04/10/2023 9:36 AM [...] here, he has his Bps checked at [facility], to please notify us of lows there [...] visit all his medications. - Patient at [facility]. Pure hypercholesterolemia 02/20/2012 Assessment & Plan (04/10/2023 9:43 AM EDT): On max dose statin (Atorvastatin 80mg nightly), fenofibrate 160mg, Jackpot 3 1gm BID Consider adding ezetimibe if [...] Encounters Date Type Department Care Team Description 09/13/2025 Refill [facility] [address] [place] [address] Carlene Lucas MD Type 2 diabetes mellitus with other specified complication, with long-term current use of insulin (HCC) 08/25/2025 Telephone [facility] [address] [place], [place] [phone] Carlene Lucas MD Call Back Request 08/24/2025 Telephone [facility] [address] [place], [place] [phone] Carlene Lucas MD chart prep 08/24/2025 Patient Outreach [facility] [address] [place] [address] Carlene Lucas MD Care Coordination (Communication to pts assigned CP Coordinator ) 08/23/2025 Patient Outreach [facility] [address] [place] [phone] Carlene Lucas MD Care Coordination (CP Care Coordination Chart Review) 08/23/2025 Refill [facility] [address] [place] [phone] Carlene Lucas MD 08/22/2025 Patient Outreach [facility] [address] [place] [phone] Carlene Lucas MD 08/21/2025 Orders Only [facility] External Provider, [facility] 08/21/2025 Telephone [facility] [address] [place] [phone] Carlene Lucas MD ER Follow-up 08/18/2025 Refill [facility] [address] [place] [phone] Carlene Lucas MD Encounter for HIV pre-exposure prophylaxis 08/09/2025 Telephone [facility] [address] [place] [phone] Carlene Lucas MD Medication Question 08/04/2025 Telephone [facility] [address] [place] [phone] Carlene Lucas MD telephone call; Care Coordination 07/26/2025 Refill [facility] [address] [place] [phone] [facility] Vitamin D deficiency 07/26/2025 Refill [facility] [address] [place] [address] Carlene Lucas MD 07/05/2025 Refill [facility] [address] [place] [phone] Carlene Lucas MD 06/27/2025 Refill [facility] [address] [place] [phone] Carlene Lucas MD Gastroesophageal reflux disease without esophagitis 06/23/2025 Telephone [facility] [address] [place] [phone] Carlene Lucas MD Care Coordination (ICP Care Plan) from Last 3 Months Immunizations Immunization Administration [...] 05/25/2025 10:59 AM EDT Plan of Treatment Health Maintenance [...] 01/13/2026 01/13/2025 Alcohol/Substance Use Screening 01/16/2026 01/16/2025 Depression Screening 04/12/2026 04/12/2025, 04/12/20 Diabetes: Foot Exam 04/12/2026 04/12/2025, 04/12/2025, 04/12/2025, Additional history exists Tobacco Screening 05/25/2026 05/25/2025 Lipid Panel 06/29/2026 06/29/2025, 12/20, 01/12/2023, Additional history exists Dental X-Ray: Full Mouth 04/02/2027 024, 09/28/2017, 03/08/2015, Additional history exists DTaP/Tdap/Td Vaccines (3 - Td or Tdap) 08/21/2035 08/21/2025, 03/25/2016, 12/29/2005, Additional history exists Hepatitis A Vaccines Aged [...] their type 2 diabetes No VangEmily white Patient has diabetic eye disease Care Plan Patient has diabetic eye disease No Vang, Emily Help patients manage their type 2 diabetes Care Plan Help patients manage their type 2 diabetes No VangEmily Patient has chronic kidney disease Care Plan Patient has chronic kidney disease No Emily Vang Weekly blood pressure task Care Plan Weekly blood pressure task No VangEmily white Weekly blood pressure task Care Plan Weekly blood pressure task No Emily Vang Patient has diabetic eye disease Care Plan Patient has diabetic eye disease No Vang, Emily Patient has diabetic eye disease Care Plan Patient has diabetic eye disease No VangEmily white Patient has chronic kidney disease Care Plan Patient has chronic kidney disease No Emily Vang Patient has chronic [...] Plan Patient has diabetic eye disease No [place] Patient has diabetic eye disease Care Plan [...] Care Plan Weekly blood pressure task No Carlene Lucas MD Weekly blood pressure task Care Plan Weekly blood pressure task No Carlene Lucas MD Weekly blood pressure task Care Plan Weekly blood pressure task No Carlene Lucas MD Patient has diabetic eye disease Care Plan Patient has diabetic eye disease No Carlene Lucas MD Patient has diabetic eye disease Care Plan Patient has diabetic eye disease No Carlene Lucas MD Patient has diabetic eye disease Care Plan Patient has diabetic eye disease No Carlene Luacs MD Patient has chronic kidney disease Care Plan Patient has chronic kidney disease No Carlene Lucas MD Patient has chronic kidney disease Care Plan Patient has chronic kidney disease No Carlene Lucas MD Patient has chronic kidney disease Care Plan Patient has chronic kidney disease No Carlene Lucas MD Weekly blood pressure task Care Plan Weekly blood pressure task No Jasmine Mason MA Weekly blood pressure task Care Plan Weekly blood pressure task No Jasmine Mason MA Weekly blood pressure task Care Plan Weekly blood pressure task No Jasmine Mason MA Patient has diabetic eye disease Care Plan Patient has diabetic eye disease No Jasmine Mason [place] Patient has diabetic eye disease Care Plan Patient has diabetic eye disease No Jasmine Mason [place] Patient has diabetic eye disease Care Plan Patient has diabetic eye disease No Jasmine Mason [place] Patient has chronic kidney disease Care Plan Patient has chronic kidney disease No Jasmine Mason [place] Patient has chronic kidney disease Care Plan Patient has chronic kidney disease No Jasmine Mason [place] Patient has chronic kidney disease Care Plan Patient has chronic kidney disease No Jasmine Mason MA Weekly blood pressure task Care Plan Weekly blood pressure task No Eddi Em Weekly blood pressure task Care Plan Weekly blood pressure task No Eddi Em Weekly blood pressure task Care Plan Weekly blood pressure task No Eddi Em Patient has diabetic eye disease Care Plan Patient has diabetic eye disease No Eddi Em Patient has diabetic eye disease Care Plan Patient has diabetic eye disease No Eddi Em Patient has diabetic eye disease Care Plan Patient has diabetic eye disease No Eddi Em Patient has chronic kidney disease Care Plan Patient has chronic kidney disease No Eddi Em Patient has chronic kidney disease Care Plan Patient has chronic kidney disease No Eddi Em Patient has chronic kidney disease Care Plan Patient has chronic kidney disease No Eddi Em Procedures Procedure Name Priority Date/Time Associated Diagnosis Comments XR HAND 3+ VIEWS RIGHT Routine 09/19/2025 2:56 PM EST XR FINGERS 2+ VIEWS RIGHT Routine 08/21/2025 [...] AM EDT Screening examination for pulmonary tuberculosis HEPATITIS C AB W/REFL TO HCV RNA, [...] Relevant to Health Maintenance Results * XR Hand 3+ Views Right (09/19/2025 2:56 PM EST) Anatomical Region Laterality Modality Upper Extremities, Hand Right [facility] 09/19/2025 2:56 PM EST Narrative 09/19/2025 3:18 PM EST [facility] [address] [place] [address] XRay Report Signed Patient: Daniel Angulo MR#: [id number] 5 : 1965 Acct:[id number] Age/Sex: 59 / M ADM Date: 09/19/25 Loc: HO.HOSX Attending Dr: Concepcion Quinones MD Ordering Physician: Concepcion Quinones MD Date of Service: 09/19/25 Procedure(s): XR hand RT min 3V Accession Number(s): [id number] cc: Carlene Lucas; Concepcion Quinones MD Reason for Exam: M79.641 - Pain in right hand EXAMINATION: XR HAND 3 OR MORE VIEWS RIGHT HISTORY: M79.641 - Pain in right hand COMPARISON: Comparison is made with the prior examination dated 08/23/2025. FINDINGS: Three views of the right hand are submitted. Osseous mineralization is normal. 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 There is mild narrowing of the DIP joints. There are vascular calcifications. 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 Electronically signed by: Francisco Monae MD 09/19/2025 03:16 PM EST Dictated By: Francisco Monae MD Signed By: <Electronically signed by Francisco Mnoae MD in OV> 09/19/25 1516 DD/ 1456 TD/TT: 09/19/25 1459 Manager Of School: Procedure Note Donotuseinterpreter, Image - 09/19/2025 [facility] [address] [place] [address] XRay Report Signed Patient: Daniel AnguloMR#: [id number] 5 : 1965Acct:[id number] Age/Sex: 59 / MADM Date: 09/19/25 Loc: HO.HOSX Attending Dr: Concepcion Quinones MD Ordering Physician: Concepcion Quinones MD Date of Service: 09/19/25 Procedure(s): XR hand RT min 3V Accession Number(s): [id number] cc: Carlene Lucas; Concepcion Quinones MD Reason for Exam: M79.641 - Pain in right hand EXAMINATION: XR HAND 3 OR MORE VIEWS RIGHT HISTORY: M79.641 - Pain in right hand COMPARISON: Comparison is made with the prior examination dated 08/23/2025. FINDINGS: Three views of the right hand are submitted. Osseous mineralization is normal. 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 There is mild narrowing of the DIP joints. There are vascular calcifications. 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 Electronically signed by: Francisco Monae MD 09/19/2025 03:16 PM EST Dictated By: Francisco Monae MD Signed By: <Electronically signed by Francisco Monae MD in OV> 09/19/25 1516 DD/ 1456 TD/TT: 09/19/25 1459 Manager Of School: [facility] External Provider IMG XR PROCEDURES Final Result * XR Fingers 2+ Views Right (08/21/2025 2:36 PM EST) Anatomical Region Laterality Modality Upper Extremities, Fingers Right Radio graphic Imaging 08/21/2025 2:36 PM EST Narrative 08/21/2025 3:03 PM EST [address] [address] XRay Report Signed Patient: Daniel Angulo MR#: [id number] 5 : 1965 Acct:[id number] Age/Sex: 59 / M ADM Date: 08/21/25 Loc: HO.ED Attending Dr: Ordering Physician: Nelly Dixon Date of Service: 08/21/25 Procedure(s): XR finger RT min 2V Accession Number(s): [id number] cc: Carlene Lucas; Nelly Dixon Reason for [...] by: Logan Kee MD 08/21/2025 02:59 PM [facility] Dictated By: Logan Kee MD Signed By: <Electronically signed by Logan Kee MD in OV> 08/21/25 1459 DD/ 1436 TD/TT: 08/21/25 1445 Manager Of School: Procedure Note Donotuseinterpreter, Image - 08/21/[address] [address] XRay Report Signed Patient: Daniel AnguloMR#: [id number] 5 : 1965Acct:[id number] Age/Sex: 59 / MADM Date: 08/21/25 Loc: .ED Attending Dr: Ordering Physician: Nelly Dixon Date of Service: 08/21/25 Procedure(s): XR finger RT min 2V Accession Number(s): [id number] cc: Carlene Lucas; Nelly Dixon Reason for [...] 08/21/25 1459 DD/ 1436 TD/TT: 08/21/25 1445 Manager Of School: us [facility] External Provider IMG XR PROCEDURES Final Result * (ABNORMAL) Glucose, Whole Blood (08/21/2025 1:55 PM EST) Glucose, Whole Blood 186(H) 60 - 115 mg/dL [facility] Comment:METER #: [id number] 08/21/2025 1:55 PM EST 08/21/2025 1:58 PM EST Generic External Data Provider LAB BLOOD ORDERAB LES Final Result [facility] [address] [place] [phone] * (ABNORMAL) CBC auto differential (08/21/2025 1:28 PM EST) Only the most recent of2 resultswithin the time period is included. White Blood Count 5.0 4.8 - 10.8 X10*3/uL [facility] Red Blood Count 3.94(L) 4.60 - 5.80 X10*6/uL [facility] Hemoglobin 13.4(L) 14.0 - 18.0 g/dl [facility] Hematocrit 39.1(L) 42.0 - 52.0 % [facility] Mean Corpuscular Volume 99.2(H) 80.0 - 98.0 fL [facility] Mean Corpuscular Hemoglobin 34.0(H) 27.0 - 33.0 pg [facility] Mean Corpuscular HGB Conc 34.3 31.0 - 36.0 g/dl [facility] Red Cell Distribution Width 12.4 11.0 - 16.0 % [facility] Platelet Count 265 160 - 400 X10*3/uL [facility] Mean Platelet Volume 9.5 9.4 - 12.4 fL [facility] Neutrophils Percent Auto 40.2(L) 45 - 73 % [facility] Imm Gran Pct Auto 0.2 0.0 - 0.4 % [facility] Lymphocytes Percent Auto 46.0(H) 20 - 40 % [facility] Monocytes Percent Auto 9.0 2 - 11 % [facility] Eosinophils Percent Auto 3.4 0 - 4 % [facility] Basophils Percent Auto 1.2 0 - 2 % [facility] NRBC Pct Auto 0.0 0.0 - 0.2 /100WBC [facility] Neutrophils Absolute Auto 2.0 2.0 - 8.3 x10*3/uL [facility] Imm Gran Abs Auto 0.01 0.00 - 0.03 X10*3/uL [facility] Lymphocytes Absolute Auto 2.3 1.2 - 4.9 X10*3/uL [facility] Monocytes Absolute Auto 0.5 0.1 - 1.2 X10*3/uL [facility] Eosinophils Absolute Auto 0.2 0.0 - 0.4 X10*3/uL [facility] Basophils Absolute Auto 0.1 0.0 - 0.2 X10*3/uL [facility] NRBC Abs Auto 0.000 0.0 - 0.012 X10*3/uL [facility] 08/21/2025 1:28 PM EST 08/21/2025 1:37 PM EST us Generic External Data Provider LAB BLOOD ORDERAB LES Final Result Performing Organization Address [facility]/ZIP Co de Phone Number [facility] [address] [place] [phone] * Type and screen (08/21/2025 1:28 PM EST) Blood Type AP [facility] Antibody Screen NEGATIVE [facility] 08/21/2025 1:28 PM EST 08/21/2025 1:41 PM EST Generic External Data Provider LAB BLOOD BANK TE ST ORDERABLES Final Result Performing Organization Address [facility]/ZIP Co de Phone Number [facility] [address] [place] [phone] * Hepatic Function Panel (08/21/2025 1:28 PM EST) Bilirubin, Total 0.4 0.0 - 1.0 mg/dL [facility] Bilirubin, Direct 0.1 0.0 - 0.5 mg/dL [facility] Aspartate Amino Transferase 27 5 - 37 U/L [facility] Alanine Aminotransferase 20 0 - 40 U/L [facility] Total Protein 7.4 6.5 - 8.0 g/dL [facility] Albumin Level 4.5 3.5 - 5.0 g/dL [facility] Alkaline Phosphatase 95 39 - 117 U/L [facility] 08/21/2025 1:28 PM EST 08/21/2025 1:37 PM EST us Generic External Data Provider LAB BLOOD ORDERAB LES Final Result Performing Organization Address City/[facility]/ZIP Co de Phone Number [facility] [address] [place] [phone] * (ABNORMAL) Basic Metabolic Panel (08/21/2025 1:28 PM EST) Sodium 136 135 - 145 mmol/L [facility] Potassium 3.7 3.3 - 5.1 mmol/L [facility] Chloride 101 96 - 108 mmol/L [facility] Carbon Dioxide 21(L) 22 - 29 mmol/L [facility] Anion Gap 18 12 - 20 [facility] Urea Nitrogen (BUN) 12 9 - 16 mg/dL [facility] Creatinine, Serum 0.77 0.5 - 1.4 mg/dL [facility] Creatinine Clr Calc Pharmacy 92.0 [facility] Comment:eGFR (calculated fro m the MDRD study equation) and eCrCl(calculated from the Cockcroft-Gault equation) are based ondifferent parameters and may not yield comparable results.If eCrCl result is absurd, please check patient'sheight/weight. Estimated Glomerular Filt Rate >60 [facility] Comment:Chronic Kidney Disea se: Estimated GFR < 60 mL/min/1.74d2Nhviqx Kidney Disease: Estimated GFR < 15 mL/min/1.73m2 Glucose 244(H) 60 - 115 mg/dL [facility] Calcium 9.7 8.4 - 10.2 mg/dL [facility] 08/21/2025 1:28 PM EST 08/21/2025 1:37 PM EST us Generic External Data Provider LAB BLOOD ORDERAB LES Final Result Performing Organization Address City/[facility]/ZIP Co de Phone Number [facility] [address] [place] [phone] * T-SPOT??.TB (06/29/2025 8:03 AM EDT) [facility] T Spot TB Negative Negative [facility] Comment:A negative test resu lt does [...] as aquantitative test. TS PANEL A 1 [facility] TS PANEL B 0 [facility] Negative Control Passed [facility] Positive Control Passed [facility] Comment:For additional infor wilberto, please refer [email or web address]/faq/PCK212(This link is being provided for informational/educational purposes only.)THIS TEST WAS PERFORMED AT:[facility] [place] [address]UIOSITEJORGITO FAJARDO MD,PHD 06/29/2025 8:03 AM EDT 06/29/2025 8:03 AM EDT us Carlene Lucas MD LAB BLOOD ORDERABLES Final Res ult [facility] [address] [place] [address] [phone] * TSH (06/29/2025 8:03 AM EDT) Thyroid Stimulating Hormone 2.01 0.32 - 4.0 uIU/mL [facility] Comment:TSH 3rd Generation ( [facility]) 06/29/2025 8:03 AM EDT 06/29/2025 8:03 AM EDT Generic External Data Provider LAB BLOOD ORDERAB LES Final Result Performing Organization Address City/[facility]/ZIP Co de Phone Number [facility] [address] [place] [phone] * (ABNORMAL) Hemoglobin A1c (06/29/2025 8:03 AM EDT) Hemoglobin A1c 8.2(H) <6.0 % [facility] Comment:Hemoglobin A1C Refer ence Range Adults: 4.8 - 6.0 % Non diabetic: < 6.0 % Goal: < 7.0 %Additional Action Suggested: > 8.0 %Note: Hemoglobin A1c results are invalid for patients with abnormal amounts of HbF. Blood transfusions may impact the HbA1c concentration in the patient sample. Estimated Average Glucose 189 mg/dL [facility] Comment:eAG = Estimated ave rage glucose which is %A1C expressed asaverage glucose, using the formula of the P2G-DasxgztGzzhifh Glucose study (ADAG), Diabetes Care, Vol.31,#8,Apr. 2007 06/29/2025 8:03 AM EDT 06/29/2025 8:03 AM EDT us Generic External Data Provider LAB BLOOD ORDERAB LES Final Result Performing Organization Address [facility]/ZIP Co de Phone Number [facility] [address] [place] [phone] * (ABNORMAL) Lipid Panel, Standard (06/29/2025 8:03 AM EDT) Triglycerides 369(H) <150 mg/dL [facility] Comment:Desirable Triglyceri de: less than 150 mg/dLBorderline High Triglyceride 150-199 mg/dLHigh Triglyceride: 200-499 mg/dLVery High Triglyceride: greater than or equal to 5OO mg/dL Cholesterol 146 <200 mg/dL [facility] Comment:Desirable Cholestero l: less than 200 mg/dLBorderline High Cholesterol: 200-239 mg/dLHigh Cholesterol: greater than 239 mg/dL LDL Cholesterol Calculated 45 <100 mg/dL [facility] Comment:Desirable LDL: less than 100 mg/dLNear Optimal/Above Optimal LDL: 110- 129 mg/dLBorderline High LDL: 130-159 mg/dLHigh LDL: 160-189 mg/dLVery High LDL: greater than or equal to 190 mg/dL HDL Cholesterol 28(L) >40 mg/dL [facility] Comment:Desirable HDL: great er than 40 mg/dL Note: This HDL assay may give artificially low results in patients with liver disease. 06/29/2025 8:03 AM EDT 06/29/2025 8:03 AM EDT us Generic External Data Provider LAB BLOOD ORDERAB LES Final Result [facility] [address] [place] [phone] * (ABNORMAL) Comprehensive Metabolic Panel (06/29/2025 8:03 AM EDT) Sodium 139 135 - 145 mmol/L [facility] Potassium 4.3 3.3 - 5.1 mmol/L [facility] Chloride 106 96 - 108 mmol/L [facility] Carbon Dioxide 26 22 - 29 mmol/L [facility] Anion Gap 11(L) 12 - 20 [facility] Urea Nitrogen (BUN) 17(H) 9 - 16 mg/dL [facility] Creatinine, Serum 0.77 0.5 - 1.4 mg/dL [facility] Estimated Glomerular Filt Rate >60 [facility] Comment:Chronic Kidney Disea se: Estimated GFR < 60 mL/min/1.22o7Iolmnj Kidney Disease: Estimated GFR < 15 mL/min/1.73m2 Glucose 241(H) 60 - 115 mg/dL [facility] Calcium 9.2 8.4 - 10.2 mg/dL [facility] Bilirubin, Total 0.3 0.0 - 1.0 mg/dL [facility] Aspartate Amino Transferase 34 5 - 37 U/L [facility] Alanine Aminotransferase 29 0 - 40 U/L [facility] Total Protein 6.8 6.5 - 8.0 g/dL [facility] Albumin Level 4.0 3.5 - 5.0 g/dL [facility] Alkaline Phosphatase 97 39 - 117 U/L [facility] 06/29/2025 8:03 AM EDT 06/29/2025 8:03 AM EDT us Generic External Data Provider LAB BLOOD ORDERAB LES Final Result Performing Organization Address [facility]/ZIP Co de Phone Number [facility] [address] [place] [phone] * Albumin, Random Urine W/Creatinine (01/04/2025 10:34 AM EDT) Creatinine, Urine 19.84 mg/dL [facility] Microalbumin Urine <5.0 mg/L [facility] Microalbum Creatinine Ratio Ur TNP <30 ug/mg cr [facility] Comment:Unable to calculate albumin/creatinine ratio due to lowmicroalbumin or creatinine result. Urine (Urine, Random) 01/04/2025 10:34 AM EDT 01/04/2025 11:09 AM EDT us Carlene Lucas MD LAB URINE ORDERABLES Final Res ult Performing Organization Address City/[facility]/ZIP Co de Phone Number [facility] [address] [place] [phone] * Hepatitis C Antibody with Reflex to HCV, RNA, Quantitative, Real-Time PCR (01/04/2025 10:34 AM EDT) Hepatitis C Antibody Nonreactive Nonreactive [facility] Comment:Antibodies to HCV no t detected; does not exclude early acuteHCV infection. Blood Venous blood specimen / Unknown 01/04/2025 10:34 AM EDT 01/04/2025 11:10 AM EDT Carlene Lucas MD LAB BLOOD ORDERABLES Final Res ult Performing Organization Address [facility]/ZIP Co de Phone Number [facility] [address] [place] [phone] * HIV-1/2 Antigen and Antibodies, Fourth Generation, with Reflexes (01/04/2025 10:34 AM EDT) [facility] HIV AB/AG Nonreactive Nonreactive [facility] Comment:HIV-1 p24 Ag and/or HIV-1/HIV-2 Ab not detected.A test result that is nonreactive does not exclude thepossibility of exposure to or infection with HIV-1 and/orHIV-2. Nonreactive results in this assay for individualswith prior exposure to HIV-1 and/or HIV-2 may be due toantigen and antibody levels that are below the limit ofdetection of this assay.[facility] HIV Ag/Ab Combo assay result andsupplemental assay results should be interpreted inconjunction with the patient's clinical presentation,history and other laboratory results. If the results areinconsistent with clinical evidence, additional testing issuggested to confirm the result. Blood Venous blood specimen / Unknown 01/04/2025 10:34 AM EDT 01/04/2025 11:10 AM EDT Carlene Lucas MD LAB BLOOD ORDERABLES Final Res ult Performing Organization Address City/[facility]/ZIP Co de Phone Number [facility] [address] [place] [phone] * Hm Colonoscopy (09/11/2020 9:39 AM [...] 08/24/2025 Patient has chronic kidney disease 08/24/2025 Weekly blood pressure task 08/24/2025 Weekly blood pressure task 08/24/2025 Weekly blood pressure task 08/24/2025 Patient has diabetic eye disease 08/24/2025 Patient has diabetic eye disease 08/24/2025 Patient has diabetic eye disease 08/24/2025 Patient has chronic kidney disease 08/24/2025 Patient has chronic kidney disease 08/24/2025 Patient has chronic kidney disease 08/24/2025 Weekly blood pressure task 08/24/2025 Weekly blood pressure task 08/24/2025 Weekly blood pressure task 08/24/2025 Patient has diabetic eye disease 08/24/2025 Patient has diabetic eye disease 08/24/2025 Patient has diabetic eye disease 08/24/2025 Patient has chronic kidney disease 08/24/2025 Patient has chronic kidney disease 08/24/2025 Patient has chronic kidney disease 08/24/2025 Weekly blood pressure task 08/25/2025 Weekly blood pressure task 08/25/2025 Weekly blood pressure task 08/25/2025 Patient has diabetic eye disease 08/25/2025 Patient has diabetic eye disease 08/25/2025 Patient has diabetic eye disease 08/25/2025 Patient has chronic kidney disease 08/25/2025 Patient has chronic kidney disease 08/25/2025 Patient has chronic kidney disease 08/25/[address] [facility] [place] ST[place] AD[place] Care Teams Flat Surfacer Jewel Relationship Specialty Start Date End Date Carlene Lucas MD [address] [place] [phone] PCP - General Family Medicine 10/14/22 Gee Gallardo Music CoordinatorCow Rider 02/24/24 Gee Gallardo Interviewing ClerkCow Rider 10/06/24
--- OUTSIDE RECORDS SUMMARY | 2025-09-19 18:08 | XMS_ITS | Encounter Summary ---
Author Organization [employer] Address [address] [facility] [address]t [place] [address] Care Team Providers Care Rn Faculty Name Role Phone Carlene Lucas MD Primary Care Provider [phone] Argenis Garcia RN Unavailable [phone] Cynthia Malik Unavailable Reason for Visit * Reason Onset Date Comments ER Follow-up 11/11/2022 Encounter Details Date Type Department Care Team ([facility] st Contact Info) Description 11/11/2022 Telephone [facility] [address] [place] [address] Carlene Lucas MD [address] [place] [address] ER Follow-up Social History Tobacco Use Types [...] to report ED visit on 11/06/22 at [facility]. Diagnosed with minor stroke. Patient advisedwill forward to team nurse for follow up. documented in this encounter Plan of Treatment Not on file documented as of this encounter Visit Diagnoses Not on filedocumented in this encounter Care Teams Rn Faculty Relationship Specialty Start Date End Date Carlene Lucas MD [address] [place] [address] PCP - General Family Medicine 10/14/22 Argenis Garcia, RN Registered Nurse Internal Medicine 08/22/25 08/23/25 Cynthia Malik 08/23/25 08/24/25 Gee Gallardo Amusement Ride OperatorSupervisor Ornamental Ironworking 02/24/24 Gee Gallardo Hand TrimmerSupervisor Ornamental Ironworking 10/06/24 documented as of this encounter
--- OUTSIDE RECORDS SUMMARY | 2025-09-19 18:08 | XMS_ITS | Patient Health Record ---
Author Organization [facility] Address [address] [place] [address] Care Team Providers Care Vendor Management Specialist Name Role Phone EverettJihan Primary Care Provider Arsenio Clinton Jr Unavailable [phone] Reason For Referral No Information Problems Problem Type SNOMED Code ICD Code Onset Dates Problem Status W/U Status Risk Notes Problem Dysphagia (95004933) Dysphagia (R13.10) Active confirmed Problem Erosive esophagitis (91652475) Erosive esophagitis (K22.10) Active confirmed Problem Ulcer of esophagus (37961887) Esophagitis, erosive (K22.10) Active confirmed Problem Erosive gastritis (810650585682158 0) Erosive gastritis (K29.60) Active confirmed Plan Of Treatment Future Test Test Name Order Date UPPER GI ENDOSCOPY 12/03/2022 Insurance Providers Payer Name Payer Address Payer Phone Subscriber Number Group Number Insured Name Patient Relationship to Insured Coverage Start Date Coverage End Date MEDICAID OF [facility] [address] [place] [phone] [id number] YARELY MAC Self - patient is the insured
--- OUTSIDE RECORDS SUMMARY | 2025-09-19 18:08 | XMS_ITS | Encounter Summary ---
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 I informed him the the forms nurse called [facility], and was told that the most hours that they offer are 7 hours a week. I asked if he would like to be referred to a different agency, such as [facility] or [facility], but he stated that he would call back tomorrow and disconnected the call. Encounter Details Date Type Department Care Team (Late st Contact Info) Description 10/28/[address] 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 I informed him the the forms nurse called [facility], and was told that the most hoursthat they offer are 7 hours a week. I asked if he would like to be referred to a different agency, such as [facility] or [facility], but he stated that he would call back tomorrow and disconnected the call. documented in this encounter Plan of Treatment Not on file documented as of this encounter Visit Diagnoses Not on filedocumented in this encounter Additional Health Concerns Assessment Noted Time PHQ-9 Depression Total Score: 8 08/31/20 23 1:46 PM EST documented as of this encounter Care Teams Sunday [employer] Missionary Relationship Specialty Start Date End Date Carlene Lucas MD [address] [place] [address] PCP - General Family Medicine 10/14/22 Argenis Garcia, RN Registered Nurse Internal Medicine 08/22/25 08/23/25 Cynthia Malik 08/23/25 08/24/25 Gee Gallardo Db2 Systems ProgrammerTractor Operator Laser Leveling 02/24/24 Gee Gallardo Electric Meter SetterTractor Operator Laser Leveling 10/06/24 documented as of this encounter
--- OUTSIDE RECORDS SUMMARY | 2025-09-19 18:08 | XMS_ITS | Encounter Summary ---
Author Organization [employer] Address [address] [facility] 7t [place] [address] Care Team Providers Care Harvest Worker Fruit Name Role Phone Calrene Lucas MD Primary Care Provider [phone] Argenis Garcia RN Unavailable [phone] Cynthia Malik Unavailable Reason for Visit * Reason Onset Date Comments Nurse Triage 05/21/2023 Encounter Details Date Type Department Care Team ([facility] st Contact Info) Description 05/21/2023 Telephone [facility] [address] [place] [address] Carlene Luacs MD [address] [place] [address] Nurse Triage Social History Tobacco Use Types [...] 05/21/2023 2:46 PM EDT Triage call with [employer] Director Of Informatics [place] [id number] Pt reports upper abdominal pain, above umbilicus, which is hard to describe . Pt reports heart burn, sour taste in mouth and some times feels like chest pain. Pt denies dizziness, light headedness, difficulty breathing. Pt is advised to come to [facility] to be seen by provider and Pt [...] accepted this outcome Please contact pt at [phone] documented in this encounter Plan of Treatment Not on file documented as of this encounter Visit Diagnoses Not on filedocumented in this encounter Additional Health Concerns Assessment Noted Time PHQ-9 Depression Total Score: 4 01/13/20 23 1:46 PM EDT documented as of this encounter Care Teams Harvest Worker Fruit Relationship Specialty Start Date End Date Carlene Lucas MD [address] [place] [address] PCP - General Family Medicine 10/14/22 Argenis Garcia, RN Registered Nurse Internal Medicine 08/22/25 08/23/25 Cyntiha Malik 08/23/25 08/24/25 Gee Gallardo Bull Fiddle PlayerButton Station Worker 02/24/24 Gee Gallardo Surfacer OperatorButton Station Worker 10/06/24 documented as of this encounter
--- OUTSIDE RECORDS SUMMARY | 2025-09-19 18:08 | XMS_ITS | Encounter Summary ---
Author Organization [employer] Address [address] [facility] 7t [place] [address] Care Team Providers Care Power Sewing Machine Operator Name Role Phone Carlene Lucas MD Primary Care Provider [phone] Argenis Garcia RN Unavailable [phone] Cynthia Malik Unavailable Reason for Visit * Reason Comments Med Refill Encounter Details Date Type Department Care Team ([facility] st Contact Info) Description 10/21/2023 Refill [facility] [address] [place] [address] Marley Obregon MD [address] [place] [address] Social History Tobacco Use Types Packs/Day Years [...] documented as of this encounter Care Teams Power Sewing Machine Operator Relationship Specialty Start Date End Date Carlene Lucas MD [address] [place] [address] PCP - General Family Medicine 10/14/22 Argenis Garcia, SERA Registered Nurse Internal Medicine 08/22/25 08/23/25 Cynthia Malik 08/23/25 08/24/25 Gee Gallardo Window DresserPastry Cook 02/24/24 Gee Gallardo Sand System OperatorPastry Cook 10/06/24 documented as of this encounter
--- OUTSIDE RECORDS SUMMARY | 2025-09-19 18:08 | XMS_ITS | Encounter Summary ---
Author Organization [employer] Address [address] [facility] 7t [place] [address] Care Team Providers Care Vault Cashier Name Role Phone Carlene Lucas MD Primary Care Provider [phone] Argenis Garcia RN Unavailable [phone] Cynthia Malik Unavailable Encounter Details Date Type Department Care Team (Late st Contact Info) Description 02/01/2024 Orders Only [facility] [address] [place] [address] Provider, MD Akanksha Social History Tobacco Use [...] documented as of this encounter Care Teams Vault Cashier Relationship Specialty Start Date End Date Carlene Lucas MD [address] [place] [address] PCP - General Family Medicine 10/14/22 Argenis Garcia, SERA Registered Nurse Internal Medicine 08/22/25 08/23/25 Cynthia Malik 08/23/25 08/24/25 Gee Gallardo Bench InspectorEchocardiography Technologist 02/24/24 Gee Gallardo Enterprise ArchitectEchocardiography Technologist 10/06/24 documented as of this encounter
--- OUTSIDE RECORDS SUMMARY | 2025-09-19 18:08 | XMS_ITS | Encounter Summary ---
Author Organization [employer] Address [address] [facility] 7t [place] [address] Care Team Providers Care Technical Expert Name Role Phone Carlene Lucas MD Primary Care Provider [phone] Argenis Garcia RN Unavailable [phone] Cynthia Malik Unavailable Encounter Details Date Type Department Care Team (Late st Contact Info) Description 05/26/2023 Abstract [facility] [address] [place] [address] Carlene Lucas MD [address] [place], [place] [phone] Social History Tobacco Use Types Packs/Day Years [...] documented as of this encounter Care Teams Technical Expert Relationship Specialty Start Date End Date Carlene Lucas MD [address] [place], [place] [phone] PCP - General Family Medicine 10/14/22 Argenis Garcia, RN Registered Nurse Internal Medicine 08/22/25 08/23/25 Cynthia Malik 08/23/25 08/24/25 Gee Gallardo Building CustodianCentral Supply Supervisor 02/24/24 Gee Gallardo Fur GraderCentral Supply Supervisor 10/06/24 documented as of this encounter
--- OUTSIDE RECORDS SUMMARY | 2025-09-19 18:08 | XMS_ITS | Encounter Summary ---
Author Organization [employer] Address [address] [facility] [address]t [place] [address] Care Team Providers Care Endocrinology Physician Name Role Phone Carlene Lcuas MD Primary Care Provider [phone] Argenis Garcia RN Unavailable [phone] Cynthia Malik Unavailable Reason for Visit * Reason Onset Date Comments Nurse Triage 06/03/2023 Encounter Details Date Type Department Care Team ([facility] st Contact Info) Description 06/03/2023 Telephone [facility]INE [address] [place] [address] Carlene Lucas MD [address] [place] [address] Nurse Triage Social History Tobacco Use Types [...] documented as of this encounter Care Teams Endocrinology Physician Relationship Specialty Start Date End Date Carlene Lucas MD [address] [place] [address] PCP - General Family Medicine 10/14/22 Argenis Garcia, RN Registered Nurse Internal Medicine 08/22/25 08/23/25 Cynthia Malik 08/23/25 08/24/25 Gee Gallardo Enroute ControllerManager Data Center 02/24/24 Gee Gallardo Smoking Pipe RepairerManager Data Center 10/06/24 documented as of this encounter
== END 2025-09-19 15:07 | disposition home or self-care (01) ==
LOC: HO.HOS 14:27
PROVIDERS: PCP General Practice; Visit Provider Orthopaedic Surgery
DX: S62.639B Displaced fracture of distal phalanx of unspecified finger, initial encounter for open fracture (principal); S68.620A Partial traumatic transphalangeal amputation of right index finger, initial encounter; T81.40XA Infection following a procedure, unspecified, initial encounter; F31.9 Bipolar disorder, unspecified; F10.90 Alcohol use, unspecified, uncomplicated; E11.9 Type 2 diabetes mellitus without complications
CPT/HCPCS: 99024

== ENCOUNTER 2025-09-19 14:27 | Outpatient (REF) | payer MEDICAID, SELFPAY ==
--- NOTE | ~2025-09-19 | XR_ITS ---
EXAMINATION: XR HAND 3 OR MORE VIEWS RIGHT HISTORY: M79.641 - Pain in right hand COMPARISON: Comparison is made with the prior examination dated 08/23/2025. FINDINGS: Three views of the right hand are submitted. Osseous mineralization is normal. 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 There is mild narrowing of the DIP joints. There are vascular calcifications. 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 Electronically signed by: Francisco Monae MD 09/19/2025 03:16 PM [facility]
== END 2025-09-19 14:28 | disposition home or self-care (01) ==
LOC: HO.HOSX 14:27
PROVIDERS: PCP General Practice; Visit Provider Orthopaedic Surgery
DX: T81.40XA Infection following a procedure, unspecified, initial encounter (principal); S62.630B Displaced fracture of distal phalanx of right index finger, initial encounter for open fracture; E11.9 Type 2 diabetes mellitus without complications; F31.9 Bipolar disorder, unspecified; F10.90 Alcohol use, unspecified, uncomplicated
CPT/HCPCS: 73130; 99212

== ENCOUNTER → 2025-09-19 14:56 | Outpatient (BNV) | payer MEDICAID, SELFPAY | PROVIDERS: PCP General Practice; Visit Provider Radiology Diagnostic Radiology | DX: Z89.021 Acquired absence of right finger(s) (principal) | CPT/HCPCS: 73130 ==